=== PATIENT | male | born 1950 | race Caucasian/White ===

== ENCOUNTER 2020-05-31 12:30 | Outpatient (RCR) | payer MEDICARE, MEDICAID, SELFPAY ==
--- NOTE | 2020-03-15 13:53 | PTOPEVAL ---
PHYSICAL THERAPY EVALUATION AND PLAN OF TREATMENT 03-15-2020 The PT evaluation was completed and the plan of care is scheduled for 3x/week for 5 weeks. Thank you for referring Moreno Khan to [facility].? Please review, sign, date and return this plan of care RADHA. I agree with and certify that the following plan of care is medically necessary. Referring Physician Date Attending Provider: Bolivar Donald MD. *PT Outpatient Evaluation Start: 03/15/20 12:37 Document 03/15/20 12:30 CAROLYN (Rec: 03/15/20 13:52 CAROLYN [id number]) Therapy Assessment Status Assessment Status Assessment Status Evaluation Outpatient Past Medical History Past Medical History Source of Past Medical History Patient Neurological History Hx Other Neurological Disorders Yes: neuropathy in both legs Cardiovascular History Hx Atrial Fibrillation Yes: 3 cardiac ablations Hx Hypercholesterolemia Yes: take meds Hx Hypertension Yes: take meds Respiratory History Hx Sleep Apnea Yes: CPAP Gastrointestinal History Hx Other Gastrointestinal Disorders Yes: trying to get gastric bypass surgery-due COVID delayed Genitourinary History Hx Nephrectomy Yes: R kidney partial remove due cancer Hx Other Genitourinary Disorders Yes: stone bile duct-surgical stent R groin area Musculoskeletal History Hx Arthritis Yes: B hip OA Hematological History Hx Hematological Disorders No Significant History Endocrine History Hx Diabetes Yes: meds HEENT History Hx HEENT Disorders No Significant History Integumentary History Hx Cellulitis Yes Pain History Has Past Pain Affected Your Daily Life Yes History of Long-Term Prescription Pain Yes: oxycodone Medication Use (Opiates) Effective Methods of Pain Control Hip OA, R>L Other History Hx Cancer Yes: kidney cancer-R partial removal; no chemo,no radiation Hx Other Surgeries Yes: gall bladder removed; vascular surgery B LE's Evaluation Information Problem Diagnosis B LE lymphedema Onset February 25, 2020 Prior Level of Function Activity Level (Last 3 Months) Occupation not working, medically disabled Activity of Daily Living Ability Independent Indoor/Home Mobility Independent Community Mobility Independent Stairs Ability Independent Functional Cognition (Planning, Shopping Independent , Taking Medications) Cooking Yes Cleaning Yes Laundry No Shopping
--- NOTE | 2020-04-17 09:31 | PCPTNOTE ---
Pt called and stated he has multiple blisters on his ankle and needs to get into the wound care center.
--- NOTE | 2020-05-03 09:01 | PCPTNOTE ---
pt called and left message, is continuing to have wound care services for LE; he will call when d/c from wound care.
--- NOTE | 2020-05-31 15:42 | PTOPEVAL ---
PHYSICAL THERAPY RE-EVALUATION AND HOLD 05-31-2020 Moreno has received 10 PT sessions, for the diagnosis of B LE lymphedema. Treatment was completed for his L LE in March, then he had open wounds on R LE, so treatment for his R LE was not started and he attended wound care. The R LE wounds are healed and he returned today for assessment of his R LE. Refer to the clinical summary below. He is doing well with managing the lymphedema of his R LE, with the compression garments. Will plan to HOLD PT at this time, and his chart will be kept open for 2 weeks. He is to continue managing his lymphedema with assist of his son and caregiver, and to call if he has any additional needs or questions. Thank you for referring Moreno Khan to [facility].? Please review, sign, date and return this updated plan of care [facility]. I agree with and certify that the following plan of care is medically necessary. Referring Physician Date Attending Provider: Boliavr Donald M.D. Document 05/31/20 12:35 CAROLYN (Rec: 05/31/20 13:53 CAROLYN [id number]) Assessment Status Re-evaluation Subjective Information Moreno reports: going to get Query Text:As Reported By Patient/ scheduled for bariatric Family surgery in 4-6 weeks;and wants to have B hips replaced; then wants to go back to work; all wounds healed on R leg-- had blisters all over ankle; currently not taking any antibiotics; has helper once/ week to aid with removing leg garments and cleanse legs; helper was not available, so R leg garments have been on for 1 & 1/2 weeks; is going to have his son start helping him with legs--he just moved to the area; is going to order new [place] wraps and toe caps soon; L leg is doing well, staying small and no problems with it; Pain Assessment Timing of Pain Assessment Timing of Pain Assessment Assessment Pain Scale Pain Scale Used Numeric (1 - 10) Self Report Pain Assessment Bilateral Hip(s) Reported Pain Level 4 Pain Frequency Chronic Other Pain Description R leg- hip, knee and ankle/ foot Pain Score Pain Score 4: Self Report Interventions Used Interventions Used By Clinicians Education Lymphedema Evaluation Skin Inspection Location Right Lower Extremity Skin Observations Absence of Leg Hair,Lipedema Tissue Texture Firm Lymphedema Stage II Skin Inspection Comment -ridg
--- NOTE | 2020-06-21 11:50 | PCPTNOTE ---
PHYSICAL THERAPY DISCHARGE 06-21-20 Attending Provider: Bolivar Donald M.D. Patient:Moreno Khan Date of :1950 Mr. Khan has not returned for any further treatments since the reevaluation on 05/31/2020. He was doing well at the reevaluation and was to call if there were any other needs. No further contact from pt was received, therefore he will be discharged at this time. Thank you for referring Moreno to [facility]. Please review, sign, date and return this discharge summary RADHA. I have been updated about the patient's current status and I agree with discharge from the above service at this time. Referring Physician Date
== END 2020-06-13 23:59 | disposition home or self-care (01) ==
LOC: ANHPT 12:30
PROVIDERS: PCP Internal Medicine Infectious Disease; Visit Provider Internal Medicine Infectious Disease
DX: I89.0 Lymphedema, not elsewhere classified (principal)
CPT/HCPCS: 29581; 97140; 97161

== ENCOUNTER 2024-07-14 10:58 | Outpatient (CLI) | payer MEDICARE, SELFPAY ==
--- NOTE | ~2024-07-14 | XR_ITS ---
[id number] Ordering provider: Andrew Song, DPM History: . deformities of toes . Comparison: None. FINDINGS: BONES: No acute fracture or dislocation. Osteopenia of the bones. Hammertoes of the first toe is not excluded. JOINT SPACES: Narrowing of the proximal and distal interphalangeal joints. Narrowing of the first met atarsophalangeal joint. Narrowing of the tarsometatarsal joints. No tarsal coalition. SOFT TISSUES: Normal. Calcaneal spur and ossification of the insertion of the tendo Achilles. IMPRESSION: No acute osseous abnormality left foot. Osteopenia of the bones. Polyarticular osteoarthritic changes. Reviewed, dictated and finalized at location A.
--- OUTSIDE RECORDS SUMMARY | 2024-07-14 12:40 | XMS_ITS | Referral Summary ---
Author Organization [facility] Address [address] [place] [address] Care Team Providers Care Manager Global Communications Name Role Phone Bolivar Donald MD Primary Care Provider Radha Carvajal OT Unavailable Unavailable Bambi Gould OT Unavailable Unavailable Josefa Gracia OT Unavailable UnavailBelkis Hsu OT Unavailable UnavailBhumika Law OT Unavailable UnavailMayito Travis SENIOR PAINTER Unavailable Encounters Date Type Department Care Team Description 05/24/2024 7:17 AM SHANK SANDER - 05/24/2024 11:59 PM SHANK SANDER Hospital Encounter [facility] [address] [place] [address] Mayito Abdul NP termite inspector prescription opiate use (Primary Dx); Spinal stenosis of lumbar region with neurogenic claudication; Spondylosis of lumbar region without myelopathy or radiculopathy; Chronic bilateral low back pain, unspecified whether sciatica present; Primary osteoarthritis involving multiple joints; Diabetic polyneuropathy associated with type 2 diabetes mellitus (HCC); Myalgia; Bilateral hip pain; Chronic pain of both ankles Discharge Disposition: Discharge to home or self care from Last 3 Months Allergies Active Allergy Reactions Criticality Noted Date Comments Sulfa (Sulfonamide Antibiotics) Hives,Itching High Reaction: Hives, Itching, Tramadol Itching Low Medications PROAIR HFA 90 mcg/actuation inhaler PRN 8 Active fluticasone (FLONASE) 50 mcg/actuation nasal spray PRN 8 Active rosuvastatin (CRESTOR) 10 mg tablet daily 8 Active tamsulosin (FLOMAX) 0.4 mg extended release capsule 8 Active vitamin D3-vitamin K2 1000-90 unit-mcg tablet,disinteg rating Take 1,500 Int'l Units by mouth Active Eliquis 5 mg tablet 2 (two) times a day 1 Active metoprolol tartrate (LOPRESSOR) 50 mg immediate release tablet metoprolol tartrate 50 mg tablet Active omeprazole (PriLOSEC) 20 mg capsule Take by mouth daily 1 Active lisinopriL (PRINIVIL,ZESTR IL) 5 mg tablet Take 1 tablet (5 mg total) by mouth daily 1 Active lisinopriL (PRINIVIL,ZESTR IL) 10 mg tablet Take 1 tablet (10 mg total) by mouth daily 1 Active naloxone (NARCAN) 4 mg/actuation spray,non-aeros ol Call 911. Administer a single spray in one nostril. Repeat every 3 minutes as needed if no or minimal response. 1 each 1 3 Active calcium carbonate (OS-MARICRUZ) 1,500 mg (600 mg elemental) tablet Take by mouth 0 Active multivitamin capsule Take by mouth 7 Active cyanocobalamin, vitamin B-12, 5,000 mcg/mL drops Place 1 tablet under the tongue daily Active FeroSuL 325 mg (65 mg iron) tablet Take 1 tablet (325 mg total) by mouth 2 (two) times a day Active zolpidem (AMBIEN) 10 mg tablet Take 1 tablet (10 mg total) by mouth nightly Active melatonin tablet Take 1 tablet (3 mg total) by mouth nightly as needed Active doxycycline 100 mg tablet Take 1 tablet/capsule (100 mg total) by mouth 2 (two) times a day 4 Active oxyCODONE-aceta minophen (PERCOCET) 10-325 mg per tabletIndicatio ns:Pain Take 1 tablet by mouth every 8 (eight) hours as needed for pain 90 tablet 5 Active oxyCODONE-aceta minophen (PERCOCET) 10-325 mg per tabletIndicatio ns:Pain Take 1 tablet by mouth every 8 (eight) hours as needed for pain 90 tablet 5 07/26/19 Active Active Problems Problem Noted Date Diagnosed Date Chronic pain of both ankles 07/30/2022 Spondylosis of lumbar region without myelopathy or radiculopathy 04/09/2022 Lymphedema 04/09/2022 Morbid (severe) obesity due to excess calories 0 10/09/2021 Body mass index 40.0-44.9, adult ([facility]) 10/09 Bilateral hip pain 05/15/2021 Spinal stenosis of lumbar re gion with neurogenic claudication 06/22/2019 Radiculopathy, lumbosacral region 06/22/2019 jail prescription opiate use 09/18/2017 Other obesity due to excess calories 06/24/2017 Chronic bilateral low back pain 06/24/2017 Lower extremity edema 06/24/2017 Diabetic polyneuropathy asso ciated with type 2 diabetes mellitus 06/24/2017 Pain in joint involving multiple sites 8 Myalgia 06/24/2017 Primary osteoarthritis involving multiple joints 06/24/2017 History of partial nephrectomy 11/14/2016 Carcinoma of kidney 08/22/2015 Multiple pulmonary nodules 08/16/2015 Surgical follow-up care 12/16/2014 Lumbago 12/14/2014 Keratosis, senilis 11/09/2014 Skin tag 10/26/2014 Disorder of vein 10/26/2014 Venous stasis dermatitis 10/26/2014 Sebaceous cyst 10/26/2014 Microscopic hematuria 08/11/2014 Urolithiasis 08/11/2014 Resolved Problems Problem Noted Date Diagnosed Date Resolved Date Primary osteoarthritis of right hip 07/24/2017 07/30/2022 Immunizations Immunization Administration Dates Next Due Influenza, Quadrivalent, Spl it, Intramuscular 01/12/2019,02/06/2017,01/03/2016,01/31 Influenza, Quadrivalent, Spl it, Preservative Free, Intramuscular 04/28/2018 Pneumococcal Conjugate PCV 13 06/17/2017 Pneumococcal Polysaccharide PPV23 03/04/2014 Tdap 12/20/2010 Social History Tobacco Use Types Packs/Day Years Used Date Smoking Tobacco: Former Cigarettes Q uit: 1994 Smokeless Tobacco: Never Tobacco Cessation:Counseling Given: Not Answered Alcohol Use Standard Drinks/Week Comments Yes 1 (1 standard drink = 0.6 oz pur e alcohol) occassionally Sex and Gender Information Value Date Recorded Sex Assigned at Not on file Legal Sex Male 10:20 AM SHANK SANDER Gender Identity Male 03/20/2021 12:08 PM SHANK SANDER Sexual Orientation Straight 03/20/2021 12 :08 PM SHANK SANDER Last Filed Vital Signs Vital Sign Reading Time Taken Comments Blood Pressure 143/86 05/24/2024 7:48 AM SHANK SANDER Pulse 80 05/24/2024 7:48 AM SHANK SANDER Temperature 36.7 C (98.1 F) 12/20/2022 9:17 AM CDT Respiratory Rate 17 05/24/2024 7:48 AM SHANK SANDER Oxygen Saturation 99% 05/24/2024 7:48 AM SHANK SANDER Inhaled Oxygen Concentration - - Weight 123.2 kg (271 lb 11.2 oz) 2023 11:49 AM SHANK SANDER Height 182.9 cm (6' 0.01 ) 07/15/2023 1:21 PM CD T Body Mass Index 36.84 07/15/2023 1:21 PM CDT Plan of Treatment Not on file Goals Goal Patient Goal Type Associated Problems Recent Progress Patient-Stated? Author Increase physical activity Exercise Kyleigh Hinds, RN Note: He walks with a walker about 30 minutes per day. Procedures Procedure Name Priority Date/Time Associated Diagnosis Comments CT ABDOMEN PELVIS WO CONTRAST Schedule Routine, Read Routine (OP Routine) 12/20/2022 9:08 AM CDT Non-recurrent unilateral inguinal hernia without obstruction or gangrene PSA SCREEN Routine 12/28/2021 9:31 AM CDT Prostate cancer screening EGFR STAT 05/16/2017 3:20 PM SHANK SANDER HEMOGLOBIN A1C STAT 01/16/2017 11:30 AM CDT from Last 3 Months or Most Recently Relevant to Health Maintenance Results * CT Abdomen Pelvis WO Contrast (12/20/2022 9:08 AM CDT) Anatomical Region Laterality Modality Body N/A Computed Tomogra phy 12/20/2022 10:0 3 AM CDT Impressions 12/20/2022 10:03 AM CDT 1. Stable left greater than right fat-containing bilateral inguinal hernias. In addition and tiny fat-containing umbilical hernia as well as noted. Electronically signed by: Devora Crow M.D. Narrative 12/20/2022 10:03 AM CDT EXAMINATION: Computed tomography of the abdomen and pelvis without intravenous contrast HISTORY: Inguinal hernia TECHNIQUE: Transaxial computed tomographic images of the abdomen and pelvis were obtained without intravenous contrast according to the standard protocol. COMPARISON: 02/13/2019 CT FINDINGS: Stable visualized heart size. Mild atherosclerotic obscuration of the visualized thoracic aorta and coronary arteries. No pericardial effusion. Calcified left lower lobe granulomata. Unchanged 2 mm left lower lobe nodule (image 14), likely chronic inflammatory. Unremarkable unenhanced appearance of the liver, without biliary ductal dilatation. Postsurgical changes of prior cholecystectomy. Unremarkable spleen with adjacent splenules. Mild fatty replacement of the pancreas. Adrenal glands unremarkable. Postsurgical changes of previous partial right nephrectomy. No hydronephrosis or nephrocalcinosis. Ureters and urinary bladder unremarkable. Moderate streak artifact from bilateral total hip replacements partly limits evaluation of the pelvis. Moderate atherosclerotic obscuration than the nonaneurysmal abdominal aorta and branch vessels. There is an unchanged right common iliac venous stent. Post surgical changes of interval gastric bypass. Small to moderate residual hiatal hernia. Small bowel is otherwise unremarkable. Scattered uncomplicated colonic diverticulosis. No evidence of bowel obstruction or abnormal bowel wall thickening. No suspicious omental masses. No intra-abdominal free fluid or air. Small fat-containing umbilical hernia. Redemonstration of small fat-containing left greater than right inguinal hernias, not significantly changed from prior. Bilateral total hip replacements. Scattered degenerative changes in the visualized spine. No aggressive osseous lesion. Chronic healed right-sided rib fractures. Procedure Note Devora Crow MD - 12/20/2022 EXAMINATION: Computed tomography of the abdomen and pelvis without intravenous contrast HISTORY: Inguinal hernia TECHNIQUE: Transaxial computed tomographic images of the abdomen and pelvis were obtained without intravenous contrast according to the standard protocol. COMPARISON: 02/13/2019 CT FINDINGS: Stable visualized heart size. Mild atherosclerotic obscuration of the visualized thoracic aorta and coronary arteries. No pericardial effusion. Calcified left lower lobe granulomata. Unchanged 2 mm left lower lobe nodule (image 14), likely chronic inflammatory. Unremarkable unenhanced appearance of the liver, without biliary ductal dilatation. Postsurgical changes of prior cholecystectomy. Unremarkable spleen with adjacent splenules. Mild fatty replacement of the pancreas. Adrenal glands unremarkable. Postsurgical changes of previous partial right nephrectomy. No hydronephrosis or nephrocalcinosis. Ureters and urinary bladder unremarkable. Moderate streak artifact from bilateral total hip replacements partly limits evaluation of the pelvis. Moderate atherosclerotic obscuration than the nonaneurysmal abdominal aorta and branch vessels. There is an unchanged right common iliac venous stent. Post surgical changes of interval gastric bypass. Small to moderate residual hiatal hernia. Small bowel is otherwise unremarkable. Scattered uncomplicated colonic diverticulosis. No evidence of bowel obstruction or abnormal bowel wall thickening. No suspicious omental masses. No intra-abdominal free fluid or air. Small fat-containing umbilical hernia. Redemonstration of small fat-containing left greater than right inguinal hernias, not significantly changed from prior. Bilateral total hip replacements. Scattered degenerative changes in the visualized spine. No aggressive osseous lesion. Chronic healed right-sided rib fractures. IMPRESSION: 1. Stable left greater than right fat-containing bilateral inguinal hernias. In addition and tiny fat-containing umbilical hernia as well as noted. Electronically signed by: Devora Crow M.D. Easton Velarde MD IM CT PROCEDURES Final Result * PSA screen (12/28/2021 9:31 AM CDT) PSA-Total 2.28 <=5.40 ng/mL [facility] Comment: Interpretive Data AGE SEX REFERENCE INTERVAL 0 minutes-150 years Female None 0 minutes-49 years Male None 50-59 years Male 0-3.90 60-69 years Male 0-5.40 70-79 years Male 0-6.20 80-150 years Male 0-6.20 The Dionna PSA Total assay procedure was used. Results from different manufacturers or methods may not be comparable. Serial testing should be performed using the same method. Current interpretive data last revised 21. Blood 12/28/2021 9:31 AM CDT 12/28/2021 9:45 AM CDT us Shanice Farias SENIOR PAINTER LAB BLOOD ORDERABLES Fi nal Result Performing Organization Address [facility] Co de Phone Number [facility] Department [place] [address] * eGFR (05/16/2017 3:20 PM SHANK SANDER) eGFR 75 mL/min/1.7 3 m2 [facility] Comment: Interpretive Data Reference Interval Normal >/= 90 mL/min/1.73m2 Mildly decreased* 60 - 89 mL/min/1.73m2 Mildly to moderately decreased 45 - 59 mL/min/1.73m2 Moderately to severely decreased 30 - 44 mL/min/1.73m2 Severely decreased 15 - 29 mL/min/1.73m2 Kidney Failure < 15 mL/min/1.73m2 *Relative to young adult level If -Moroc[place] multiply value by 1.16. Estimated glomerular filtration rate is determined by the CKD-EPI equation recommended by the National Kidney Foundation (KDIGO 2012 Clinical Practice Guideline for the Evaluation and Management of Chronic Kidney Disease. Kidney Intnl Suppl Apr 2012;3:1). The CKD-EPI equation should not be used for patients with unstable renal function and has not been validated in children and those over 70. Current interpretive data was last reviewed 2016. Blood specimen (specimen) 05/16/2017 3:20 PM SHANK SANDER 05/16/2017 3:20 PM SHANK SANDER Narrative [facility] - 05/16/2017 3:46 PM SHANK SANDER us Rodrick Hilliard DO LAB BLOOD ORDERABLES Final Res ult Performing Organization Address City/[facility]/ZIP Co de Phone Number [facility] [address] Department [place] [address] * Hemoglobin A1c (01/16/2017 11:30 AM CDT) Hgb A1C 5.8 4.0 - 6.0 % [facility] Blood specimen (specimen) 01/16/2017 11:30 AM CDT 01/16/2017 11:50 AM CDT Sushant Miles MD LAB BLOOD ORDERABLES Final Result [facility] [address] Department [place] [address] from Last 3 Months or Most Recently Relevant to Health Maintenance Insurance UHC MEDICARE ADVANTAGE IDPA [facility] MEDICARE ADVANTAGE IDPA [facility] MEDICARE ADVANTAGE IDPA Care Teams Manager Global Communications Relationship Specialty [place] [address] [place] [id number] PCP - General 08/23/16 Radha Carvajal, OT Occupational Therapist Occupational Therapy 05/28/17 Bambi Gould, OT Occupational Therapist Occupational Therapy 06/02/17 Josefa Gracia, OT Occupational Therapist Occupational Therapy 06/16/17 Belkis Alexandra, OT Occupational Therapist Occupational Therapy 06/20/17 Bhumika Rodriguez, OT Occupational Therapist Occupational Therapy 06/30/17 [place] [id number] [place] [address] Nurse Practitioner Pain Management 12/25/23
--- OUTSIDE RECORDS SUMMARY | 2024-07-14 12:40 | XMS_ITS ---
Author Organization [facility] Address [address] [place] [address] Care Team Providers Care Maintenance Dispatcher Name Role Phone Bolivar Donald MD Primary Care Provider Radha Carvajal OT Unavailable Unavailable Bambi Gould OT Unavailable Unavailable Josefa Gracia OT Unavailable UnavailBelkis Hsu OT Unavailable UnavailBhumika Law OT Unavailable UnavailMayito Travis PROFESSOR OF MUSIC Unavailable [phone] Active Problems Problem Noted Date Diagnosed Date Chronic pain of both ankles 07/30/2022 Spondylosis of lumbar region without myelopathy or radiculopathy 04/09/2022 Lymphedema 04/09/2022 Morbid (severe) obesity due to excess calories 0 10/09/2021 Body mass index 40.0-44.9, adult ([facility]) 10/09 Bilateral hip pain 05/15/2021 Spinal stenosis of lumbar re gion with neurogenic claudication 06/22/2019 Radiculopathy, lumbosacral region 06/22/2019 intermediate designer prescription opiate use 09/18/2017 Other obesity due [...] cyst 10/26/2014 Microscopic hematuria 08/11/2014 Urolithiasis 08/11/2014 Current Treatment and Therapy Plans No current plan information found. Past Treatment and Therapy Plans No past plan information found. Lifetime Dose Tracking * Chemical Lifetime Dose Automatic Entry Manual Entr y Fluoro Time 4.22 minutes 4.22 minutes 0 minutes Air kerma at the reference point (Ka,r) 235.26 mGy 2 35.26 mGy 0 mGy DLP 4,118 mGycm 4,118 mGycm 0 mGycm Resolved Problems Problem Noted Date Diagnosed Date Resolved Date Primary osteoarthritis of right hip 07/24/2017 07/30/2022
--- OUTSIDE RECORDS SUMMARY | 2024-07-14 12:40 | XMS_ITS | CONTINUITY OF CARE DOCUMENT ---
Author Name bharathdomenico, bharathjosyaida Address Unknown Organization [facility] [address] Address [address] [address] [facility] [address] [place] [address] Phone [phone] Care Team Providers Care Logging Engineer Name Role Phone Wood Peacock MD Unavailable BERNADETTE AGUIRRE MD Unavailable [phone] BERNADETTE AGUIRRE MD Unavailable PROBLEMS Condition Status Date Provider Notes PVD active Venita Hart RN Shortness of breath active Morro Buck HTN ESSENTIAL-06/30 NUC NEG active ? Madhu bravo RN ATRIAL FIB-08/29 ECHO MOD LAE RVSP 34 EF 50 active ? Madhu Elkins RN EDEMA active Wood Peacock MD OBESITY active Wood Peacock MD SLEEP APNEA active Wood Peacock MD Tobacco use, quit active Maria Teresa Machado MD Long-term use of high risk med active Carmen Machado MD Amiodarone Venous hypertension - BLE wi th ulcer active Shaun Isabel MD Lymphedema - secondary active Oksana Gaspar son RN Leg pain active Paul De Souza Diabetes, Type 2 active Shaun Isabel MD Dizziness active Dai Abraham NP ENCOUNTERS Date Type Provider Location Encounter Diag nosis - In-person encounter Office Visit Wood Peacock MD [facility] Dizziness - In-person encounter Office Visit Wood Peacock MD [facility] - In-person encounter Office Visit Wood Peacock MD [facility] - In-person encounter Office Visit Wood Peacock MD [facility] - In-person encounter Office Visit Wood Peacock MD [facility] - In-person encounter Office Visit Wood Peacock MD [facility] - In-person encounter Office Visit Wood Peacock MD [facility] - In-person encounter Office Visit Wood Peacock MD [facility] - In-person encounter Office Visit Wood Peacock MD [facility] - In-person encounter Office Visit Wood Peacock MD [facility] - In-person encounter Office Visit Wood Peacock MD [facility] - In-person encounter Office Visit Wood Peacock MD [facility] - In-person encounter Office Visit Wood Peacock MD [facility] - In-person encounter Office Visit Wood Peacock MD [facility] - In-person encounter Office Visit Wood Peacock MD [facility] - In-person encounter Office Visit Wood Peacock MD [facility] - In-person encounter Office Visit Sha[facility] Diabetes, Type 2 - In-person encounter Office Visit Maria Teresa Machado MD [facility] Leg pain - In-person encounter Office Visit Shaun Isabel MD [facility] Lymphedema - secondary - In-person encounter Office Visit Wood Peacock MD [facility] - In-person encounter Office Visit Maria Teresa Machado MD [facility] Office - In-person encounter Office Visit Maria Teresa Machado MD [facility] - In-person encounter Office Visit Maria Teresa Machado MD [facility] - In-person encounter Office Visit Shaun Isabel MD [facility] Office - In-person encounter Office Visit Shaun Isabel MD [facility] Office - In-person encounter Office Visit Maria Teresa Machado MD [facility] - In-person encounter Office Visit Shaun Isabel MD [facility] Venous hypertension - BLE with ulcer - In-person encounter Office Visit Maria Teresa Machado MD [facility] - In-person encounter Office Visit Wood Peacock MD [facility] - In-person encounter Office Visit Maria Teresa Machado MD [facility] Long-term use of high risk med - In-person encounter Office Visit Maria Teresa Machado MD [facility] Tobacco use, quit - In-person encounter Office Visit Wood Peacock MD [facility] - In-person encounter Office Visit Wood Peacock MD [facility] - In-person encounter Office Visit Wood Peacock MD [facility] - In-person encounter Office Visit Wood Peacock MD [facility] - In-person encounter Office Visit Wood Peacock MD [facility] OBESITYSLEEP APNEA - In-person encounter Office Visit Wood Peacock MD [facility] HTN ESSENTIAL-06/30 NUC NEGATRIAL FIB-08/29 ECHO MOD LAE RVSP 34 EF 50EDEMA VITAL SIGNS Date Observation Value Provider Body Mass Index (Ratio) 38.11 kg/m2 Luis Miguel Peacock MD blood pressure, diastolic 101 mm[Hg] Aurora persaud [facility] blood pressure, systolic 158 mm[Hg] Rosario [facility]st [facility] oxygen saturation, oximetry 98 % Isamar [facility] pulse rate 93 /min Isamar [facility] blood pressure, cuff size regular Aurora persaud [facility] weight E&M 281 [lb_av] Isamar [facility] height E&M 72 [in_i] [facility] Body Mass Index (Ratio) 39.19 kg/m2 Luis Miguel Peacock MD blood pressure, diastolic 83 mm[Hg] Lior maxwell Samson blood pressure, systolic 123 mm[Hg] Parisa baeza [place] oxygen saturation, oximetry 98 % Sallie [place] pulse rate 93 /min [facility] E&M 14 /min [facility] weight E&M 289 [lb_av] [facility] height E&M 72 [in_i] [facility] blood pressure, cuff size regular An alissa Samson Body Mass Index (Ratio) 23.19 kg/m2 Sly da Ventimiglia ANALYTICAL SCIENTIST blood pressure, diastolic 95 mm[Hg] Li nkLogic blood pressure, systolic 156 mm[Hg] Dori kLogic blood pressure, cuff size regular Co ri Elijah blood pressure, diastolic 95 mm[Hg] Co ri Elijah blood pressure, systolic 156 mm[Hg] Cor i Elijah oxygen saturation, oximetry 98 % Heather Elijah pulse rate 90 /min Heather Elijah weight E&M 171 [lb_av] Heather Elijah respiratory rate E&M 20 /min Heather Lewis height E&M 72 [in_i] Heather Elijah Body Mass Index (Ratio) 40.68 kg/m2 Luis Miguel Peacock MD blood pressure, cuff size regular Mariza [facility] blood pressure, diastolic 86 mm[Hg] [facility] blood pressure, systolic 130 mm[Hg] Andrea [facility] pulse rate 98 /min [facility] oxygen saturation, oximetry 97 % [facility] respiratory rate E&M 16 /min Mckenna Torres susan weight E&M 300 [lb_av] [facility] height E&M 72 [in_i] [facility] Body Mass Index (Ratio) 39.73 kg/m2 Luis Miguel Peacock MD blood pressure, diastolic 89 mm[Hg] Ania pizarroeryn [place] blood pressure, systolic 144 mm[Hg] Antonio basileryn [place] oxygen saturation, oximetry 98 % Frieda [facility] [place] pulse rate 62 /min Frieda estrada respiratory rate E&M 16 /min Apple [place] blood pressure, cuff size large Ania pizarroeryn [place] weight E&M 293 [lb_av] Frieda estrada height E&M 72 [in_i] Frieda estrada Body Mass Index (Ratio) 38.78 kg/m2 Luis Miguel Peacock MD blood pressure, diastolic -1 mm[Hg] Ada nkLoglouise blood pressure, systolic 135 mm[Hg] Dori kLoglouise blood pressure, diastolic 73 mm[Hg] St harsh Velasquez blood pressure, systolic 135 mm[Hg] Cristino Velasquez oxygen saturation, oximetry 98 % Annie Velasquez pulse rate 98 /min Annie Torres n respiratory rate E&M 16 /min Yassine Velasquez weight E&M 286 [lb_av] Wood Estrada height E&M 72 [in_i] Annie Torres n blood pressure, cuff size large St harsh Harrisman Body Mass Index (Ratio) 40.82 kg/m2 Luis Miguel Peacock MD blood pressure, cuff size large Ania jarrett [place] blood pressure, diastolic 100 mm[Hg] Ania jarrett Rj blood pressure, systolic 150 mm[Hg] Antonio rowdy Rj oxygen saturation, oximetry 99 % Frieda [facility] [place] respiratory rate E&M 16 /min Apple [place] pulse rate 88 /min Frieda estrada weight E&M 301 [lb_av] Frieda estrada height E&M 72 [in_i] Frieda estrdaa Body Mass Index (Ratio) 41.74 kg/m2 Luis Miguel Peacock MD blood pressure, diastolic 80 mm[Hg] Li nkLoglouise blood pressure, systolic 134 mm[Hg] Dori kLogic blood pressure, diastolic 80 mm[Hg] Christine Feldman blood pressure, systolic 134 mm[Hg] Gifty Feldman oxygen saturation, oximetry 96 % Steven Feldman respiratory rate E&M 16 /min Farideh Feldman pulse rate 85 /min Steven [place] weight E&M 307.8 [lb_av] Steven smith height E&M 72 [in_i] Steven [place] Body Mass Index (Ratio) 50.85 kg/m2 Luis Miguel Peacock MD blood pressure, diastolic 60 mm[Hg] Cy ntgeovanna Lott blood pressure, systolic 135 mm[Hg] Michelle deisya Lott blood pressure, cuff size regular Cy ntgeovanna Lott pulse rate 76 /min Farzana Campbel l oxygen saturation, oximetry 92 % Farzana Lott respiratory rate E&M 18 /min Farzana Lott weight E&M 375 [lb_av] Farzana Campbel l height E&M 72 [in_i] Farzana Campbel l Body Mass Index (Ratio) 50.18 kg/m2 Luis Miguel Peacock MD blood pressure, cuff size regular Cy ntgeovanna Lott blood pressure, diastolic 92 mm[Hg] Cy nthia Lott blood pressure, systolic 152 mm[Hg] Michelle deisya Lott pulse rate 68 /min Farzana Campbel l respiratory rate E&M 16 /min Farzana Oltt oxygen saturation, oximetry 94 % Farzana Lott weight E&M 370 [lb_av] Farzana Campbel l height E&M 72 [in_i] Farzana Campbel l Body Mass Index (Ratio) 49.23 kg/m2 Luis Miguel Peacock MD blood pressure, cuff size regular Cy ntgeovanna Lott blood pressure, diastolic 78 mm[Hg] Cy nthia Lott blood pressure, systolic 144 mm[Hg] Michelle deisya Lott respiratory rate E&M 20 /min Farzana Lott oxygen saturation, oximetry 97 % Farzanavalerie Lott pulse rate 117 /min Farzana Campbel l weight E&M 363 [lb_av] Farzana Campbel l height E&M 72 [in_i] Farzana Fowler l Body Mass Index (Ratio) 47.46 kg/m2 Luis Miguel Peacock MD blood pressure, diastolic 71 mm[Hg] Christine Woodwardenson blood pressure, systolic 141 mm[Hg] Gifty Feldman oxygen saturation, oximetry 97 % Steven Feldman respiratory rate E&M 20 /min Farideh Feldman pulse rate 60 /min Steven [place] weight E&M 350 [lb_av] Steven [place] height E&M 72 [in_i] Steven [place] blood pressure, cuff size regular Ke rrbecky Alfaro blood pressure, diastolic 75 mm[Hg] Ke rrbecky Alfaro blood pressure, systolic 169 mm[Hg] Annmarie Alfaro oxygen saturation, oximetry 95 % Briseida Alfaro respiratory rate E&M 18 /min Briseida brito pulse rate 56 /min Briseida Pineda lder height E&M 72 [in_i] Briseida Pineda lder Body Mass Index (Ratio) 52.35 kg/m2 Luis Miguel Peacock MD weight E&M 386 [lb_av] Ludy Samson pulse rate 63 /min Ludy Samson respiratory rate E&M 17 /min Ludy mcguire oxygen saturation, oximetry 97 % Ludy Samson blood pressure, diastolic 80 mm[Hg] Krunal Samson blood pressure, systolic 135 mm[Hg] Ludy Samson blood pressure, resting Yes Ludy Samson height E&M 72 [in_i] Ludy Samson Body Mass Index (Ratio) 53.35 kg/m2 Luis Miguel Peacock MD blood pressure, diastolic 54 mm[Hg] Christine Feldman blood pressure, systolic 125 mm[Hg] Gifty Feldman oxygen saturation, oximetry 96 % Steven Feldman respiratory rate E&M 20 /min Farideh Feldman pulse rate 66 /min Steven [place] weight E&M 393.4 [lb_av] Steven smith height E&M 72 [in_i] Steven [place] blood pressure, diastolic 70 mm[Hg] Christine rhettAliciavikash Gaston blood pressure, systolic 126 mm[Hg] Gifty Feldman pulse rate 64 /min Steven [place] oxygen saturation, oximetry 98 % Steven Feldman respiratory rate E&M 20 /min Farideh Feldman Body Mass Index (Ratio) 52.26 kg/m2 Shayla Feldman weight E&M 385.4 [lb_av] Steven smith blood pressure, diastolic, left arm 70 mm [Hg] Nikki Jun blood pressure, systolic, left arm 132 mm [Hg] [facility], diastolic, right arm 66 m m[Hg] Nikki Jun blood pressure, systolic, right arm 128 m m[Hg] Nikki Jun blood pressure, diastolic 66 mm[Hg] Luis rodriguez Jun blood pressure, systolic 128 mm[Hg] Jon heck Jun pulse rate 55 /min Nikki Jun oxygen saturation, oximetry 96 % Nikki Jun respiratory rate E&M 18 /min Nikki Jun Body Mass Index (Ratio) 52.05 kg/m2 Miguel A Barahona weight E&M 383.8 [lb_av] Nikki lux blood pressure, diastolic 56 mm[Hg] Christine Feldman blood pressure, systolic 120 mm[Hg] Gifty Feldman pulse rate 56 /min Steven montana oxygen saturation, oximetry 98 % Steven Feldman respiratory rate E&M 18 /min Farideh Feldman Body Mass Index (Ratio) 51.14 kg/m2 Shayla Feldman weight E&M 377.1 [lb_av] Steven smith blood pressure, diastolic 74 mm[Hg] Oneil wade [place] blood pressure, systolic 124 mm[Hg] Quinn molina [place] pulse rate 71 /min Barbara Whitehead oxygen saturation, oximetry 97 % Barbara Whitehead respiratory rate E&M 18 /min Barbara Whitehead Body Mass Index (Ratio) 50.45 kg/m2 Zeynep davy [place] weight E&M 372 [lb_av] Barbara Ventura blood pressure, diastolic 62 mm[Hg] Michael Alfaro blood pressure, systolic 174 mm[Hg] Annmarie Alfaro pulse rate 69 /min Briseida toledo oxygen saturation, oximetry 96 % Briseida Alfaro respiratory rate E&M 16 /min Briseida brito Body Mass Index (Ratio) 51.94 kg/m2 Aracelis Alfaro weight E&M 383 [lb_av] Briseida Pineda lder blood pressure, diastolic 70 mm[Hg] Da rory Hurd blood pressure, systolic 150 mm[Hg] Fidencio Hurd pulse rate 58 /min Venita Hurd oxygen saturation, oximetry 97 % Venita Hurd respiratory rate E&M 20 /min Yayo Hurd Body Mass Index (Ratio) 52.21 kg/m2 Tyron Hurd weight E&M 385 [lb_av] Venita Hurd blood pressure, diastolic 75 mm[Hg] Christine Feldman blood pressure, systolic 138 mm[Hg] Gifty Feldman pulse rate 62 /min Steven montana oxygen saturation, oximetry 96 % Steven Feldman respiratory rate E&M 18 /min Farideh Feldman Body Mass Index (Ratio) 51.53 kg/m2 Shayla Feldamn weight E&M 380 [lb_av] Steven montana blood pressure, diastolic 82 mm[Hg] Christine Feldman blood pressure, systolic 132 mm[Hg] Gifty Feldman pulse rate 74 /min Steven montana oxygen saturation, oximetry 96 % Steven Feldman respiratory rate E&M 18 /min Farideh Feldman Body Mass Index (Ratio) 51.56 kg/m2 Shayla Feldman weight E&M 380.2 [lb_av] Steven smith blood pressure, diastolic, left arm 70 mm [Hg] Radha O'Felipe blood pressure, systolic, left arm 110 mm [Hg] Radha O'Felipe blood pressure, diastolic, right arm 72 m m[Hg] Radha O'Felipe blood pressure, systolic, right arm 112 m m[Hg] Radha O'Felipe blood pressure, diastolic 70 mm[Hg] Christine peralta O'Felipe blood pressure, systolic 110 mm[Hg] Mar gianluca O'Felipe pulse rate 70 /min Radha O'Felipe oxygen saturation, oximetry 98 % Radha O'Felipe respiratory rate E&M 18 /min Radha O'Felipe Body Mass Index (Ratio) 51.53 kg/m2 Hansel harris O'Felipe weight E&M 380 [lb_av] Radha O'Felipe respiratory rate E&M 18 /min Gauri Mortensen blood pressure, diastolic 68 mm[Hg] Wi stuart Mortensen blood pressure, systolic 112 mm[Hg] Bere valiente Festus pulse rate 72 /min Gauri Festus oxygen saturation, oximetry 98 % Gauri Festus Body Mass Index (Ratio) 50.31 kg/m2 Rossana Mortensen weight E&M 371 [lb_av] Gauri Festus blood pressure, diastolic 88 mm[Hg] Christine Feldman blood pressure, systolic 157 mm[Hg] Gifty Feldman pulse rate 85 /min Steven montana oxygen saturation, oximetry 95 % Steven Feldman respiratory rate E&M 20 /min Farideh Feldman Body Mass Index (Ratio) 51.18 kg/m2 Shayla Feldman weight E&M 377.4 [lb_av] Steven smith blood pressure, diastolic 60 mm[Hg] Christine peralta O'Felipe blood pressure, systolic 118 mm[Hg] Gifty hough O'Felipe pulse rate 83 /min Radha O'Felipe oxygen saturation, oximetry 97 % Radha O'Felipe respiratory rate E&M 16 /min Radha O'Felipe Body Mass Index (Ratio) 48.14 kg/m2 Hansel harris O'Felipe weight E&M 355 [lb_av] Radha O'Felipe blood pressure, diastolic 73 mm[Hg] Christine Feldman blood pressure, systolic 131 mm[Hg] Gifty Feldman pulse rate 62 /min Steven montana oxygen saturation, oximetry 97 % Steven Feldman respiratory rate E&M 18 /min Farideh Feldman Body Mass Index (Ratio) 48.98 kg/m2 Shayla Feldman weight E&M 361.2 [lb_av] Steven smith blood pressure, diastolic 68 mm[Hg] Christine Feldman blood pressure, systolic 128 mm[Hg] Gifty Feldman pulse rate 58 /min Steven montana oxygen saturation, oximetry 98 % Steven Feldman respiratory rate E&M 18 /min Farideh Feldman Body Mass Index (Ratio) 49.06 kg/m2 Shayla Feldman weight E&M 361.8 [lb_av] Steven smith blood pressure, diastolic 60 mm[Hg] Wi stuart blood pressure, systolic 132 mm[Hg] Bere steffanie pulse rate 64 /min Gauri oxygen saturation, oximetry 97 % Gauri Georges respiratory rate E&M 16 /min Gauri Georges Body Mass Index (Ratio) 49.50 kg/m2 Rossana ssa Georges weight E&M 365 [lb_av] Gauri Georges blood pressure, diastolic 58 mm[Hg] Wi stuart blood pressure, systolic 139 mm[Hg] Bere steffanie Georges pulse rate 90 /min Gauri Georges oxygen saturation, oximetry 97 % Gauri Georges respiratory rate E&M 15 /min Gauri Georges Body Mass Index (Ratio) 49.09 kg/m2 Rossana ssa Georges weight E&M 362 [lb_av] Gauri Georges blood pressure, diastolic 74 mm[Hg] Christine Feldman blood pressure, systolic 123 mm[Hg] Gifty Feldman pulse rate 84 /min Steven montana oxygen saturation, oximetry 98 % Steven Feldman respiratory rate E&M 18 /min Farideh Feldman Body Mass Index (Ratio) 49.09 kg/m2 Shayla Feldman weight E&M 362 [lb_av] Steven montana blood pressure, diastolic 77 mm[Hg] Christine Feldman blood pressure, systolic 128 mm[Hg] Gifty Feldman Body Mass Index (Ratio) 48.06 kg/m2 Shayla Feldman pulse rate 102 /min Steven montana oxygen saturation, oximetry 95 % Steven Feldman respiratory rate E&M 20 /min Farideh Feldman weight E&M 354.4 [lb_av] Steven roberton blood pressure, diastolic 83 mm[Hg] Srini Elkins RN blood pressure, systolic 117 mm[Hg] Madhu Elkins RN pulse rate 84 /min Madhu Elkins RN oxygen saturation, oximetry 98 % Madhu Elkins RN respiratory rate E&M 18 /min Madhu nur RN Body Mass Index (Ratio) 46.82 kg/m2 Madhu Elkins RN weight E&M 344 [lb_av] Madhu Elkins RN pulse rate 120 /min Madhu Elkins RN oxygen saturation, oximetry 98 % Madhu Elkins RN respiratory rate E&M 16 /min Madhu nur RN Body Mass Index (Ratio) 29.84 kg/m2 Madhu Elkins RN weight E&M 319.2 [lb_av] Wood Peacock MD height E&M 72 [in_i] Madhu Elkins RN blood pressure, diastolic 80 mm[Hg] We moy Cesar blood pressure, systolic 134 mm[Hg] Constanza Guerrero pulse rate 96 /min Jazzy Cesar oxygen saturation, oximetry 97 % Jazzy Cesar respiratory rate E&M 16 /min Jazzy bergman weight E&M 346 [lb_av] Jazzy Cesar blood pressure, diastolic 81 mm[Hg] Servinkory Mariana blood pressure, systolic 132 mm[Hg] [place] pulse rate 87 /min Hebert Peña oxygen saturation, oximetry 98 % Villalouloulior Mariana respiratory rate E&M 18 /min Villalouloulior Mariana weight E&M 347 [lb_av] Villalouloulior Mariana ALLERGIES Allergy Name Onset Date Reaction Criticality Status TRAMADOL High Criticality active SULFA Low Criticality active RESULTS Date Observation Value Provider Reference Range Interpretation Location very low density lipoproteins 17.4 mg/dL Link[facility] 5.0 - 40.0 LDL/HDL (low-density lipoprotein/high-de nsity lipoprotein) ratio 1.7 RATIO [facility] - lipoprotein, beta, serum, point, quantitative, calculated 88.6 (?) [facility] 0.0 - 100.0 HDL cholesterol, serum 52.0 mg/dL [facility] 35.0 - 55.0 cholesterol, serum 158.0 mg/dL [facility] 0.0 - 200.0 triglyceride, serum, fasting 87.0 mg/dL [facility] 0.0 - 150.0 urea nitrogen/creatinine ratio, serum 16.7 [facility] - Estimated Glomerular Filtration Rate (calc) 65.0 (?) [facility] 59.0 - chloride, serum 101.0 mmol/L [facility] 98.0 - 107.0 potassium, serum 3.9 mmol/L [facility] 3.5 - 5.1 sodium, serum 142.0 [facility]/L [facility] 136[facility] - 145.0 creatinine, serum 1.2 mg/dL LinkLog 0.7 - 1.2 carbon dioxide, venous blood 25.0 mmol/L [facility] 23.0 - 31.0 calcium, serum 9.5 mg/dL LinkLog 8.6 - 10.2 urea nitrogen, blood 20.0 mg/dL [facility] 8.0 - 23.0 blood glucose, random 144.0 mg/dL [facility] 74.0 - 99.0 High red blood cell distribution width, size density 50.9 fL [facility] - immature granulocytes, percentage of total cells, blood 0.5 % [facility] - nucleated red blood cells as percent of blood leukocytes 0.0 % [facility] - red blood cell (erythrocyte) count, per high power field 0.0 10*3/UL [facility] - eosinophils as percent of blood leukocytes 1.9 % [facility] - neutrophils as percent of blood leukocytes 77.2 % [facility] - Absolute Neutrophils 6.5 CELLS/UL [facility] 1.5 - 7.8 basophils as percent of blood leukocytes 0.6 % [facility] - Absolute Basophils 0.1 CELLS/UL [facility] 0.0 - 0.2 monocytes as percent of blood leukocytes 5.6 % [facility] - Absolute Monocytes 0.5 CELLS/UL [facility] 0.2 - 1.0 lymphocytes as percent of blood leukocytes 14.2 % [facility] - Absolute Lymphocytes 1.2 CELLS/UL [facility] 0.9 - 3.9 mean platelet volume 11.0 (?) [facility] - platelet count 168.0 THOUSAND/ UL [facility] 100.0 - 400.0 mean corpuscular hemoglobin concentration, RBC 32.2 G/DL [facility] 31.0 - 38.0 mean corpuscular hemoglobin, RBC 29.7 pg [facility] 25.0 - 35.0 mean corpuscular volume, RBC 92.3 fL [facility] 75.0 - 100.0 hematocrit, blood 44.1 % [facility] 35.0 - 55.0 hemoglobin, blood 14.2 g/dL [facility] 11.5 - 16.5 erythrocyte count, whole blood 4.8 MILLION/U L [facility] 3.5 - 5.5 prothrombin time (patient) 11.4 s [facility] 9.0 - 11.5 international normalized ratio (INR) 1.0 [facility] 0.9 - 1.1 pro brain natriuretic peptide 164.5 pg/mL [facility] 0.0 - 125.0 High anion gap, serum 12.6 [facility] - albumin/globulin ratio, serum 2.2 g/dL [facility] 1.1 - 2.5 globulin, serum 3.2 [facility] 2.3 - 3.8 urea nitrogen/creatinine ratio, serum 12.9 [facility] - Estimated Glomerular Filtration Rate (calc) 54.4 (?) [facility] 59.0 - Low chloride, serum 99.4 mmol/L [facility] 98.0 - 107.0 potassium, serum 4.1 mmol/L [facility] 3.5 - 5.1 sodium, serum 139.0 mmol/L [facility] 136.0 - 145.0 creatinine, serum 1.4 mg/dL [facility] 0.7 - 1.2 High carbon dioxide, venous blood 27.0 mmol/L [facility] 23.0 - 31.0 albumin, serum 4.0 g/dL [facility] 3.5 - 5.2 calcium, serum 9.1 mg/dL [facility] 8.6 - 10.2 aspartate aminotransferase (SGOT), serum 15.0 1/L [facility] 0.0 - 40.0 alkaline phosphatase, serum 84.0 1/L [facility] 40.0 - 130.0 alanine aminotransferase (SGPT), serum 31.0 1/L [facility] 0.0 - 41.0 protein, total, serum 7.2 g/dL [facility] 6.6 - 8.7 bilirubin, serum, total 0.4 mg/dL LinkLog 0.0 - 1.2 urea nitrogen, blood 18.0 mg/dL [facility] 8.0 - 23.0 blood glucose, random 146.0 mg/dL [facility] 74.0 - 99.0 High red blood cell distribution width, size density 51.1 fL [facility] - immature granulocytes, percentage of total cells, blood 0.7 % [facility] - nucleated red blood cells as percent of blood leukocytes 0.3 % [facility] - red blood cell (erythrocyte) count, per high power field 0.0 10*3/UL [facility] - eosinophils as percent of blood leukocytes 1.7 % [facility] - neutrophils as percent of blood leukocytes 75.5 % [facility] - Absolute Neutrophils 7.2 CELLS/UL [facility] 1.5 - 7.8 basophils as percent of blood leukocytes 0.6 % [facility] - Absolute Basophils 0.1 CELLS/UL [facility] 0.0 - 0.2 monocytes as percent of blood leukocytes 7.1 % [facility] - Absolute Monocytes 0.7 CELLS/UL [facility] 0.2 - 1.0 lymphocytes as percent of blood leukocytes 14.4 % [facility] - Absolute Lymphocytes 1.4 CELLS/UL [facility] 0.9 - 3.9 mean platelet volume 9.7 (?) [facility] - platelet count 246.0 THOUSAND/ UL [facility] 100.0 - 400.0 mean corpuscular hemoglobin concentration, RBC 31.8 G/DL [facility] 31.0 - 38.0 mean corpuscular hemoglobin, RBC 29.5 pg [facility] 25.0 - 35.0 mean corpuscular volume, RBC 92.7 fL [facility] 75.0 - 100.0 hematocrit, blood 40.9 % [facility] 35.0 - 55.0 hemoglobin, blood 13.0 g/dL [facility] 11.5 - 16.5 erythrocyte count, whole blood 4.4 MILLION/U L [facility] 3.5 - 5.5 red blood cell distribution width, size density 50.3 fL [facility] - immature granulocytes, percentage of total cells, blood 0.3 % [facility] - nucleated red blood cells as percent of blood leukocytes 0.0 % [facility] [facility] - red blood cell (erythrocyte) count, per high power field 0.0 10*3/UL [facility] percent of blood leukocytes 1.9 % [facility] percent of blood leukocytes 71.6 % [facility] - Absolute Neutrophils 6.2 CELLS/UL [facility] 1.5 - 7.8 basophils as percent of blood leukocytes 0.7 % [facility] Basophils 0.1 CELLS/UL [facility] 0.0 - 0.2 monocytes as percent of blood leukocytes 5.2 % [facility] - Absolute Monocytes 0.5 CELLS/UL [facility] 0.2 - 1.0 lymphocytes as percent of blood leukocytes 20.3 % [facility] - Absolute Lymphocytes 1.7 CELLS/UL [facility] 0.9 - 3.9 mean platelet volume 10.8 (?) [facility] - platelet count 210.0 THOUSAND/ UL [facility] 100.0 - 400.0 mean corpuscular hemoglobin concentration, RBC 32.1 G/DL [facility] 31.0 - 38.0 mean corpuscular hemoglobin, RBC 29.4 pg [facility] 25.0 - 35.0 mean corpuscular volume, RBC 91.7 fL [facility] 75.0 - 100.0 hematocrit, blood 43.0 % [facility] 35.0 - 55.0 hemoglobin, blood 13.8 g/dL [facility] 11.5 - 16.5 erythrocyte count, whole blood 4.7 MILLION/U L [facility] 3.5 - 5.5 international normalized ratio (INR) 1.3 Madhu Elkins RN Normal prothrombin time (patient) 15.8 s Madhu Elkins RN international normalized ratio (INR) 2.3 Gauri Georges Normal prothrombin time (patient) 27.4 s Gauri Mcdonoughann coagulation managed by Madhu Elkins RN international normalized ratio (INR) 2.2 Briseida Grueneashleyer Normal prothrombin time (patient) 27.0 s Briseida Gralfonsoneashleyer coagulation managed by Madhu Elkins RN international normalized ratio (INR) 3.4 Briseida Gruenenfmagdier Normal prothrombin time (patient) 40.6 s Briseida Gruenenfmagdier coagulation managed by Madhu Elkins RN international normalized ratio (INR) 2.1 Briseida Gruenenfelder Normal prothrombin time (patient) 25.0 s Briseida Gruenenfelder international normalized ratio (INR) 1.1 StevenJaclyn Feldman Normal prothrombin time (patient) 13.8 s Steven Feldman coagulation managed by Madhu Elkins RN international normalized ratio (INR) 3.0 Gauri Festus Normal prothrombin time (patient) 36.4 s Gauri Festus red blood cell distribution width, size density 46.6 fL [facility] - immature granulocytes, percentage of total cells, blood 0.4 % [facility] - nucleated red blood cells as percent of blood leukocytes 0.0 % [facility] - red blood cell (erythrocyte) count, per high power field 0.0 10*3/UL [facility] eosinophils as percent of blood leukocytes 1.3 % [facility] - neutrophils as percent of blood leukocytes 74.7 % [facility] - Absolute Neutrophils 6.1 CELLS/UL [facility] 1.5 - 7.8 basophils as percent of blood leukocytes 0.4 % [facility] - Absolute Basophils 0.0 CELLS/UL [facility] 0.0 - 0.2 monocytes as percent of blood leukocytes 5.6 % [facility] - Absolute Monocytes 0.5 CELLS/UL [facility] 0.2 - 1.0 lymphocytes as percent of blood leukocytes 17.6 % [facility] Absolute Lymphocytes 1.4 CELLS/UL [facility] 0.9 - 3.9 mean platelet volume 10.3 (?) [facility] 222.0 THOUSAND/ UL [facility] 100.0 - 400.0 mean corpuscular hemoglobin concentration, RBC 32.5 G/DL [facility] 31.0 - 38.0 mean corpuscular hemoglobin, RBC 29.3 pg [facility]Log 25.0 - 35.0 mean corpuscular volume, RBC 90.2 fL [facility] 75.0 - 100.0 hematocrit, blood 44.3 % [facility] 35.0 - 55.0 hemoglobin, blood 14.4 g/dL [facility] 11.5 - 16.5 erythrocyte count, whole blood 4.9 MILLION/U L [facility] 3.5 - 5.5 very low density lipoproteins 21.2 mg/dL [facility] 5.0 - 40.0 LDL/HDL (low-density lipoprotein/high-de nsity lipoprotein) ratio 2.3 RATIO [facility] - lipoprotein, beta, serum, point, quantitative, calculated 94.8 (?) [facility] - HDL cholesterol, serum 41.0 mg/dL [facility] 35.0 - 55.0 cholesterol, serum 157.0 mg/dL [facility] 0.0 - 200.0 triglyceride, serum, fasting 106.0 mg/dL [facility] 0.0 - 150.0 anion gap, serum 18.3 [facility] - albumin/globulin ratio, serum 2.7 g/dL [facility] 1.1 - 2.5 High globulin, serum 2.9 [facility] 2.3 - 3.8 urea nitrogen/creatinine ratio, serum 12.7 [facility] - Estimated Glomerular Filtration Rate (calc) 71.9 (?) [facility] 59.0 - chloride, serum 100.7 mmol/L [facility] 98.0 - 107.0 potassium, serum 4.1 mmol/L [facility] 3.5 - 5.1 sodium, serum 141.0 mmol/L [facility] 136.0 - 145.0 creatinine, serum 1.1 mg/dL [facility] 0.7 - 1.2 carbon dioxide, venous blood 22.0 mmol/L [facility] 23.0 - 31.0 Low albumin, serum 4.5 g/dL [facility] 3.5 - 5.2 calcium, serum 9.2 mg/dL [facility] 8.6 - 10.2 aspartate aminotransferase (SGOT), serum 16.0 1/L [facility] 0.0 - 40.0 alkaline phosphatase, serum 74.0 1/L [facility] 40.0 - 130.0 alanine aminotransferase (SGPT), serum 17.0 1/L [facility] 0.0 - 41.0 protein, total, serum 7.4 g/dL [facility] 6.6 - 8.7 bilirubin, serum, total 0.5 mg/dL [facility] 0.0 - 1.2 urea nitrogen, blood 14.0 mg/dL [facility] 8.0 - 23.0 blood glucose, random 148.0 mg/dL [facility] 74.0 - 99.0 High activated partial thromboplastin time 35.4 SECONDS [facility] 23.0 - 33.0 High prothrombin time (patient) 19.1 s [facility] 9.0 - 11.5 High international normalized ratio (INR) 1.8 [facility] 0.9 - 1.1 High international normalized ratio (INR) 3.1 Steven Woodwardenson Normal prothrombin time (patient) 37.0 s Steven Woodwardenson coagulation managed by Madhu Elkins RN international normalized ratio (INR) 3.1 Gauri Georges Normal prothrombin time (patient) 37.3 s Gauri Georges coagulation managed by Madhu Elkins RN international normalized ratio (INR) 3.1 Briseida Gruenenfelder Normal prothrombin time (patient) 37.5 s Briseida Gruenenfelder international normalized ratio (INR) 2.2 Steven Woodwardenson Normal prothrombin time (patient) 25.9 s Steven Feldman coagulation managed by Madhu Elkins RN international normalized ratio (INR) 1.6 Briseida Gruenenfelder Normal prothrombin time (patient) 19.2 s Briseida Gruenenfelder coagulation managed by Madhu Elkins RN international normalized ratio (INR) 1.5 Briseida Gruenenfelder Normal prothrombin time (patient) 18.5 s Briseida Gruenenfelder pro brain natriuretic peptide 522.6 pg/mL [facility] 0.0 - 125.0 High prothrombin time (patient) 16.7 s [facility] 9.0 - 11.5 High international normalized ratio (INR) 1.6 [facility] 0.9 - 1.1 High hemoglobin A1C, blood, as % of total hemoglobin 6.7 % [facility] 4.0 - 6.0 High very low density lipoproteins 33.4 mg/dL [facility] 5.0 - 40.0 LDL/HDL (low-density lipoprotein/high-de nsity lipoprotein) ratio 2.0 RATIO [facility] - HDL cholesterol, serum 38.0 mg/dL [facility] 35.0 - 55.0 sum total cholesterol 148.0 mg/dL [facility] 0.0 - 200.0 Triglycerides-direc t 167.0 mg/dL [facility] 0.0 - 150.0 High anion gap, serum 14.1 [facility] - albumin/globulin ratio, serum 2.2 g/dL [facility] 1.1 - 2.5 globulin, serum 3.4 [facility] 2.3 - 3.8 urea nitrogen/creatinine ratio, serum 17.8 [facility] - Estimated Glomerular Filtration Rate (calc) 90.9 (?) [facility] 59.0 - chloride, serum 101.9 mmol/L [facility] 98.0 - 107.0 potassium, serum 4.1 mmol/L [facility] 3.5 - 5.1 sodium, serum 142.0 mmol/L [facility] 136.0 - 145.0 creatine, serum 0.9 mg/dL [facility] 0.7 - 1.2 carbon dioxide, venous blood 26.0 mmol/L [facility] 23.0 - 31.0 albumin, serum 4.0 g/dL [facility] 3.5 - 5.2 calcium, serum 9.0 mg/dL [facility] 8.6 - 10.2 aspartate aminotransferase (SGOT), serum 17.0 1/L [facility] 0.0 - 40.0 alkaline phosphatase, serum 71.0 1/L [facility] 40.0 - 130.0 alanine aminotransferase (SGPT), serum 24.0 1/L [facility] 0.0 - 41.0 protein, total, serum 7.4 g/dL [facility] 6.6 - 8.7 urea nitrogen, blood 16.0 mg/dL [facility] 8.0 - 23.0 Glucose Urine 164.0 mg/dL [facility] 74.0 - 99.0 High bilirubin, serum, total 0.4 mg/dL [facility] 0.0 - 1.2 thyroid stimulating hormone, serum 3.890 ?IU/ML [facility] 0.270 - 4.200 coagulation managed by Madhu Elkins RN international normalized ratio (INR) 2.1 Briseida Dominic Normal prothrombin time (patient) 25.1 s Briseida Dominic coagulation managed by Madhu Elkins RN international normalized ratio (INR) 3.2 Steven Feldman Normal prothrombin time (patient) 38.5 s Steven Feldman coagulation managed by Madhu Elkins RN international normalized ratio (INR) 3.1 Madhu Elkins RN Normal prothrombin time (patient) 37.7 s Madhu Elkins RN platelet count 216 10*3/mm3 Susu Marcos hematocrit, blood 42.4 % Susu Marcos creatinine, serum 0.83 mg/dL Susu Marcos potassium, serum 4.7 mmol/L Susu Marcos sodium, serum 139 mmol/L Susu Marcos HISTORY OF MEDICATION USE Medication Status Instructions Dates Provider Indications Com ments Ozempic 1 mg/dose (4 mg/3 mL) pen injector active Inject 1 mg subcutaneously once a week Wood Peacock MD metoprolol succinate 50 mg tablet extended release 24 hr active Take 1 tablet by mouth twice a day Briseida Alfaro Ozempic 1 mg/dose (4 mg/3 mL) pen injector completed INJECT 1 MG UNDER THE SKIN ONCE WEEKLY - Bess Altman tadalafil 10 mg tablet active TAKE 1 TABLET BY MOUTH ONCE DAILY NEEDED Daron Stanleysriramkendall Ozempic 1 mg/dose (4 mg/3 mL) pen injector completed 1 mg subcutaneously once a week - Vandana Sridhar Ozempic 0.25 mg or 0.5 mg (2 mg/3 mL) pen injector completed Inject 1/4 mg subcutaneously once a week for 4 weeks, if tolerated increase to 0.5mg on week 5 - Wood Peacock MD zolpidem 10 mg tablet active TAKE 1 TABLET BY MOUTH EVERY DAY AT BEDTIME NEEDED Wood Peacock MD Cialis 10 mg tablet completed Take 1 tablet by mouth once a day as needed for erectile dysfunction - Daron Gomez zolpidem 10 mg tablet completed 1 tablet at bedtime as needed TAKE ONE TABLET BY MOUTH AT BEDTIME NEEDED - Wood Peacock MD lisinopril 10 mg tablet active TAKE 1 TABLET BY MOUTH EVERY DAY Steven Feldman lisinopril 5 mg tablet completed TAKE 1 TABLET BY MOUTH EVERY DAY - Josefa SHOEMAKER Eliquis 5 mg tablet active TAKE 1 TABLET BY MOUTH TWICE DAILY Nivia Flannery PA Specialist oxycodone-aceta minophen 10-325 mg tablet active TAKE 1 TABLET BY MOUTH EVERY 6 HOURS NEEDED FOR PAIN Steven Feldman metoprolol succinate 50 mg tablet extended release 24 hr completed TAKE 1 TABLET BY MOUTH TWICE DAILY - Briseida Alfaro omeprazole 20 mg capsule,delayed release(DR/EC) completed TAKE 1 CAPSULE BY MOUTH EVERY DAY - Steven Feldman Calcium 600 600 mg calcium (1,500 mg) tablet active Take 1 tablet by mouth once a day Steven Feldman vitamin Q98-uonls acid 500-400 mcg tablet active Take 1 tablet by mouth once a day Steven Feldman FE C 100-250 mg tablet active Take 1 tablet by mouth once a day Steven Feldman melatonin 3 mg capsule active Take 1 capsule by mouth once a day Steven Feldman ondansetron HCl 4 mg tablet active Take 1 tablet by mouth four times a day as needed Steven Feldman zolpidem 10 mg tablet completed TAKE ONE TABLET BY MOUTH AT BEDTIME NEEDED - Wood Peacock MD zolpidem 10 mg tablet completed Take 1 tablet by mouth at bedtime as needed - Wood Peacock MD metolazone 5 mg tablet completed Take 1 tablet every morning - Cesar Montano RN Xarelto 10 mg tablet completed Take 1 tablet once a day - Farzana Lott zolpidem 10 mg tablet completed Take 1 tablet by mouth every night as needed - Wood Peacock MD LYRICA CAPSULE completed as directed - Farzana Lott ACIDOPHILUS PROBIOTIC TABLET completed once a day - Josefa SHOEMAKER VITAMIN D TABLET active once a day Briseida Alfaro MULTIVITAMINS CAPS active 1 tablet once a day Briseida Alfaro DILTIAZEM CD 120 MG ORAL CAPSULE EXTENDED RELEASE 24 HOUR completed Take once a day - Briseida Alfaro Drug changed by Josefa Luke NP metformin 500 mg tablet completed twice a day - Wood Peacock MD KEFLEX 500 MG ORAL CAPSULE completed 1 capsule by mouth three times daily x 7 days - Barbara Whitehead METOLAZONE 5 MG ORAL TABLET completed 1 pill AM daily for 7 days. - Barbara Whitehead amiodarone 200 mg tablet completed Take 1 tablet by mouth once a day - Madhu Elkins RN PRADAXA 150 MG ORAL CAPSULE completed One capsule twice a day. TAKE WITH LARGE GLASS OF WATER! - Farzana Lott FUROSEMIDE 20 MG ORAL TABLET completed one tablet at bedtime - Radha Brar METOPROLOL TARTRATE 50 MG ORAL TABLET completed one tab. twice daily - Steven Feldman albuterol sulfate 2.5 mg/3 mL (0.083 %) solution for nebulization completed as directed - Wood Peacock MD Flonase Allergy Relief 50 mcg/actuation spray,suspensio n active as directed Wood Peacock MD ProAir HFA 90 mcg/actuation HFA aerosol inhaler active 2 puff every four to six hours Wood Peacock MD DILTIAZEM CD 180 MG ORAL CAPSULE EXTENDED RELEASE 24 HOUR completed one tab, twice daily - Shayla Pressley RN COUMADIN 5 MG ORAL TABLET completed one tab daily EXCEPT on Wed and Fri take 1/2 tab - Radha Brar AMIODARONE HCL 200 MG ORAL TABLET completed 1 Tablet; Take Twice a Day. - Maria Teresa Machado MD magnesium oxide 400 mg (241.3 mg magnesium) tablet completed 1 tablet twice a day - Steven Feldman tamsulosin 0.4 mg capsule completed once a day - Josefa SHOEMAKER TYLENOL WITH CODEINE #3 TABLET completed as needed - Ludy Samson Crestor 10 mg tablet active 1 tablet once a day Wood Peacock MD furosemide 80 mg tablet completed 40 mg every morning - Wood Peacock MD Klor-Con M20 20 mEq tablet,ER particles/cryst als completed Take 1 twice a day - Briseida Alfaro COUMADIN 1 MG ORAL TABLET completed 1/2 tab daily w/your 5mg tab-managed by Dr. Penaloza - Radha Brar JANTOVEN 5 MG ORAL TABLET completed 1 tab daioy - Madhu Elkins RN METOPROLOL TARTRATE 50 MG ORAL TABLET completed 1 tab twice daily - Maria Teresa Machado MD JANTOVEN 5 MG ORAL TABLET completed 1 tab daily - Jazzy Guerrero LANOXIN 125 MCG ORAL TABLET completed 1 tab daily - Maria Teresa Machado MD ULTRAM 50 MG ORAL TABLET completed 1 to 2 tab every 8 hours - Jazzy Guerrero ASPIRIN 81 MG ORAL TABLET completed 1 tab daily - Jazzy Guerrero SOCIAL HISTORY Date Observation Value Provider personal history of marijuana use no Dai Abraham NP drug use no Dai Abraham [employer]END[employer] alcohol use, average drinks per day social Dai Leigh NAIK alcohol use yes Dai Whittingtonll COUNTER ATTENDANT passive cigarette sm ramya exposure no Dai Whittingtonll COUNTER ATTENDANT smoking, year quit 1995 Dai leigh COUNTER ATTENDANT number of years as a smoker less than 10 years Dai [place] COUNTER ATTENDANT smoking history, tot al pack/year 20 Dai Hawkinsdall COUNTER ATTENDANT cigarette use yes Dai Hawkinsdall COUNTER ATTENDANT smoking status Former smoker Dai Whittington ken NAIK personal history of marijuana use no Wood Peacock MD drug use no Wood Estrada alcohol use, average drinks per day social Wood Peacock MD alcohol use yes Wood Estrada passive cigarette sm ramya exposure no Wood Peacock MD smoking, year quit 1995 Wood gonzalez MD number of years as a smoker less than 10 years Wood Peacock MD smoking history, tot al pack/year 20 Wood Peacock MD cigarette use yes Wood Peacock MD smoking status Former smoker Wood suh MD personal history of marijuana use no Josefa Ventimiglia [facility] drug use no Josefa Ventimig josse [facility] alcohol use, average drinks per day social Josefa Ventimiglia [facility] alcohol use yes Josefa Ventimig josse [facility] passive cigarette sm ramya exposure no Josefa Ventimiglia [facility] smoking, year quit 1995 Josefa Ve ntimiglia [facility] number of years as a smoker less than 10 years Josefa Ventimiglia [facility] smoking history, tot al pack/year 20 Josefa Ventimiglia [facility] cigarette use yes Josefa Ventimi glia [facility] smoking status Former smoker Josefa Venti miglia [facility] drug use no [facility] alcohol use, average drinks per day social [facility] alcohol use yes [facility] passive cigarette sm ramya exposure no [facility] smoking/tobacco cessation, patient education and counseling contraindicated [facility] smoking, year quit 1995 [facility] number of years as a smoker less than 10 years [facility] smoking history, tot al pack/year 20 [facility] cigarette use yes [facility] smoking status Former smoker [facility] drug use no Josefa Ventimig josse [facility] alcohol use, average drinks per day social Josefa Ventimiglia [facility] alcohol use yes Josefa Ventimig josse [facility] seatbelt usage 100 % Frieda Callahan physical exercise, frequency, days per week yes Frieda De La Rosa caffeine use, averag e drinks per day yes Fireda De La Rosa passive cigarette sm ramya exposure no Frieda De La Rosa smoking, year quit 1995 Frieda De La Rosa number of years as a smoker less than 10 years Frieda De La Rosa smoking history, tot al pack/year 20 Frieda De La Rosa cigarette use yes Frieda Godinez nd smoking status Former smoker Frieda briscoe social history E&M Marital Statu s: Single L randall alone J ob Status: Unemployed Smoking History: P atient is a former smoker. Wood Peacock MD social history revie wed E&M reviewed - no changes required Wood Peacock MD seatbelt usage 100 % Annie luque physical exercise, frequency, days per week yes Annie Velasquez caffeine use, averag e drinks per day yes Annie Velasquez passive cigarette sm ramya exposure no Annie Velasquez smoking, year quit 1995 Annie Velasquez number of years as a smoker less than 10 years Annie Velasquez smoking history, tot al pack/year 20 Annie Velasquez cigarette use yes Annie Rich an smoking status Former smoker Annie carballo social history E&M Marital Statu s: Single L randall alone J ob Status: Unemployed Smoking History: P atient is a former smoker. Wood Peacock MD social history revie wed E&M reviewed - no changes required Wood Peacock MD seatbelt usage 100 % Frieda Callahan physical exercise, frequency, days per week yes Frieda De La Rosa caffeine use, averag e drinks per day yes Frieda De La Rosa passive cigarette sm ramya exposure no Frieda De La Rosa smoking, year quit 1995 Frieda De La Rosa number of years as a smoker less than 10 years Frieda De La Rosa smoking history, tot al pack/year 20 Frieda De La Rosa cigarette use yes Frieda Godinez nd smoking status Former smoker Frieda briscoe social history E&M Marital Statu s: Single L randall alone J ob Status: Unemployed Smoking History: P atfrandy is a former smoker. Wood Peacock MD social history revie wed E&M reviewed - no changes required Wood Peacock MD seatbelt usage 100 % Steven Acosta physical exercise, frequency, days per week yes Steven Feldman caffeine use, averag e drinks per day yes Steven Feldman passive cigarette sm ramya exposure no Steven Feldman smoking, year quit 1995 Steven Feldman number of years as a smoker less than 10 years Steven Feldman smoking history, tot al pack/year 20 Steven Feldman cigarette use yes Steven smith smoking status Former smoker Steven Brenner social history E&M Marital Statu s: Single L randall alone J ob Status: Unemployed Smoking History: P khai is a former smoker. Wood Peacock MD social history revie wed E&M reviewed - no changes required Wood Peacock MD seatbelt usage 100 % Farzana delgado physical exercise, frequency, days per week yes Farzana Lott caffeine use, averag e drinks per day yes Farzana Lott passive cigarette sm ramya exposure no Farzana Lott smoking, year quit 1995 Farzana tamayo number of years as a smoker less than 10 years Farzana Lott smoking history, tot al pack/year 20 Farzana Lott cigarette use yes Farzana rogers smoking status Former smoker Farzana shi social history revie wed E&M reviewed - no changes required Wood Peacock MD seatbelt usage 100 % Farzana delgado physical exercise, frequency, days per week yes Farzana Lott caffeine use, averag e drinks per day yes Farzana Lott passive cigarette sm ramya exposure no Farzana Oren smoking, year quit 1995 Farzana Jl tamayo number of years as a smoker less than 10 years Farzana Lott smoking history, tot al pack/year 20 Farzana Oren cigarette use yes Farzana Jonah rogers smoking status Former smoker Farzana Wilmar shi social history E&M Marital Statu s: Single L randall alone J ob Status: Unemployed Smoking History: P atient is a former smoker. Wood Peacock MD social history revie wed E&M reviewed - no changes required Wood Peacock MD seatbelt usage 100 % Farzana delgado physical exercise, frequency, days per week yes Farzana Lott caffeine use, averag e drinks per day yes Farzana Lott passive cigarette sm ramya exposure no Farzana Lott smoking, year quit 1995 Farzana Jl tamayo number of years as a smoker less than 10 years Farzana Oren smoking history, tot al pack/year 20 Farzana Oren cigarette use yes Farzana Jonah rogers smoking status Former smoker Farzana Urban yuridia social history E&M Marital Statu s: Single L randall alone J ob Status: Unemployed Smoking History: P atient is a former smoker. Wood Peacock MD social history revie wed E&M reviewed - no changes required Wood Peacock MD seatbelt usage 100 % Steven Acosta physical exercise, frequency, days per week yes Steven Feldman alcohol use, average drinks per day none Steven Feldman alcohol use no Steven vegaon caffeine use, averag e drinks per day yes Steven Feldman drug use none Steven vegaon passive cigarette sm ramya exposure no Steven Feldman smoking, year quit 1995 Steven Feldman number of years as a smoker less than 10 years Steven Feldman smoking history, tot al pack/year 20 Steven Feldman cigarette use yes Steven smith smoking status Former smoker Steven Brenner social history E&M Marital Statu s: Single L randall alone J ob Status: Unemployed Smoking History: P atfrandy is a former smoker. Wood Peacock MD social history revie wed E&M reviewed - no changes required Wood Peacock MD seatbelt usage 100 % Briseida melara physical exercise, frequency, days per week yes Briseida Alfaro alcohol use, average drinks per day none Briseida Alfaro alcohol use no Briseida toledo caffeine use, averag e drinks per day yes Briseida Alfaro drug use none Briseida toledo passive cigarette sm ramya exposure no Briseida Alfaro smoking, year quit 1995 Briseida lux number of years as a smoker less than 10 years Briseida Alfaro smoking history, tot al pack/year 20 Briseida Alfaro cigarette use yes Briseida marshall smoking status Former smoker Briseida rocha social history E&M Marital Statu s: Single L randall alone J ob Status: Unemployed Smoking History: P atfrandy is a former smoker. Wood Peacock MD social history revie wed E&M reviewed - no changes required Wood Peacock MD smoking status Former smoker Ludy Samson social history revie wed E&M reviewed - no changes required Wood Peacock MD seatbelt usage 100 % Steven Acosta physical exercise, frequency, days per week yes Steven Feldman alcohol use, average drinks per day none Steven Feldman alcohol use no Steven Silva garyon caffeine use, averag e drinks per day yes Steven Feldman drug use none Steven Silva garyon passive cigarette sm ramya exposure no Steven Feldman smoking, year quit 1995 Steven Feldman number of years as a smoker less than 10 years Steven Feldman smoking history, tot al pack/year 20 Steven Feldman cigarette use yes Steven Trace sarah smoking status Former smoker Steven Websterson social history revie wed E&M reviewed - no changes required Wood Peacock MD seatbelt usage 100 % Steven Acosta physical exercise, frequency, days per week yes Steven Feldman alcohol use, average drinks per day none Steven Feldman alcohol use no Steven Silva garyon caffeine use, averag e drinks per day yes Steven Feldman drug use none Steven Silva garyon passive cigarette sm ramya exposure no Steven Feldman smoking, year quit 1995 Steven Feldman number of years as a smoker less than 10 years Steven Feldman smoking history, tot al pack/year 20 Steven Feldman cigarette use yes Steven Woodward on smoking status Former smoker Steven Brenner number of grandchildren Shaun Isabel MD Te michael Jun social history revie addy E&M reviewed - no changes required Paul Nolvia social history E&M Marital Statu s: Single Noah pereira alone J ob Status: Unemployed Smoking History: Jose ridley is a former smoker. Paul De Souza number of grandchildren Maria Teresa De Souza seatbelt usage 100 % Steven Acosta physical exercise, frequency, days per week yes Steven Feldman alcohol use, average drinks per day none Steven Feldman alcohol use no Steven Silva garyjordan caffeine use, averag e drinks per day yes Steven Feldman drug use none Steven Silva garyjordan passive cigarette sm ramya exposure no Steven Feldman smoking, year quit 1995 Steven Feldman number of years as a smoker less than 10 years Steven Feldman smoking history, tot al pack/year 20 Steven Feldman cigarette use yes Steven smith smoking status Former smoker Steven Brenner seatbelt usage 100 % Oksana emery RN physical exercise, frequency, days per week yes Oksana Milton RN alcohol use, average drinks per day none Oksana Milton RN alcohol use no Oksana suh RN caffeine use, averag e drinks per day yes Oksana Milton RN drug use none Oksana suh RN passive cigarette sm ramya exposure no Oksana Milton RN smoking, year quit 1995 Oksana Joe RN number of years as a smoker less than 10 years Oksana Milton RN smoking history, tot al pack/year 20 Oksana Milton RN cigarette use yes Oksana ortega RN smoking status Former smoker Oksanamelanie chung RN social history [facility] E&M reviewed - no changes required Oksana Milton RN social history [facility] E&M reviewed - no changes required Wood Peacock MD social history [facility] E&M reviewed - no changes required Maria Teresa Machado MD [facility] E&M reviewed - no changes required Maria Teresa Machado MD seatbelt usage 100 % Steven Acosta physical exercise, frequency, days per week yes Stevenvikash Feldman alcohol use, average drinks per day none Steven Feldman alcohol use no Steven Silva rubén caffeine use, averag e drinks per day yes Steven Feldman drug use none Steven Silva rubén passive cigarette sm ramya exposure no Steven Feldman smoking, year quit 1995 StevenJaclyn Feldman number of years as a smoker less than 10 years Steven Feldman smoking history, tot al pack/year 20 Steven Feldman cigarette use yes Stevne robertjordan smoking status Former smoker Steven Brenner [facility] E&M reviewed - no changes required Maria Teresa Machado MD seatbelt usage 100 % Steven Acosta physical exercise, frequency, days per week yes Steven Feldman alcohol use, average drinks per day none Steven Feldman alcohol use no Steven Silva rubén caffeine use, averag e drinks per day yes Steven Feldman drug use none Steven Silva garyon passive cigarette sm ramya exposure no Steven Feldman smoking, year quit 1995 StevenJaclyn Feldman number of years as a smoker less than 10 years Steven Feldman smoking history, tot al pack/year 20 Steven Feldman cigarette use yes Steven smith smoking status Former smoker Steven Brenner seatbelt usage 100 % Shaun Das Melissa Estrada physical exercise, frequency, days per week yes Shaun Chalo CARMICHAEL alcohol use, average drinks per day none Shaun Chalo CARMICHAEL alcohol use no Chalo CARMICHAEL caffeine use, averag e drinks per day yes Shaun Chalo CARMICHAEL drug use none Chalo CARMICHAEL passive cigarette sm ramya exposure no Chalo CARMICHAEL smoking, year quit 1995 jennifer CARMICHAEL number of years as a smoker less than 10 years Shaun Chalo CARMICHAEL smoking history, tot al pack/year 20 Chalo CARMICHAEL cigarette use yes Shaun Chalo CARMICHAEL smoking status Former smoker Shaun Chalo CAMRICHAEL social history [facility] E&M reviewed - no changes required Shaun Chalo CARMICHAEL social history [facility] E&M reviewed - no changes required Shaun Chalo CARMICHAEL seatbelt usage 100 % Gauri Mortensen physical exercise, frequency, days per week yes Gauri Mortensen alcohol use, average drinks per day none Gauri Mortensen alcohol use no Gauri Mortensen caffeine use, averag e drinks per day yes Gauri Mortensen drug use none Gauri Mortensen passive cigarette sm ramya exposure no Gauri Mortensen smoking, year quit 1995 Gauri castro number of years as a smoker less than 10 years Gauri Mortensen smoking history, tot al pack/year 20 Gauri Mortensen cigarette use yes Gauri Mortensen smoking status Former smoker Gauri Mortensen social history [facility] E&M reviewed - no changes required Maria Teresa Machado MD seatbelt usage 100 % Steven Acosta physical exercise, frequency, days per week yes Steven Feldman alcohol use, average drinks per day none Steven Feldman alcohol use no Steven montana caffeine use, averag e drinks per day yes Steven Feldman drug use none Steven montana passive cigarette sm ramya exposure no Steven Feldman smoking, year quit 1995 Steven Feldman number of years as a smoker less than 10 years Steven Feldman smoking history, tot al pack/year Steven Feldman cigarette use yes Steven smith smoking status Former smoker Steven Brenner social history [facility] E&M reviewed - no changes required Shaun Isabel MD smoking status Former smoker Radha Kasia irwin social history [facility] E&M reviewed - no changes required Maria Teresa Machado MD seatbelt usage 100 % Steven Acosta physical exercise, frequency, days per week yes Steven Feldman alcohol use, average drinks per day none Steven Feldman alcohol use no Steven montana caffeine use, averag e drinks per day yes Steven Feldman drug use none Steven montana passive cigarette sm ramya exposure no Steven Feldman smoking, year quit 1995 Steven Feldman number of years as a smoker less than 10 years Steven Feldman smoking history, tot al pack/year 20 Steven Feldman cigarette use yes Steven smith smoking status Former smoker Steven Brenner social history [facility] E&M reviewed - no changes required Wood Peacock MD seatbelt usage 100 % Steven Cristino venson physical exercise, frequency, days per week yes Steven Feldman alcohol use, average drinks per day none Steven Feldman alcohol use no Steven montana caffeine use, averag e drinks per day yes Steven Feldman drug use none Steven vegaon passive cigarette sm ramya exposure no Steven Feldman smoking, year quit 1995 Steven Feldman number of years as a smoker less than 10 years Steven Feldman smoking history, tot al pack/year 20 Steven Feldman cigarette use yes Steven smith smoking status Former smoker Steven Brenner seatbelt usage 100 % Gauri Tristen suh physical exercise, frequency, days per week yes Gauri Georges alcohol use, average drinks per day none Gauri Georges alcohol use no Gauri Georges caffeine use, averag e drinks per day yes Gauri Georges drug use none Gauri Mcdonoughann passive cigarette sm ramya exposure no Gauri Georges smoking, year quit 1995 Gauri Torres Rekha number of years as a smoker less than 10 years Gauri Mcdonoughann smoking history, tot al pack/year 20 Gauri Georges cigarette use yes Gauri Georges smoking status Former smoker Gauri Bonilla lars social history E&M Marital Statu s: Single L randall alone J ob Status: Unemployed Smoking History: Jose ridley is a former smoker. Maria Teresa Machado MD social history [facility] E&M reviewed - no changes required Maria Teresa Machado MD seatbelt usage 100 % Gauri suh physical exercise, frequency, days per week yes Gauri Georges alcohol use, average drinks per day none Gauri Georges alcohol use no Gauri Georges caffeine use, averag e drinks per day yes Gauri Georges drug use none Gauri Georges passive cigarette sm ramya exposure no Gauri Georges smoking, year quit 1996 Gauri Da Silva number of years as a smoker less than 10 years Gauri Georges smoking history, tot al pack/year 20 Gauri Georges cigarette use yes Gauri Georges smoking status Former smoker Gauri sousa social history [facility] E&M reviewed - no changes required Wood Peacock MD seatbelt usage 100 % Steven Acosta physical exercise, frequency, days per week yes Steven Feldman alcohol use, average drinks per day none Steven Feldman alcohol use no Steven montana caffeine use, averag e drinks per day yes Steven Feldman drug use none StevenJaclyn vegaon passive cigarette sm ramya exposure no Steven Feldman smoking, year quit 1995 Steven Feldman number of years as a smoker less than 10 years Steven Feldman smoking history, tot al pack/year 20 Steven Feldman cigarette use yes Steven smith smoking status Former smoker Steven [facility] smoking/tobacco cessation, patient education and counseling No Wood Peacock MD social history [facility] E&M reviewed - no changes required Wood Peacock MD smoking, year quit 1995 Steven Feldman cigarette use yes Steven smith seatbelt usage 100 % Steven Acosta physical exercise, frequency, days per week yes Steven Feldman alcohol use, average drinks per day none Steven Feldman caffeine use, averag e drinks per day yes Steven Feldman drug use none Steven montana passive cigarette sm ramya exposure no Steven Feldman smoking status Former smoker Steven Brenner drug use none Wood Estrada social history [facility] E&M reviewed Madhu Elkins RN seatbelt usage 100 % Wood Peacock MD social history E&M Marital Statu s: Single L randall alone J ob Status: Unemployed Wood Peacock MD drug use no Wood Estrada passive cigarette sm ramya exposure no Madhu Elkins RN smoking history, tot al pack/year 20 Madhu Elkins RN smoking, year quit 2001 Madhu bravo RN social history [facility] E&M reviewed Madhu Elkins RN smoking status former smoker Madhu Suh social history E&M Marital Statu s: Single L randall alone J ob Status: Employed full-time Wood Peacock MD social history [facility] E&M reviewed Madhu Elkins RN drug use none Wood Estrada social history [facility] E&M reviewed Wood Peacock MD physical exercise, frequency, days per week yes LinkLog caffeine use, averag e drinks per day yes LinkLog alcohol use, average drinks per day none LinkLog number of years as a smoker less than 10 years LinkLog smoking status Quit [facility] MENTAL STATUS Date Observation Value Provider assessment of judgme nt and insight E&M Alert and oriented to time, place and person. Mood and affect are normal. Madhu Elkins RN assessment of judgme nt and insight E&M Alert and oriented to time, place and person. Mood and affect are normal. Madhu Elkins RN assessment of judgme nt and insight E&M Alert and oriented to time, place and person. Mood and affect are normal. Madhu Elkins RN assessment of judgme nt and insight E&M Alert and oriented to time, place and person. Mood and affect are normal. Wood ePacock MD FAMILY HISTORY Family Member Condition Mother Negative FH of A S C V D INSURANCE PROVIDERS Payer name Policy type / Coverage type Bernadette red libertarian ID [employer] MEDICARE ADVANTAGE ST 0 003 (HMO POS) Medicare [id number] ADVANCE DIRECTIVES Name Date DISCUSSED - NO DECISION MADE TREATMENT PLAN Date Name Performer [id number],C,continued robbie ght loss encouraged Josefa Ventimiglia [facility] [id number],S, Wood Ramchaka suh MD [id number],S, Wood suh MD [id number],S, Wood suh MD [id number],S, Wood suh MD [id number],S, Wood suh MD [id number],S, Wood suh MD [id number],B, Wood suh MD [id number],S, Wood Ramada n [id number],S, Wood suh MD [id number],S, Wood suh MD [id number],S, Wood Ramada n [id number],C,T he patient is using CPAP on a regular basis. The patient has been benefiting from therapy and should continue use. Wood Peacock MD [id number],S, Wood suh MD [id number],B, Wood suh MD [id number],C,T he patient is using CPAP on a regular basis. The patient has been benefiting from therapy and should continue use. Wood Peacock MD [id number],B,S/P bariatric surgery Wood Peacock MD [id number],S, Wood suh MD [id number],S, Wood suh MD [id number],S, Wood suh MD Cardiology:Will lianne tor at home and bring readings on next visitl H is updated medication list for this problem includes: Metoprolol Succinate 50 Mg Tablet Extended Release 24 Hr (Metoprolol succinate) ..... Take 1 tablet by mouth twice a day Lisinopril 10 Mg Tablet (Lisinopril) ..... Take 1 tablet by mouth every day Dai Abraham NP Cardiology Dai Garcia Cardiology:Ccontinue BB and elilorena. H is updated medication list for this problem includes: Metoprolol Succinate 50 Mg Tablet Extended Release 24 Hr (Metoprolol succinate) ..... Take 1 tablet by mouth twice a day Dai Abraham NP Cardiology:Check carotid doppler s Dai Abraham NP Cardiology: T he patient is using CPAP on a regular basis. The patient has been benefiting from therapy and should continue use. Wood Peacock MD Cardiology: l ast hemoglobin A1C 6% T he following medications were removed from the medication list: Lisinopril 5 Mg Tablet (Lisinopril) ..... Take 1 tablet by mouth every day His updated medication list for this problem includes: Ozempic 1 Mg/dose (4 Mg/3 Ml) Pen Injector (Semaglutide) ..... 1 mg subcutaneously once a week Lisinopril 10 Mg Tablet (Lisinopril) ..... Take 1 tablet by mouth every day Wood Peacock MD Cardiology: c hronic w ears lymphedema wraps Wood Peacock MD Cardiology: c hronic and rate controlled E liquis for AC H is updated medication list for this problem includes: Metoprolol Succinate 50 Mg Tablet Extended Release 24 Hr (Metoprolol succinate) ..... Take 1 tablet by mouth twice daily Wood Peacock MD Cardiology:[facility]:last hemo globin A1C 6% T he following medications were removed from the medication list: Lisinopril 5 Mg Tablet (Lisinopril) ..... Take 1 tablet by mouth every day His updated medication list for this problem includes: Ozempic 1 Mg/dose (4 Mg/3 Ml) Pen Injector (Semaglutide) ..... 1 mg subcutaneously once a week Lisinopril 10 Mg Tablet (Lisinopril) ..... Take 1 tablet by mouth every day [facility] Cardiology:The patie nt is using CPAP on a regular basis. The patient has been benefiting from therapy and should continue use. [facility] Cardiology:chronic w ears lymphedema wraps [facility] Cardiology:BP 156/95 above goal R eports better controlled at home W ill have him monitor at home for goal BP <130/80 W ill have him return sooner if remains above goal T he following medications were removed from the medication list: Lisinopril 5 Mg Tablet (Lisinopril) ..... Take 1 tablet by mouth every day His updated medication list for this problem includes: Lisinopril 10 Mg Tablet (Lisinopril) ..... Take 1 tablet by mouth every day Metoprolol Succinate 50 Mg Tablet Extended Release 24 Hr (Metoprolol succinate) ..... Take 1 tablet by mouth twice daily [facility] Joseph[facility] Cardiology:chronic a nd rate controlled E liquis for AC H is updated medication list for this problem includes: Metoprolol Succinate 50 Mg Tablet Extended Release 24 Hr (Metoprolol succinate) ..... Take 1 tablet by mouth twice daily Josefajorge Wang [facility] Cardiology Wood Peacock MD Cardiology:The patie nt is using CPAP on a regular basis. The patient has been benefiting from therapy and should continue use. Wood Peacock MD Cardiology Wood Peacock MD Cardiology Wood Peacock MD Cardiology Wood Peacock MD Cardiology:continued weight loss encouraged Josefa Ventimiglia [employer] Cardiology Wood Peacock MD Cardiology Wood Peacock MD Cardiology Wood Peacock MD Cardiology Wood Peacock MD Cardiology Wood Peacock MD Cardiology Wood Peacock MD Cardiology Wood Peacock MD Cardiology Wood Peacock MD Cardiology Wood Peacock MD Cardiology Wood Peacock MD Cardiology Wood Peacock MD Cardiology:The patie nt is using CPAP on a regular basis. The patient has been benefiting from therapy and should continue use. Wood Peacock MD Cardiology Wood Peacock MD Cardiology Wood Peacock MD Cardiology:The patie nt is using CPAP on a regular basis. The patient has been benefiting from therapy and should continue use. Wood Peacock MD Cardiology:S/P bariatric surgery Wood Peacock MD Cardiology Wood Peacock MD Cardiology Wood Peacock MD Cardiology Wood Peacock MD Cardiology follow up Wood tinajero MD Cardiology follow up Wood tinajero MD Cardiology follow up :The patient is using CPAP on a regular basis. The patient has been benefiting from therapy and should continue use. Wood Peacock MD Cardiology follow up Wood tinajero MD Cardiology follow up Wood tinajero MD Cardiology follow up Wood tinajero MD Cardiology follow up :Planning on bariatric surgery this fall Wood Peacock MD Cardiology follow up Wood tinajero MD Cardiology follow up Wood tinajero MD Cardiology follow up Wood tinajero MD Cardiology follow up :The patient is using CPAP on a regular basis. The patient has been benefiting from therapy and should continue use. Wood Peacock MD Cardiology follow up :Will check ECG today Wood Peacock MD Cardiology follow up Wood tinajero MD Cardiology follow up :The patient is using CPAP on a regular basis. The patient has been benefiting from therapy and should continue use. Wood Peacock MD Cardiology follow up Wood tinajero MD Cardiology follow up Wood tinajero MD Cardiology follow up Wood tinajero MD Cardiology follow up :Clear for bariatric surgery. Wood Peacock MD Cardiology Wood Peacock MD Cardiology oWod Peacock MD Cardiology Wood Peacock MD Cardiology Wood Peacock MD Cardiology Wood Peacock MD Cardiology Wood Peacock MD Cardiology Wood Peacock MD Cardiology Follow up Wood tinajero MD Cardiology Follow up Wood tinajero MD Cardiology Follow up Wood tinajero MD Cardiology Follow up Wodo tinajero MD Cardiology Follow up Wood tinajero MD Cardiology Follow up Wood tinajero MD Cardiology Follow up Wood tinajero MD Cardiology Wood Peacock MD Cardiology Wood Peacock MD Cardiology Wood Peacock MD Cardiology Wood Peacock MD Cardiology Wood Peacock MD Cardiology Wood Peacock MD Cardiology Wood Peacock MD Cardiology Wood Peacock MD Cardiology Wood Peacock MD Cardiology Wood Peacock MD Cardiology Wood Peacock MD Cardiology Wood Peacock MD Cardiology Wood Peacock MD Cardiology Wood Peacock MD Cardiology Wood Peacock MD Cardiology Wood Peacock MD Cardiology Wood Peacock MD Cardiology:S/P EVLT. Needs R Iliac vein u/s to eval for . Wood Peacock MD Cardiology Shaun Isabel MD Cardiology:fell and hit right knee on floor h as right upper ha pain. Shauntere Isabel MD Cardiology: He does not have any open ulcers at this time, but he did have 2 different hospitalizations for stasis dermatitis/cellulitis. Kurt ritchie has compression wraps in place. He also uses compression pumps 3x/week. He isn't able to use compression pumps more often as he has trouble getting in and out of it, but he has a healthcare worker who helps him use it 3x/week. 11/13/2015 venous u/s showed distal Rt GSV reflux and rt mid calf critical care technician reflux. right thigh 1 inch larger r ight calf and ankle 2 inches larger will recommend eval for central venous compression before further venous ablations Shaun Isabel MD Cardiology: He does not have any open ulcers at this time, but he did have 2 different hospitalizations for stasis dermatitis/cellulitis. Kurt ritchie has compression wraps in place. He also uses compression pumps 3x/week. He isn't able to use compression pumps more often as he has trouble getting in and out of it, but he has a healthcare worker who helps him use it 3x/week. Shaun Isabel MD Cardiology:BP today: 128/66 P rior BP: 120/56 (11/10/2015) Shaun Isabel MD EP faxed 11/16/15:BP today: 120/56 P rior BP: 124/74 (11/01/2015) His updated medication list for this problem includes: Diltiazem Cd 180 Mg Oral [id number] (Diltiazem hcl coated beads) ..... One tab, twice daily Furosemide 80 Mg Tabs (Furosemide) ..... 40mg in the am 40mg in the pm Paul De Souza EP faxed 11/16/15 Paul stanley EP faxed 11/16/15:His updated medication list for this problem includes: Amiodarone Hcl 200 Mg Tabs (Amiodarone hcl) ..... Two tab twice daily Paul De Souza EP faxed 11/16/15 Paul Cannon [facility] EP faxed 11/16/15:Pt is wearing Jolanta boot. He still has swelling of the right leg. He fell on Friday and injured his leg. He complains of pain and reduced range of motion since then. Paul De Souza Cardiology - ltr fxd :All of his ulcers have healed except for small ulcer in right mid lower lateral leg. His swelling and discoloration has improved significantly. He has marked hyperkeratosis due to secondary lymphedema. will check venous doppler to see if there is venous insufficiency feeding into the ulcer. Oksana Milton RN Cardiology - ltr fxd :All of his ulcers have healed except for small ulcer in right mid lower lateral leg. His swelling and discoloration has improved significantly. He has marked hyperkeratosis due to secondary lymphedema. will check venous doppler to see if there is venous insufficiency feeding into the ulcer w ould benefit from flexitouch lymphedema pump ---will contact [facility] Oksana Milton RN Cardiology - ltr fxd :BP today: 124/74 P rior BP: 174/62 (09/05/2015) Oksana Milton RN Cardiology Follow up Wood tinajero MD Cardiology Follow up :Clear for gastric bypass. Wood Peacock MD Cardiology Follow up Wood tinajero MD Cardiology Follow up :EVLT with Dr Chalo Peacock MD Cardiology Follow up :Now has ly mphedema as well. Wood Peacock MD Cardiology Follow up :S/P ablati on 08/04 Wood Peacock MD EP faxed 09/01/15:Ord ers: P FT's His updated medication list for this problem includes: Diltiazem Cd 180 Mg Oral [id number] (Diltiazem hcl coated beads) ..... One tab, twice daily Furosemide 80 Mg Tabs (Furosemide) ..... One tablet in the morning Maria Teresa Machado MD EP faxed 09/01/15:Com pliant with treatment. Maria Teresa Machado MD EP faxed 09/01/15: O rders: 9 9212 Minor ([id number]) His updated medication list for this problem includes: Diltiazem Cd 180 Mg Oral [id number] (Diltiazem hcl coated beads) ..... One tab, twice daily Furosemide 80 Mg Tabs (Furosemide) ..... One tablet in the morning Maria Teresa Machado MD EP faxed 09/01/15:Anastasia b - s/p A.fib ablation 08/01/2015 continue current dose of amiodarone for next 2 months. P FTs in [address] fu [address] machado H is updated medication list for this problem includes: Amiodarone Hcl 200 Mg Tabs (Amiodarone hcl) ..... One tab twice daily Maria Teresa Machado MD EP faxed 09/01/15: O rders: 9 9212 Minor ([id number]) Maria Teresa Machado MD EP faxed 08/21/15 0829 :EVLT scheduled. Maria Teresa Machado MD EP faxed 08/21/15 0829:Dose of Ami odarone reduced. Maria Teresa Machado MD EP faxed 08/21/15 0829:S/P ablatio n. Maria Teresa Machado MD EP faxed 08/21/15 0829:EVLT schedu led. Maria Teresa Machado MD EP: O rders: 9 9214 MOD Complex ([id number]) Maria Teresa Machado MD Cardiology - needs cvs Shaun D as Cardiology - needs c vs:BP today: 110/70 P rior BP: 112/68 (06/14/2015) Shaun Isabel MD Cardiology - needs c vs:venous insufficiency, BLE edema, ulcers. Pt states over the past 1 week he has had increased BLE edema, RLE>LLE. Blister type ulcers have opened to right lateral posterior calf and to left lateral posterior calf. Pt reports redenned discoloration to bilateral lower extremities. Redennede discoloration has improved since being on ATBS. Rt GSV -mid and proximal is occluded, but distal Rt GSV is patent with reflux R t mid calf critical care technician L t GSV occluded v enous u/s today showed b/l lsv insufficiency which coorelated withthe drainage area of the ulcers w ill hold of gsv and do lsv occlusions Shauntere Isabel MD Cardiology:he had b/ l evlt r le distal gsv still patent and has severe reflux and also has incompetent critical care technician mid calf l le - entirely occluded gsv will plan rle distal gsv evlt/sts Shaun Isabel MD Cardiology:Arleneetvikash rogers in for evaluation of venous insufficiency. Patient c/o leg ulcer, discoloration, and edema. He was going to wound care center in [place]. He has sores now on the left lateral leg. Edema located in lower leg, worse as the day goes by. Denies any improvement with leg elevation and has not been able to wear elastic stockings. This is life style limiting as unable to do adl's. Has no visible varicosities. No hx of dvt. Now due to edema cant flex his knee and has trouble waking also. Shaun Isabel MD Cardiology:due to cvi Shauntere Lyle MD EP Faxed 03/24/15 082 4s: O rders: 9 9214 MOD Complex ([id number]) Maria Teresa Machado MD EP Wood Peacock MD EP Wood Peacock MD EP Wood Peacock MD EP:Remains NSR on amiodarone aft er CV. Wood Peacock MD EP Faxed 02/21/15 111 1:S/P synchronized cardioversion Maria Teresa Machado MD EP Faxed 02/21/15 111 1:BP today: 132/60 P rior BP: 139/58 (02/10/2015) Maria Teresa Machado MD EP Faxed 02/21/15 111 1:PFT Results: P ulmonary Function Diagnosis: M ild airway obstruction. Following administration of bronchodilators, there is a slight response. N o significant restriction D iffusion lung capacity is normal. Maria Teresa Machado MD EP faxed 02/13/15 14 16:EP study with afib ablation with CT, carto and anesthesia is recommended. Afib uncontrolled on Amiodarone. H is updated medication list for this problem includes: Coumadin 5 Mg Tabs (Warfarin sodium) ..... One tab mon through fri with 1/2 tab on sat and sun Amiodarone Hcl 200 Mg Tabs (Amiodarone hcl) ..... One tab. daily Coumadin 1 Mg Tabs (Warfarin sodium) ..... 1/2 tab daily w/your 5mg tab-managed by dr. penaloza Orders: S NOMED-CT: [id number] Current Medications Documented (SCT-[id number]) E KG (CPT-72698) S NOMED-CT: 404061937 Smoking Cessation Counseling (SCT-[id number]) S NOMED-CT: 04430880 Physical Exam, Performed: Pulse Exam of Foot (SCT-[id number]) 9 9215 HIGH Complex (CPT-95920) T EE - GC (*) C ardioversion - GC (CPT-15815) Maria Teresa Machado MD EP faxed 02/13/15 14 16:BP today: 139/58 P rior BP: 123/74 (01/17/2015) Maria Teresa Machado MD EP faxed 10/26/15 14 16:EP study with afib ablation with CT, carto and anesthesia is recommended. H is updated medication list for this problem includes: Coumadin 5 Mg Tabs (Warfarin sodium) ..... One tab mon through fri with 1/2 tab on sat and sun Amiodarone Hcl 200 Mg Tabs (Amiodarone hcl) ..... One tab. daily Coumadin 1 Mg Tabs (Warfarin sodium) ..... 1/2 tab daily w/your 5mg tab-managed by dr. penaloza Orders: S NOMED-CT: [id number] Current Medications Documented ([facility]-[id number]) E KG (CPT-86924) S NOMED-CT: 885325061 Smoking Cessation Counseling ([facility]-[id number]) S NOMED-CT: 91290378 Physical Exam, Performed: Pulse Exam of Foot ([facility]-[id number]) 9 9215 HIGH Complex (CPT-36189) T EE - GC (*) C ardioversion - GC (CPT-93493) Maria Teresa Machado MD Cardiology:Will send for EVLT Ra wilda Peacock MD Cardiology Wood Peacock MD Cardiology Wood Peacock MD Cardiology:Will try CV again on amiodarone. Wood Peacock MD fu: O rders: V enous Doppler Bilateral LE (73113) V enous Doppler Bilateral LE - Standing (CPT-74848) C omplete Echo (CPT-53241) B TYPE NATRIURETIC PEPTIDE (BNP) (07692) Wood Peacock MD fu Wood Peacock MD fu Wood Peacock MD fu Wood Peacock MD routine : H is updated medication list for this problem includes: Metoprolol Tartrate 50 Mg Tabs (Metoprolol tartrate) ..... 1 tab twice daily Furosemide 40 Mg Tabs (Furosemide) ..... 1 1/2 tab once a day Prior BP: 134/80 (08/13/2011) Wood Peacock MD routine : H is updated medication list for this problem includes: Lanoxin 0.125 Mg Tabs (Digoxin) ..... 1 tab daily Metoprolol Tartrate 50 Mg Tabs (Metoprolol tartrate) ..... 1 tab twice daily Coumadin 1 Mg Tabs (Warfarin sodium) ..... 1 tab daily-managed by dr. penaloza Furosemide 40 Mg Tabs (Furosemide) ..... 1 1/2 tab once a day BP today: / Prior BP: 134/80 (08/13/2011) N uclear Stress Findings: No scintigraphic evidence of resting or Lexiscan induced perfusion abnormality. Normal left ventricle ejection fraction measuring 65%. [facility] (07/02/2011) Orders: Earnest PA (CPT-00445) Wood Peacock MD routine : H is updated medication list for this problem includes: Metoprolol Tartrate 50 Mg Tabs (Metoprolol tartrate) ..... 1 tab twice daily Furosemide 40 Mg Tabs (Furosemide) ..... Once a day Prior BP: 134/80 (08/13/2011) Wood Peacock MD routine : T he following medications were removed from the medication list: Jantoven 5 Mg Tabs (Warfarin sodium) ..... 1 tab daioy His updated medication list for this problem includes: Lanoxin 0.125 Mg Tabs (Digoxin) ..... 1 tab daily Metoprolol Tartrate 50 Mg Tabs (Metoprolol tartrate) ..... 1 tab twice daily Coumadin 1 Mg Tabs (Warfarin sodium) ..... 1 tab daily-managed by dr. penaloza Furosemide 40 Mg Tabs (Furosemide) ..... Once a day BP today: / Prior BP: 134/80 (08/13/2011) N uclear Stress Findings: No scintigraphic evidence of resting or Lexiscan induced perfusion abnormality. Normal left ventricle ejection fraction measuring 65%. [facility] (07/02/2011) Orders: Earnest PA (CPT-57545) Wood Peacock MD follow up: O rders: S leep Study (*) Wood Peacock MD follow up: T he following medications were removed from the medication list: Aspirin 81 Mg Tabs (Aspirin) ..... 1 tab daily His updated medication list for this problem includes: Metoprolol Tartrate 50 Mg Tabs (Metoprolol tartrate) ..... 1 tab twice daily Furosemide 40 Mg Tabs (Furosemide) ..... Once a day BP today: 134/80 P rior BP: 132/81 (10/23/2010) Wood Peacock MD follow up: T he following medications were removed from the medication list: Aspirin 81 Mg Tabs (Aspirin) ..... 1 tab daily Jantoven 5 Mg Tabs (Warfarin sodium) ..... 1 tab daily & #13;His updated medication list for this problem includes: Lanoxin 0.125 Mg Tabs (Digoxin) ..... 1 tab daily Metoprolol Tartrate 50 Mg Tabs (Metoprolol tartrate) ..... 1 tab twice daily Jantoven 5 Mg Tabs (Warfarin sodium) ..... 1 tab daioy Coumadin 1 Mg Tabs (Warfarin sodium) ..... 1 tab daily Furosemide 40 Mg Tabs (Furosemide) ..... Once a day Orders: E KG (CPT-56296) BP today: 134/80 Prior BP: 132/81 (10/23/2010) N uclear Stress Findings: Clinically and electrocardiographically unremarkable Lexiscan stress test. Decreased left ventricle ejection fraction measuring 52%. [facility] (09/04/2010) E chocardiogram: TDS. Mild LV dilatation with near normal systolic contractility with estimated EF of 50%. Normal RV size and systolic contracility. Mild to moderate LAE. Aortic root diameter is at upper limit of normal. Trivial MR. Trivial TR with RVSP 34mmHg. Mild PI. No significant pericardial effusion. [facility] (09/10/2010) Wood Peacock MD follow up: H is updated medication list for this problem includes: Aspirin 81 Mg Tabs (Aspirin) ..... 1 tab daily Metoprolol Tartrate 50 Mg Tabs (Metoprolol tartrate) ..... 1 tab twice daily Orders: E KG (CPT-42801) BP today: 132/81 Wood Peacock MD follow up: H is updated medication list for this problem includes: Aspirin 81 Mg Tabs (Aspirin) ..... 1 tab daily Lanoxin 0.125 Mg Tabs (Digoxin) ..... 1 tab daily Jantoven 5 Mg Tabs (Warfarin sodium) ..... 1 tab daily Metoprolol Tartrate 50 Mg Tabs (Metoprolol tartrate) ..... 1 tab twice daily Jantoven 5 Mg Tabs (Warfarin sodium) ..... 1 tab daioy Coumadin 1 Mg Tabs (Warfarin sodium) ..... 1 tab daily BP today: 132/81 Prior BP: / () N uclear Stress Findings: Clinically and electrocardiographically unremarkable Lexiscan stress test. Decreased left ventricle ejection fraction measuring 52%. [facility] (09/04/2010) E chocardiogram: TDS. Mild LV dilatation with near normal systolic contractility with estimated EF of 50%. Normal RV size and systolic contracility. Mild to moderate LAE. Aortic root diameter is at upper limit of normal. Trivial MR. Trivial TR with RVSP 34mmHg. Mild PI. No significant pericardial effusion. [facility] (09/10/2010) Wood Peacock MD Date Name Carotid Duplex Bilat eral Complete Echo Complete Echo BASIC METABOLIC PANE L W/EGFR HEMOGLOBIN A1c LIPID PANEL PROBNP, N TERMINAL Complete Echo LIPID PANEL BASIC METABOLIC PANE L W/EGFR CBC (INCLUDES DIFF/P LT) PROTHROMBIN TIME WIT H INR DLCO - 42881 FRC - 96248 FVC - 37898 X-Ray, Other Complete Echo DLCO - 86260 FRC - 06667 FVC - 18174 PROBNP, N TERMINAL CBC (INCLUDES DIFF/P LT) COMPREHENSIVE METABO LIC PANEL W/EGFR PROTHROMBIN TIME WIT H INR CBC (H/H, RBC, INDIC ES, WBC, PLT) COMPREHENSIVE METABO LIC PANEL W/EGFR CBC (INCLUDES DIFF/P LT) Cardioversion - GC Holter Monitor 24 Hr LIPID PANEL COMPREHENSIVE METABO LIC PANEL W/EGFR CBC (INCLUDES DIFF/P LT) PARTIAL THROMBOPLAST IN TIME, ACTIVATED PROTHROMBIN TIME WIT H INR INR Strip ABLATION w/ Anesthes ia EP Study CT, Other: Holter Monitor 24 Hr Cardioversion - CNE RACHEL - CNE Cardioversion - GC RACHEL - GC PROTHROMBIN TIME WIT H INR HEMOGLOBIN A1c LIPID PANEL COMPREHENSIVE METABO LIC PANEL W/EGFR B TYPE NATRIURETIC P EPTIDE (BNP) Cardioversion - GC TSH, 3RD GENERATION B TYPE NATRIURETIC P EPTIDE (BNP) Complete Echo Venous Doppler Bilat eral LE - Standing Venous Doppler Bilat eral LE STR - Adenosine Complete Echo Complete Echo Sleep Study HISTORY OF PROCEDURES Procedure Date Procedure Name Provider Procedure Notes S tatus Complex e/m visit add on Wood Peacock MD completed EKG Wood Peacock MD complete d EKG Wood Peacock MD complete d EKG Wood Peacock MD complete d EKG Wood Peacock MD complete d SNOMED-CT: 145049880922973 Current Medications Documented Wood Peacock MD completed SNOMED-CT: 254924741347058 Current Medications Documented Wood Peacock MD completed SNOMED-CT: 086891195310886 Current Medications Documented Wood Peacock MD completed SNOMED-CT: 041335439357092 Current Medications Documented Wood Peacock MD completed SNOMED-CT: 43888956 Physical Exam, Performed: Pulse Exam of Foot Shaun Isabel MD completed EKG Shaun Isabel MD completed SNOMED-CT: 438174192905362 Current Medications Documented Shaun Isabel MD completed FVC - 13526 Maria Teresa bravo MD completed FRC - 01158 Maria Teresa bravo MD completed DLCO - 17963 Maria Teresa bravo MD completed EKG Maria Teresa bravo MD completed SNOMED-CT: 266201707905516 Current Medications Documented Maria Teresa Machado MD completed SNOMED-CT: 152065273713717 Current Medications Documented Barbara Whitehead completed SNOMED-CT: 658679289544404 Current Medications Documented Wood Peacock MD completed Schedule Followup Maria Teresa hemphill MD continue current dose of amiodarone for next 2 months. P FTs in 2 [address] fu [address] machado completed EKG Maria Teresa bravo MD completed SNOMED-CT: 661156118247881 Current Medications Documented Maria Teresa Machado MD completed SNOMED-CT: 421957958 Smoking Cessation Counseling Maria Teresa Machado MD completed Schedule Followup Maria Teresa hemphill MD August 28, same day as Onesimo completed EKG Maria Teresa bravo MD completed SNOMED-CT: 978379137426850 Current Medications Documented Maria Teresa Machado MD completed SNOMED-CT: 004935510 Smoking Cessation Counseling Maria Teresa Machado MD completed SNOMED-CT: 138726863012228 Current Medications Documented Maria Teresa Machado MD completed FVC - 82088 Maria Teresa bravo MD completed FRC - 07692 Maria Teresa bravo MD completed DLCO - 33488 Maria Teresa bravo MD completed SNOMED-CT: 181414395 Smoking Cessation Counseling Shaun Isabel MD completed SNOMED-CT: 519144734452909 Current Medications Documented Shaun Isabel MD completed Bear Peacock MD complete d Holter, 24 or 48 Wood Peacock MD co mpleted SNOMED-CT: 424568376293542 Current Medications Documented Shaun Isabel MD completed Bear Peacock MD complete d SNOMED-CT: 240566109 Smoking Cessation Counseling Maria Teresa Machado MD completed EKG Maria Teresa bravo MD completed SNOMED-CT: 288587627993777 Current Medications Documented Maria Teresa Machado MD completed Bear Peacock MD complete d Bear Elkins RN completed SNOMED-CT: 753252760506317 Current Medications Documented Shaun Isabel MD completed Protime Nurse .Triage completed SNOMED-CT: 933342405 Smoking Cessation Counseling Maria Teresa Machado MD completed EKG Maria Teresa bravo MD completed SNOMED-CT: 004567141848941 Current Medications Documented Maria Teresa Machado MD completed Bear Peacock MD complete d Bear Peacock MD complete d Schedule Followup Wood Peacock MD fu in 6 chris hs completed Holter, 24 or 48 Maria Teresa snow MD completed SNOMED-CT: 283306440047290 Current Medications Documented Wood Peacock MD completed Bear bravo MD completed Schedule Followup Maria Teresa hemphill MD in 2 weeks completed SNOMED-CT: 70837672 Physical Exam, Performed: Pulse Exam of Foot Maria Teresa Machado MD completed SNOMED-CT: 647111400 Smoking Cessation Counseling Maria Teresa Machado MD completed EKG Maria Teresa bravo MD completed SNOMED-CT: 716825527581491 Current Medications Documented Maria Teresa Machado MD completed SNOMED-CT: 06630925 Physical Exam, Performed: Pulse Exam of Foot Maria Teresa Machado MD completed SNOMED-CT: 283463086 Smoking Cessation Counseling Maria Teresa Machado MD completed EKG Maria Teresa bravo MD completed SNOMED-CT: 746786353256400 Current Medications Documented Maria Teresa Machado MD completed Bear Peacock MD complete d Bear Pecaock MD complete d Bear Peacock MD complete d BLOOD COUNT HEMOGLOBIN Wood Peacock MD completed FVC - 92558 Wood Peacock MD complet ed FRC - 58547 Wood Peacock MD complet ed DLCO - 01923 Wood Peacock MD comple mingo Bear Peacock MD complete d Bear Peacock MD complete d EKG Wood Peacock MD complete d EKG Wood Peacock MD complete d EKG Wood Peacock MD complete d EKG Wood Peacock MD complete d EKG Wood Peacock MD complete d
--- OUTSIDE RECORDS SUMMARY | 2024-07-14 12:41 | XMS_ITS | Clinical Summary ---
Author Organization [facility] Address [address] [place] [address] Care Team Providers Care Director Sanitation Bureau Name Role Phone Paco Sharma MD Unavailable [phone] Bolivar Donald MD Primary Care Provider Source Comments [facility],non-owned Affiliates and Associated Physician Practices is amultiple site organization consisting of ambulatory clinics and hospital sitesin [place], [place], [place]. This disclosure is being madepursuant to the Care Everywhere program and may not contain all information available regarding this patient. Last updated 18.[facility] Allergies Active Allergy Reactions Criticality Noted Date Comments Adhesive Sensitivity Skin Reactions 01/26/2019 Paper tape Sulfa Drugs Other 01/26/2019 Patient states he breaks out in white spots all over his body Tramadol Itching 01/26/2019 Medications * Be aware that medications may not be up to date on this document. Alwaysverify current medications with the patient. Medication Sig Dispensed Refills Start Date End Date Status zolpidem (AMBIEN) 10 MG tablet Take 1 (one) tablet by mouth nightly as needed for Insomnia Active tamsulosin (FLOMAX) 0.4 MG capsule Take 1 (one) capsule by mouth at bedtime At the same time every day after a meal. Active Alcohol Swabs (PHARMACIST CHOICE ALCOHOL) USE TO TEST BLOOD SUGAR ONCE DAILY 3 05/23/2018 Active fluticasone propionate (FLONASE) 50 MCG/ACT nasal spray [place] 2 (two) sprays into each nostril once daily as needed (nasal congestion) 12/28/2018 Active ACCU-CHEK WILLIAM PLUS test strip USE TO TEST BLOOD SUGAR ONCE DAILY 3 05/23/2018 Active Lancet Devices (SIMPLE DIAGNOSTICS LANCING DEV) MISC USE TO TEST BLOOD SUGAR ONCE DAILY 3 03/16/2018 Active PHARMACIST CHOICE LANCETS MISC USE TO TEST BLOOD SUGAR ONCE DAILY 3 05/23/2018 Active rosuvastatin (CRESTOR) 10 MG tablet Take 1 (one) tablet by mouth once daily 12/09/2019 Active albuterol HFA (PROVENTIL;VENTOL IN;PROAIR) 108 (90 Base) MCG/ACT inhaler Inhale 2 (two) puffs by mouth every 6 hours as needed for Shortness of Breath or Wheezing Active melatonin 3 MG tablet Take 1 (one) tablet by mouth nightly as needed for Insomnia Active Multiple Vitamins-Minerals (OPURITY BYPASS OPTIMIZED) CHEW Take 1 tablet by mouth once daily Active calcium citrate (OPURITY) LOZG chew tablet Take 2 (two) tablets by mouth 2 times daily Active Other Premier Protein shakes-2 per day Active Cyanocobalamin (B-12 SUPER STRENGTH) 5000 MCG/ML Dissolve 1 tablet under the tongue once daily 5 ml daily in AM -Liquid Active acetaminophen (TYLENOL) 325 MG tablet Take 2 (two) tablets by mouth every 6 hours as needed for Fever or Pain Maximum allowable Acetaminophen amount = 4 Grams (4000 mg) / 24 hours. Take every 6 hours for the first 10 days when home. After 10 days, take as needed. 0 12/22/2020 Active Cholecalciferol (OPURITY VITAMIN D) 125 MCG (5000 UT) Take 1 (one) tablet by mouth once daily Active Vitamin D-Vitamin K (VITAMIN K2-VITAMIN D3 PO) Take 1,000 Int'l Units by mouth 03/20/2021 Active glucosamine 500 MG capsule Take 500 (five hundred) mg by mouth once daily Active apixaban (ELIQUIS) 5 MG tablet Take 1 (one) tablet by mouth 2 times daily 180 tablet 1 11/05/2021 Active ferrous sulfate 325 (65 FE) MG tablet Take 1 (one) tablet by mouth once daily Active metoprolol succinate XL 24hr (Toprol XL) 50 MG tablet Take 1 (one) tablet by mouth once daily Active semaglutide 1 MG/ML vial Inject subcutaneously every 7 days Active oxyCODONE, immediate release, (Roxicodone) 5 MG tabletIndications :Acute Pain Take 1 (one) tablet by mouth every 6 hours as needed for Pain Reasons: Acute Pain 12 tablet 04/22/2024 Active oxyCODONE-acetami nophen (Percocet) 10-325 MG tabletIndications :Traumatic hematoma of right knee, initial encounter Take 1 (one) tablet by mouth every 6 hours as needed for Pain 12 tablet 04/22/2024 Active Active Problems Problem Noted Date Diagnosed Date Knee hemarthrosis, right 04/21/2024 Acute pain of right knee 04/21/2024 Traumatic hematoma of right knee, initial encoun ter 04/07/2024 Acute pain 04/07/2024 Acute blood loss anemia 04/07/2024 Traumatic hematoma of left knee 09/20/2021 Acute pain of left knee 09/11/2021 S/P total left hip arthroplasty on 03/12/2021 Primary osteoarthritis of left hip 03/12/2021 Status post right hip replacement on 12/20/2020 Bilateral primary osteoarthritis of hip 11/01/19 Morbid obesity with body mass index of 40.0-49.9 10/31/2020 Hypoalbuminemia 10/31/2020 Essential hypertension 10/23/2020 Persistent atrial fibrillation 10/23/2020 Abdominal pain, generalized 09/14/2020 SBO (small bowel obstruction) 09/14/2020 S/P gastric bypass 09/05/2020 S/P laparoscopic sleeve gastrectomy 08/16/2020 Choledocholithiasis 01/28/2019 Acute pancreatitis 01/18/2019 Encounters Date Type Department Care Team Description 05/13/2024 12:00 PM CUSTOMER ORDERS CLERK Office Visit [facility] - General Surgery [address] [place] [phone] Status post right hip replacement on 12/20/2020 (Primary Dx) 05/13/2024 Travel 04/29/2024 11:45 AM CUSTOMER ORDERS CLERK Office Visit [facility] - General Surgery [address] [place] [phone] Knee hemarthrosis, right (Primary Dx) 04/29/2024 Travel 04/23/2024 Transitional Care [facility] [address] [place] [address] Joleen Hugo, TIMOTHY Transitions Of Care 04/23/2024 Travel 04/21/2024 Travel 04/20/2024 10:23 PM CUSTOMER ORDERS CLERK - 04/22/2024 7:24 PM CUSTOMER ORDERS CLERK Hospital Encounter [facility] Early [facility]mission [facility] [address] [place] [address] Vinny Mays MD Tenquist, Jane E, MD Surgery General Discharge Disposition: Home or Self Care from Last 3 Months Social History Tobacco Use Types Packs/Day Years Used Date Smoking Tobacco: Former Cigarettes Q uit: 04/21/1995 Cigars Smokeless Tobacco: Never Tobacco Cessation:Counseling Given: No Alcohol Use Standard Drinks/Week Comments Not Currently 1 (1 standard drink = 0.6 oz pur e alcohol) quit in 1994 AUDIT-C Answer Date Recorded Q1: How often do you have a drink containing alcohol? Never 04/21/2024 Q2: How many drinks containi ng alcohol do you have on a typical day when you are drinking? Patient does not drink Q3: How often do you have si x or more drinks on one occasion? Never 04/21/2024 Overall Financial Resource Strain (CARDIA) Answe r Date Recorded How hard is it for you to pa y for the very basics like food, housing, medical care, and heating? Not very hard 04/21/2024 [facility] [place] Occupat ional Health - Occupational Stress Questionnaire Answer Date Recorded Do you feel stress - tense, restless, nervous, or anxious, or unable to sleep at night because your mind is troubled all the time - these days? Only a little 04/21/2024 Hunger Vital Sign Answer Date Recorded Within the past 12 months, y ou worried that your food would run out before you got the money to buy more. Never true 04/21/19 25 Within the past 12 months, t he food you bought just didn't last and you didn't have money to get more. Never true 04/21/2024 PRAPARE - Transportation Answer Date Re corded In the past 12 months, has l ack of transportation kept you from medical appointments or from getting medications? No 04/2024 In the past 12 months, has l ack of transportation kept you from meetings, work, or from getting things needed for daily living? No 04/21/2024 Housing Stability Vital Sign Answer Tien e Recorded In the last 12 months, was t here a time when you were not able to pay the mortgage or rent on time? No 04/21/2024 In the past 12 months, how m any times have you moved where you were living? 0 04/21/2024 At any time in the past 12 m [facility], were you homeless or living in a halfway (including now)? No 04/21/2024 Sex and Gender Information Value Date Recorded Sex Assigned at Male 08/21/2020 10:13 AM CDT Gender Identity Male 08/21/2020 10:13 AM CDT Sexual Orientation Straight 08/21/2020 10 :13 AM CDT Last Filed Vital Signs Vital Sign Reading Time Taken Comments Blood Pressure 136/86 05/13/2024 12:20 PM CUSTOMER ORDERS CLERK Pulse 74 05/13/2024 12:20 PM CUSTOMER ORDERS CLERK Temperature 36.8 C (98.2 F) 05/13/2024 12:20 PM CUSTOMER ORDERS CLERK Respiratory Rate 18 05/13/2024 12:2 0 PM CUSTOMER ORDERS CLERK Oxygen Saturation 99% 05/13/2024 12: 20 PM CUSTOMER ORDERS CLERK Inhaled Oxygen Concentration 21% 04/09/2024 9 :23 PM CUSTOMER ORDERS CLERK Weight 126.1 kg (277 lb 14.4 oz) 2024 12:20 PM CUSTOMER ORDERS CLERK Height 182.9 cm (6') 05/13/2024 12:20 PM CUSTOMER ORDERS CLERK Body Mass Index 37.69 05/13/2024 12:20 PM CUSTOMER ORDERS CLERK Plan of Treatment Health Maintenance Due Date Last Done Comments COLOGUARD (AGES 45-75) - COLON CA SCREENING 1952 COLON MONITORING 1952 COLONOSCOPY - COLON CA SCREENING 1952 CT COLONOGRAPHY - COLON CA SCREENING 1950 Colorectal Cancer Screening 1952 FIT - COLON CA SCREENING 1952 FLEX SIG - COLON CA SCREENING 1950 HEPATITIS C SCREENING 02/18/1970 DTAP/TDAP/TD VACCINES (1 - Tdap) 02/22/1971 PNEUMOCOCCAL VACCINE 50+ (1 of 2 - PCV) 02/22/1971 ZOSTER VACCINE (1 of 2) 02/22/2002 Respiratory Syncytial Virus (RSV) Vaccine Pt: or over 60 yrs (1 - Risk 60-74 years 1-dose series) 2012 AAA SCREENING 02/22/2017 COVID-19 VACCINE (2023- season) 2023 12/02/2020, 11/11/2020 INFLUENZA VACCINE (#1) 2023 9, 04/28/2018, 02/06/2017, Additional history exists DEPRESSION SCREENING 04/21/2024 MEDICARE AWV CALENDAR YEAR 2024 HEPATITIS B VACCINE Aged Out No longe r eligible based on patient's age to complete this topic HIB VACCINE Aged Out No longer eligi ble based on patient's age to complete this topic HPV VACCINE Aged Out No longer eligi ble based on patient's age to complete this topic MENINGOCOCCAL (Group B) VACCINE SHARED DECISION-MAKING Aged Out No longer eligible based on patient's age to complete this topic MENINGOCOCCAL GROUPS A/C/Y/W VACCINE Aged Out No longer eligible based on patient's age to complete this topic Medical Devices Implanted Type Area Pot Maker Device Identifier Shelf Expiration Date Model / Serial / Lot Shell Acetab Limited Hole G7 Sz H 62mm Implanted:Qty: 1 on 12/20/2020 by Arron Daley MD at [facility] Right: Hip [employer] 08/01/2030 [id number] / / [id number] Bone Screw Implanted:Qty: 1 on 12/20/2020 by Arron Daley MD at [facility] Right: Hip 12/09/2029 / / [id number] Bone Screw Implanted:Qty: 1 on 12/20/2020 by Arron Daley MD at [facility] Right: Hip 07/14/2030 / / [id number] Acetabular Liner Implanted:Qty: 1 on 12/20/2020 by Arron Daley MD at [facility] Right: Hip 08/24/2025 [id number] / / [id number] Femoral Stem Implanted:Qty: 1 on 12/20/2020 by Arron Daley MD at [facility] Right: Hip 05/21/2025 [id number] / / [id number] Femoral Head Implanted:Qty: 1 on 12/20/2020 by Arron Daley MD at [facility] Right: Hip 12/19/2028 [id number] / / [id number] Acetabular Shell Implanted:Qty: 1 on 03/12/2021 by Arron Daley MD at [facility] Left: Hip 10/26/2030 [id number] / / [id number] Linr Actb G7 H 40mm Vivacit-E Hip Lum Implanted:Qty: 1 on 03/12/2021 by Arron Daley MD at [facility] Left: Hip [employer] 08/24/2025 [id number] / / [id number] Stm Fem Hip 7.5 Hi Ofst Avenir Cmplt Implanted:Qty: 1 on 03/12/2021 by Arron Daley MD at [facility] Left: Hip [employer] 03/20/2025 [id number] / / [id number] Femoral Head Implanted:Qty: 1 on 03/12/2021 by Arron Daley MD at [facility] Left: Hip 07/19/2030 [id number] / / [id number] Explanted Type Area Pot Maker Device Identifier Shelf Expiration Date Model / Serial / Lot Stent Biliary 10mm 8.5fr 60mm 194cm .035 Implanted:Qty: 1 on 01/27/2019 by Alberto Arauz MD at [facility] Explanted:Qty: 1 on 03/15/2019 by Alberto Arauz MD at [facility] N/A: Bile Duct [employer] 08/25/2020 [id number] / / [id number] Pin Fx 22.9cm 4mm Stnm Thrd Ss 1 End Explanted:Qty: 1 on 12/20/2020 by Arron Daley MD at [facility] Right: Hip [employer] [id number] / / Pin Fx 22.9cm 4mm Stnm Thrd Ss 1 End Explanted:Qty: 1 on 03/12/2021 at [facility] Left: Hip [employer] [id number] / / Procedures Procedure Name Priority Date/Time Associated Diagnosis Comments GLUCOSE - POINT OF CARE Routine 04/22/2024 5:00 PM CUSTOMER ORDERS CLERK GLUCOSE - POINT OF CARE Routine 04/22/2024 11:29 AM CUSTOMER ORDERS CLERK GLUCOSE - POINT OF CARE Routine 04/22/2024 9:02 AM CUSTOMER ORDERS CLERK CBC W/O DIFFERENTIAL Routine 04/22/2024 12:37 AM CUSTOMER ORDERS CLERK Acute pain of right knee PHOSPHORUS BLOOD Routine 04/22/2024 12:3 6 AM CUSTOMER ORDERS CLERK Acute pain of right knee MAGNESIUM BLOOD Routine 04/22/2024 12:36 AM CUSTOMER ORDERS CLERK Acute pain of right knee BASIC METABOLIC PANEL (CALCIUM TOTAL) Routine 04/22/2024 12:36 AM CUSTOMER ORDERS CLERK Acute pain of right knee GLUCOSE - POINT OF CARE Routine 04/21/2024 9:00 PM CUSTOMER ORDERS CLERK GLUCOSE - POINT OF CARE Routine 04/21/2024 6:04 PM CUSTOMER ORDERS CLERK GLUCOSE - POINT OF CARE Routine 04/21/2024 1:34 PM CUSTOMER ORDERS CLERK GLUCOSE - POINT OF CARE Routine 04/21/2024 9:21 AM CUSTOMER ORDERS CLERK GLUCOSE - POINT OF CARE Routine 04/21/2024 5:27 AM CUSTOMER ORDERS CLERK PHOSPHORUS BLOOD STAT 04/21/2024 2:54 AM CUSTOMER ORDERS CLERK Acute pain of right knee MAGNESIUM BLOOD STAT 04/21/2024 2:54 AM CUSTOMER ORDERS CLERK Acute pain of right knee BASIC METABOLIC PANEL (CALCIUM TOTAL) STAT 04/21/2024 2:54 AM CUSTOMER ORDERS CLERK Acute pain of right knee CBC W/O DIFFERENTIAL STAT 04/21/2024 2:54 AM CUSTOMER ORDERS CLERK Acute pain of right knee OT EVAL AND TREAT Routine 04/21/2024 1:4 9 AM CUSTOMER ORDERS CLERK C-REACTIVE PROTEIN RADHA 04/20/2024 4: 21 PM CUSTOMER ORDERS CLERK ERYTHROCYTE SEDIMENTATION RATE STAT 04/20/2024 4:21 PM CUSTOMER ORDERS CLERK COMPREHENSIVE METABOLIC PANEL STAT 04/20/2024 4:21 PM CUSTOMER ORDERS CLERK CBC W AUTO DIFFERENTIAL STAT 04/20/2024 4:21 PM CUSTOMER ORDERS CLERK PT-INR [facility] STAT 04/20/2024 4:21 [address]ER ORDERS CLERK [address] KNEE RIGHT WO CONTRAST STAT 04/20/2024 4:01 PM CUSTOMER ORDERS CLERK Acute pain of right knee from Last 3 Months Results * GLUCOSE - POINT OF CARE (04/22/2024 5:00 PM CUSTOMER ORDERS CLERK) Only the most recent of8 resultswithin the time period is included. Glucose WB/POC 91 70 - 99 mg/dL 04/22/2024 5:01 PM CUSTOMER ORDERS CLERK [facility] Specimen Type Cap Fingerstick 2024 5:01 PM CUSTOMER ORDERS CLERK [facility] Blood BLOOD SPECIMEN / Unknown 04/22/2024 5:00 PM CUSTOMER ORDERS CLERK 04/22/2024 5:01 PM CUSTOMER ORDERS CLERK Julianna Torres MD LAB - POINT OF CARE ORDERABLES [facility] [address] [place] [address], [facility] [phone] * (ABNORMAL) CBC W/O DIFFERENTIAL (04/22/2024 12:37 AM CUSTOMER ORDERS CLERK) Only the most recent of2 resultswithin the time period is included. WBC 5.3 4.0 - 10.7 x10E9/L 04/22/2024 1:49 AM [facility] RBC Count 2.75(L) 4.30 - 5.80 x10E12/L 04/22/2024 1:49 AM [facility] Hemoglobin 8.8(L) 13.3 - 17.5 g/dL 04/22/2024 1:49 AM [facility] Hematocrit 26.2(L) 38.7 - 51.1 % 04/22/2024 1:49 AM [facility] MCV 95.3 80.0 - 98.0 fL 04/22/2024 1:49 AM [facility] MCH 32.0 26.7 - 33.6 pg 04/22/2024 1:49 AM [facility] MCHC 33.6 31.7 - 36.3 g/dL 04/22/2024 1:49 AM [facility] RDW-CV 15.3(H) 11.3 - 14.8 % 04/22/2024 1:49 AM [facility] Platelet Count 185 150 - 420 x10E9/L 04/22/2024 1:49 AM [facility] MPV 9.7 7.8 - 11.4 fL 04/22/2024 1:49 AM [facility] Blood BLOOD SPECIMEN / Unknown Lab Venipuncture / Unknown 04/22/2024 12:37 AM CUSTOMER ORDERS CLERK 04/22/2024 1:31 AM [facility] Vinny Mays MD LAB - HEMATOLOGY ORD ERABLES [facility] [address] [place] [address], [facility] [phone] * (ABNORMAL) BASIC METABOLIC PANEL (CALCIUM TOTAL) (04/22/2024 12:36 AM CUSTOMER ORDERS CLERK) Only the most recent of2 resultswithin the time period is included. BUN 15 7 - 26 mg/dL 04/22/2024 2:11 AM [facility] Creatinine 0.65(L) 0.71 - 1.16 mg/dL 04/22/2024 2:11 AM [facility] Sodium 139 136 - 145 mmol/L 04/22/2024 2:11 AM [facility] Potassium 3.8 3.5 - 4.5 mmol/L 04/22/2024 2:11 AM [facility] Chloride 110(H) 98 - 107 mmol/L 04/22/2024 2:11 AM [facility] CO2 23 22 - 29 mmol/L 04/22/2024 2:11 AM [facility] Glucose 102(H) 70 - 99 mg/dL 04/22/2024 2:11 AM [facility] Calcium 8.4 8.4 - 10.2 mg/dL 04/22/2024 2:11 AM [facility] Anion Gap 6 6 - 16 04/22/2024 2:11 AM [facility] BUN/Creatinine Ratio 23 7 - 23 04/22/2024 2:11 AM [facility] Osmolality Calculated 289 275 - 295 mOsm/kg 04/22/2024 2:11 AM [facility] eGFR by CKD-EPI >90 >=90 mL/min/1.7 3 m2 04/22/2024 2:11 AM [facility] Blood BLOOD SPECIMEN / Unknown Lab Venipuncture / Unknown 04/22/2024 12:36 AM CUSTOMER ORDERS CLERK 04/22/2024 1:45 AM [facility] Vinny Mays MD LAB - CHEMISTRY ORDE [facility] Organization Address City/State/[facility] Co de Phone Number [facility] [address] [place] [address], [facility] [phone] * PHOSPHORUS BLOOD (04/22/2024 12:36 AM [facility]) Only the most recent of2 resultswithin the time period is included. Phosphorus 3.4 2.8 - 5.1 mg/dL 04/22/2024 2:11 AM [facility] Blood BLOOD SPECIMEN / Unknown Lab Venipuncture / Unknown 04/22/2024 12:36 AM CUSTOMER ORDERS CLERK 04/22/2024 1:45 AM CUSTOMER ORDERS CLERK Vinny Mays MD LAB - CHEMISTRY JULIO C JC Performing Organization Address [facility]/ZIP Co de Phone Number [address] [address], [facility] [phone] * MAGNESIUM BLOOD (04/22/2024 12:36 AM CUSTOMER ORDERS CLERK) Only the most recent of2 resultswithin the time period is included. Magnesium 1.9 1.6 - 2.6 mg/dL 04/22/2024 2:11 AM CUSTOMER ORDERS CLERK [facility] Blood BLOOD SPECIMEN / Unknown Lab Venipuncture / Unknown 04/22/2024 12:36 AM CUSTOMER ORDERS CLERK 04/22/2024 1:45 AM CUSTOMER ORDERS CLERK Vinny Mays MD LAB - CHEMISTRY JULIO C JC Performing Organization Address [facility] Co de Phone Number [address] [address], [facility] [phone] * PT-INR [facility] (04/20/2024 4:21 PM CUSTOMER ORDERS CLERK) PT 14.3 12.1 - 14.8 Seconds 04/20/2024 4:55 PM CUSTOMER ORDERS CLERK [facility] INR 1.1 See Comment 04/20/2024 4:55 PM CUSTOMER ORDERS CLERK [facility] Comment:The suggested therap eutic range for standard coumadin (warfarin) therapy is an INR of 2.0-3.0. For high-risk patients (Mechanical Mitral Valve Prosthesis, etc.), the suggested prophylactic therapeutic range is an INR of 2.5-3.5. Blood BLOOD SPECIMEN / Unknown Venipuncture / Unknown 04/20/2024 4:21 PM CUSTOMER ORDERS CLERK 04/20/2024 4:33 PM CUSTOMER ORDERS CLERK Kyleigh Briceño IN [employer]ORE MARKETING REPRESENTATIVE-P[employer] LAB - COAGUL ATION ORDERABLES Performing Organization Address [facility] Co de Phone Number [address] [address], [facility] [phone] * (ABNORMAL) C-REACTIVE PROTEIN (04/20/2024 4:21 PM CUSTOMER ORDERS CLERK) [facility] C-Reactive Protein 0.8(H) <=0.5 mg/dL 04/20/2024 5:00 PM [facility] Blood BLOOD SPECIMEN / Unknown Venipuncture / Unknown 04/20/2024 4:21 PM CUSTOMER ORDERS CLERK 04/20/2024 4:33 PM CUSTOMER ORDERS CLERK Kyleigh Briceño [facility] - CHEMIS TRY ORDERABLES Performing Organization Address City/[facility]/ZIP Co de Phone Number [address] [address], [facility] [phone] * (ABNORMAL) ERYTHROCYTE SEDIMENTATION RATE (04/20/2024 4:21 PM CUSTOMER ORDERS CLERK) [facility] Erythrocyte Sedimentation Rate Westergren 42(H) 0 - 20 MM/HR 04/20/2024 4:49 PM [facility] Blood BLOOD SPECIMEN / Unknown Venipuncture / Unknown 04/20/2024 4:21 PM CUSTOMER ORDERS CLERK 04/20/2024 4:33 PM CUSTOMER ORDERS CLERK Kyleigh Briceño [facility] - HEMATO LOGY ORDERABLES Performing Organization Address City/[facility]/ZIP Co de Phone Number [address] [address], [facility] [phone] * (ABNORMAL) CBC W AUTO DIFFERENTIAL (04/20/2024 4:21 PM CUSTOMER ORDERS CLERK) [facility] WBC 6.0 4.0 - 10.7 x10E9/L 04/20/2024 4:39 PM [facility] RBC Count 2.80(L) 4.30 - 5.80 x10E12/L 04/20/2024 4:39 PM [facility] Hemoglobin 9.1(L) 13.3 - 17.5 g/dL 04/20/2024 4:39 PM [facility] Hematocrit 26.8(L) 38.7 - 51.1 % 04/20/2024 4:39 PM [facility] MCV 95.7 80.0 - 98.0 fL 04/20/2024 4:39 PM [facility] MCH 32.5 26.7 - 33.6 pg 04/20/2024 4:39 PM [facility] MCHC 34.0 31.7 - 36.3 g/dL 04/20/2024 4:39 PM [facility] RDW-CV 15.0(H) 11.3 - 14.8 % 04/20/2024 4:39 PM [facility] Platelet Count 209 150 - 420 x10E9/L 04/20/2024 4:39 PM [facility] MPV 9.7 7.8 - 11.4 fL 04/20/2024 4:39 PM [facility] Neutrophil % 71.3 41.0 - 74.0 % 04/20/2024 4:39 PM [facility] Lymphocyte % 19.9 17.0 - 47.0 % 04/20/2024 4:39 PM [facility] Monocyte % 5.8 3.0 - 11.0 % 04/20/2024 4:39 PM [facility] Eosinophil % 2.2 0.0 - 7.0 % 04/20/2024 4:39 PM [facility] Basophil % 0.5 0.0 - 1.6 % 04/20/2024 4:39 PM [facility] Immature Granulocytes % 0.3 0.0 - 1.0 % 04/20/2024 4:39 PM [facility] Neutrophil Absolute 4.31 1.60 - 7.50 x10E9/L 04/20/2024 4:39 PM [facility] Lymphocyte Absolute 1.20 1.00 - 4.40 x10E9/L 04/20/2024 4:39 PM [facility] Monocyte Absolute 0.35 0.15 - 1.00 x10E9/L 04/20/2024 4:39 PM [facility] Eosinophil Absolute 0.13 0.00 - 0.60 x10E9/L 04/20/2024 4:39 PM [facility] Basophil Absolute 0.03 0.00 - 0.13 x10E9/L 04/20/2024 4:39 PM [facility] Blood BLOOD SPECIMEN / Unknown Venipuncture / Unknown 04/20/2024 4:21 PM CUSTOMER ORDERS CLERK 04/20/2024 4:33 PM CUSTOMER ORDERS CLERK Kyleigh Briceño IN STORE MARKETING REPRESENTATIVE-P[employer] LAB - HEMATO LOGY ORDERABLES Performing Organization Address [facility] Co de Phone Number [facility] [address] [place] [phone], [facility] [phone] * (ABNORMAL) COMPREHENSIVE METABOLIC PANEL (04/20/2024 4:21 PM CUSTOMER ORDERS CLERK) BUN 15 7 - 26 mg/dL 04/20/2024 5:00 PM [facility] Creatinine 0.64(L) 0.71 - 1.16 mg/dL 04/20/2024 5:00 PM [facility] Sodium 139 136 - 145 mmol/L 04/20/2024 5:00 PM [facility] Potassium 3.3(L) 3.5 - 4.5 mmol/L 04/20/2024 5:00 PM [facility] Chloride 110(H) 98 - 107 mmol/L 04/20/2024 5:00 PM [facility] CO2 25 22 - 29 mmol/L 04/20/2024 5:00 PM [facility] Glucose 89 70 - 99 mg/dL 04/20/2024 5:00 PM [facility] Calcium 8.4 8.4 - 10.2 mg/dL 04/20/2024 5:00 PM [facility] Protein Total 6.2 6.0 - 8.3 g/dL 04/20/2024 5:00 PM [facility] Albumin 3.1(L) 3.4 - 5.0 g/dL 04/20/2024 5:00 PM [facility] Bilirubin Total 1.1 0.2 - 1.2 mg/dL 04/20/2024 5:00 PM [facility] Alkaline Phosphatase 88 40 - 150 U/L 04/20/2024 5:00 PM [facility] ALT 7 5 - 55 U/L 04/20/2024 5:00 PM [facility] AST 15 5 - 34 U/L 04/20/2024 5:00 PM [facility] Anion Gap 4(L) 6 - 16 04/20/2024 5:00 PM [facility] BUN/Creatinine Ratio 23 7 - 23 04/20/2024 5:00 PM [facility] Osmolality Calculated 288 275 - 295 mOsm/kg 04/20/2024 5:00 PM [facility] Albumin/Globulin Ratio 1.0(L) 1.1 - 2.3 04/20/2024 5:00 PM [facility] eGFR by CKD-EPI >90 >=90 mL/min/1.7 3 m2 04/20/2024 5:00 PM [facility] Blood BLOOD SPECIMEN / Unknown Venipuncture / Unknown 04/20/2024 4:21 PM CUSTOMER ORDERS CLERK 04/20/2024 4:33 PM CUSTOMER ORDERS CLERK Kyleigh Briceño IN STORE MARKETING REPRESENTATIVE-PAPER SORTER AND COUNTER LAB - CHEMIS TRY ORDERABLES Performing Organization Address City/State/[facility] Co de Phone Number [facility] [address] [place] [id number], [facility] [phone] * CT Knee Right Wo Contrast (04/20/2024 4:01 PM CUSTOMER ORDERS CLERK) Anatomical Region Laterality Modality Lower Extremity Computed Tomogra phy 04/20/2024 4:21 PM CUSTOMER ORDERS CLERK Impressions 04/20/2024 11:40 PM CUSTOMER ORDERS CLERK IMPRESSION: No acute fracture is identified. Large hematoma in the medial side of the distal thigh. Diffuse soft tissue edema in the subcutaneous tissue of the extremity. This study was dictated by vice president Bentley Cerda MD and reviewed and edited by the attending. I, Demetra Real MD have personally reviewed and interpreted this examination/study. 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 TECHNIQUE: Axial CT images of the right knee. Coronal and sagittal reformatted images were submitted. FINDINGS: Redemonstrated chronic avulsion fracture osseous fragments within posterior aspect of intercondylar eminence. 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 No acute fractures are identified. Small suprapatellar joint effusion is present. Diffuse soft tissue edema and swelling is present throughout the knee and the imaged lower extremity. Vascular atherosclerosis is noted. There is an approximately 6 x 15 x 15 cm hyperdense fluid collection suggesting a hematoma is noted in the subcutaneous tissue of the medial side of the distal thigh. Procedure Note Demetra Real MD - 04/20/2024 PROCEDURE: CT KNEE RIGHT WO CONTRAST DATE/TIME OF EXAM: 04/20/2024 4:02 PM INDICATION: M25.561: Acute pain of right knee COMPARISON: CTA of right lower extremity on 04/07/2024 and 04/08/2024nd x-ray of right knee 04/07/2024. TECHNIQUE: Axial CT images of the right knee. Coronal and sagittal reformatted images were submitted. FINDINGS: Redemonstrated chronic avulsion fracture osseous fragments withinposterior aspect of intercondylar eminence. 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 No acute fractures are identified. Small suprapatellar joint effusion is present. Diffuse soft tissue edema and swelling is present throughout the knee and the imaged lower extremity. Vascular atherosclerosis is noted. There is an approximately 6 x 15 x 15 cm hyperdense fluid collection suggesting a hematoma is noted in the subcutaneous tissue of the medial side of the distal thigh. IMPRESSION: No acute fracture is identified. Large hematoma in the medial side of the distal thigh. Diffuse softtissue edema in the subcutaneous tissue of the extremity. This study was dictated by vice president Bentley Cerda MD and reviewed and edited by the attending. IDemetra MD have personally reviewed and interpreted this examination/study. > Interpreting Provider: Demetra Real MD on 1:40 PM Kyleigh Briceño IN STORE MARKETING REPRESENTATIVE-PAPER SORTER AND COUNTER CT ORDERABLE S from Last 3 Months Advance Directives * Full Code (Latest Code Status on File) Date Activated Date Inactivated Comments 04/21/2024 1:49 AM 04/22/2024 8:40 PM * Full Code Date Activated Date Inactivated Comments 04/07/2024 12:04 PM 04/12/2024 11:37 AM * Full Code Date Activated Date Inactivated Comments 03/12/2021 1:39 PM 03/14/2021 1:55 PM * Full Code Date Activated Date Inactivated Comments 12/20/2020 3:10 PM 12/22/2020 3:14 PM * Full Code Date Activated Date Inactivated Comments 09/14/2020 9:11 AM 09/22/2020 2:22 PM Care Teams Director Sanitation Bureau Relationship Specialty Start Date End Date Bolivar Donald MD [address] [place], [place] [id number] PCP - General Internal Medicine 04/07/24 [place] [id number] [address] Consulting Physician Cardiac Electrophysiology 01/05/21
--- OUTSIDE RECORDS SUMMARY | 2024-07-14 12:41 | XMS_ITS | Continuity of Care Document ---
Author Organization [facility] Main Address [address] [place] [address] Insurance Providers Payer Plan Claims Address Claims Phone Policy Number Group Number Relation Employer Guarantor Name Guarantor Guarantor Address Guarantor Phone Organ izati on/IC -1906 [address] [address], [place] [address] [id number] Self Moreno Khan [address], [place] [address] Organ izati on/IC -411 [address] [address], [place] [address] [id number] Self Moreno Khan [address], [address] Sean [facility] [address] [address], [place] [address] tel:[phone] Self Moreno Khan [address], [place] [address] Problems Unknown Problems Results No Results Allergies, adverse reactions, alerts No known allergies and adverse reactions Medications No administered medications reported Vital Signs Date Vital Result Comment 06/14/2024 Body Height 72 [in_i] N Body Weight 259 [lb_av] N Body Mass Index 35.1 kg/m2 N Social History No smoking Hx information available
--- OUTSIDE RECORDS SUMMARY | 2024-07-14 12:41 | XMS_ITS | Clinical Summary ---
Author Organization [facility] Address [address] [place] [address] Care Team Providers Care Spool Hauler Name Role Phone Bolivar Donald MD Primary Care Provider Radha Carvajal OT Unavailable Unavailable Bambi Gould OT Unavailable Unavailable Josefa Gracia OT Unavailable UnavailBelkis Hsu OT Unavailable UnavailBhumika Law OT Unavailable UnavailMayito Travis PPA TEACHER Unavailable [phone] Allergies Active Allergy Reactions Criticality Noted Date [...] needed for pain 90 tablet 5 07/26/19 25 Active Active Problems Problem Noted Date Diagnosed Date Chronic pain of both ankles 07/30/2022 Spondylosis of lumbar region without myelopathy or radiculopathy 04/09/2022 Lymphedema 04/09/2022 Morbid (severe) obesity due to excess calories 0 10/09/2021 Body mass index 40.0-44.9, adult (CMS/[facility]) 10/09 Bilateral hip pain 05/15/2021 Spinal stenosis of lumbar re gion with neurogenic claudication 06/22/2019 Radiculopathy, lumbosacral region 06/22/2019 manager long term care prescription opiate use 09/18/2017 Other obesity due [...] Primary osteoarthritis of right hip 07/24/2017 07/30/2022 Encounters Date Type Department Care Team Description 05/24/2024 7:17 AM TYPO MACHINE OPERATOR - 05/24/2024 11:59 PM TYPO MACHINE OPERATOR Hospital Encounter [facility] [address] [place] [address] Mayito Abdul NP manager long term care prescription opiate use (Primary Dx); Spinal stenosis [...] or self care from Last 3 Months Immunizations Immunization Administration Dates Next Due Influenza, Quadrivalent, Spl it, Intramuscular 01/12/2019,02/06/2017,01/03/2016,01/31 Influenza, Quadrivalent, Spl it, Preservative Free, Intramuscular 04/28/2018 Pneumococcal Conjugate PCV 13 06/17/2017 Pneumococcal Polysaccharide PPV23 03/04/2014 Tdap 12/20/2010 Surgical History Surgery Date Site/Laterality Comments SHOULDER SURGERY CHOLECYSTECTOMY Medical History Medical History Date Comments Lymphedema Diabetes mellitus (HCC) Heart disease Atrial fibrillation (HCC) Cellulitis Asthma Cancer (HCC) Chronic pain disorder Hypertension Arthritis Kidney stones Social History Tobacco Use Types Packs/Day Years Used Date Smoking Tobacco: Former Cigarettes Q uit: 1994 Smokeless Tobacco: Never Tobacco Cessation:Counseling Given: Not Answered Alcohol Use Standard Drinks/Week Comments Yes 1 (1 standard drink = 0.6 oz pur e alcohol) occassionally Sex and Gender Information Value Date Recorded Sex Assigned at Not on file Legal Sex Male 10:20 AM TYPO MACHINE OPERATOR Gender Identity Male 03/20/2021 12:08 PM TYPO MACHINE OPERATOR Sexual Orientation Straight 03/20/2021 12 :08 PM TYPO MACHINE OPERATOR Obstetrics History Last Filed Vital Signs Vital Sign Reading Time Taken Comments Blood Pressure 143/86 05/24/2024 7:48 AM TYPO MACHINE OPERATOR Pulse 80 05/24/2024 7:48 AM TYPO MACHINE OPERATOR Temperature 36.7 C (98.1 F) 12/20/2022 9:17 AM CDT Respiratory Rate 17 05/24/2024 7:48 AM TYPO MACHINE OPERATOR Oxygen Saturation 99% 05/24/2024 7:48 AM TYPO MACHINE OPERATOR Inhaled Oxygen Concentration - - Weight 123.2 kg (271 lb 11.2 oz) 2023 11:49 AM TYPO MACHINE OPERATOR Height 182.9 cm (6' 0.01 ) 07/15/2023 1:21 PM CD T Body Mass Index 36.84 07/15/2023 1:21 PM CDT Plan of Treatment Health Maintenance Due Date Last Done Comments Albumin Creatinine Ratio, Urine 1950 Colon Cancer Screening-Colonoscopy 1950 Depression Screening 1950 Hepatitis C Screening 1950 Dilated Eye Exam 1950 Foot Exam 1950 Lipid Panel 1950 Hepatitis B Screening 02/22/1970 Well Visit 65+ 02/22/2017 eGFR 05/16/2018 05/16/2017, 10/0 12/2016, 01/24/2017, Additional history exists Covid-19 Vaccine (2023-2 5 season) 2023 06/19/2021, 12/02/2020, 11/11/2020 Influenza Vaccine (#1) 2023 , 03/09/2020, 01/12/2019, Additional history exists Hemoglobin A1C 10/07/2024 04/08/2024, 11/19, 08/16/2020, Additional history exists Fall Risk Assessment 05/24/2025 05/24/2024 DTaP/Tdap/Td Vaccine (3 - Td or Tdap) 02/26/2031 02/26/2021, 12/20/2010 Pneumococcal vaccine 65+ Completed 020, 06/17/2017, 03/04/2014 Prostate Cancer Screening-PSA Discontinued 12/28/2021, 11/13/2018 Zoster Vaccine Completed 01/14/2023, 08/24/2022 Abdominal Aortic Aneurysm (A AA) Screen Completed 04/07/2024, 12/20/2022, 09/16/2020, Additional history exists Goals Goal Patient Goal Type Associated Problems [...] cancer screening EGFR STAT 05/16/2017 3:20 PM TYPO MACHINE OPERATOR HEMOGLOBIN A1C STAT 01/16/2017 11:30 AM CDT [...] by: Devora Crow M.D. Easton Velarde MD IMG CT PROCEDURES Final Result * PSA screen (12/28/2021 9:31 AM CDT) PSA-Total 2.28 <=5.40 ng/mL [facility] Comment: Interpretive Data AGE SEX REFERENCE INTERVAL [...] 9:31 AM CDT 12/28/2021 9:45 AM CDT Shanice Farias NP LAB BLOOD ORDERABLES Fi nal Result [facility] Department [place] [address] * eGFR (05/16/2017 3:20 PM TYPO MACHINE OPERATOR) eGFR 75 mL/min/1.7 3 m2 [facility] Comment: Interpretive Data Reference Interval Normal >/= 90 mL/min/1.73m2 Mildly decreased* 60 - 89 mL/min/1.73m2 Mildly to moderately decreased 45 - 59 mL/min/1.73m2 Moderately to severely decreased 30 - 44 mL/min/1.73m2 Severely decreased 15 - 29 mL/min/1.73m2 Kidney Failure < 15 mL/min/1.73m2 *Relative to young adult level If -Kittitian multiply value by 1.16. Estimated glomerular filtration [...] 2016. Blood specimen (specimen) 05/16/2017 3:20 PM TYPO MACHINE OPERATOR 05/16/2017 3:20 PM TYPO MACHINE OPERATOR Narrative [facility] - 05/16/2017 3:46 PM TYPO MACHINE OPERATOR Rodrick Hilliard DO LAB BLOOD ORDERABLES Final Res ult [facility] [address] Department of [employer] [place] [address] * Hemoglobin A1c (01/16/2017 11:30 AM CDT) Hgb A1C 5.8 4.0 - 6.0 % [facility] Blood specimen (specimen) 01/16/2017 11:30 AM CDT 01/16/2017 11:50 AM CDT Sushant Miles MD LAB BLOOD ORDERABLES Final Result [facility] [address] [place] [address] from Last 3 Months or Most Recently Relevant to Health Maintenance Insurance [facility] MEDICARE [facility]ANTAGE [facility] MEDICARE Address: [address] [address] [place] [address] [employer] [id number] [place] [address] MEDICARE ADVANTAGE [facility] MEDICARE Address: [address] [address] [place] [address] IDPA [facility] MEDICARE ADVANTAGE [facility] MEDICARE Address: [address] [address] [place] [address] IDPA Care Teams Spool Hauler Relationship Specialty Start Date End Date Bolivar Donald MD [address] [place] [id number] PCP - General 08/23/16 Radha Carvajal, OT Occupational Therapist Occupational Therapy 05/28/17 Bambi Gould, OT Occupational Therapist Occupational Therapy 06/02/17 Josefa Gracia, OT Occupational Therapist Occupational Therapy 06/16/17 Belkis Alexandra, OT Occupational Therapist Occupational Therapy 06/20/17 Bhumika Rodriguez, OT Occupational Therapist Occupational Therapy 06/30/17 [place] [id number] [facility] [address] [place] [address] Nurse Practitioner Pain Management 12/25/23
== END 2024-07-14 10:59 | disposition home or self-care (01) ==
PROVIDERS: PCP Internal Medicine Infectious Disease; Visit Provider Podiatrist Foot & Ankle Surgery
DX: M20.5X2 Other deformities of toe(s) (acquired), left foot (principal); M19.072 Primary osteoarthritis, left ankle and foot
CPT/HCPCS: 73630

== ENCOUNTER 2024-07-29 11:35 | Outpatient (CLI) | payer MEDICARE, SELFPAY ==
--- NOTE | ~2024-07-29 | XR_ITS ---
XR toe 1st LT min 2V Ordering provider: Andrew Song, DPM History: . LEFT MALLET TOE, OTHER DEFORMATIES OF TOES . Comparison: None. FINDINGS: BONES: Post operative changes for arthrodesis of the interphalangeal joint of the left big toe. Fract ure of the distal phalanx is also seen. JOINT SPACES: Osteoarthritic changes of the interphalangeal joint with prominent osteophytes. Mild os teoarthritic changes of the first metatarsophalangeal joint. SOFT TISSUES: Normal. IMPRESSION: Fracture of the distal phalanx of the left big toe with postoperative changes in the area of the inte rphalangeal joint. Reviewed, dictated and finalized at location A. IMPRESSION: Fracture of the distal phalanx of the left big toe with postoperative changes i n the area of the interphalangeal joint.
--- OUTSIDE RECORDS SUMMARY | 2024-07-29 12:25 | XMS_ITS ---
Author Organization [facility] Address [address] [place] [address] Care Team Providers Care Editor In Chief Name Role Phone Bolivar Donald MD Primary Care Provider Radha Carvajal OT Unavailable Unavailable Bambi Gould OT Unavailable Unavailable Josefa Gracia OT Unavailable UnavailBelkis Hsu OT Unavailable UnavailBhumika Law OT Unavailable UnavailMayito Travis BOILERMAKER MECHANIC Unavailable [phone] Active Problems Problem Noted Date Diagnosed Date Chronic pain of both ankles 07/30/2022 Spondylosis of lumbar region without myelopathy or radiculopathy 04/09/2022 Lymphedema 04/09/2022 Morbid (severe) obesity due to excess calories 0 10/09/2021 Body mass index 40.0-44.9, adult (CMS/[facility]) 10/09 Bilateral hip pain 05/15/2021 Spinal stenosis of lumbar re gion with neurogenic claudication 06/22/2019 Radiculopathy, lumbosacral region 06/22/2019 superintendent terminal prescription opiate use 09/18/2017 Other obesity due [...]
--- OUTSIDE RECORDS SUMMARY | 2024-07-29 12:25 | XMS_ITS | Referral Summary ---
Author Organization [facility] Address [address] [place] [address] Care Team Providers Care Maintenance Technician 3Rd Shift Name Role Phone Bolivar Donald MD Primary Care Provider Radha Carvajal OT Unavailable Unavailable Bambi Gould OT Unavailable Unavailable Josefa Gracia OT Unavailable UnavailBelkis Hsu OT Unavailable UnavailBhumika Law OT Unavailable UnavailMayito Travis PEST CONTROL SERVICE TECHNICIAN Unavailable Encounters Date Type Department Care Team Description 07/22/2024 7:36 AM CDT - 07/22/2024 11:59 PM CDT Hospital Encounter [facility] [address] [place] [id number] Mayito Abdul NP Radiculopathy, lumbosacral region (Primary Dx); Chronic bilateral low back pain, unspecified whether sciatica present; Spinal stenosis of lumbar region with neurogenic claudication; Spondylosis of lumbar region without myelopathy or radiculopathy Discharge Disposition: Discharge to home or self care 07/19/2024 Telephone [facility] [address] [place] [address] Chelita Chavez 05/24/2024 7:17 AM TRANSCRIPT EVALUATOR - 05/24/2024 11:59 PM TRANSCRIPT EVALUATOR Hospital Encounter [facility] [address] [place] [address] Mayito Abdul NP assisted prescription opiate use (Primary Dx); Spinal stenosis [...] 8 Active vitamin D3-vitamin K2 1000-90 unit-mcg tablet,disinte grating Take 1,500 Int'l Units by mouth Active Eliquis 5 mg tablet 2 (two) times a day 1 Active metoprolol tartrate (LOPRESSOR) 50 mg immediate release tablet metoprolol tartrate 50 mg tablet Active omeprazole (PriLOSEC) 20 mg capsule Take by mouth daily 1 Active lisinopriL (PRINIVIL,ZEST RIL) 5 mg tablet Take 1 tablet (5 mg total) by mouth daily 1 Active lisinopriL (PRINIVIL,ZEST RIL) 10 mg tablet Take 1 tablet (10 mg total) by mouth daily 1 Active naloxone (NARCAN) 4 mg/actuation spray,non-aero rolan Call 911. Administer a single spray in one nostril. Repeat every 3 minutes as needed if no or minimal response. 1 each 1 3 Active calcium carbonate (OS-MARICRUZ) 1,500 mg (600 mg elemental) tablet Take by mouth 0 Active multivitamin capsule Take by mouth 7 Active cyanocobalamin , vitamin B-12, 5,000 mcg/mL drops Place 1 [...] 2 (two) times a day 4 Active oxyCODONE-acet aminophen (PERCOCET) 10-325 mg per tabletIndicati ons:Pain Take 1 tablet by mouth every 8 (eight) hours as needed for pain 90 tablet 5 08/24/19 25 Active oxyCODONE-acet aminophen (PERCOCET) 10-325 mg per tabletIndicati ons:Pain Take 1 tablet by mouth every 8 (eight) hours as needed for pain 90 tablet 5 09/23/19 25 Active oxyCODONE-acet aminophen (PERCOCET) 10-325 mg per tabletIndicati ons:Pain Take 1 tablet by mouth every 8 (eight) hours as needed for pain 90 tablet 5 07/23/19 25 Discontinu ed(Therapy completed) oxyCODONE-acet aminophen (PERCOCET) 10-325 mg per tabletIndicati ons:Pain Take 1 tablet by mouth every 8 (eight) hours as needed for pain 90 tablet 5 07/23/19 25 Discontinu ed(Therapy completed) Active Problems Problem Noted Date Diagnosed Date Chronic pain of both ankles 07/30/2022 Spondylosis of lumbar region without myelopathy or radiculopathy 04/09/2022 Lymphedema 04/09/2022 Morbid (severe) obesity due to excess calories 0 10/09/2021 Body mass index 40.0-44.9, adult (CMS/HCC) 10/09 Bilateral hip pain 05/15/2021 Spinal stenosis of lumbar re gion with neurogenic claudication 06/22/2019 Radiculopathy, lumbosacral region 06/22/2019 assisted prescription opiate use 09/18/2017 Other obesity due [...] on file Legal Sex Male 10:20 AM TRANSCRIPT EVALUATOR Gender Identity Male 03/20/2021 12:08 PM TRANSCRIPT EVALUATOR Sexual Orientation Straight 03/20/2021 12 :08 PM TRANSCRIPT EVALUATOR Last Filed Vital Signs Vital Sign Reading Time Taken Comments Blood Pressure 127/80 07/22/2024 7:49 AM CDT Pulse 80 07/22/2024 7:49 AM CDT Temperature 36.7 C (98.1 F) 12/20/2022 9:17 AM CDT Respiratory Rate 17 07/22/2024 7:49 AM CDT Oxygen Saturation 99% 07/22/2024 7:49 AM CDT Inhaled Oxygen Concentration - - Weight 123.2 kg (271 lb 11.2 oz) 2023 11:49 AM TRANSCRIPT EVALUATOR Height 182.9 cm (6' 0.01 ) 07/15/2023 [...] cancer screening EGFR STAT 05/16/2017 3:20 PM TRANSCRIPT EVALUATOR HEMOGLOBIN A1C STAT 01/16/2017 11:30 AM CDT [...] 9:31 AM CDT) PSA-Total 2.28 <=5.40 ng/mL [facility] Comment: Interpretive Data AGE SEX REFERENCE INTERVAL [...] NP LAB BLOOD ORDERABLES Fi nal Result [facility] Department [place] [address] * eGFR (05/16/2017 3:20 PM TRANSCRIPT EVALUATOR) eGFR 75 mL/min/1.7 3 m2 [facility] Comment: Interpretive Data Reference Interval Normal >/= 90 mL/min/1.73m2 Mildly decreased* 60 - 89 mL/min/1.73m2 Mildly to moderately decreased 45 - 59 mL/min/1.73m2 Moderately to severely decreased 30 - 44 mL/min/1.73m2 Severely decreased 15 - 29 mL/min/1.73m2 Kidney Failure < 15 mL/min/1.73m2 *Relative to young adult level If -Syrian multiply value by 1.16. Estimated glomerular filtration [...] 2016. Blood specimen (specimen) 05/16/2017 3:20 PM TRANSCRIPT EVALUATOR 05/16/2017 3:20 PM TRANSCRIPT EVALUATOR Narrative [facility] - 05/16/2017 3:46 PM TRANSCRIPT EVALUATOR Rodrick Hilliard DO LAB BLOOD ORDERABLES Final Res ult [facility] [address] [place] [address] * Hemoglobin A1c (01/16/2017 11:30 AM CDT) Hgb A1C 5.8 4.0 - 6.0 % [facility] Blood specimen (specimen) 01/16/2017 11:30 AM CDT 01/16/2017 11:50 AM CDT Sushant Miles MD LAB BLOOD ORDERABLES Final Result [facility] [address] [place] [place] [address] from Last 3 Months or Most Recently Relevant to Health Maintenance Insurance [facility] MEDICARE ADVANTAGE IDPA [facility] MEDICARE ADVANTAGE IDPA [facility] MEDICARE ADVANTAGE IDPA Care Teams Maintenance Technician 3Rd Shift Relationship Specialty Start Date End Date Bolivar Donald MD [facility] [address] PCP - General 08/23/16 Radha Carvajal, OT Occupational Therapist Occupational Therapy 05/28/17 Bambi Gould, OT Occupational Therapist Occupational Therapy 06/02/17 Josefa Gracia, OT Occupational Therapist Occupational Therapy 06/16/17 Belkis Alexandra, OT Occupational Therapist Occupational Therapy 06/20/17 Bhumika Rodriguez, OT Occupational Therapist Occupational Therapy 06/30/17 [place] [id number] [facility] [address] [place] [address] Nurse Practitioner Pain Management 12/25/23
--- OUTSIDE RECORDS SUMMARY | 2024-07-29 12:25 | XMS_ITS | CONTINUITY OF CARE DOCUMENT ---
Author Name bharathdomenico, bharathdomenico Address Unknown Organization [facility] [address] Address [address] [address] [address] [place] [address] Phone [phone] Care Team Providers Care Mill Turner Name Role Phone Wood Peacock MD Unavailable [phone] BERNADETTE AGUIRRE MD Unavailable BERNADETTE AGUIRRE MD Unavailable PROBLEMS Condition Status Date Provider Notes PVD active Venita Hart RN Shortness of breath active Morro Buck Dizziness active Dai Abraham NP Diabetes, Type 2 active Shaun Isabel MD Leg pain active Paul De Souza Lymphedema - secondary active Oksana Hubert son RN Venous hypertension - BLE wi th ulcer active Shaun Isabel MD Long-term use of high risk med active Carmen Machado MD Amiodarone Tobacco use, quit active Maria Teresa Machado MD SLEEP APNEA active Wood Peacock MD OBESITY active Wood Peacock MD EDEMA active Wood Peacock MD ATRIAL FIB-08/29 ECHO MOD LAE RVSP 34 EF 50 active ? Madhu Elkins RN HTN ESSENTIAL-06/30 NUC NEG active ? Madhu bravo RN ENCOUNTERS Date Type Provider Location Encounter Diag nosis - In-person encounter Office Visit Wood Peacock MD [facility] - In-person encounter Office Visit Wood Peacock MD [facility] Dizziness - In-person encounter Office Visit Wood Peacock MD [facility] - In-person encounter Office Visit Wood Peacock MD [facility] - In-person encounter Office Visit Wood Peacock MD [facility] - In-person encounter Office Visit Wood Peacock MD [facility] - In-person encounter Office Visit Wood Peacock MD [facility] - In-person encounter Office Visit Wood Peacock MD [facility] - In-person encounter Office Visit Wood Peacock MD [facility] - In-person encounter Office Visit Wood Peacock MD [facility] - In-person encounter Office Visit Wood Peacock MD [facility] - In-person encounter Office Visit Wood Peacock MD [facility] - In-person encounter Office Visit Wood Peacock MD [facility] - In-person encounter Office Visit Wood Peacock MD [facility] - In-person encounter Office Visit Wood Peacock MD [facility] - In-person encounter Office Visit Wood Peacock MD [facility] - In-person encounter Office Visit Wood Peacock MD [facility] - In-person encounter Office Visit Shaun Isabel MD [facility] Diabetes, Type 2 - In-person encounter Office Visit Maria Teresa Machado MD [facility] Leg pain - In-person encounter Office Visit Shaun Isabel MD, [facility] Lymphedema - secondary - In-person encounter Office Visit Wood Peacock MD [facility] - In-person encounter Office Visit Maria Teresa Machado MD [facility] - In-person encounter Office Visit Maria Teresa Machado MD [facility] - In-person encounter Office Visit Maria Teresa Machado MD [facility] - In-person encounter Office Visit Shaun Isabel MD, [facility] - In-person encounter Office Visit Shaun Isabel MD [facility] - In-person encounter Office Visit Maria Teresa Machado MD [facility] - In-person encounter Office Visit Shaun Isabel MD [facility] Venous hypertension - BLE with ulcer - In-person encounter Office Visit Maria Teresa Machado MD [facility] - In-person encounter Office Visit Wood Peacock MD [facility] - In-person encounter Office Visit Maria Teresa Machado MD [facility] Long-term use of high risk med - In-person encounter Office Visit Maria Teresa Machado MD [facility] Tobacco use, quit - In-person encounter Office Visit Wood Peacock MD [facility] - In-person encounter Office Visit Wood Peacock MD [facility] - In-person encounter Office Visit Wood Peacock MD [facility] - In-person encounter Office Visit Wood Peacock MD [facility] - In-person encounter Office Visit Wood Peacock MD [facility] OBESITYSLEEP APNEA - In-person encounter Office Visit Wood Peacock MD [facility] HTN ESSENTIAL-06/30 NUC NEGATRIAL FIB-08/29 ECHO MOD LAE RVSP 34 EF 50EDEMA VITAL SIGNS Date Observation Value Provider Body Mass Index (Ratio) 36.21 kg/m2 Luis Miguel Peacock MD blood pressure, diastolic 92 mm[Hg] Lior alissa Samson blood pressure, systolic 149 mm[Hg] Parisa baeza Samson oxygen saturation, oximetry 98 % Salliekurt Samson pulse rate 76 /min Salliekurt Samson respiratory rate E&M 12 /min Sallie Samson weight E&M 267 [lb_av] Salliekurt Samson height E&M 72 [in_i] Sallie Samson blood pressure, cuff size regular An alissa Samson Body Mass Index (Ratio) 38.11 kg/m2 Luis Miguel Peacock MD blood pressure, diastolic 101 mm[Hg] Aurora persaud [facility] blood pressure, systolic 158 mm[Hg] Rosario choi [facility] oxygen saturation, oximetry 98 % Isamar [facility] pulse rate 93 /min Isamar [facility] blood pressure, cuff size regular Aurora persaud [facility] weight E&M 281 [lb_av] Isamar [facility] height E&M 72 [in_i] Isamar [facility] Body Mass Index (Ratio) 39.19 kg/m2 Luis Miguel Peacock MD blood pressure, diastolic 83 mm[Hg] Lior beckymelissakurt Samson blood pressure, systolic 123 mm[Hg] Parisa baeza [place] oxygen saturation, oximetry 98 % Sallie Samson pulse rate 93 /min Sallie Samson respiratory rate E&M 14 /min Sallie Samson weight E&M 289 [lb_av] Sallie Samson height E&M 72 [in_i] Sallie Samson blood pressure, cuff size regular Lior Samson Body Mass Index (Ratio) 23.19 kg/m2 Sly da Ventimiglia [employer] THER[employer]IST blood pressure, diastolic 95 mm[Hg] Li nkLogic blood pressure, systolic 156 mm[Hg] Dori kLogic blood pressure, cuff size regular Co ri Elijah blood pressure, diastolic 95 mm[Hg] Co ri Elijah blood pressure, systolic 156 mm[Hg] Cor i Elijah oxygen saturation, oximetry 98 % Heather Nava pulse rate 90 /min Corbecky Nava weight E&M 171 [lb_av] Hansbecky Nava respiratory rate E&M 20 /min Corbecky France [facility] height E&M 72 [in_i] Heather Nava Body Mass Index (Ratio) 40.68 kg/m2 Luis Miguel Peacock MD blood pressure, cuff size regular [facility] blood pressure, diastolic 86 mm[Hg] [facility] blood pressure, systolic 130 mm[Hg] Andrea Robley [facility] pulse rate 98 /min Mckenna Christina oxygen saturation, oximetry 97 % Mckenna [place] respiratory rate E&M 16 /min Mckenna davis weight E&M 300 [lb_av] Mckenna Christina height E&M 72 [in_i] Mckenna Christina Body Mass Index (Ratio) 39.73 kg/m2 Luis Miguel Peacock MD blood pressure, diastolic 89 mm[Hg] Ania De La Rosa blood pressure, systolic 144 mm[Hg] Antonio helle Derry oxygen saturation, oximetry 98 % Frieda De La Rosa pulse rate 62 /min Frieda estrada respiratory rate E&M 16 /min Apple De La Rosa blood pressure, cuff size large Ania jarrett [place] weight E&M 293 [lb_av] Frieda estrada height E&M 72 [in_i] Frieda estrada Body Mass Index (Ratio) 38.78 kg/m2 Luis Miguel Peacock MD blood pressure, diastolic -1 mm[Hg] Ada nkLogic blood pressure, systolic 135 mm[Hg] Dori kLog blood pressure, diastolic 73 mm[Hg] St ephanie Eva blood pressure, systolic 135 mm[Hg] Cristino phanie Prosperity oxygen saturation, oximetry 98 % Annie Prosperity pulse rate 98 /min [facility] E&[facility] 16 /min Yassine ie Prosperity weight E&M 286 [lb_av] Wood Estrada height E&M 72 [in_i] [facility], cuff size large St house Eva Body Mass Index (Ratio) 40.82 kg/m2 Luis Miguel Peacock MD blood pressure, cuff size large Ania jarrett D[place] blood pressure, diastolic 100 mm[Hg] Mi luiza Derry blood pressure, systolic 150 mm[Hg] Antonio helle [place] oxygen saturation, oximetry 99 % Frieda De La Rosa respiratory rate E&M 16 /min Apple De La Rosa pulse rate 88 /min Frieda estrada weight E&M 301 [lb_av] Frieda estrada height E&M 72 [in_i] Frieda estrada Body Mass Index (Ratio) 41.74 kg/m2 Luis Miguel Peacock MD blood pressure, diastolic 80 mm[Hg] Ada nkLogic blood pressure, systolic 134 mm[Hg] Dori kLogic blood pressure, diastolic 80 mm[Hg] Christine Espino Gaston blood pressure, systolic 134 mm[Hg] Gifty Gaitan Feldman oxygen saturation, oximetry 96 % Steven Feldman respiratory rate E&M 16 /min Farideh Feldman pulse rate 85 /min Steven Silva garyjordan weight E&M 307.8 [lb_av] Steven roberton height E&M 72 [in_i] Steven Silva rubén Body Mass Index (Ratio) 50.85 kg/m2 Luis Miguel Peacock MD blood pressure, diastolic 60 mm[Hg] Cy abraham Lott blood pressure, systolic 135 mm[Hg] Michelle valerie Lott blood pressure, cuff size regular Cy nttheresea Lott pulse rate 76 /min Farzana Campbel l oxygen saturation, oximetry 92 % Farzana Lott respiratory rate E&M 18 /min Farzana Lott weight E&M 375 [lb_av] Farzana Campbel l height E&M 72 [in_i] Farzana Campbel l Body Mass Index (Ratio) 50.18 kg/m2 Luis Miguel Peacock MD blood pressure, cuff size regular Cy nthia Lott blood pressure, diastolic 92 mm[Hg] Cy nthia Lott blood pressure, systolic 152 mm[Hg] Michelle valerie Lott pulse rate 68 /min Farzana Campbel l respiratory rate E&M 16 /min Farzana Lott oxygen saturation, oximetry 94 % Farzana Lott weight E&M 370 [lb_av] Farzana irwin height E&M 72 [in_i] Farzana irwin Body Mass Index (Ratio) 49.23 kg/m2 Luis Miguel Peacock MD blood pressure, cuff size regular Cy abraham oLtt blood pressure, diastolic 78 mm[Hg] Cy abraham Lott blood pressure, systolic 144 mm[Hg] Michelle Lott respiratory rate E&M 20 /min Farzana Lott oxygen saturation, oximetry 97 % Farzana Lott pulse rate 117 /min Farzana irwin weight E&M 363 [lb_av] Farzana irwin height E&M 72 [in_i] Farzana irwin Body Mass Index (Ratio) 47.46 kg/m2 Luis Miguel Peacock MD blood pressure, diastolic 71 mm[Hg] Christine Feldman blood pressure, systolic 141 mm[Hg] Gifty Feldman oxygen saturation, oximetry 97 % Steven Feldman respiratory rate E&M 20 /min Farideh Feldman pulse rate 60 /min Steven mont[place] weight E&M 350 [lb_av] Steven Sivla garyon height E&M 72 [in_i] Steven Silva rubén blood pressure, cuff size regular Ke rri Dominic blood pressure, diastolic 75 mm[Hg] Ke rri Dominic blood pressure, systolic 169 mm[Hg] Annmarie Alfaro oxygen saturation, oximetry 95 % Briseida Alfaro respiratory rate E&M 18 /min Briseida brito pulse rate 56 /min Briseidasimran carrizaleser height E&M 72 [in_i] Briseida toledo Body Mass Index (Ratio) 52.35 kg/m2 Luis Miguel Peacock MD weight E&M 386 [lb_av] Ludy Samson pulse rate 63 /min Ludy Samson respiratory rate E&M 17 /min Ludy mcguire oxygen saturation, oximetry 97 % Ludy Samson blood pressure, diastolic 80 mm[Hg] Krunal vasyl Samson blood pressure, systolic 135 mm[Hg] Ludy [...] [place] blood pressure, diastolic 70 mm[Hg] Christine Feldman blood pressure, systolic 126 mm[Hg] Gifty Feldman pulse rate 64 /min Steven [place] oxygen saturation, oximetry 98 % Steven Feldman respiratory rate E&M 20 /min Farideh Feldman Body Mass Index (Ratio) 52.26 kg/m2 Shayla Feldman weight E&M 385.4 [lb_av] Steven smith blood pressure, diastolic, left arm 70 mm [Hg] Nikki Jun blood pressure, systolic, left arm 132 mm [Hg] [facility] blood pressure, diastolic, right arm 66 m m[Hg] [facility] blood pressure, systolic, right arm 128 m m[Hg] [facility] blood pressure, diastolic 66 mm[Hg] Luis rodriguez [facility] blood pressure, systolic 128 mm[Hg] Jon [facility] pulse rate 55 /min [facility] oxygen saturation, oximetry 96 % [facility] respiratory rate E&M 18 /min [facility] Body Mass Index (Ratio) 52.05 kg/m2 Miguel A gianluca Jun weight E&M 383.8 [lb_av] Nikki Jesikachau maci blood pressure, diastolic 56 mm[Hg] Christine Mendezvikash Feldman blood pressure, systolic 120 mm[Hg] Gifty Gaitan Gaston pulse rate 56 /min Steven montana oxygen saturation, oximetry 98 % Steven Feldman respiratory rate E&M 18 /min Farideh Feldman Body Mass Index (Ratio) 51.14 kg/m2 KendraJaclyn Feldman weight E&M 377.1 [lb_av] Steven smith blood pressure, diastolic 74 mm[Hg] Oneil Whitehead blood pressure, systolic 124 mm[Hg] Quinn Whitehead pulse rate 71 /min Barbara Whitehead oxygen saturation, oximetry 97 % Barbara Whitehead respiratory rate E&M 18 /min Barbara Whitehead Body Mass Index (Ratio) 50.45 kg/m2 Zeynep davy Whitehead weight E&M 372 [lb_av] Barbara Whitehead blood pressure, diastolic 62 mm[Hg] Michael Alfaro blood pressure, systolic 174 mm[Hg] Annmarie Alfaro pulse rate 69 /min Briseida Pineda lder oxygen saturation, oximetry 96 % Briseida Alfaro respiratory rate E&M 16 /min Briseida brunermagdisriram Body Mass Index (Ratio) 51.94 kg/m2 Aracelis Cmjoanna weight E&M 383 [lb_av] Briseida Cme lder blood pressure, diastolic 70 mm[Hg] Da edinsonalicia Vannessa blood pressure, systolic 150 mm[Hg] Fidencio Hurd [...] Body Mass Index (Ratio) 51.53 kg/m2 Shayla Feldman weight E&M 380 [lb_av] Steven montana blood pressure, diastolic 82 mm[Hg] Christine Feldman blood pressure, systolic 132 mm[Hg] Gifty Feldman pulse rate 74 /min Steven montana oxygen saturation, oximetry 96 % Steven Feldman respiratory rate E&M 18 /min Farideh Feldman Body Mass Index (Ratio) 51.56 kg/m2 KendraJaclyn Feldman weight E&M 380.2 [lb_av] StevenJaclyn smith blood pressure, diastolic, left arm 70 mm [Hg] Radha O'Felipe blood pressure, systolic, left arm 110 mm [Hg] Radha O'Felipe blood pressure, diastolic, right arm 72 m m[Hg] Radha O'Felipe blood pressure, systolic, right arm 112 m m[Hg] Radha O'Felipe blood pressure, diastolic 70 mm[Hg] Christine peralta O'Felipe blood pressure, systolic 110 mm[Hg] Gifty hough O'Felipe pulse rate 70 /min [facility] O'Felipe oxygen saturation, oximetry 98 % [facility] O'Felipe respiratory rate E&M 18 /min [facility] O'Felipe Body Mass Index (Ratio) 51.53 kg/m2 Hansel harris O'Felipe weight E&M 380 [lb_av] Radha O'Felipe respiratory rate E&M 18 /min Gauri Festus blood pressure, diastolic 68 mm[Hg] stuart Festus blood pressure, systolic 112 mm[Hg] Bere steffanie Festus pulse rate 72 /min Gauri Festus oxygen saturation, oximetry 98 % Gauri Festus Body Mass Index (Ratio) 50.31 kg/m2 Rossana mcnally Festus weight E&M 371 [lb_av] Gauri Festus blood pressure, diastolic 88 mm[Hg] Christine Feldman blood pressure, systolic 157 mm[Hg] Gifty Feldman pulse rate 85 /min Steven montana oxygen saturation, oximetry 95 % Steven Feldman respiratory rate E&M 20 /min Farideh Feldman Body Mass Index (Ratio) 51.18 kg/m2 Kendragary Feldman weight E&M 377.4 [lb_av] Steven roberton blood pressure, diastolic 60 mm[Hg] Christine peralta O'Felipe blood pressure, systolic 118 mm[Hg] Gifty hough O'Felipe pulse rate 83 /min Radha O'Felipe oxygen saturation, oximetry 97 % Radha O'Felipe respiratory rate E&M 16 /min Radha O'Felipe Body Mass Index (Ratio) 48.14 kg/m2 Hansel harris O'Felipe weight E&M 355 [lb_av] Radha O'Felipe blood pressure, diastolic 73 mm[Hg] Christine delaneyJaclyn Woodwardenson blood pressure, systolic 131 mm[Hg] Gifty Bryantkengary Feldman pulse rate 62 /min StevenJaclyn Woodwarde rubén oxygen saturation, oximetry 97 % Steven Woodwardenson respiratory rate E&M 18 /min Farideh vega Feldman Body Mass Index (Ratio) 48.98 kg/m2 Shayla Anaya Feldman weight E&M 361.2 [lb_av] Steven Trace sarah blood pressure, diastolic 68 mm[Hg] Christine delaneyAliciavikash Feldman blood pressure, systolic 128 mm[Hg] Gifty Bryantkengary Feldman pulse rate 58 /min Steven Ricardo rubén oxygen saturation, oximetry 98 % Steven Woodwardenson respiratory rate E&M 18 /min Farideh vega Feldman Body Mass Index (Ratio) 49.06 kg/m2 Shayla Anaya Feldman weight E&M 361.8 [lb_av] Steven Trace sarah blood pressure, diastolic 60 mm[Hg] Me stuart José Manuel blood pressure, systolic 132 mm[Hg] Bere yorka Georges pulse rate 64 /min Gauri Georges oxygen saturation, oximetry 97 % Gauri Georges respiratory rate E&M 16 /min Gauri Body Mass Index (Ratio) 49.50 kg/m2 Rossana ssa weight E&M 365 [lb_av] Gauri blood pressure, diastolic 58 mm[Hg] Me delunasa blood pressure, systolic 139 mm[Hg] Bere valiente pulse rate 90 /min Gauri oxygen saturation, oximetry 97 % Gauri respiratory rate E&M 15 /min Gauri Body Mass Index (Ratio) 49.09 kg/m2 Rossana ssa weight E&M 362 [lb_av] Gauri Georges blood pressure, diastolic 74 mm[Hg] Christine Mendezvikash Gaston blood pressure, systolic 123 mm[Hg] Gifty Bryantchristoph Gaston pulse rate 84 /min Steven Silva on oxygen saturation, oximetry 98 % Steven Feldman respiratory rate E&M 18 /min Farideh Feldman Body Mass Index (Ratio) 49.09 kg/m2 Shayla Feldman weight E&M 362 [lb_av] Steven Silva nson blood pressure, diastolic 77 mm[Hg] Christine Mendezvikash Feldman blood pressure, systolic 128 mm[Hg] Gifty Feldman Body Mass Index (Ratio) 48.06 kg/m2 Shayla Feldman pulse rate 102 /min Steven Silva nson oxygen saturation, oximetry 95 % Steven Gaston respiratory rate E&M 20 /min ShaylaNorma gary Feldman weight E&M 354.4 [lb_av] Steven Trace enson blood pressure, diastolic 83 mm[Hg] Srini Elkins [...] MD height E&M 72 [in_i] Madhu Elkins TIMOTHY blood pressure, diastolic 80 mm[Hg] Titi Guerrero blood pressure, systolic 134 mm[Hg] Constanza Guerrero pulse rate 96 /min Jazzy Guerrero oxygen saturation, oximetry 97 % Jazzy Guerrero respiratory rate E&M 16 /min Jazzy bergman weight E&M 346 [lb_av] Jazzy Guerrero blood pressure, diastolic 81 mm[Hg] Berry blood pressure, systolic 132 mm[Hg] Villa Peña pulse rate 87 /min Hebert Peña oxygen saturation, oximetry 98 % Hebert Peña respiratory rate E&M 18 /min Hebert Peña weight E&M 347 [lb_av] Hebert Peña ALLERGIES Allergy Name Onset Date Reaction Criticality Status TRAMADOL High Criticality active SULFA Low Criticality active RESULTS Date Observation Value Provider Reference Range Interpretation Location very low density lipoproteins 17.4 mg/dL [facility] 5.0 - 40.0 LDL/HDL (low-density lipoprotein/high-de nsity lipoprotein) ratio 1.7 RATIO [facility] - lipoprotein, beta, serum, point, quantitative, calculated 88.6 (?) [facility] 0.0 - 100.0 HDL cholesterol, serum 52.0 mg/dL [facility] 35.0 - 55.0 cholesterol, serum 158.0 mg/dL [facility] 0.0 - 200.0 triglyceride, serum, fasting 87.0 mg/dL [facility] 0.0 - 150.0 urea nitrogen/creatinine ratio, serum 16.7 [facility] - Estimated Glomerular Filtration Rate (calc) 65.0 (?) [facility] 59.0 - chloride, serum 101.0 mmol/L [facility] 98.0 - 107.0 potassium, serum 3.9 mmol/L [facility] 3.5 - 5.1 sodium, serum 142.0 mmol/L [facility] 136.0 - 145.0 creatinine, serum 1.2 mg/dL [facility] 0.7 - 1.2 carbon dioxide, venous blood 25.0 mmol/L [facility] 23.0 - 31.0 calcium, serum 9.5 mg/dL [facility] 8.6 - 10.2 urea nitrogen, blood 20.0 mg/dL [facility] 8.0 - 23.0 blood glucose, random 144.0 mg/dL [facility] 74.0 - 99.0 High red blood cell distribution width, size density 50.9 fL [facility] - immature granulocytes, percentage of total cells, blood 0.5 % [facility] - nucleated red blood cells as percent of blood leukocytes 0.0 % [facility] - red blood cell (erythrocyte) count, per high power field 0.0 10*3/UL [facility] - eosinophils as percent of blood leukocytes 1.9 % [facility] - neutrophils as percent of blood leukocytes 77.2 % [facility] - Absolute Neutrophils 6.5 CELLS/UL Link[facility] 1.5 - 7.8 basophils as percent of blood leukocytes 0.6 % [facility] - Absolute Basophils 0.1 CELLS/UL [facility] 0.0 - 0.2 monocytes as percent of blood leukocytes 5.6 % [facility] - Absolute Monocytes 0.5 CELLS/UL [facility] 0.2 - 1.0 lymphocytes as percent of blood leukocytes 14.2 % [facility] - Absolute Lymphocytes 1.2 CELLS/UL [facility] 0.9 - 3.9 mean platelet volume 11.0 (?) [facility] - platelet count 168.0 THOUSAND/ UL [facility] 100.0 - 400.0 mean corpuscular hemoglobin concentration, RBC 32.2 G/DL [facility] 31.0 - 38.0 mean corpuscular [...] 3.5 - 5.2 calcium, serum 9.1 [facility] - 10.2 aspartate aminotransferase (SGOT), serum 15.0 1/L [facility] 0.0 - 40.0 alkaline phosphatase, serum 84.0 1/L [facility] 40.0 - 130.0 alanine aminotransferase (SGPT), serum 31.0 1/L [facility] 0.0 - 41.0 protein, total, serum 7.2 g/dL [facility] 6.6 - 8.7 bilirubin, serum, total 0.4 mg/dL [facility] 0.0 - 1.2 urea nitrogen, blood 18.0 mg/dL [facility] 8.0 - 23.0 blood glucose, random 146.0 mg/dL [facility] 74.0 - 99.0 High red blood cell distribution width, size density 51.1 fL [facility] - immature granulocytes, percentage of total cells, blood 0.7 % [facility] - nucleated red blood cells as percent of blood leukocytes 0.3 % [facility] - red blood cell (erythrocyte) count, per high power field 0.0 10*3/UL [facility] - eosinophils as percent of blood leukocytes 1.7 % [facility] neutrophils as percent of blood leukocytes 75.5 % [facility] - Absolute Neutrophils 7.2 CELLS/UL [facility] 1.5 - 7.8 basophils as percent of blood leukocytes 0.6 % [facility] - Absolute Basophils 0.1 CELLS/UL [facility] 0.0 - 0.2 monocytes as percent of blood leukocytes 7.1 % [facility] - Absolute Monocytes 0.7 CELLS/UL [facility] 0.2 - 1.0 lymphocytes as percent of blood leukocytes 14.4 % [facility] - Absolute Lymphocytes 1.4 CELLS/UL [facility] 0.9 - 3.9 mean platelet volume 9.7 (?) [facility] - platelet count 246.0 THOUSAND/ UL [facility] [...] erythrocyte count, whole blood 4.4 MILLION/U L [facility] 3.5 - 5.5 red blood cell distribution width, size density 50.3 fL [facility] - immature granulocytes, percentage of total cells, blood 0.3 % [facility] - nucleated red blood cells as percent of blood leukocytes 0.0 % [facility] - red blood cell (erythrocyte) count, per high power field 0.0 10*3/UL [facility] - eosinophils as percent of blood leukocytes 1.9 % [facility] - neutrophils as percent of blood leukocytes 71.6 % [facility] - Absolute Neutrophils 6.2 CELLS/UL [facility] 1.5 - 7.8 basophils as percent of blood leukocytes 0.7 % [facility] - Absolute Basophils 0.1 CELLS/UL [facility] 0.0 - 0.2 monocytes as percent of blood leukocytes 5.2 % [facility] - Absolute Monocytes 0.5 CELLS/UL [facility] 0.2 - 1.0 lymphocytes as percent of blood leukocytes 20.3 % [facility] - Absolute Lymphocytes 1.7 CELLS/UL [facility] 0.9 - 3.9 mean platelet volume 10.8 (?) [facility] - platelet count 210.0 THOUSAND/ UL [facility] 100.0 - 400.0 mean corpuscular hemoglobin concentration, RBC 32.1 G/DL [facility] 31.0 - 38.0 mean corpuscular [...] RN international normalized ratio (INR) 2.3 Gauri Mcdonoughann Normal prothrombin time (patient) 27.4 s Gauri Georges coagulation managed by Madhu Elkins RN international normalized ratio (INR) 2.2 Briseida Alfaro Normal prothrombin time (patient) 27.0 s Briseida Alfaro coagulation managed by Madhu Elkins RN international normalized ratio (INR) 3.4 Briseida Alfaro Normal prothrombin time (patient) 40.6 s Briseida Hernandezueneashleyer coagulation managed by Madhu Elkins RN international normalized ratio (INR) 2.1 Briseida Grueneashleyer Normal prothrombin time (patient) 25.0 s Briseida De Leónneashleyer international normalized ratio (INR) 1.1 Steven Feldman Normal prothrombin time (patient) 13.8 s Steven Woodwardenson coagulation managed by Madhu Elkins RN international normalized ratio (INR) 3.0 Gauri Festus Normal prothrombin time (patient) 36.4 s Gauri Festus red blood cell distribution width, size density 46.6 fL [facility] - immature granulocytes, percentage of total cells, blood 0.4 % [facility] - nucleated red blood cells as percent of blood leukocytes 0.0 % [facility] - red blood cell (erythrocyte) count, per high power field 0.0 10*3/UL [facility] - eosinophils as percent of blood leukocytes [...] as percent of blood leukocytes 17.6 % [facility] - Absolute Lymphocytes 1.4 CELLS/UL [facility] 0.9 - 3.9 mean platelet volume 10.3 (?) [facility]Logic - platelet count 222.0 THOUSAND/ UL [facility] 100.0 - 400.0 mean corpuscular hemoglobin concentration, RBC 32.5 G/DL [facility] 31.0 - 38.0 mean corpuscular hemoglobin, RBC 29.3 pg [facility]ic 25.0 - 35.0 mean corpuscular volume, RBC 90.2 fL [facility] 75.0 - 100.0 hematocrit, blood 44.3 % [facility] 35.0 - 55.0 hemoglobin, blood 14.4 g/dL [facility] 11.5 - 16.5 erythrocyte count, whole blood 4.9 MILLION/U L [facility] 3.5 - 5.5 very low density lipoproteins 21.2 mg/dL [facility] 5.0 - 40.0 LDL/HDL (low-density lipoprotein/high-de nsity lipoprotein) ratio 2.3 [facility], beta, serum, point, quantitative, calculated [...] High international normalized ratio (INR) 3.1 Steven Feldman Normal prothrombin time (patient) 37.0 s Steven Feldman coagulation managed by Madhu Elkins RN international normalized ratio (INR) 3.1 Gauri Mcdonoughann Normal prothrombin time (patient) 37.3 s Gauri Mcdonoughann coagulation managed by Madhu Elkins RN international normalized ratio (INR) 3.1 Briseida Alfaro Normal prothrombin time (patient) 37.5 s Briseida Alfaro international normalized ratio (INR) 2.2 Steven Feldman Normal prothrombin time (patient) 25.9 s Steven Feldman coagulation managed by Madhu Elkins RN international normalized ratio (INR) 1.6 Briseida Alfaro Normal prothrombin time (patient) 19.2 s Briseida Strouder coagulation managed by Madhu Elkins RN international normalized ratio (INR) 1.5 Briseida Alfaro Normal prothrombin time (patient) 18.5 s Briseida Cmelder pro brain natriuretic peptide 522.6 pg/mL LinkLogic [...] RN international normalized ratio (INR) 2.1 Briseida Alfaro Normal prothrombin time (patient) 25.1 s Briseida Alfaro coagulation managed by Madhu Elkins RN international [...] Medication Status Instructions Dates Provider Indications Com garcia Ozempic 1 mg/dose (4 mg/3 mL) pen [...] TABLET BY MOUTH ONCE DAILY NEEDED Daron Gomez Ozempic 1 mg/dose (4 mg/3 mL) pen injector completed 1 mg subcutaneously once a week - Vandana Waller Ozempic 0.25 mg or 0.5 mg (2 [...] TABLET BY MOUTH EVERY DAY - Josefa Wang BOARD CERTIFIED ARTS THERAPIST Eliquis 5 mg tablet active TAKE 1 TABLET BY MOUTH TWICE DAILY Nivia WHEELER Specialist oxycodone-aceta minophen 10-325 mg tablet active TAKE 1 TABLET BY MOUTH EVERY 6 HOURS NEEDED FOR PAIN Steven Feldman metoprolol succinate 50 mg tablet extended release 24 hr completed TAKE 1 TABLET BY MOUTH TWICE DAILY - Briseida Alfaro omeprazole 20 mg capsule,delayed release(/EC) completed TAKE 1 CAPSULE BY MOUTH EVERY DAY - Steven Feldman Calcium 600 600 mg calcium (1,500 mg) tablet active Take 1 tablet by mouth once a day Steven Feldman vitamin J90-ezkwn acid 500-400 mcg tablet active Take 1 [...] completed 1 tablet twice a day - Stevenvikash Feldman tamsulosin 0.4 mg capsule completed once a day - Josefa YOP TYLENOL WITH CODEINE #3 TABLET completed as [...] Provider personal history of marijuana use no Wood [...] MD personal history of marijuana use no Dai Leigh [employer] drug use no Dai Intercourse [employer] alcohol use, average drinks per day social Dai Leigh [employer] alcohol use yes Dai Hawkinsdall [employer] passive cigarette sm ramya exposure no Dai Leigh [employer] smoking, year quit 1995 Dai Cadena chuyall [employer] number of years as a smoker less than 10 years Dai Hawkinsdall [employer] smoking history, tot al pack/year 20 Dai Intercourse [employer] cigarette use yes Dai Hawkinsdall [employer] smoking status Former smoker Dai Whittington ll [employer] personal history of marijuana use no Wood [...] history of marijuana use no Josefa Ventimiglia BOARD CERTIFIED ARTS THERAPIST drug use no Josefa Ventimig josse BOARD CERTIFIED ARTS THERAPIST alcohol use, average drinks per day social Josefa Ventimiglia BOARD CERTIFIED ARTS THERAPIST alcohol use yes Josefa Ventimig josse BOARD CERTIFIED ARTS THERAPIST passive cigarette sm ramya exposure no Josefa Ventimiglia [facility] smoking, year quit 1995 Josefa Bey ntimigltamanna [facility] number of years as a smoker less than 10 years Josefa Ventimiglia [facility] smoking history, tot al pack/year 20 Josefa Ventimiglia [facility] cigarette use yes Josefajorge Givensmi glia [facility] smoking status Former smoker Josefa beltrelia [facility] drug use no [facility] alcohol use, average drinks per day social [facility] alcohol use yes [facility] passive cigarette sm ramya exposure no [facility] smoking/tobacco cessation, patient education and counseling contraindicated [facility] smoking, year quit 1995 [facility] number of years as a smoker less than 10 years [facility] smoking history, tot al pack/year 20 [facility] cigarette use yes [facility] smoking status Former smoker [facility] drug use no Josefa Terryg josse [facility] alcohol use, average drinks per day social Josefa Wang [facility] alcohol use yes Josefa Terryg josse [facility] seatbelt usage 100 % Frieda Callahan physical [...] History: Jose ridley is a former smoker. Wood Peacock MD [...] 20 Annie Velasquez cigarette use yes Annie tinajero smoking status Former smoker Annie carballo social history E&M Marital Statu s: Single L randall alone J ob Status: Unemployed Smoking History: Jose ridley is a former smoker. Wood Peacock MD [...] Godinez nd smoking status Former smoker Frieda Yo briscoe social history E&M Marital Statu s: Single L randall alone J ob Status: Unemployed Smoking History: Jose ridley is a former smoker. Wood Peacock MD [...] a smoker less than 10 years Steven Felmdan smoking history, tot al pack/year 20 Steven Feldman cigarette use yes Steven smith smoking status Former smoker Steven Brenner social history E&M Marital Statu s: Single L randall alone J ob Status: Unemployed Smoking History: Jose ridley is a former smoker. Wood Peacock MD [...] 20 Farzana Oren cigarette use yes Farzana Urbanchavez rogers smoking status Former smoker Farzana shi social history E&M Marital Statu s: Single L randall alone J ob Status: Unemployed Smoking History: P khai is a former smoker. Wood Peacock MD social history revie wed E&M reviewed - no changes required Wood Peacock MD seatbelt usage 100 % Farzana Rachel delgado physical exercise, frequency, days per week yes Farzana Lott caffeine use, averag e drinks per day yes Farzana Oren passive cigarette sm ramya exposure no Farzana Oren smoking, year quit 1995 Farzana tamayo number of years as a smoker less than 10 years Farzana Lott smoking history, tot al pack/year 20 Farzana Oren cigarette use yes Farzana Jonah rogers smoking status Former smoker Farzana Urban yuridia social history E&M Marital Statu s: Single L randall alone J ob Status: Unemployed Smoking History: Jose ridley is a former smoker. Wood Peacock MD [...] Steven smith smoking status Former smoker Steven Chambers kong social history E&M Marital Statu s: Single L randall alone J ob Status: Unemployed Smoking History: P atfrandy is a former smoker. Wood Peacock MD social history revie wed E&M reviewed - no changes required Wood Peacock MD seatbelt usage 100 % Briseida melara physical exercise, frequency, days per week yes Briseidasimran Alfaro alcohol use, average drinks per day none Briseidasimran Alfaro alcohol use no Briseidasimran toledo caffeine use, averag e drinks per day yes Briseida Alfaro drug use none Briseida Edwin toledo passive cigarette sm ramya exposure no Briseida Dominic smoking, year quit 1995 Brsieida Sonia lux number of years as a smoker less than 10 years Briseida Dominic smoking history, tot al pack/year 20 Briseida Dominic cigarette use yes Briseida Hernandezwoody marshall smoking status Former smoker Briseida Aurelia rocha social history E&M Marital Statu s: [...] smith smoking status Former smoker Steven Brenner number of grandchildren Shaun Alcantar social history revie wed E&M reviewed - no changes required Paul De Souza social history E&M Marital Statu s: Single [...] Oksana ortega RN smoking status Former smoker Oksana chung RN social history revie wed E&M reviewed - no changes required Oksana Milton RN social history revie wed E&M reviewed - no changes required Wood Peacock MD social history revie wed E&M reviewed - no changes required Maria Teresa Machado MD social history revie [...] Former smoker Steven Brenner social history [facility] E&M reviewed - no changes required [...] Steven Brenner seatbelt usage 100 % Shaun Estrada physical exercise, frequency, days per week yes Shauntere Isabel MD alcohol use, average drinks per day none Shauntere Isabel MD alcohol use no Shaunjose Isabel MD caffeine use, averag e drinks per day yes Shaunjose Isabel MD drug use none Shaun Chalo CARMICHAEL passive cigarette sm ramya exposure no Shaun Chalo CARMICHAEL smoking, year quit 1995eep Sean rodriguez MD number of years as a smoker less than 10 years Shaunjose Isabel MD smoking history, tot al pack/year 20 Shaun Chalo CARMICHAEL cigarette use yes Shaun Chalo CARMICHAEL smoking status Former smoker Shaun Chalo CARMICHAEL social history revie wed [...] status Former smoker Steven Brenner social history [facility] E&M reviewed - no changes required Shaun Isabel MD smoking status Former smoker Radha irwin social history [facility] E&M reviewed - no changes required Maria Teresa Machado MD seatbelt usage 100 % Steven Cristino demetrisson physical exercise, frequency, days per week yes [...] status Former smoker Steven Brenner social history [facility] E&M reviewed - no changes required Wood Peacock MD seatbelt usage 100 % Steven Gregg cathie physical exercise, frequency, days per week yes Steven Feldman alcohol use, average drinks per day none Steven Feldman alcohol use no Steven Silva nson caffeine use, averag e drinks per day yes Steven Feldman drug use none Steven Woodwarde nson passive cigarette sm ramya exposure no Steven Feldman smoking, year quit 1995 Steven Feldman number of years as a smoker less than 10 years Steven Feldman smoking history, tot al pack/year 20 Steven Feldman cigarette use yes Steven smith smoking status Former smoker Steven Brenner seatbelt usage 100 % Gauri Mcdonoughlior suh physical exercise, frequency, days per week yes Gauri Georges alcohol use, average drinks per day none Gauri Mcdonough alcohol use no Gauri caffeine use, averag e drinks per day yes Gauri drug use none Gauri Mcdonough passive cigarette sm ramya exposure no Gauri Mcdonough smoking, year quit 1995 Gauri Vasyl Da Silva number of years as a smoker less than 10 years Gauri Mcdonoughann smoking history, tot al pack/year 20 Gauri Mcdonough cigarette use yes Gauri Mcdonoughann smoking status Former smoker Gauri Chad sousa social history E&M Marital Statu s: Single L randall alone J ob Status: Unemployed Smoking History: Jose ridley is a former smoker. Maria Teresa Machado MD social history revie wed E&M reviewed - no changes required Maria Teresa Machado MD seatbelt usage 100 % Gauri Tristen suh physical exercise, frequency, days per week yes Gauri Mcdonoughann alcohol use, average drinks per day none Gauri Georges alcohol use no Gauri Georges caffeine use, averag e drinks per day yes Gauri Georges drug use none Gauri Georges passive cigarette sm ramya exposure no Gauri Mcdonough smoking, year quit 1995 Gauri Torres Rekha number of years as a smoker less than 10 years Gauri Mcdonoughann smoking history, tot al pack/year 20 Gauri Mcdonoughann cigarette use yes Gauri Mcdonoughann smoking status Former smoker Gauri Bonilla lars social history revie wed E&M reviewed - no changes required Wood Peacock MD seatbelt usage 100 % StevenJaclyn Acosta physical exercise, frequency, days per week yes StevenJaclyn Feldman alcohol use, average drinks per day none StevenJaclyn Feldman alcohol use no StevenJaclyn montana caffeine use, averag e drinks per day yes Steven Feldman drug use none Steven Silva garyon passive cigarette sm ramya exposure no StevenJaclyn Feldman smoking, year quit 1995 StevenJaclyn Feldman number of years as a smoker less than 10 years StevenJaclyn Feldman smoking history, tot al pack/year 20 StevenJaclyn Feldman cigarette use yes Steven smith smoking status Former smoker StevenJaclyn Brenner smoking/tobacco cessation, patient education and counseling No Wood Peacock MD social history revie wed E&M reviewed - no changes required Wood Peacock MD smoking, year quit 1995 StevenJaclyn Feldman cigarette use yes Steven smith seatbelt usage 100 % Steven Acosta physical exercise, frequency, days per week yes Steven Feldman alcohol use, average drinks per day none Steven Feldman caffeine use, averag e drinks per day yes Steven Feldman drug use none StevenJaclyn [place] passive cigarette sm ramya exposure no Steven Feldman smoking status Former smoker Stevenvikash Brenner drug use none Wood Estrada social [...] than 10 years LinkLog smoking status Quit [facility] MENTAL STATUS Date Observation Value Provider [...] person. Mood and affect are normal. Wood Peacock MD FAMILY HISTORY Family Member Condition Mother Negative FH of A S C V D INSURANCE PROVIDERS Payer name Policy type / Coverage type [place] red green party ID AARP MEDICARE ADVANTAGE ST 0 003 (HMO POS) Medicare [id number] ADVANCE DIRECTIVES Name Date DISCUSSED - NO DECISION MADE TREATMENT PLAN Date Name Performer [id number],C,continued robbie ght loss encouraged Josefa Ventimiglia BOARD CERTIFIED ARTS THERAPIST [id number],S, Wood Ramada n [id number],S, Owod Ramada n [place] [id number],S, Wood Ramada n [id number],S, Wood Ramada n [place] [id number],S, Wood Ramada n [place] [id number],S, Wood Ramada n [place] [id number],B, Wood Ramada n [id number],S, Wood Ramada n [id number],S, Wood Ramada n [id number],S, Wood Ramada n [place] [id number],S, Wood Ramada n [place] [id number],C,T he patient is using CPAP on a regular basis. The patient has been benefiting from therapy and should continue use. Wood Peacock MD [id number],S, Wood Ramada n [id number],B, Wood Ramada n [place] [id number],C,T he patient is using CPAP on a regular basis. The patient has been benefiting from therapy and should continue use. Wood Peacock MD [id number],B,S/P bariatric surgery Wood Peacock MD [id number],S, Wood Ramada n [id number],S, Wood Ramada n [id number],S, Wood Ramada n Cardiology Wood Ramadan MD Cardiology: l ast hemoglobin A1C 6% [...] mouth every day Wood Peacock MD Cardiology: T he patient is using CPAP on a regular basis. The patient has been benefiting from therapy and should continue use. Wood Peacock MD Cardiology: W ill monitor at home and bring readings on next visitl H is updated medication list for this problem includes: Metoprolol Succinate 50 Mg Tablet Extended Release 24 Hr (Metoprolol succinate) ..... Take 1 tablet by mouth twice a day Lisinopril 10 Mg Tablet (Lisinopril) ..... Take 1 tablet by mouth every day Wood Peacock MD Cardiology:This visi t has been a part of the consistent, comprehensive, and ongoing management of the chronic medical condition(s) listed above for the patient. Wood Peacock MD Cardiology:Will lianne tor at home and bring readings on next visitl H is updated medication list for this problem includes: Metoprolol Succinate 50 Mg Tablet Extended Release 24 Hr (Metoprolol succinate) ..... Take 1 tablet by mouth twice a day Lisinopril 10 Mg Tablet (Lisinopril) ..... Take 1 tablet by mouth every day Dai Abraham NP Cardiology Dai Suh P Cardiology:Ccontinue BB and katya. H is updated medication list for this [...] daily Wood Peacock MD Cardiology:weight loss Josefa tomlin [facility] Cardiology:last hemo globin A1C 6% T he [...] Take 1 tablet by mouth every day Josefajorge Wang [facility] Cardiology:The patie nt is using CPAP on a regular basis. The patient has been benefiting from therapy and should continue use. Josefajorge Wang [facility] Cardiology:chronic w ears lymphedema wraps Josefa Wang [facility] Cardiology:BP 156/95 above goal R eports better [...] tablet by mouth twice daily Josefajorge Wang [facility] Cardiology:chronic a nd rate controlled E liquis for AC H is updated medication list for this problem includes: Metoprolol Succinate 50 Mg Tablet Extended Release 24 Hr (Metoprolol succinate) ..... Take 1 tablet by mouth twice daily Josefajorge Wang [facility] Cardiology Wood Peacock MD Cardiology:The patie nt is using CPAP on a regular basis. The patient has been benefiting from therapy and should continue use. Wood Peacock MD Cardiology Wood Peacock MD Cardiology Wood Peacock MD Cardiology Wood Peacock MD Cardiology:continued weight loss encouraged Josefa Wang [facility] Cardiology Wood Peacock MD Cardiology Wood Peacock [...] floor h as right upper ha pain. Shaun Isabel MD Cardiology: He does not have any open ulcers at this time, but he did have 2 different hospitalizations for stasis dermatitis/cellulitis. H e has compression wraps in place. He also uses compression pumps 3x/week. He isn't able to use compression pumps more often as he has trouble getting in and out of it, but he has a healthcare worker who helps him use it 3x/week. 11/13/2015 venous u/s showed distal Rt GSV reflux and rt mid calf real estate officer reflux. right thigh 1 inch larger r [...] today: 128/66 P rior BP: 120/56 (11/10/2015) Shauntere Isabel MD EP faxed 11/16/15:BP today: 120/56 P rior BP: 124/74 (11/01/2015) His updated medication list for this problem includes: Diltiazem Cd 180 Mg Oral [id number] (Diltiazem hcl coated beads) ..... One tab, twice daily Furosemide 80 Mg Tabs (Furosemide) ..... 40mg in the am 40mg in the pm Paul De Souza EP faxed 11/16/15 Paul Davis stanley EP faxed 11/16/15:His updated medication list for this problem includes: Amiodarone Hcl 200 Mg Tabs (Amiodarone hcl) ..... Two tab twice daily Paul De Souza EP faxed 11/16/[address] [facility] EP faxed 11/16/15:Pt is wearing Jolanta [...] benefit from flexitouch lymphedema pump ---will contact [facility] medical Oksana Milton RN Cardiology - ltr [...] problem includes: Diltiazem Cd 180 Mg Oral [id number] (Diltiazem hcl coated beads) ..... One tab, twice daily Furosemide 80 Mg Tabs (Furosemide) ..... One tablet in the morning Maria Teresa Machado MD EP faxed 09/01/15:Com pliant with treatment. Maria Teresa Machado MD EP faxed 09/01/15: O rders: 9 9212 Minor (CPT-46248) His updated medication list for this problem includes: Diltiazem Cd 180 Mg Oral [id number] (Diltiazem hcl coated beads) ..... One tab, [...] faxed 09/01/15: O rders: 9 9212 Minor (CPT-86497) Carmen Florencio CARMICHAEL EP faxed 08/21/15 0829 :EVLT scheduled. Maria Teresa Machado MD EP faxed 08/21/15 0829:Dose of Ami odarone reduced. Maria Teresa Machado MD EP faxed 08/21/15 0829:S/P ablatio n. Maria Teresa Machado MD EP faxed 08/21/15 0829:EVLT schedu led. Maria Teresa Machado MD EP: O rders: 9 9214 MOD Complex (CPT-19204) Maria Teresa Machado MD Cardiology - needs cvs Shaun D as Cardiology - needs c vs:BP today: 110/70 P rior BP: 112/68 (06/14/2015) Shauntere Isabel MD Cardiology - needs c vs:venous [...] patent with reflux R t mid calf real estate officer L t GSV occluded v enous u/s today showed b/l lsv insufficiency which coorelated withthe drainage area of the ulcers w ill hold of gsv and do lsv occlusions Shauntere Isabel MD Cardiology:he had b/ l evlt r le distal gsv still patent and has severe reflux and also has incompetent real estate officer mid calf l le - entirely occluded gsv will plan rle distal gsv evlt/sts Shauntere Isabel MD Cardiology:Patietn bushra rogers in for evaluation of venous insufficiency. Patient c/o leg ulcer, discoloration, and edema. He was going to wound care center in [place]. He has sores now on the left [...] his knee and has trouble waking also. Shauntere Isabel MD Cardiology:due to cvi Shaunjose Lyle MD EP Faxed 03/24/15 082 4s: O rders: 9 9214 MOD Complex (CPT-12951) Maria Teresa Machado MD EP Wood Peacock [...] tab-managed by dr. penaloza Orders: S NOMED-CT: [id number] Current Medications Documented (SCT-[id number]) E KG (CPT-44496) S NOMED-CT: 602586167 Smoking Cessation Counseling ([facility]-[id number]) S NOMED-CT: 43437443 Physical Exam, Performed: Pulse Exam of Foot (SCT-99387985) 9 9215 HIGH Complex (CPT-06566) T EE - GC (*) C ardioversion - GC (CPT-91988) Maria Teresa Machado MD EP faxed 02/13/15 14 16:BP today: 139/58 P rior BP: 123/74 (01/17/2015) Maria Teresa Machado MD EP faxed 02/13/15 [...] tab-managed by dr. penaloza Orders: S NOMED-CT: [id number] Current Medications Documented (SCT-[id number]) E KG (CPT-62327) S NOMED-CT: 274176482 Smoking Cessation Counseling ([facility]-[id number]) S NOMED-CT: 64550091 Physical Exam, Performed: Pulse Exam of Foot (SCT-[id number]) 9 9215 HIGH Complex (CPT-53499) T EE - GC (*) C ardioversion - GC (CPT-08909) Maria Teresa Machado MD Cardiology:Will send for EVLT Ra wilda Peacock MD Cardiology Wood Peacock MD Cardiology Wood Peacock MD Cardiology:Will try CV again on amiodarone. Wood Peacock MD fu: O rders: V enous Doppler Bilateral LE (90884) V enous Doppler Bilateral LE - Standing (CPT-57315) C omplete Echo (CPT-64531) B TYPE NATRIURETIC PEPTIDE (BNP) (68952) Wood Peacock MD fu Wood Peacock MD [...] Normal left ventricle ejection fraction measuring 65%. - [facility] (07/02/2011) Orders: E KG (CPT-91158) Wood Peacock MD routine : H is [...] Normal left ventricle ejection fraction measuring 65%. - [facility] (07/02/2011) Orders: E KG (CPT-84652) Wood Peacock MD follow up: O rders: S lee Study (*) Wood Peacock MD follow up: [...] ..... Once a day Orders: E KG (CPT-04828) BP today: 134/80 Prior BP: 132/81 (10/23/2010) N uclear Stress Findings: Clinically and electrocardiographically unremarkable Lexiscan stress test. Decreased left ventricle ejection fraction measuring 52%. [facility] (09/04/2010) E chocardiogram: TDS. Mild LV dilatation with near normal systolic contractility with estimated EF of 50%. Normal RV size and systolic contracility. Mild to moderate LAE. Aortic root diameter is at upper limit of normal. Trivial MR. Trivial TR with RVSP 34mmHg. Mild PI. No significant pericardial effusion. [facility] (09/10/2010) Wood Peacock MD follow up: H is updated medication list for this problem includes: Aspirin 81 Mg Tabs (Aspirin) ..... 1 tab daily Metoprolol Tartrate 50 Mg Tabs (Metoprolol tartrate) ..... 1 tab twice daily Orders: E KG (CPT-48193) BP today: 132/81 Wood Peacock MD follow [...] Decreased left ventricle ejection fraction measuring 52%. [facility] (09/04/2010) E chocardiogram: TDS. Mild LV dilatation with near normal systolic contractility with estimated EF of 50%. Normal RV size and systolic contracility. Mild to moderate LAE. Aortic root diameter is at upper limit of normal. Trivial MR. Trivial TR with RVSP 34mmHg. Mild PI. No significant pericardial effusion. [facility] (09/10/2010) Wood Peacock MD Date Name Aorta Duplex Ultraso und Carotid Duplex Bilat eral Complete Echo Complete Echo BASIC METABOLIC PANE L W/EGFR HEMOGLOBIN A1c LIPID PANEL PROBNP, N TERMINAL Complete Echo LIPID PANEL BASIC METABOLIC PANE L W/EGFR CBC (INCLUDES DIFF/P LT) PROTHROMBIN TIME WIT H INR DLCO - 19541 FRC - 34368 FVC - 86503 X-Ray, Other Complete Echo DLCO - 60816 FRC - 39865 FVC - 24998 PROBNP, N TERMINAL CBC (INCLUDES DIFF/P LT) [...] EKG Wood Peacock MD complete d SNOMED-CT: [id number] Current Medications Documented Wood Peacock MD completed SNOMED-CT: [id number] Current Medications Documented Wood Peacock MD completed SNOMED-CT: [id number] Current Medications Documented Wood Peacock MD completed SNOMED-CT: 918239090020607 Current Medications Documented Wood Peacock MD completed SNOMED-CT: 85947591 Physical Exam, Performed: Pulse Exam of Foot Shaun Isabel MD completed EKG Shaun Isabel MD completed SNOMED-CT: 584497666720044 Current Medications Documented Shaun Isabel MD completed FVC - 77914 Maria Teresa bravo MD completed FRC - 44027 Maria Teresa bravo MD completed DLCO - 89543 Maria Teresa bravo MD completed EKG Maria Teresa bravo MD completed SNOMED-CT: 668480965068799 Current Medications Documented Maria Teresa Machado MD completed SNOMED-CT: 101092342583638 Current Medications Documented Barbara Whitehead completed SNOMED-CT: 257499221175657 Current Medications Documented Wood Peacock MD completed Schedule Followup Maria Teresa hemphill MD continue current dose of amiodarone for next 2 months. P FTs in [address] machado completed EKG Maria Teresa bravo MD completed SNOMED-CT: 770272515646563 Current Medications Documented Maria Teresa Machado MD completed SNOMED-CT: 583127800 Smoking Cessation Counseling Maria Teresa Machado MD completed Schedule Followup Maria Teresa hemphill MD August 28, same day as Onesimo completed EKG Maria Teresa bravo MD completed SNOMED-CT: 013977749034687 Current Medications Documented Maria Teresa Machado MD completed SNOMED-CT: 082309926 Smoking Cessation Counseling Maria Teresa Machado MD completed SNOMED-CT: 739974628236653 Current Medications Documented Maria Teresa Machado MD completed FVC - 87062 Maria Teresa bravo MD completed FRC - 35074 Maria Teresa bravo MD completed DLCO - 43785 Maria Teresa bravo MD completed SNOMED-CT: 467199746 Smoking Cessation Counseling Shaun Isabel MD completed SNOMED-CT: 810037335286371 Current Medications Documented Shaun Isabel MD completed Bear Peacock MD complete d Holter, 24 or 48 Wood Peacock MD co mpleted SNOMED-CT: 634376160359172 Current Medications Documented Shaun Isabel MD completed Bear Peacock MD complete d SNOMED-CT: 815363919 Smoking Cessation Counseling Maria Teresa Machado MD completed EKG Maria Teresa bravo MD completed SNOMED-CT: 363210218566154 Current Medications Documented Maria Teresa Machado MD completed Bear Peacock MD complete d Bear Elkins RN completed SNOMED-CT: 750420967419024 Current Medications Documented Shaun Isabel MD completed Protrula Nurse .Triage completed SNOMED-CT: 526505813 Smoking Cessation Counseling Maria Teresa Machado MD completed EKG Maria Teresa bravo MD completed SNOMED-CT: 731633686891280 Current Medications Documented ulius Florencio CARMICHAEL completed Bear Peacock MD complete d Bear Peacock MD complete d Schedule Followup Wood Peacock MD fu in 6 chris hs completed Holter, 24 or 48 Maria Teresa snow MD completed SNOMED-CT: 462617653220627 Current Medications Documented Wood Peacock MD completed Bear bravo MD completed Schedule Followup Maria Teresa hemphill MD in 2 weeks completed SNOMED-CT: 72297615 Physical Exam, Performed: Pulse Exam of Foot Maria Teresa Machado MD completed SNOMED-CT: 183441776 Smoking Cessation Counseling Maria Teresa Machado MD completed EKG Maria Teresa bravo MD completed SNOMED-CT: 306576259654501 Current Medications Documented ulius Florencio CARMICHAEL completed SNOMED-CT: 26182783 Physical Exam, Performed: Pulse Exam of Foot Maria Teresa Machado MD completed SNOMED-CT: 003330136 Smoking Cessation Counseling Maria Teresa Machado MD completed EKG Maria Teresa bravo MD completed SNOMED-CT: 767615710568276 Current Medications Documented Maria Teresa Machado MD completed Bear Peacock MD complete d Bear Peacock MD complete d Bear Peacock MD complete d BLOOD COUNT HEMOGLOBIN Wood Peacock MD completed FVC - 92373 Wood Peacock MD complet ed FRC - 18692 Wood Peacock MD complet ed DLCO - 53290 Wood Peacock MD comple mingo Bear Peacock MD complete d Protime Wood Peacock MD complete d EKG Wood Peacock MD complete d EKG Wood Peacock MD complete d EKG Wood Peacock MD complete d EKG Wood Peacock MD complete d EKG Wood Peacock MD complete d
--- OUTSIDE RECORDS SUMMARY | 2024-07-29 12:26 | XMS_ITS | Clinical Summary ---
Author Organization [facility] Address [address] [place] [address] Care Team Providers Care Helpdesk Specialist Name Role Phone Paco Sharma MD Unavailable [phone] Bolivar Donald MD Primary Care Provider Source Comments [facility],non-owned Affiliates and Associated Physician Practices is amultiple site organization consisting of ambulatory clinics and hospital sitesin [place], [place], [place] and [place]. This disclosure is being madepursuant to the Care Everywhere program and may not contain all information available regarding this patient. Last updated 18.[facility] Allergies Active Allergy Reactions Criticality Noted Date [...] fluticasone propionate (FLONASE) 50 MCG/ACT nasal spray [place] 2 (two) sprays into each nostril once [...] Department Care Team Description 05/13/2024 12:00 PM PSYCHOLOGY CLINICIAN Office Visit [facility] - General Surgery [address] [place] [address], [place] [id number] Status post right hip replacement on 12/20/2020 (Primary Dx) 05/13/2024 Travel from Last 3 Months Social History Tobacco [...] care, and heating? Not very hard 04/21/2024 [facility] - Occupational Stress [...] any time in the past 12 m [facility], were you homeless or living in a halfway (including now)? No 04/21/2024 Sex and Gender Information Value Date Recorded Sex Assigned at Male 08/21/2020 10:13 AM CDT Gender Identity Male 08/21/2020 10:13 AM CDT Sexual Orientation Straight 08/21/2020 10 :13 AM CDT Last Filed Vital Signs Vital Sign Reading Time Taken Comments Blood Pressure 136/86 05/13/2024 12:20 PM PSYCHOLOGY CLINICIAN Pulse 74 05/13/2024 12:20 PM PSYCHOLOGY CLINICIAN Temperature 36.8 C (98.2 F) 05/13/2024 12:20 PM PSYCHOLOGY CLINICIAN Respiratory Rate 18 05/13/2024 12:2 0 PM PSYCHOLOGY CLINICIAN Oxygen Saturation 99% 05/13/2024 12: 20 PM PSYCHOLOGY CLINICIAN Inhaled Oxygen Concentration 21% 04/09/2024 9 :23 PM PSYCHOLOGY CLINICIAN Weight 126.1 kg (277 lb 14.4 oz) 2024 12:20 PM PSYCHOLOGY CLINICIAN Height 182.9 cm (6') 05/13/2024 12:20 PM PSYCHOLOGY CLINICIAN Body Mass Index 37.69 05/13/2024 12:20 PM PSYCHOLOGY CLINICIAN Plan of Treatment Health Maintenance Due Date [...] series) 2012 AAA SCREENING 02/22/2017 COVID-19 VACCINE ( season) 2023 12/02/2020, 11/11/2020 DEPRESSION SCREENING 04/21/2024 MEDICARE AWV CALENDAR YEAR 2024 INFLUENZA VACCINE (Season Ended) 2024 01/12/2019, 04/28/2018, 02/06/2017, Additional history exists HEPATITIS B VACCINE Aged Out No longe [...] this topic Medical Devices Implanted Type Area Leasing Director Device Identifier Shelf Expiration Date Model / Serial / Lot Shell Acetab Limited Hole G7 Sz H 62mm Implanted:Qty: 1 on 12/20/2020 by Arron Daley MD at [facility] Right: Hip Red Biomet 08/01/2030 [id number] / / [id number] Bone Screw Implanted:Qty: 1 on 12/20/2020 by Arron Daley MD at [facility] Right: Hip 12/09/2029 / / [id number] Bone Screw Implanted:Qty: 1 on 12/20/2020 by Arron Daley MD at [facility] Right: Hip 07/14/2030 / / [id number] Acetabular Liner Implanted:Qty: 1 on 12/20/2020 by Arron Daley MD at [facility] Right: Hip 08/24/2025 [id number] / / [id number] Femoral Stem Implanted:Qty: 1 on 12/20/2020 by Arron Daley MD at [facility] Right: Hip 05/21/2025 [id number] / / [id number] Femoral Head Implanted:Qty: 1 on 12/20/2020 by Arron Daley MD at [facility] Right: Hip 12/19/2028 [id number] / / [id number] Acetabular Shell Implanted:Qty: 1 on 03/12/2021 by Arron Daley MD at [facility] Left: Hip 10/26/2030 [id number] / / [id number] Linr Actb G7 H 40mm Vivacit-E Hip Lum Implanted:Qty: 1 on 03/12/2021 by Arron Daley MD at [facility] Left: Hip Red [employer]omet 08/24/2025 [id number] / / [id number] Stm Fem Hip 7.5 Hi Ofst Avenir Cmplt Implanted:Qty: 1 on 03/12/2021 by Arron Daley MD at [facility] Left: Hip Red [employer]omet 03/20/2025 [id number] / / [id number] Femoral Head Implanted:Qty: 1 on 03/12/2021 by Arron Daley MD at [facility] Left: Hip 07/19/2030 [id number] Explanted Type Area Leasing Director Device Identifier Shelf Expiration Date Model / Serial / Lot Stent Biliary 10mm 8.5fr 60mm 194cm .035 Implanted:Qty: 1 on 01/27/2019 by Alberto Arauz MD at [facility] Explanted:Qty: 1 on 03/15/2019 by Alberto Arauz MD at [facility] N/A: Bile Duct [employer] Urology 08/25/2020 [id number] / / [id number] Pin Fx 22.9cm 4mm Stnm Thrd Ss 1 End Explanted:Qty: 1 on 12/20/2020 by Arron Daley MD at [facility] Right: Hip [employer]omet [id number] / / Pin Fx 22.9cm 4mm Stnm Thrd Ss 1 End Explanted:Qty: 1 on 03/12/2021 at [facility] Left: Hip [employer]omet [id number] / / Advance Directives * Full Code (Latest Code [...] 9:11 AM 09/22/2020 2:22 PM Care Teams Helpdesk Specialist Relationship Specialty Start Date End Date Bolivar Donald MD [address] [place] [address] [phone] PCP - General Internal Medicine 04/07/24 [place] [id number] [address] Consulting Physician Cardiac Electrophysiology 01/05/21
--- OUTSIDE RECORDS SUMMARY | 2024-07-29 12:26 | XMS_ITS | Continuity of Care Document ---
Author Organization [facility] Address [address] [place] [address] Insurance Providers Payer Plan Claims Address Claims Phone Policy Number Group Number Relation Employer Guarantor Name Guarantor Guarantor Address Guarantor Phone Organ izati on/IC -1906 [address] [address], [place] [address] [id number] Self Moreno Khan [address], [place] [address] Organ izati on/IC -411 [address] [address], [place] [address] [id number] Self Moreno Khan [address], [address] MEDIC ARE [address] [address], [place] [address] tel:[phone] Self Moreno Khan [address], [place] [address] Problems Unknown Problems Results No Results Allergies, adverse reactions, alerts No known allergies and adverse reactions Medications No administered medications reported Vital Signs Date Vital Result Comment 06/14/2024 Body Height 72 [in_i] N Body Weight 259 [lb_av] N Body Mass Index 35.1 kg/m2 N 07/14/2024 Inhaled Oxygen Concentration 21.0 % N Temperature 98 [degF] N Oxygen Saturation 97 % N Respiratory Rate 16 /min N Heart Rate 92 /min N Blood Pressure Systolic 127 mm[Hg] N Blood Pressure Diastolic 75 mm[Hg] N Body Height 72 [in_i] N Body Weight 264 [lb_av] N Body Mass Index 35.8 kg/m2 N Social History No smoking Hx information available
--- OUTSIDE RECORDS SUMMARY | 2024-07-29 12:26 | XMS_ITS | Clinical Summary ---
Author Organization [facility] Address [address] [place] [address] Care Team Providers Care Comsec Manager Name Role Phone Bolivar Donald MD Primary Care Provider Radha Carvajal OT Unavailable Unavailable Bambi Gould OT Unavailable Unavailable Josefa Gracia OT Unavailable UnavailBelkis Hsu OT Unavailable UnavailBhumika Law OT Unavailable UnavailMayito Travis SLUBBER RUNNER Unavailable [phone] Allergies Active Allergy Reactions Criticality Noted [...] 0 10/09/2021 Body mass index 40.0-44.9, adult ([facility]) 10/09 Bilateral hip pain 05/15/2021 Spinal stenosis of lumbar re gion with neurogenic claudication 06/22/2019 Radiculopathy, lumbosacral region 06/22/2019 intermediate manager prescription opiate use 09/18/2017 Other obesity due [...] - 07/22/2024 11:59 PM CDT Hospital Encounter [facility] [address] [place] [address] Mayito Abdul NP Radiculopathy, lumbosacral region (Primary Dx); Chronic bilateral low back pain, unspecified whether sciatica present; Spinal stenosis of lumbar region with neurogenic claudication; Spondylosis of lumbar region without myelopathy or radiculopathy Discharge Disposition: Discharge to home or self care 07/19/2024 Telephone [facility] [address] [place] [phone] Chelita Chavez 05/24/2024 7:17 AM SILVER CHASER - 05/24/2024 11:59 PM SILVER CHASER Hospital Encounter [facility] [address] [place] [phone] Mayito Abdul NP [facility] prescription opiate use (Primary Dx); Spinal stenosis [...] on file Legal Sex Male 10:20 AM SILVER CHASER Gender Identity Male 03/20/2021 12:08 PM SILVER CHASER Sexual Orientation Straight 03/20/2021 12 :08 PM SILVER CHASER Obstetrics History Last Filed Vital Signs Vital Sign Reading Time Taken Comments Blood Pressure 127/80 07/22/2024 7:49 AM CDT Pulse 80 07/22/2024 7:49 AM CDT Temperature 36.7 C (98.1 F) 12/20/2022 9:17 AM CDT Respiratory Rate 17 07/22/2024 7:49 AM CDT Oxygen Saturation 99% 07/22/2024 7:49 AM CDT Inhaled Oxygen Concentration - - Weight 123.2 kg (271 lb 11.2 oz) 2023 11:49 AM SILVER CHASER Height 182.9 cm (6' 0.01 ) 07/15/2023 [...] Well Visit 65+ 02/22/2017 eGFR 05/16/2018 05/16/2017, 1012/2016, 01/24/2017, Additional history exists Covid-19 Vaccine (2023-2 5 season) 2023 06/19/2021, 12/02/2020, 11/11/2020 Hemoglobin A1C 10/07/2024 04/08/2024, 11/19, 08/16/2020, Additional history exists Influenza Vaccine (Season Ended) 2024 02/26/2021, 03/09/2020, 01/12/2019, Additional history exists Fall Risk Assessment 07/22/2025 07/22/2024 DTaP/Tdap/Td Vaccine (3 - Td or Tdap) [...] cancer screening EGFR STAT 05/16/2017 3:20 PM SILVER CHASER HEMOGLOBIN A1C STAT 01/16/2017 11:30 AM CDT [...] 9:31 AM CDT) PSA-Total 2.28 <=5.40 ng/mL [facility] Comment: Interpretive Data AGE SEX REFERENCE [...] CDT 12/28/2021 9:45 AM CDT Shanice Farias SLUBBER RUNNER LAB BLOOD ORDERABLES Fi nal Result [facility] [place] [address] * eGFR (05/16/2017 3:20 PM SILVER CHASER) eGFR 75 mL/min/1.7 3 m2 [facility] Comment: Interpretive Data Reference Interval Normal >/= 90 mL/min/1.73m2 Mildly decreased* 60 - 89 mL/min/1.73m2 Mildly to moderately decreased 45 - 59 mL/min/1.73m2 Moderately to severely decreased 30 - 44 mL/min/1.73m2 Severely decreased 15 - 29 mL/min/1.73m2 Kidney Failure < 15 mL/min/1.73m2 *Relative to young adult level If -Armenian multiply value by 1.16. Estimated glomerular filtration [...] 2016. Blood specimen (specimen) 05/16/2017 3:20 PM SILVER CHASER 05/16/2017 3:20 PM SILVER CHASER Narrative [facility] - 05/16/2017 3:46 PM SILVER CHASER us Rodrick Hilliard DO LAB BLOOD ORDERABLES Final Res ult [facility] [address] [place] [address] * Hemoglobin A1c (01/16/2017 11:30 AM CDT) Hgb A1C 5.8 4.0 - 6.0 % [facility] Blood specimen (specimen) 01/16/2017 11:30 AM CDT 01/16/2017 11:50 AM CDT us Sushant Miles MD LAB BLOOD ORDERABLES Final Result Performing Organization Address City/[facility] Co de Phone Number [facility] [address] Department [place] [address] from Last 3 Months or Most Recently Relevant to Health Maintenance Insurance [facility] [employer] [id number] [place] [address] IDPA [facility] Address: [address] [address] [place] [address] [employer]PA [facility] [employer] [facility] Address: [address] [address] [place] [address] [employer] Care Teams Comsec Manager Relationship Specialty Start Date End Date Bolivar Donald MD [address] [address] PCP - General 08/23/16 Radha Carvajal, OT Occupational Therapist Occupational Therapy 05/28/17 Bambi Gould, OT Occupational Therapist Occupational Therapy 06/02/17 Josefa Gracia, OT Occupational Therapist Occupational Therapy 06/16/17 Belkis Alexandra, OT Occupational Therapist Occupational Therapy 06/20/17 Bhumika Rodriguez, OT Occupational Therapist Occupational Therapy 06/30/17 [place] [address] [facility] [address] [place] [address] Nurse Practitioner Pain Management 12/25/23
[2024-07-29 14:14] LABS: Hematocrit 35.3 % (42.0-52.0); Hemoglobin 11.7 g/dL (14.0-18.0); Mean Corpuscular HGB Conc 33.1 g/dl (32-36); Mean Corpuscular Hemoglobin 29.4 pg (26-34); Mean Corpuscular Volume 88.7 fl (80-100); Mean Platelet Volume 11.4 fl (7.4-10.4); Platelet Count Result 144 k/mm3 (150-375); Red Blood Count 3.98 M/mm3 (4.6-6.20); Red Cell Distribution Width 14.6 % (11.5-14.5); White Blood Count 6.6 K/mm3 (4.5-10.0)
[2024-07-29 14:38] LABS: Erythrocyte Sedimentation Rate 22 mm/hr (0-20)
[2024-07-29 15:15] LABS: Alanine Aminotransferase 15 U/L (6-50); Albumin Level 3.7 g/dL (3.5-5.1); Alkaline Phosphatase 76 U/L (38-126); Anion Gap 8 mmol/L (4-12); Aspartate Amino Transferase 18 U/L (17-59); Bilirubin,Total 0.5 mg/dL (0.2-1.3); Blood Urea Nitrogen 19 mg/dL (9-20); CRP < 0.5 mg/dL (<1.0); Calcium 8.7 mg/dL (8.4-10.2); Carbon Dioxide 23 mmol/L (22-30); Chloride 107 mmol/L (98-107); Estimated Glomerular Filt Rate > 60; Glucose 168 mg/dL (65-110); Potassium 4.1 mmol/L (3.4-5.0); Sodium 138 mmol/L (137-145)
== END 2024-07-29 11:36 | disposition home or self-care (01) ==
PROVIDERS: PCP Internal Medicine Infectious Disease; Visit Provider Podiatrist Foot & Ankle Surgery
DX: S92.422A Displaced fracture of distal phalanx of left great toe, initial encounter for closed fracture (principal); M20.5X2 Other deformities of toe(s) (acquired), left foot; L03.032 Cellulitis of left toe; R60.0 Localized edema; X58.XXXA Exposure to other specified factors, initial encounter
CPT/HCPCS: 36415; 73660; 80053; 85027; 85652; 86140

== ENCOUNTER 2024-08-31 08:51 | Outpatient (CLI) | payer MEDICARE, MEDICAID, SELFPAY ==
--- NOTE | ~2024-08-31 | XR_ITS ---
XR toe 1st LT min 2V Ordering provider: Andrew Song, DPM History: . ACQUIRED LEFT MALLET TOE, SURG 2 MONTHS AGO . Comparison: July 29, 2024 FINDINGS: BONES: No acute fracture or dislocation. Postoperative changes seen in the first interphalangeal join t area. Oblique Lucency is seen in the base of the distal phalanx unchanged. JOINT SPACES: Severe narrowing of the interphalangeal joints with osteophytes. SOFT TISSUES: Soft tissue swelling over the distal phalanx is slightly decreased. IMPRESSION: Postoperative changes in the first interphalangeal joint. No significant change from previous examina tion. Reviewed, dictated and finalized at location A. IMPRESSION: Postoperative changes in the first interphalangeal joint. No significant change from previous examination.
--- OUTSIDE RECORDS SUMMARY | 2024-08-31 08:58 | XMS_ITS ---
Author Organization [facility] Address [address] [place] [address] Care Team Providers Care Spike Machine Operator Name Role Phone Bolivar Donald MD Primary Care Provider Radha Carvajal OT Unavailable Unavailable Bambi Gould OT Unavailable Unavailable Josefa Gracia OT Unavailable UnavailBelkis Hsu OT Unavailable UnavailBhumika Law OT Unavailable UnavailMayito Travis SHEET METAL APPRENTICE Unavailable [phone] Active Problems Problem Noted Date Diagnosed Date Chronic pain of both ankles 07/30/2022 Spondylosis of lumbar region without myelopathy or radiculopathy 04/09/2022 Lymphedema 04/09/2022 Morbid (severe) obesity due to excess calories 0 10/09/2021 Body mass index 40.0-44.9, adult (CMS/FORMERLY [facility]) 10/09 Bilateral hip pain 05/15/2021 Spinal stenosis of lumbar re gion with neurogenic claudication 06/22/2019 Radiculopathy, lumbosacral region 06/22/2019 terminal makeup operator prescription opiate use 09/18/2017 Other obesity due [...]
--- OUTSIDE RECORDS SUMMARY | 2024-08-31 08:58 | XMS_ITS | CONTINUITY OF CARE DOCUMENT ---
Author Name bharathdomenico, bharathdomenico Address Unknown Organization [facility] Address [address] [place] [address] Phone [phone] Care Team Providers Care Construction Equipment Technician Name Role Phone Ayush CARMICHAEL, Wood Unavailable BERNADETTE AGUIRRE MD Unavailable BERNADETTE AGUIRRE MD Unavailable [phone] PROBLEMS Condition Status Date Provider Notes Cardiovascular screening active Wood tinajero MD PVD active Venita Hart RN Shortness of [...] Paul De Souza Diabetes, Type 2 active Shauntere Isabel MD Dizziness active Dai Abraham NP ENCOUNTERS Date Type Provider Location Encounter Diag nosis - In-person encounter Office Visit Wood Peacock MD [facility] - In-person encounter Office Visit Wood Peacock MD [facility] Dizziness - In-person encounter Office Visit Wood Peacock MD [facility] - In-person encounter Office Visit Wood Peacock MD [facility] - In-person encounter Office Visit Wood Peacock MD [facility] - In-person encounter Office Visit Wood Peacock MD [facility] - In-person encounter Office Visit Wood Peacock MD [facility] - In-person encounter Office Visit Wood Peacock MD [facility] - In-person encounter Office Visit Wood Peacock MD [facility] - In-person encounter Office Visit Wood Peacock MD [facility] - In-person encounter Office Visit Wood Peacock MD [facility] - In-person encounter Office Visit Wood Peacock MD [facility] - In-person encounter Office Visit Wood Peacock MD [facility] - In-person encounter Office Visit Wood Peacock MD [facility] - In-person encounter Office Visit Wood Peacock MD [facility] - In-person encounter Office Visit Wood Peacock MD [facility] - In-person encounter Office Visit Wood Peacock MD [facility] - In-person encounter Office Visit Shaun Isabel MD [facility] Diabetes, Type 2 - In-person encounter Office Visit Maria Teresa Machado MD [facility] Leg pain - In-person encounter Office Visit Shaun [facility] Lymphedema - secondary - In-person encounter Office Visit Wood Peacock MD [facility] - In-person encounter Office Visit Maria Teresa Machado MD [facility] Office - In-person encounter Office Visit Maria Teresa Machado MD [facility] - In-person encounter Office Visit Maria Teresa Machado MD [facility] - In-person encounter Office Visit Shaun Isabel MD, [place] - In-person encounter Office Visit Shaun Isabel MD [facility] Office - In-person encounter Office Visit Maria Teresa Machado MD [facility] - In-person encounter Office Visit Shaun Isabel MD [facility] Venous hypertension - BLE with ulcer - In-person encounter Office Visit Maria Teresa Machado MD [facility] - In-person encounter Office Visit Wood Peacock MD [facility] - In-person encounter Office Visit Maria Teresa Machado MD [facility] Long-term use of high risk med - In-person encounter Office Visit Maria Teresa Machado MD [facility] Tobacco use, quit - In-person encounter Office Visit Wood Peacock MD [facility] - In-person encounter Office Visit Wood Peacock MD [facility] - In-person encounter Office Visit Wood Peacock MD [facility] - In-person encounter Office Visit Wood Peacock MD [facility] - In-person encounter Office Visit Wood Peacock MD [facility] OBESITYSLEEP APNEA - In-person encounter Office Visit Wood Peacock MD [facility] HTN ESSENTIAL-06/30 NUC NEGATRIAL FIB-08/29 ECHO MOD LAE RVSP 34 EF 50EDEMA VITAL SIGNS Date Observation Value Provider Body Mass Index (Ratio) 36.21 kg/m2 Luis Miguel Peacock MD blood pressure, diastolic 92 mm[Hg] Lior Samson blood pressure, systolic 149 mm[Hg] Parisa baeza Samson oxygen saturation, oximetry 98 % Salliekurt Samson pulse rate 76 /min Sallie Samson respiratory rate E&M 12 /[facility] 267 [lb_av] Sallie Samson height E&M 72 [in_i] [facility] blood pressure, cuff size regular An alissa Samson Body Mass Index (Ratio) 38.11 kg/m2 Luis Miguel Peacock MD blood pressure, diastolic 101 mm[Hg] Aurora persaud [facility] blood pressure, systolic 158 mm[Hg] Rosario steph [facility] oxygen [facility], oximetry 98 % [facility] pulse [facility] 93 /min Isamar [facility] blood pressure, cuff size regular Aurora persaud [facility] weight E&M 281 [lb_av] Isamar [facility] height E&M 72 [in_i] Isamar [facility] Body Mass Index (Ratio) 39.19 kg/m2 Luis Miguel Peacock MD blood pressure, diastolic 83 mm[Hg] Lior Samson blood pressure, systolic 123 mm[Hg] Parisa baeza Samson oxygen saturation, oximetry 98 % Sallie Samson pulse rate 93 /min Sallie Samson respiratory rate E&M 14 /min Sallie Samson weight E&M 289 [lb_av] Sallie Samson height E&M 72 [in_i] Sallie Samson blood pressure, cuff size regular Lior Samson Body Mass Index (Ratio) 23.19 kg/m2 Sly da Ventimiglia COMMERCIAL ARTIST blood pressure, diastolic 95 mm[Hg] Li nkLogic blood pressure, systolic 156 mm[Hg] Dori kLog blood pressure, cuff size regular Co ri Elijah blood pressure, diastolic 95 mm[Hg] Co ri Elijah blood pressure, systolic 156 mm[Hg] Cor i Elijah oxygen saturation, oximetry 98 % Corbecky Elijah pulse rate 90 /min Cori Elijah weight E&M 171 [lb_av] Heather Elijah respiratory rate E&M 20 /min Corbecky [facility] height E&M 72 [in_i] Heather Nava Body Mass Index (Ratio) 40.68 kg/m2 Luis Miguel Peacock MD blood pressure, cuff size regular Fa [facility] blood pressure, diastolic 86 mm[Hg] Fa [facility] blood pressure, systolic 130 mm[Hg] Andrea [facility] pulse rate 98 /min Mckenna Christina oxygen saturation, oximetry 97 % Mckenna Christina respiratory rate E&M 16 /min Mckenna davis weight E&M 300 [lb_av] Mckenna Christina height E&M 72 [in_i] Mckenna Christina Body Mass Index (Ratio) 39.73 kg/m2 Luis Miguel Peacock MD blood pressure, diastolic 89 mm[Hg] Ania jarrett [place] blood pressure, systolic 144 mm[Hg] Antonio helle [place] oxygen saturation, oximetry 98 % Frieda [place] pulse rate 62 /min Frieda estrada respiratory rate E&M 16 /min Apple [place] blood pressure, cuff size large Ania jarrett [place] weight E&M 293 [lb_av] Frieda estrada height E&M 72 [in_i] Frieda estrada Body Mass Index (Ratio) 38.78 kg/m2 Luis Miguel Peacock MD blood pressure, diastolic -1 mm[Hg] Ada nkLogic blood pressure, systolic 135 mm[Hg] Dori kLogic blood pressure, diastolic 73 mm[Hg] St ephanie [place] blood pressure, systolic 135 mm[Hg] Cristino phanie [place] oxygen saturation, oximetry 98 % Annie [place] pulse rate 98 /min Annie Lohma n respiratory rate E&M 16 /min Yassine ie Eva weight E&M 286 [lb_av] Wood Estrada height E&M 72 [in_i] Annie Lohma n blood pressure, cuff size large St harsh [place] Body Mass Index (Ratio) 40.82 kg/m2 Luis Miguel Peacock MD blood pressure, cuff size large Ania jarrett [place] blood pressure, diastolic 100 mm[Hg] Ania jarrett [place] blood pressure, systolic 150 mm[Hg] Antonio helle [place] oxygen saturation, oximetry 99 % Frieda [place] respiratory rate E&M 16 /min Apple [place] pulse rate 88 /min Frieda estrada weight E&M 301 [lb_av] Frieda estrada height E&M 72 [in_i] Frieda estrada Body Mass Index (Ratio) 41.74 kg/m2 Luis Miguel Peacock MD blood pressure, diastolic 80 mm[Hg] Ada nkLogic blood pressure, systolic 134 mm[Hg] Dori kLoglouise blood pressure, diastolic 80 mm[Hg] Christine Espino [place] blood pressure, systolic 134 mm[Hg] Gifty Gaitan [place] oxygen saturation, oximetry 96 % Steven Feldman respiratory rate E&M 16 /min Farideh Feldman pulse rate 85 /min Steven Silva garyjordan weight E&M 307.8 [lb_av] Steven roberton height E&M 72 [in_i] Steven Silva garyjordan Body Mass Index (Ratio) 50.85 kg/m2 Luis Miguel Peacock MD blood pressure, diastolic 60 mm[Hg] Cy abraham Lott blood pressure, systolic 135 mm[Hg] Michelle valerie Lott blood pressure, cuff size regular Cy ntgeovanna Lott pulse rate 76 /min Farzana Wilmarbel l oxygen saturation, oximetry 92 % Farzana Lott respiratory rate E&M 18 /min Farzana Lott weight E&M 375 [lb_av] Farzana Campbel l height E&M 72 [in_i] Farzana Campbel l Body Mass Index (Ratio) 50.18 kg/m2 Luis Miguel Peacock MD blood pressure, cuff size regular Cy ntgeovanna Lott blood pressure, diastolic 92 mm[Hg] Cy nttheresea Oren blood pressure, systolic 152 mm[Hg] Michelle deisya Oren pulse rate 68 /min Farzana Campbel l respiratory rate E&M 16 /min Farzana Lott oxygen saturation, oximetry 94 % Farzana Lott weight E&M 370 [lb_av] Farzana irwin height E&M 72 [in_i] Farzana irwin Body Mass Index (Ratio) 49.23 kg/m2 Luis Miguel Peacock MD blood pressure, cuff size regular Cy abraham Lott blood pressure, diastolic 78 mm[Hg] Cy abraham Lott blood pressure, systolic 144 mm[Hg] Michelle Lott respiratory rate E&M 20 /min Farzana Lott oxygen saturation, oximetry 97 % Farzana Lott pulse rate 117 /min Farzana irwin weight E&M 363 [lb_av] Farzana irwin height E&M 72 [in_i] Farzana irwin Body Mass Index (Ratio) 47.46 kg/m2 Luis Mgiuel Peacock MD blood pressure, diastolic 71 mm[Hg] Christine Feldman blood pressure, systolic 141 mm[Hg] Gfity Feldman oxygen saturation, oximetry 97 % Steven Feldman respiratory rate E&M 20 /min Farideh Feldman pulse rate 60 /min Steven [place] weight E&M 350 [lb_av] Steven Silva nson height E&M 72 [in_i] Steven [place] blood pressure, cuff size regular Ke rri Dominic blood pressure, diastolic 75 mm[Hg] Ke rri Dominic blood pressure, systolic 169 mm[Hg] Annmarie Alfaro oxygen saturation, oximetry 95 % Briseida Dominic respiratory rate E&M 18 /min Briseida De Leon daryl pulse rate 56 /min Briseida De Leóngaldinochau aller height E&M 72 [in_i] Briseida Pineda lder Body Mass Index (Ratio) 52.35 kg/m2 Luis Miguel Peacock MD weight E&M 386 [lb_av] Ludy Samson pulse rate 63 /min Ludy Samson respiratory rate E&M 17 /min Ludy Abisaikyara mcguire oxygen saturation, oximetry 97 % Ludy Samson blood pressure, diastolic 80 mm[Hg] Krunal vasyl Samson blood pressure, systolic 135 mm[Hg] Ludy Samson blood pressure, resting Yes Ludy Samson height E&M 72 [in_i] Ludy Samson Body Mass Index (Ratio) 53.35 kg/m2 Luis Miguel Peacock MD blood pressure, diastolic 54 mm[Hg] Christine Feldman blood pressure, systolic 125 mm[Hg] Gitfy Feldman oxygen saturation, oximetry 96 % Steven [...] diastolic, left arm 70 mm [Hg] Nikki Rioshley blood pressure, systolic, left arm 132 mm [Hg] Nikki Jun blood pressure, diastolic, right arm 66 m m[Hg] Nikki Jun blood pressure, systolic, right arm 128 m m[Hg] Nikki Rioshley blood pressure, diastolic 66 mm[Hg] Luis rodriguez Jun blood pressure, systolic 128 mm[Hg] Jon [facility] pulse rate 55 /min [facility] oxygen saturation, oximetry 96 % Nikki [facility] respiratory rate E&M 18 /min [facility] Body Mass Index (Ratio) 52.05 kg/m2 Miguel A gianluca Jun weight E&M 383.8 [lb_av] Nikki lux blood pressure, diastolic 56 mm[Hg] Christine Mendezvikash Feldman blood pressure, systolic 120 mm[Hg] Gifty Juangary [place] pulse rate 56 /min Steven [place] oxygen saturation, oximetry 98 % Steven Feldman respiratory rate E&M 18 /min ShaylaNorma Feldman Body Mass Index (Ratio) 51.14 kg/m2 [...] [place] blood pressure, diastolic 62 mm[Hg] Michael pak Aureliacindijoanna blood pressure, systolic 174 mm[Hg] Annmarie khalil Aureliacindimagdisriram pulse rate 69 /min Briseida Pineda lder oxygen saturation, oximetry 96 % Briseida Hernandezalfonsocliff respiratory rate E&M 16 /min Briseida De Leon pauletteeljoanna Body Mass Index (Ratio) 51.94 kg/m2 Aracelis pena Aureliacindijoanna weight E&M 383 [lb_av] Briseida Pineda lder blood pressure, diastolic 70 mm[Hg] Heath nevessole Vannessa blood pressure, systolic 150 mm[Hg] Fidencio rizzochau Vannessa pulse rate 58 /min Venita Hurd oxygen saturation, oximetry 97 % Venita Hurd respiratory rate E&M 20 /min Yayo Hurd Body Mass Index (Ratio) 52.21 kg/m2 Tyron delgadoe Vannessa weight E&M 385 [lb_av] Venita Hurd blood [...] Shayla Feldman weight E&M 380.2 [lb_av] Steven Woodward sarah blood pressure, diastolic, left arm 70 mm [Hg] Radha O'Felipe blood pressure, systolic, left arm 110 mm [Hg] Radha O'Felipe blood pressure, diastolic, right arm 72 m m[Hg] Radha O'Felipe blood pressure, systolic, right arm 112 m m[Hg] Radha O'Felipe blood pressure, diastolic 70 mm[Hg] Christine peralta O'Felipe blood pressure, systolic 110 mm[Hg] Gifty hough O'[place] pulse rate 70 /min Radha O'Felipe oxygen saturation, oximetry 98 % Radha O'Felipe respiratory rate E&M 18 /min Radha O'Felipe Body Mass Index (Ratio) 51.53 kg/m2 Hansel harris O'Felipe weight E&M 380 [lb_av] Radha O'Felipe respiratory rate E&M 18 /min Gauri Festus blood pressure, diastolic 68 mm[Hg] Sc stuart Festus blood pressure, systolic 112 mm[Hg] Bere steffanie Festus pulse rate 72 /min Gauri Festus oxygen saturation, oximetry 98 % Gauri Festus Body Mass Index (Ratio) 50.31 kg/m2 Rossana dali Festus weight E&M 371 [lb_av] Gauri Festus blood pressure, diastolic 88 mm[Hg] Christine Feldman blood pressure, systolic 157 mm[Hg] Gifty Feldman pulse rate 85 /min Steven Steve rubén oxygen saturation, oximetry 95 % Steven Feldman respiratory rate E&M 20 /min Farideh Feldman Body Mass Index (Ratio) 51.18 kg/m2 Shayla Feldman weight E&M 377.4 [lb_av] Steven roberton [...] Feldman blood pressure, systolic 131 mm[Hg] Gifty Bryantkengary Feldman pulse rate 62 /min Steven Ricardo garyon oxygen saturation, oximetry 97 % Steven Feldman respiratory rate E&M 18 /min Farideh Feldman Body Mass Index (Ratio) 48.98 kg/m2 Shayla Feldman weight E&M 361.2 [lb_av] Steven roberton blood pressure, diastolic 68 mm[Hg] Christine Feldman blood pressure, systolic 128 mm[Hg] Gifty Bryantkengary Feldman pulse rate 58 /min Steven Silva garyon oxygen saturation, oximetry 98 % Steven [place]aston respiratory rate E&M 18 /min Farideh Feldman Body Mass Index (Ratio) 49.06 kg/m2 Shayla Feldman weight E&M 361.8 [lb_av] Steven Trace roberton blood pressure, diastolic 60 mm[Hg] Me stuart Georges blood pressure, systolic 132 mm[Hg] Bere steffanie Georges pulse rate 64 /min Gauri Georges oxygen saturation, oximetry 97 % Gauri respiratory rate E&M 16 /min Gauri Body Mass Index (Ratio) 49.50 kg/m2 Rossana ssa weight E&M 365 [lb_av] Gauri blood pressure, diastolic 58 mm[Hg] Sc stuart blood pressure, systolic 139 mm[Hg] Bere valiente pulse rate 90 /min Gauri oxygen saturation, oximetry 97 % Gauri respiratory rate E&M 15 /min Gauri Body Mass Index (Ratio) 49.09 kg/m2 Rossana mcnally weight E&M 362 [lb_av] Gauri Georges blood pressure, diastolic 74 mm[Hg] Christine Feldman blood pressure, systolic 123 mm[Hg] Gifty Gaitan Feldman pulse rate 84 /min Steven Ricardo rubén oxygen saturation, oximetry 98 % Steven Feldman respiratory rate E&M 18 /min Farideh Feldman Body Mass Index (Ratio) 49.09 kg/m2 Shayla Woodwardenson weight E&M 362 [lb_av] Steven Ricardo rubén blood pressure, diastolic 77 mm[Hg] Christine Fedlman blood pressure, systolic 128 mm[Hg] Gifty Feldman Body Mass Index (Ratio) 48.06 kg/m2 Kendragary Feldman pulse rate 102 /min Steven montana [...] RN oxygen saturation, oximetry 98 % Madhu lEkins RN respiratory rate E&M 16 /min Madhu [...] (low-density lipoprotein/high-de nsity lipoprotein) ratio 1.7 [facility], beta, serum, point, quantitative, calculated 88.6 (?) LinkLogic 0.0 - 100.0 HDL cholesterol, serum 52.0 mg/dL LinkLogic 35.0 - 55.0 cholesterol, serum 158.0 mg/dL LinkLogic 0.0 - 200.0 triglyceride, serum, fasting 87.0 mg/dL LinkLogic 0.0 - 150.0 urea nitrogen/creatinine ratio, serum 16.7 [facility] Estimated Glomerular Filtration Rate (calc) 65.0 (?) LinkLog 59.0 - chloride, serum 101.0 mmol/L LinkLogic [...] - 23.0 blood glucose, random 144.0 mg/dL [facility] 74.0 - 99.0 High red blood cell distribution width, size density 50.9 fL [facility] - immature granulocytes, percentage of total cells, blood 0.5 % [facility] - nucleated red blood cells as percent of blood leukocytes 0.0 % [facility] - red blood cell (erythrocyte) count, per high power field 0.0 10*3/UL [facility] - eosinophils as percent of blood leukocytes 1.9 % [facility] - neutrophils as percent of blood leukocytes 77.2 % [facility] - Absolute Neutrophils 6.5 CELLS/UL LinkLogic [...] Estimated Glomerular Filtration Rate (calc) 54.4 (?) LinkLog 59.0 - Low chloride, serum 99.4 mmol/L [facility] 98.0 - 107.0 potassium, serum 4.1 mmol/L [facility] 3.5 - 5.1 sodium, serum 139.0 mmol/L [facility] 136.0 - 145.0 creatinine, serum 1.4 mg/dL [facility] 0.7 - 1.2 High carbon dioxide, venous blood 27.0 mmol/L [facility] 23.0 - 31.0 albumin, serum 4.0 g/dL [facility] 3.5 - 5.2 calcium, serum 9.1 mg/dL [facility] 8.6 - 10.2 aspartate aminotransferase (SGOT), serum 15.0 1/L [facility] 0.0 - 40.0 alkaline phosphatase, serum 84.0 1/L LinkLogic 40.0 - 130.0 alanine aminotransferase (SGPT), serum 31.0 1/L LinkLogic 0.0 - 41.0 protein, total, serum 7.2 g/dL [facility] 6.6 - 8.7 bilirubin, serum, total 0.4 mg/dL [facility] 0.0 - 1.2 urea nitrogen, blood 18.0 mg/dL [facility] 8.0 - 23.0 blood glucose, random 146.0 mg/dL [facility] 74.0 - 99.0 High red blood cell distribution width, size density 51.1 fL [facility] - immature granulocytes, percentage of total cells, blood 0.7 % [facility] - nucleated red blood cells as percent of blood leukocytes 0.3 % [facility] - red blood cell (erythrocyte) count, per high power field 0.0 10*3/UL [facility] - eosinophils as percent of blood leukocytes 1.7 % [facility] - neutrophils as percent of blood leukocytes 75.5 % Link[facility] - Absolute Neutrophils 7.2 CELLS/UL LinkLogic 1.5 [...] - 3.9 mean platelet volume 9.7 (?) [facility] - platelet count 246.0 THOUSAND/ UL LinkLogic 100.0 - 400.0 mean corpuscular hemoglobin concentration, RBC 31.8 G/DL LinkLog 31.0 - 38.0 mean corpuscular hemoglobin, RBC 29.5 pg LinkLogic 25.0 - 35.0 mean corpuscular volume, RBC 92.7 fL LinkLogic 75.0 - 100.0 hematocrit, blood 40.9 % [facility] 35.0 - 55.0 hemoglobin, blood 13.0 g/dL LinkLogic 11.5 - 16.5 erythrocyte count, whole blood 4.4 MILLION/U L LinkLog 3.5 - 5.5 red blood cell distribution width, size density 50.3 fL [facility] - immature granulocytes, percentage of total cells, blood 0.3 % [facility] - nucleated red blood cells as percent of blood leukocytes 0.0 % [facility] - red blood cell (erythrocyte) count, per high power field 0.0 10*3/UL LinkLogic - eosinophils as percent of blood leukocytes 1.9 % LinkLogic - neutrophils as percent of blood leukocytes 71.6 % LinkLog - Absolute Neutrophils 6.2 CELLS/UL LinkLogic 1.5 [...] Normal prothrombin time (patient) 40.6 s Briseida Strouder coagulation managed by Madhu Elkins RN international normalized ratio (INR) 2.1 Briseida Alfaro Normal prothrombin time (patient) 25.0 s Briseida Strouder international normalized ratio (INR) 1.1 Steven Feldman Normal prothrombin time (patient) 13.8 s Steven Feldman coagulation managed by Madhu Elkins RN international normalized ratio (INR) 3.0 Gauri Mortensen Normal prothrombin time (patient) 36.4 s Gauri [...] (low-density lipoprotein/high-de nsity lipoprotein) ratio 2.3 RATIO LinkLog - lipoprotein, beta, serum, point, quantitative, calculated [...] Normal prothrombin time (patient) 37.5 s Briseida Strouder international normalized ratio (INR) 2.2 Steven Feldman Normal prothrombin time (patient) 25.9 s Steven Feldman coagulation managed by Madhu Elkins RN international normalized ratio (INR) 1.6 Briseida Maximuser Normal prothrombin time (patient) 19.2 s Briseida Maximuser coagulation managed by Madhu Elkins RN international normalized ratio (INR) 1.5 Briseida Strouder Normal prothrombin time (patient) 18.5 s Briseida Soilaelder pro brain natriuretic peptide 522.6 pg/mL LinkLogic [...] TABLET BY MOUTH EVERY DAY - Josefa Ventimiglia COMMERCIAL ARTIST Eliquis 5 mg tablet active TAKE 1 [...] mouth once a day Steven Feldman vitamin T80-cyjup acid 500-400 mcg tablet active Take 1 [...] history of marijuana use no Dai Leigh FOOD PRODUCTION SUPERVISOR drug use no Dai Leigh FOOD PRODUCTION SUPERVISOR alcohol use, average drinks per day social Dai Hawkinsdall FOOD PRODUCTION SUPERVISOR alcohol use yes Dai Humnoke FOOD PRODUCTION SUPERVISOR passive cigarette sm ramya exposure no Dai Leigh FOOD PRODUCTION SUPERVISOR smoking, year quit 1995 Dai Cadena chuyall FOOD PRODUCTION SUPERVISOR number of years as a smoker less than 10 years Dai Hawkinsdall FOOD PRODUCTION SUPERVISOR smoking history, tot al pack/year 20 Dai Leigh FOOD PRODUCTION SUPERVISOR cigarette use yes Dai Leigh FOOD PRODUCTION SUPERVISOR smoking status Former smoker Dai Whittington ll FOOD PRODUCTION SUPERVISOR personal history of marijuana use no Wood [...] history of marijuana use no Josefa Ventimiglia COMMERCIAL ARTIST drug use no Josefa Ventimig josse COMMERCIAL ARTIST alcohol use, average drinks per day social Josefa Ventimiglia COMMERCIAL ARTIST alcohol use yes Josefa Ventimig joses [facility] passive cigarette sm ramya exposure no Josefa Ventimiglia [facility] smoking, year quit [address] [facility] number of years as a smoker less than [address] [facility] smoking history, tot al pack/year [address] [facility] cigarette use yes Josefa Ventimi glia [facility] smoking status Former smoker Josefa Givens miglia [facility] drug use no [facility] alcohol use, average drinks per day social [facility] alcohol use yes [facility] passive cigarette sm ramya exposure no [facility] smoking/tobacco cessation, patient education and counseling contraindicated [facility] smoking, year quit 1995 [facility] number of years as a smoker less than [address] [facility] smoking history, tot al pack/year 20 [facility] cigarette use yes [facility] smoking status Former smoker [facility] drug use no Josefa Givensmig josse [facility] alcohol use, average drinks per day social Josefa Givensmiglia [facility] alcohol use yes Josefa Givensmig josse [facility] seatbelt usage 100 % Frieda Callahan physical [...] 20 Farzana Lott cigarette use yes Farzana Urbanchavez rogers smoking [...] exercise, frequency, days per week yes Farzana Oren caffeine use, averag e drinks per day [...] exercise, frequency, days per week yes Briseida Dominic alcohol use, average drinks per day none Briseida Dominic alcohol use no Briseida Edwin [place] caffeine use, averag e drinks per day yes Briseida Dominic drug use none Briseida Edwin er passive cigarette sm ramya exposure no Briseida Hernandezemi smoking, year quit 1995 Briseida Sonia lux number of years as a smoker less than 10 years Briseida Dominic smoking history, tot al pack/year 20 Briseida Dominic cigarette use yes Briseidasimran marshall smoking status Former smoker Briseida Hernandezaudie rocha social history E&M Marital Statu s: [...] exercise, frequency, days per week yes Steven Gaston alcohol use, average drinks per day none [...] Peacock MD seatbelt usage 100 % Steven Jamesonyuly physical exercise, frequency, days per week yes [...] required Maria Teresa Machado MD social history revnain wed E&M reviewed - no changes required Maria Teresa Machado MD seatbelt usage 100 % Steven Gregg [...] Feldman smoking history, tot al pack/year 20 Stevne Feldman cigarette use yes Steven robertjordan smoking status Former smoker Steven Brenner social history [facility]ie [facility] E&M reviewed - no changes required Maria Teresa Machado MD seatbelt usage 100 % Steven Cristino brand physical exercise, frequency, days per week yes [...] Steven Feldman cigarette use yes Steven Woodward sarah smoking status Former smoker Steven Brenner seatbelt usage 100 % Shauntere Estrada physical exercise, frequency, days per week yes Shauntere Isabel MD alcohol use, average drinks per day none Shauntere Isabel MD alcohol use no Shauntere Isabel MD caffeine use, averag e drinks per day yes Shaun Chalo CARMICHAEL drug use none Shaun Chalo CARMICHAEL passive [...] wed E&M reviewed - no changes required Shaunjose Isabel MD social history revie wed E&M reviewed [...] status Former smoker Steven Brenner social history [facility] E&M reviewed - no changes required Shaun Isabel MD smoking status Former smoker Radha Kasia irwin social history [facility] E&M reviewed - no changes required Maria Teresa Machado MD seatbelt usage 100 % Steven Acosta physical exercise, frequency, days per week yes Steven Feldman alcohol use, average drinks per day none Steven Feldman alcohol use no Steven Silva nson caffeine use, averag e drinks per day yes Steven Feldman drug use none Steven Woodwadre nson passive cigarette sm ramya exposure no Steven Feldman smoking, year quit 1995 Steven Feldman number of years as a smoker less than 10 years Steven Feldman smoking history, tot al pack/year 20 Steven Feldman cigarette use yes Steven smith smoking status Former smoker Steven Brenner social history [facility] E&M reviewed - no changes required Wood Peacock MD seatbelt usage 100 % StevenJaclyn Acosta physical exercise, frequency, days per week yes Steven Feldman alcohol use, average drinks per day none Steven Feldman alcohol use no Steven Woodwarde nson caffeine use, averag e drinks per [...] use, average drinks per day none Gauri alcohol use no Gauri caffeine use, averag e drinks per day yes Gauri drug use none Gauri passive cigarette sm ramya exposure no Gauri Mcdonough smoking, year quit 1995 Gauri Torres Rekha number of years as a smoker less than 10 years Gauri Georges smoking history, tot al pack/year 20 Gauri Mcdonough cigarette use yes Gauri Georges smoking status [...] exercise, frequency, days per week yes Gauri Mcdonough alcohol use, average drinks per day none [...] Georges smoking status Former smoker Gauri Bonilla nn social history revie wed E&M reviewed - [...] pack/year 20 Steven Feldman cigarette use yes StevenJaclyn smith smoking status Former smoker Steven Chambers kong smoking/tobacco cessation, patient education and counseling No Wood Peacock MD social history revie wed E&M reviewed - no changes required Wood Peacock MD smoking, year quit 1995 Stevenvikash Feldman cigarette use yes Steven smith seatbelt usage 100 % Steven Acosta physical exercise, frequency, days per week yes Steven Feldman alcohol use, average drinks per day none Steven Feldman caffeine use, averag e drinks per day yes StevenJaclyn Feldman drug use none StevenJaclyn [place] passive cigarette sm ramya exposure no Steven Feldman smoking status Former smoker Steven Websterson drug use none Wood Estrada social history [...] physical exercise, frequency, days per week yes [employer] caffeine use, averag e drinks per day yes [employer] alcohol use, average drinks per day none [employer] number of years as a smoker less than 10 years [employer] smoking status Quit [facility] MENTAL STATUS Date Observation Value Provider [...] Payer name Policy type / Coverage type [place] [employer] party ID AARP MEDICARE ADVANTAGE ST 0 003 (HMO POS) Medicare [id number] [facility] Medicaid 2 [id number] ADVANCE DIRECTIVES Name Date DISCUSSED - NO DECISION MADE TREATMENT PLAN Date Name Performer [id number],C,continued robbie ght loss encouraged Josefa Ventimiglia COMMERCIAL ARTIST [id number],S, Woodjadyn Coleman n [id number],S, Wood Ramada n [id number],S, Wood Ramada n [id number],S, Wood Ramada n [id number],S, Wood Ramada n [id number],S, Wood Ramada n [id number],B, Wood Thoada vikash CARMICHAEL [id number],S, Wood Virginia suh MD [id number],S, Wood Ramada n [id number],S, Wood Ramada n [id number],S, Wood Ramada n [id number],C,T he patient is using CPAP on a regular basis. The patient has been benefiting from therapy and should continue use. Wood Peacock MD [id number],S, Wood suh MD [id number],B, Wood Ramada n [id number],C,T he patient is using CPAP on a regular basis. The patient has been benefiting from therapy and should continue use. Wood Peacock MD [id number],B,S/P bariatric surgery Wood Peacock MD [id number],S, Wood suh MD [id number],S, Wood Ramada n [id number],S, Wood suh MD Cardiology Wood Peacock MD Cardiology: l ast hemoglobin [...] NP Cardiology Dai Garcia Cardiology:Ccontinue BB and katya. H is updated medication list for this problem includes: Metoprolol Succinate 50 Mg Tablet Extended Release 24 Hr (Metoprolol succinate) ..... Take 1 tablet by mouth twice a day Dai Abraham NP Cardiology:Check carotid doppler s Dai Abraham HEENA Cardiology: T he patient is using CPAP [...] Wood Peacock MD Cardiology:weight loss Josefa tomlin [facility] Cardiology:last hemo globin A1C 6% T he [...] tablet by mouth every day Josefajorge Wang [facility] Cardiology:The patie nt is using CPAP on a regular basis. The patient has been benefiting from therapy and should continue use. Josefa Wang [facility] Cardiology:chronic w ears lymphedema wraps Josefajorge Wang [facility] Cardiology:BP 156/95 above goal R eports better [...] Take 1 tablet by mouth twice daily [place] Kathleen [facility] Cardiology:chronic a nd rate controlled E liquis for AC H is updated medication list for this problem includes: Metoprolol Succinate 50 Mg Tablet Extended Release 24 Hr (Metoprolol succinate) ..... Take 1 tablet by mouth twice daily [place] [facility] Cardiology Wood Peacock MD Cardiology:The patie nt is using CPAP on a regular basis. The patient has been benefiting from therapy and should continue use. Wood Peacock MD Cardiology Wood Peacock MD Cardiology Wood Peacock MD Cardiology Wood Peacock MD Cardiology:continued weight loss encouraged Josefajorge Wang [facility] Cardiology Wood Peacock MD Cardiology Wood Peacock [...] Rt GSV reflux and rt mid calf flower planter reflux. right thigh 1 inch larger r [...] problem includes: Diltiazem Cd 180 Mg Oral [id number] (Diltiazem hcl coated beads) ..... One tab, twice daily Furosemide 80 Mg Tabs (Furosemide) ..... 40mg in the am 40mg in the pm Paul De Souza EP faxed 11/16/15 Paul Davis stanley EP faxed 11/16/15:His updated medication list for this problem includes: Amiodarone Hcl 200 Mg Tabs (Amiodarone hcl) ..... Two tab twice daily Paul De Souza EP faxed 11/16/15 Categorical EP faxed 11/16/15:Pt is wearing Jolanta boot. [...] benefit from flexitouch lymphedema pump ---will contact [facility] Oksana Milton RN Cardiology - ltr [...] problem includes: Diltiazem Cd 180 Mg Oral [id number] (Diltiazem hcl coated beads) ..... One tab, twice daily Furosemide 80 Mg Tabs (Furosemide) ..... One tablet in the morning Maria Teresa Machado MD EP faxed 09/01/15:Com pliant with treatment. Maria Teresa Machado MD EP faxed 09/01/15: O rders: 9 9212 Minor (CPT-06393) His updated medication list for this problem includes: Diltiazem Cd 180 Mg Oral [id number] (Diltiazem hcl coated beads) ..... One tab, [...] faxed 09/01/15: O rders: 9 9212 Minor (CPT-43156) Maria Teresa Machado MD EP faxed 08/21/15 0829 :EVLT scheduled. Maria Teresa Machado MD EP faxed 08/21/15 0829:Dose of Ami odarone reduced. Maria Teresa Machado MD EP faxed 08/21/15 0829:S/P ablatio n. Maria Teresa Machado MD EP faxed 08/21/15 0829:EVLT schedu led. Maria Teresa Machado MD EP: O rders: 9 9214 MOD Complex (CPT-41822) Maria Teresa Machado MD Cardiology - needs cvs Shaunjose rodriguez MD Cardiology - needs c vs:BP today: 110/70 P rior BP: 112/68 (06/14/2015) Shauntere sIabel MD Cardiology - needs c vs:venous insufficiency, [...] patent with reflux R t mid calf flower planter L t GSV occluded v enous u/s today showed b/l lsv insufficiency which coorelated withthe drainage area of the ulcers w ill hold of gsv and do lsv occlusions Shaunjose Isabel MD Cardiology:he had b/ l evlt r le distal gsv still patent and has severe reflux and also has incompetent flower planter mid calf l le - entirely occluded gsv will plan rle distal gsv evlt/sts Shaun Isabel MD Cardiology:Arleneetvikash rogers in for evaluation of venous insufficiency. Patient c/o leg ulcer, discoloration, and edema. He was going to wound care center in [place]. He has sores now on the left [...] also. Shauntere Isabel MD Cardiology:due to cvi Shauntere Lyle MD EP Faxed 03/24/15 082 4s: O rders: 9 9214 MOD Complex (CPT-18223) Maria Teresa Machado MD EP Wood Peacock [...] tab-managed by dr. penaloza Orders: S NOMED-CT: [id number] Current Medications Documented (SCT-[id number]) E KG (CPT-80703) S NOMED-CT: 795372665 Smoking Cessation Counseling (SCT-509606383) S NOMED-CT: 67728805 Physical Exam, Performed: Pulse Exam of Foot (SCT-04648166) 9 9215 HIGH Complex (CPT-93145) T EE - GC (*) C ardioversion - GC (CPT-13198) Maria Teresa Machado MD EP faxed 02/13/15 [...] tab-managed by dr. penaloza Orders: S NOMED-CT: [id number] Current Medications Documented (SCT-[id number]) E KG (CPT-22117) S NOMED-CT: 923776990 Smoking Cessation Counseling ([facility]-[id number]) S NOMED-CT: 46750242 Physical Exam, Performed: Pulse Exam of Foot (SCT-50959529) 9 9215 HIGH Complex (CPT-40549) T EE - GC (*) C ardioversion - GC (CPT-16155) Maria Teresa Machado MD Cardiology:Will send for EVLT Ra wilda Peacock MD Cardiology Wood Peacock MD Cardiology Wood Peacock MD Cardiology:Will try CV again on amiodarone. Wood Peacock MD fu: O rders: V enous Doppler Bilateral LE (17462) V enous Doppler Bilateral LE - Standing (CPT-19955) C omplete Echo (CPT-66351) B TYPE NATRIURETIC PEPTIDE (BNP) (08824) Wood Peacock MD fu Wood Peacock MD [...] left ventricle ejection fraction measuring 65%. - [facility] (07/02/2011) Orders: E KG (CPT-71550) Wood Peacock MD routine : H is [...] left ventricle ejection fraction measuring 65%. - [facility] (07/02/2011) Orders: E KG (CPT-69232) Wood Peacock MD follow up: O rders: S terrance Study (*) Wood Peacock MD follow up: [...] ..... Once a day Orders: E KG (CPT-66937) BP today: 134/80 Prior BP: 132/81 (10/23/2010) N uclear Stress Findings: Clinically and electrocardiographically unremarkable Lexiscan stress test. Decreased left ventricle ejection fraction measuring 52%. [facility] (09/04/2010) E chocardiogram: TDS. Mild LV dilatation with near normal systolic contractility with estimated EF of 50%. Normal RV size and systolic contracility. Mild to moderate LAE. Aortic root diameter is at upper limit of normal. Trivial MR. Trivial TR with RVSP 34mmHg. Mild PI. No significant pericardial effusion. [facility] (09/10/2010) Wood Peacock MD follow up: H is updated medication list for this problem includes: Aspirin 81 Mg Tabs (Aspirin) ..... 1 tab daily Metoprolol Tartrate 50 Mg Tabs (Metoprolol tartrate) ..... 1 tab twice daily Orders: E KG (CPT-42823) BP today: 132/81 Wood Peacock MD follow [...] Decreased left ventricle ejection fraction measuring 52%. [facility] (09/04/2010) E chocardiogram: TDS. Mild LV dilatation with near normal systolic contractility with estimated EF of 50%. Normal RV size and systolic contracility. Mild to moderate LAE. Aortic root diameter is at upper limit of normal. Trivial MR. Trivial TR with RVSP 34mmHg. Mild PI. No significant pericardial effusion. [facility] (09/10/2010) Wood Peacock MD Date Name CT, Coronary Calcium Score Aorta Duplex Ultraso und Carotid Duplex Bilat eral Complete Echo Complete Echo BASIC METABOLIC PANE L W/EGFR HEMOGLOBIN A1c LIPID PANEL PROBNP, N TERMINAL Complete Echo LIPID PANEL BASIC METABOLIC PANE L W/EGFR CBC (INCLUDES DIFF/P LT) PROTHROMBIN TIME WIT H INR DLCO - 52079 FRC - 79068 FVC - 26421 X-Ray, Other Complete Echo DLCO - 30023 FRC - 17700 FVC - 65818 PROBNP, N TERMINAL CBC (INCLUDES DIFF/P LT) [...] EKG Wood Peacock MD complete d SNOMED-CT: 697533504276529 Current Medications Documented Wood Peacock MD completed SNOMED-CT: 750063883603242 Current Medications Documented Wood Peacock MD completed SNOMED-CT: 053619281810661 Current Medications Documented Wood Peacock MD completed SNOMED-CT: 911277306022775 Current Medications Documented Wood Peacock MD completed SNOMED-CT: 06924768 Physical Exam, Performed: Pulse Exam of Foot Shaun Isabel MD completed EKG Shaun Isabel MD completed SNOMED-CT: 022057246453910 Current Medications Documented Shaun Isabel MD completed FVC - 24012 Maria Teresa bravo MD completed FRC - 21706 Maria Teresa bravo MD completed DLCO - 73711 Maria Teresa bravo MD completed EKG Maria Teresa bravo MD completed SNOMED-CT: 932744532438217 Current Medications Documented Maria Teresa Machado MD completed SNOMED-CT: 749581068449759 Current Medications Documented Barbara Whitehead completed SNOMED-CT: 295910599782086 Current Medications Documented Wood Peacock MD completed Schedule Followup Maria Teresa hemphill MD continue current dose of amiodarone for next 2 months. P FTs in [address] fu [address] machado completed EKG Maria Teresa bravo MD completed SNOMED-CT: 506886177808129 Current Medications Documented Maria Teresa Machado MD completed SNOMED-CT: 307390848 Smoking Cessation Counseling Maria Teresa Machado MD completed Schedule Followup Maria Teresa hemphill MD August 28, same day as Onesimo completed EKG Maria Teresa bravo MD completed SNOMED-CT: 816313626607408 Current Medications Documented Maria Teresa Machado MD completed SNOMED-CT: 540239434 Smoking Cessation Counseling Maria Teresa Machado MD completed SNOMED-CT: 124211465414889 Current Medications Documented Maria Teresa Machado MD completed FVC - 87749 Maria Teresa bravo MD completed FRC - 93692 Maria Teresa bravo MD completed DLCO - 37644 Maria Teresa bravo MD completed SNOMED-CT: 355121250 Smoking Cessation Counseling Shaun Isabel MD completed SNOMED-CT: 911501386859719 Current Medications Documented Shaun Isabel MD completed Bear Peacock MD complete d Holter, 24 or 48 Wood Peacock MD co mpleted SNOMED-CT: 113104628415598 Current Medications Documented Shaun Isabel MD completed Bear Peacock MD complete d SNOMED-CT: 911928177 Smoking Cessation Counseling Maria Teresa Machado MD completed EKG Maria Teresa bravo MD completed SNOMED-CT: 006060851129201 Current Medications Documented Maria Teresa Machado MD completed Bear Peacock MD complete d Bear Elkins RN completed SNOMED-CT: 986817542907694 Current Medications Documented Shaun Isabel MD completed Protime Nurse .Triage completed SNOMED-CT: 240414664 Smoking Cessation Counseling Maria Teresa Machado MD completed EKG Maria Teresa bravo MD completed SNOMED-CT: 017748137795020 Current Medications Documented Maria Teresa Machado MD completed Bear Peacock MD complete d Bear Peacock MD complete d Schedule Followup Wood Peacock MD fu in 6 chris hs completed Holter, 24 or 48 Maria Teresa snow MD completed SNOMED-CT: 502105062823424 Current Medications Documented Wood Peacock MD completed Bear bravo MD completed Schedule Followup Maria Teresa hemphill MD in 2 weeks completed SNOMED-CT: 39104427 Physical Exam, Performed: Pulse Exam of Foot Maria Teresa Machado MD completed SNOMED-CT: 273199920 Smoking Cessation Counseling Maria Teresa Machado MD completed EKG Maria Teresa bravo MD completed SNOMED-CT: 024728594804205 Current Medications Documented Maria Teresa Machado MD completed SNOMED-CT: 30257001 Physical Exam, Performed: Pulse Exam of Foot Maria Teresa Machado MD completed SNOMED-CT: 184031623 Smoking Cessation Counseling Maria Teresa Machado MD completed EKG Maria Teresa braov MD completed SNOMED-CT: 591330033439407 Current Medications Documented Maria Teresa Machado MD completed Bear Peacock MD complete d Bear Peacock MD complete d Bear Peacock MD complete d BLOOD COUNT HEMOGLOBIN Wood Peacock MD completed FVC - 63713 Wood Peacock MD complet ed FRC - 21761 Wood Peacock MD complet ed DLCO - 91782 Wood Peacock MD comple mingo Bear Peacock MD complete d Bear Peacock MD complete d EKG Wood Peacock MD complete d EKG Wood Peacock MD complete d EKG Wood Peacock MD complete d EKG Wood Peacock MD complete d EKG Wood Peacock MD complete d
--- OUTSIDE RECORDS SUMMARY | 2024-08-31 08:58 | XMS_ITS | Data Portability ---
Author Organization [facility] [employer] [facility], Main Office Address [address] [place] [address] Care Team Providers Care Forest Logistics Manager Name Role Phone BERNADETTE AGUIRRE Primary Care Provider BERNADETTE AGUIRRE Referring Provider [phone] Assessment Encounter Date Assessment Date Assessment LastModified by Organization Details LastModified Time 07/07/2024 07/07/2024 This note is dictated and transcribed by [employer]. Labor/Excavator variances may occur. Despite proofreading, typographical errors may occur. Occasional wrong-word or 'vtevv-l-wnrw' substitutions may have occurred due to the inherent limitations of voice recording. Read the chart carefully and recognize, using context, where substitutions have occurred. Not available 07/07/2024 15:07:17 07/21/2024 07/21/2024 This note is dictated and transcribed by [employer]. Labor/Excavator variances may occur. Despite proofreading, typographical errors may occur. Occasional wrong-word or 'qwjzw-d-lhdr' substitutions may have occurred due to the inherent limitations of voice recording. Read the chart carefully and recognize, using context, where substitutions have occurred. Not available 07/21/2024 10:10:07 07/28/2024 07/28/2024 This note is dictated and transcribed by [employer]. Labor/Excavator variances may occur. Despite proofreading, typographical errors may occur. Occasional wrong-word or 'uqrbq-a-ffmi' substitutions may have occurred due to the inherent limitations of voice recording. Read the chart carefully and recognize, using context, where substitutions have occurred. Not available 07/28/2024 10:47:11 08/04/2024 08/04/2024 This note is dictated and transcribed by [employer]. Labor/Excavator variances may occur. Despite proofreading, typographical errors may occur. Occasional wrong-word or 'iemdu-x-brhn' substitutions may have occurred due to the inherent limitations of voice recording. Read the chart carefully and recognize, using context, where substitutions have occurred. Not available 08/05/2024 09:14:37 08/18/2024 08/18/2024 This note is dictated and transcribed by [employer]. Labor/Excavator variances may occur. Despite proofreading, typographical errors may occur. Occasional wrong-word or 'xlplb-y-ogkz' substitutions may have occurred due to the inherent limitations of voice recording. Read the chart carefully and recognize, using context, where substitutions have occurred. [email or web address] Not available 08/18/2024 14:41:29 Plan of Treatment Reminders Order Date Submit Date Provider Last Modified By Organization Details Last Modified Time Details Appointments Any 15 2024 01:15P Melissa Song DPM Not available Not available Not available Establish ed Patient 15 2024 01:45P Melissa Song DPM Not available Not available Not available Any 30 2024 01:30P Melissa Bauer MD Not available Not available Not available Lab CBC 2024 025 [facility] Outpatient Registration Lab/Ekg, [facility], [place], [address], 08/02/2024 16:45:00 C-reactiv e protein, quantitat neto, serum or plasma 2024 025 [facility] Outpatient Registration Lab/Ekg, [facility], [place], [address], 08/02/2024 16:45:00 CBC [address] Outpatient Registration Lab/Ekg, [facility], [place], [address], 08/09/2024 14:54:38 CMP, serum or plasma 2024 025 [facility] Outpatient Registration Lab/Ekg, [address], [place], [address], 08/02/2024 16:45:00 ESR (erythroc yte sedimenta tion rate), blood 2024 025 [facility] Outpatient Registration Lab/Ekg, [address] [place] [address] [address], [place], [address], 08/02/2024 16:45:00 Referral None recorded. Procedures None recorded. Surgeries None recorded. Imaging XR, toe(s), 2 or more view - s/p fusion of IPJ- erosion/m al position of joint? left great toe [address], [address] [place] [address] [place] [address], [address], 08/26/2024 15:39:42 XR, toe(s), 2 or more view 2024 025 [facility], [address] [place] [address], [address], 08/02/2024 16:58:40 Medication Orders doxycycli ne monohydra te 100 mg capsule 2024 025 [id number], [address] [place] [address], [id number], 07/21/2024 10:12:20 Patient TargetsNo targets recorded. Patient InstructionsNo instructions recorded. Reason for Referral None Reported. Results Created Date Observation Date Name Description Value Unit Range Abnormal Flag Note LastModifiedBy Organization Detail LastModifiedTime 06/18/1906/23/2024 HEMOG LOBIN + HEMAT OCRIT hemoglobin 12.1 g/dL 13.2-1 7.1 low Not Available [facility] [address] [place], [address], 06/23/2024 09:41:59 06/18/19 25 06/23/2024 HEMOG LOBIN + HEMAT OCRIT hematocrit 37.0 % 38.5-5 0.0 low Not Available [facility] - [address] [address] [place], [address], 06/23/2024 09:41:59 06/18/19 25 06/23/2024 VITAM IN B12 vitamin B12 511 pg/mL 200-11 00 normal Not Available [facility] [address] [address] [place], [address], 06/23/2024 09:42:00 06/18/19 25 06/23/2024 VITAM IN E (TOCO PHERO L) vitamin E, alpha tocopherol 7.5 mg/L 5.7-19 .9 Level s of alpha -toco phero l <5 mg/L are consi stent with Vitam in E defic iency in adult s. Not Available [facility] [address] [address] [place], [address], 06/23/2024 09:42:01 06/18/19 25 06/23/2024 VITAM IN E (TOCO PHERO L) vitamin E, beta gamma tocopherol <1.0 mg/L <4.4 (Note ) Vitam in suppl ement ation withi n 24 hours prior to blood draw may affec t the accur acy of resul ts. This test was devshannon diaz and its judith tical perfo rmanc e stan cteri stics have been deter mined by [facility]. It has not been clear ed or appro reji by the FDA. This assay has been valid ated pursu ant to the CLIA regul ation s and is used for clini precious purpo ses. MDF med fusio n [address] [facility] [address] [place] [address] [phone] Jose Elkins MD, PhD Not Available [facility] [address] [address] [place], [address], 06/23/2024 09:42:01 07/01/19 25 XR, foot, 2 view No observ ation record ed. [email or web address] [facility] [address] [place], [address], 06/30/2024 14:12:45 08/03/19 25 07/29/2024 XR, toe(s ), 2 or more view No observ ation record ed. [email or web address] [facility] [address], [place], [address], 08/04/2024 11:15:15 Result Notes None recorded. Problems Name Problem SNOMED Code Status Onset Date Resolution Date Notes Provider Name and Address Organization Details Recorded Time Venous ulcer of lower extremity due to chronic peripheral venous hypertensi on 5392497551044 00 Active 2019 Not Available [facility] 3 01:08:29 Hypertensi ve disorder 34650035 Active Not Available [facility] 3 01:08:29 Body mass index 40+ - severely obese 313444325 Active 2019 Not Available [facility] 3 01:08:29 Obesity 603454469 Active Not Available [facility] 3 01:08:29 Congestive heart failure 67572678 Active Not Available [facility] 3 01:08:29 Tinea pedis 6113559 Active Not Available [facility] 3 01:08:30 Obstructiv e sleep apnea syndrome 78026105 Active Not Available [facility] 3 01:08:30 Onychomyco sis of toenails 211908990 Active 2022 Andrew Song DPM [address], [address], [place], [address] , [email or web address] 3 14:20:13 Localized, 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 063455020 Active 2022 Andrew Song DPM [address], [address], [place], [address] , [email or web address] 3 14:46:02 Periodic limb movement disorder 794797704 Active 2023 Edi Bauer MD [address], [address], [place], [address] , [email or web address] 4 09:43:42 Diabetic peripheral neuropathy 462646735 Active 2023 Andrew Song DPM [address], [address], [place], [address] , [employer] [facility] [employer] [facility] 4 14:57:28 Callosity on toe 342379268 Active 2023 Andrew Song DPM [address], [address], [place], [address] , [employer] [facility] [employer] 4 14:57:40 Acquired left mallet toe 9188946353360 9104 Active 2023 Andrew Song DPM [address], [address], [place], [address] , [employer] [facility] [employer] 4 14:57:45 Vitamin B12 deficiency (non anemic) 80520430 Active 2023 Edi Bauer MD [address], [address], [place], [address] , [employer] [facility] [employer] 4 14:19:22 Cobalamin deficiency 587985803 Active 2023 Edi Bauer MD [address], [address], [place], [address] , [employer] [facility] [employer] 4 14:19:35 Vitamin E deficiency 89045215 Active 2023 Edi Bauer MD [address], [address], [place], [address] , [employer] [facility] [employer] [facility] 4 14:20:00 Subungual hematoma 623495922 Active 2023 Andrew Song DPM [address], [address], [place], [address] , [employer] [facility] [employer] 4 09:53:32 Skin ulcer of toe due to diabetes mellitus type 2 0367425523670 9102 Active 2023 Andrew Song DPM [address], [address], [place], [address] , [employer] [facility] [employer] 4 15:49:56 Postoperat neto visit 500725936 Active 2024 Andrew Song DPM [address] [employer], [address] [address], [place], [address] , [employer] 5 10:11:15 Swelling of toe of left foot 3717334779969 9103 Active 2024 Andrwe Song DPM [address] [employer], [address] [address], [place], [address] , [employer] 5 10:48:03 Cellulitis of toe 51625813 Active 2024 Andrew Song DPM [address] [employer], [address] [address], [place], [address] , [email or web address] 5 14:15:12 Closed fracture proximal phalanx, toe 066660543 Active 2024 Andrew Song DPM [address] [employer], [address] [address], [place], [address] , [email or web address] 5 09:17:12 Notes:Medical History: Depre ssion Migraine headaches MRSA carrier Bilateral high frequency hearing loss Bilateral tinnitus Rhinitis Persistent early REM onset Obesity with mod OSHS, HI = 16, 07/21/23, on Respironics autoCPAP c/o IVRC CHF Atrial fibrillation on Eliquis Hypertension Hyperlipidemia T2DM ANA Hepatic steatosis CBD calculus with pancreatitis 2018 SBO 2020 BPH ED Vit B12 deficiency Vit E deficiency Anemia PLMD Osteopenia Right 5th metacarpal fracture Tinea pedis Onychomycosis Procedure History: Cholecystectomy 2009 Right partial nephrectomy 2014 Right shoulder lipoma excision 2015 Atrial fibrillation ablation 2017 ERCP with optical endomicroscopy 2019 Colonoscopy with polypectomy 2019 Bilateral hip arthroplasty 2020 Sleeve gastrectomy 09/05/2020 Leti-en-y gastrojejunostomy 09/05/2020 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 Procedures Surgical History Date Name Laterality Status Provider Name and Address Organization Details Recorded Time 08/19/19 25 Wound Care-Podiatry completed Andrew Song DPM [address], [address], [place], [address], [facility] [employer] [facility] [employer] [facility] 08/25/2024 12:03:46 08/05/19 25 Wound Care-Podiatry completed Thu Husain RN [facility] [employer] [facility] 08/04/2024 14:29:23 07/29/19 25 Wound Care-Podiatry completed Andrew Song DPM [address], [address], [place], [address], [facility] [employer] [facility] [employer] 07/28/2024 11:51:00 07/22/19 25 Wound Care-Podiatry completed Andrew Song DPM [address], [address], [place], [address], [facility] [employer] [facility] [employer] 07/21/2024 10:22:54 07/08/19 25 Wound Care-Podiatry completed Andrew Song DPM [address], [address], [place], [address], [facility] [employer] [facility] [employer] 07/07/2024 15:08:12 07/01/19 25 Wound Care-Podiatry completed Andrew Song DPM [address], [address], [place], [address], [facility] [employer] [facility] [employer] 06/30/2024 14:07:29 05/20/19 25 Wound Care-Podiatry completed Andrew Song DPM [address], [address], [place], [address], [facility] [employer] [facility] 05/20/2024 16:08:30 05/04/19 25 Nail Debridement completed Andrew Song DPM [address], [address], [place], [address], [facility] [employer] 05/05/2024 11:19:24 04/06/20 24 Wound Care-Podiatry completed Andrew Song DPM [address], [address], [place], [address], [facility] [employer] 04/06/2024 15:49:36 02/03/20 24 Callus Debridement, One completed Andrew Song DPM [address], [address], [place], [address], [facility] [employer] [facility] 02/03/2024 15:33:15 11/17/19 24 Nail Debridement completed Andrew Song DPM [address], [address], [place], [address], [facility] [employer] [facility] 11/18/2023 20:47:39 08/28/19 24 Nail Debridement completed Andrew Song DPM [address], [address], [place], [address], [facility] [employer] [facility] 08/28/2023 14:57:01 08/28/19 24 Callus Debridement, One completed Andrew Song DPM [address], [address], [place], [address], [facility] [employer] [facility] 08/28/2023 14:56:48 06/11/19 24 Wound Care-Podiatry completed Navi Mancia RN [facility] [employer] [facility] 06/11/2023 14:26:18 06/04/19 24 Wound Care-Podiatry completed Andrew Song DPM [address], [address], [place], [address], [facility] [employer] [facility] 06/04/2023 14:36:28 06/04/19 24 Flexor Tenotomy completed Andrew Song DPM [address], [address], [place], [address], [facility] 06/04/2023 14:33:04 05/28/19 24 Wound Care-Podiatry completed Andrew Song DPM [address], [address], [place], [address], [facility] [employer] [facility] 05/28/2023 14:47:34 05/21/19 24 Wound Care-Podiatry completed Danielle Connelly RN [facility] [employer] [facility] 05/21/2023 14:08:20 05/14/19 24 Nail Debridement completed DAWN [address], [address], [place], [address], [facility] [employer] [facility] 05/14/2023 12:16:08 05/14/19 24 Wound Care-Podiatry completed Andrew Song DPM [address], [place], [address], [facility] [employer] [facility] 05/14/2023 12:17:11 05/14/19 24 Callus Debridement, One completed Andrew Song DPM [address], [place], [address], [facility] [employer] [facility] 05/14/2023 12:16:16 02/20/20 23 Wound Care-Podiatry completed Andrew Song DPM [address], [address], [place], [address], [facility] [employer] [facility] [employer] 02/26/2023 12:10:26 02/13/20 23 Wound Care-Podiatry completed Andrew Song DPM [address], [address], [place], [address], [facility] [employer] [facility] [employer] 02/12/2023 14:37:55 02/06/20 23 Wound Care-Podiatry completed Thu Husain RN [facility] [employer] [facility] 02/05/2023 14:14:06 01/30/20 23 Wound Care-Podiatry completed Danielle Connelly RN [facility] [employer] 01/29/2023 14:17:08 01/23/20 23 Wound Care-Podiatry completed Andrew Song DPM [address], [address], [place], [address], [facility] [employer] [facility] [employer] 01/22/2023 14:50:22 11/07/19 23 Wound Care-Podiatry completed Andrew Song DPM [address], [address], [place], [address], [facility] [employer] [facility] [employer] 11/06/2022 14:49:38 10/31/19 23 Wound Care-Podiatry completed Navi Mancia RN [facility] [employer] 10/30/2022 12:56:24 10/25/19 23 Nail Debridement completed Andrew Song DPM [address], [address], [place], [address], [facility] [employer] [facility] [employer] [facility] 10/24/2022 14:18:56 10/25/19 23 Wound Care-Podiatry completed Andrew Song DPM [address], [address], [place], [address], [facility] [employer] [facility] [employer] [facility] 10/24/2022 14:19:47 10/25/19 23 Callus Debridement, One completed Andrew Song DPM [address], [address], [place], [address], [facility] [employer] [facility] [employer] [facility] 10/24/2022 14:18:52 09/26/19 23 Wound Care-Podiatry completed Danielle Connelly RN [facility] [employer] [facility] 09/25/2022 14:06:14 09/12/19 23 Wound Care-Podiatry completed Thu Husain RN [facility] [employer] [facility] 09/11/2022 14:08:06 09/05/19 23 Wound Care-Podiatry completed Andrew Song DPM [address], [place], [address], [facility] [employer] [facility] [employer] [facility] 09/11/2022 14:01:45 08/29/19 23 Wound Care-Podiatry completed Navi Mancia RN [facility] [employer] [facility] 08/28/2022 12:21:55 08/22/19 23 Wound Care-Podiatry completed Andrew Song DPM [address], [place], [address], [facility] [employer] [facility] [employer] [facility] 08/26/2022 08:34:15 08/15/19 23 Wound Care-Podiatry completed Andrew Song DPM [address], [place], [address], [facility] [employer] [facility] [employer] [facility] 08/14/2022 13:42:54 08/07/19 23 Nail Debridement completed Andrew Song DPM [address], [place], [address], [facility] [employer] [facility] 08/08/2022 09:43:28 08/07/19 Wound Care-Podiatry completed Andrew Song DPM [address], [facility] [address], [place], [address], [facility] [employer] [facility] 08/06/2022 17:00:44 Gastric Bypass completed Not Available [facility] 06/19/2022 00:54:26 excision of right kidney completed Not Available [facility] 06/19/2022 00:54:26 bile duct operation completed Not Available [facility] 06/19/2022 00:54:26 Imaging Results Imaging Date Name Status LastModified by Organiz ation Details LastModified Time 06/30/2024 XR, foot, 2 view completed [email or web address] [facility] [address], [place], [address], 06/30/2024 14:12:45 07/29/2024 XR, toe(s), 2 or more view completed [email or web address] [facility] [address], [place], [address], 08/04/2024 11:15:15 Procedure Notes None recorded. Medical Equipment None Reported. Allergies Allergen ID Allergen Name Allergen Category Reaction Reaction Severity Criticality Documentation Date Start Date Code Code System Note Provider Name and Address Organization Details Recorded Time 2415 tramadol medicatio n itching Not available Not available 06/19/2022 51464 RxNorm Edi Bauer MD [address], [facility] [address], [place], [address], [facility] [employer] [facility] 4 11:19:43 2416 Substance with sulfonami de structure and antibacte rial mechanism of action (substanc e) medicatio n rash Not available Not available 06/19/2022 75114 8003 SNOMED Not Available [facility] 3 01:27:08 2417 adhesive tape environme nt,medica tion rash Not available Not available 06/19/2022 44250 UNK Not Available [facility] 3 01:27:08 Medications Name Sig Start Date Stop Date Status Note LastModified by Organization Details LastModified Time alcohol pads 70 % pads 04/06 completed Not Available Not Available Not Available accu-chek guide test strips strp 03/07 completed Not Available Not Available Not Available safety lancets 28g misc 04/06 completed Not Available Not Available Not Available furosemide 40 mg tablet TAKE 1 TABLET BY MOUTH TWICE DAILY 04/18 completed Not Available Not Available Not Available dicloxacill in 500 mg capsule 03/09 completed Not Available Not Available Not Available metformin 500 mg tablet TAKE 1 TABLET BY MOUTH TWICE DAILY 10/27 completed Not Available Not Available Not Available atorvastati n 20 mg tablet 04/18 completed Not Available Not Available Not Available clindamycin HCl 300 mg capsule TAKE 1 CAPSULE BY MOUTH EVERY 6 HOURS 06/08 completed Not Available Not Available Not Available albuterol sulfate 2.5 mg/3 mL (0.083 %) solution for nebulizatio n INHALE 1 VIAL VIA NEBULIZER TID PRN 08/16 completed Not Available Not Available Not Available levorphanol tartrate 2 mg tablet TK 1 T PO Q 6 H PRN P 10/27 completed Not Available Not Available Not Available amoxicillin 125 mg chewable tablet 08/01 completed Not Available Not Available Not Available diltiazem CD 180 mg capsule,ext ended release 24 hr TK ONE C PO BID 08/19 completed Not Available Not Available Not Available amiodarone 200 mg tablet TAKE 1 TABLET BY MOUTH EVERY DAY 04/18 completed Not Available Not Available Not Available metoprolol succinate ER 50 mg tablet,exte nded release 24 hr TAKE 1 TABLET BY MOUTH TWICE A DAY active Not Available Not Available No t Available doxepin 25 mg capsule 10/27 completed Not Available Not Available Not Available hydrocodone 5 mg-acetamin ophen 325 mg tablet TAKE 1 TABLET BY MOUTH EVERY 6 HOURS NEEDED FOR PAIN active Not Available Not Available No t Available Alcohol Pads TEST ONCE DAILY active Not Available Not Available No t Available metolazone 5 mg tablet active Not Available Not Available Not Available clobetasol 0.05 % topical cream RAZ AA BID PRF ITCHING 08/16 completed Not Available Not Available Not Available clindamycin HCl 150 mg capsule 08/19 completed Not Available Not Available Not Available cyanocobala min (vit B-12) 1,000 mcg tablet Take 1 tablet twice a week by oral route. 2024 active Not Available Not Available Not Avai lable oxycodone 5 mg/5 mL oral solution 10/27 completed Not Available Not Available Not Available acetaminoph en 300 mg-codeine 30 mg tablet TK 1 T PO D PRN P 03/09 completed Not Available Not Available Not Available ciprofloxac in 500 mg tablet TAKE 1 TABLET BY MOUTH TWICE DAILY FOR 7 DAYS DIRECTED active Not Available Not Available No t Available sulfamethox azole 800 mg-trimetho prim 160 mg tablet 10/27 completed Not Available Not Available Not Available hydrocodone 10 mg-acetamin ophen 325 mg tablet 04/18 completed Not Available Not Available Not Available peg-electro lyte solution 420 gram oral solution MIX AND DRINK 1/2 AT 5PM ON 11/26 AND DRINK THE OTHER HALF AT 5AM ON 11/27 completed Not Available Not Available Not Available oxycodone 15 mg tablet TAKE 1 TABLET EVERY SIX HOURS NEEDED FOR PAIN active Not Available Not Available No t Available potassium chloride ER 20 mEq tablet,exte nded release(par t/cryst) 04/18 completed Not Available Not Available Not Available magnesium oxide 400 mg (241.3 mg magnesium) tablet TAKE 1 TABLET BY MOUTH TWICE DAILY 10/27 completed Not Available Not Available Not Available oxycodone-a cetaminophe n 10 mg-325 mg tablet TAKE 1 TABLET BY MOUTH EVERY 8 HOURS NEEDED FOR PAIN active Not Available Not Available No t Available tamsulosin 0.4 mg capsule TAKE 1 CAPSULE BY MOUTH EVERY NIGHT AT BEDTIME 06/16 completed Not Available Not Available Not Available furosemide 80 mg tablet 08/16 completed Not Available Not Available Not Available diazepam 2 mg tablet 08/16 completed Not Available Not Available Not Available doxycycline monohydrate 100 mg capsule TAKE 1 CAPSULE BY MOUTH TWICE DAILY FOR 10 DAYS active Not Available Not Available No t Available Cartia XT 120 mg capsule,ext ended release TAKE 1 CAPSULE BY MOUTH DAILY 04/18 completed Not Available Not Available Not Available cephalexin 500 mg capsule TAKE 1 CAPSULE BY MOUTH TWICE A DAY FOR 10 DAYS 03/07 completed Not Available Not Available Not Available oseltamivir 75 mg capsule 10/27 completed Not Available Not Available Not Available clotrimazol e-betametha sone 1 %-0.05 % topical cream 08/16 completed Not Available Not Available Not Available lisinopril 10 mg tablet TAKE 1 TABLET BY MOUTH EVERY DAY active Not Available Not Available No t Available warfarin 5 mg tablet TK 1 T PO QD 08/16 completed Not Available Not Available Not Available metoprolol tartrate 50 mg tablet TK 1 T PO BID 08/16 completed Not Available Not Available Not Available fluoxetine 10 mg capsule 10/27 completed Not Available Not Available Not Available mupirocin calcium 2 % topical cream 10/27 completed Not Available Not Available Not Available omeprazole 20 mg capsule,del ayed release TAKE 1 CAPSULE BY MOUTH EVERY DAY 06/16 completed Not Available Not Available Not Available enoxaparin 150 mg/mL subcutaneou s syringe 10/27 completed Not Available Not Available Not Available bisacodyl 5 mg tablet,matilda yed release TAKE 6 TABLETS BY MOUTH AT 8 AM ON 11/26 completed Not Available Not Available Not Available lisinopril 5 mg tablet TAKE 1 TABLET BY MOUTH EVERY DAY 06/08 completed Not Available Not Available Not Available mupirocin 2 % topical ointment APPLY TO AFFECTED AREA 3 TIMES A DAY FOR 7 DAYS 03/07 completed Not Available Not Available Not Available digoxin 125 mcg (0.125 mg) tablet TK 1 T PO ONCE D 10/27 completed Not Available Not Available Not Available warfarin 1 mg tablet TK 1 T PO ONCE D 10/27 completed Not Available Not Available Not Available ibuprofen 600 mg tablet TK 1 T PO Q 8 H WITH FOOD PRN P 10/27 completed Not Available Not Available Not Available levofloxaci n 500 mg tablet 08/19 completed Not Available Not Available Not Available levofloxaci n 750 mg tablet active Not Available Not Available Not Available zolpidem 10 mg tablet TAKE 1 TABLET BY MOUTH EVERY DAY AT BEDTIME NEEDED active Not Available Not Available No t Available albuterol sulfate HFA 90 mcg/actuati on aerosol inhaler INHALE 2 PUFFS BY MOUTH FOUR TIMES DAILY NEEDED active Not Available Not Available No t Available ketoconazol e 2 % topical cream Apply in between toes twice daily as needed active Not Available Not Available No t Available ondansetron 4 mg disintegrat ing tablet DISSOLVE 1 TABLET ON THE TONGUE EVERY 6 HOURS NEEDED 07/23 completed Not Available Not Available Not Available cefdinir 300 mg capsule active Not Available Not Available Not Available diltiazem 60 mg tablet 10/27 completed Not Available Not Available Not Available fluticasone propionate 50 mcg/actuati on nasal spray,suspe nsion SHAKE LIQUID AND USE 2 SPRAYS IN EACH NOSTRIL DAILY active Not Available Not Available No t Available doxycycline hyclate 100 mg tablet TAKE 1 TABLET BY MOUTH TWICE DAILY 06/08 completed Not Available Not Available Not Available amoxicillin 875 mg-potassiu m clavulanate 125 mg tablet TK 1 T PO Q 12 H 08/19 completed Not Available Not Available Not Available oxycodone 5 mg tablet TAKE 1 TO 2 TABLETS BY MOUTH EVERY 6 HOURS NEEDED FOR PAIN 04/18 completed Not Available Not Available Not Available rosuvastati n 10 mg tablet TAKE 1 TABLET BY MOUTH EVERY DAY active Not Available Not Available No t Available lancing device TEST ONCE DAILY active Not Available Not Available No t Available tadalafil 10 mg tablet TAKE 1 TABLET BY MOUTH ONCE DAILY NEEDED active Not Available Not Available No t Available metoprolol tartrate 25 mg tablet 06/23 completed Not Available Not Available Not Available nitrofurant oin monohydrate /macrocryst als 100 mg capsule 03/09 completed Not Available Not Available Not Available DILT-XR 180 mg capsule, extended release TK 2 CS PO QD 08/16 completed Not Available Not Available Not Available Lyrica 75 mg capsule TK ONE C PO TID 10/27 completed Not Available Not Available Not Available digoxin 2013 active Not Available Not Available Not Avai lable Klor-Con 2013 active Not Available Not Available Not Avai lable Crestor 2013 active Not Available Not Available Not Avai lable FeroSul 325 mg (65 mg iron) tablet TAKE 1 TABLET BY MOUTH TWICE DAILY active Not Available Not Available No t Available oxycodone 10 mg tablet active Not Available Not Available Not Available Pradaxa 150 mg capsule 10/27 completed Not Available Not Available Not Available Xarelto 20 mg tablet TAKE 1 TABLET BY MOUTH EVERY DAY DIRECTED 10/27 completed Not Available Not Available Not Available OneTouch Verio Mid Control solution 10/27 completed Not Available Not Available Not Available metoprolol succ 50 mg-hydrochl orothiazide 12.5 mg tablet,ext. rel 24 hr Take 1 tablet every day by oral route. 2013 active Not Available Not Available Not Avai lable vitamin E (dl, acetate) 90 mg (200 unit) capsule Take 1 capsule every day by oral route. 2024 active Not Available Not Available Not Avai lable Ultra Thin Lancets 31 gauge TEST ONCE DAILY 04/18 completed Not Available Not Available Not Available Eliquis 5 mg tablet TAKE 1 TABLET BY MOUTH TWICE DAILY active Not Available Not Available No t Available Safety Lancets 28 gauge TEST ONCE DAILY active Not Available Not Available No t Available potassium chloride ER 20 mEq tablet,exte nded release TAKE 1 TABLET BY MOUTH EVERY DAY 04/18 completed Not Available Not Available Not Available naloxone 4 mg/actuatio n nasal spray 08/27 completed Not Available Not Available Not Available Accu-Chek Guide test strips TEST ONCE DAILY 06/23 completed Not Available Not Available Not Available Accu-Chek Guide Me Glucose Meter USE DIRECTED 06/08 completed Not Available Not Available Not Available Pure Comfort Safety Lancets 30 gauge TEST ONCE DAILY 06/08 completed Not Available Not Available Not Available Ozempic 1 mg/dose (4 mg/3 mL) subcutaneou s pen injector INJECT 1 MG SUBCUTANE OUSLY ONE TIME PER WEEK active Not Available Not Available No t Available Ozempic 0.25 mg or 0.5 mg (2 mg/3 mL) subcutaneou s pen injector INJECT 0.25 MG SUBCUTANE OUSLY ONCE A WEEK FOR 4 WEEKS, IF TOLERATED INCREASE TO 0.5MG ON WEEK 5 11/16 completed Not Available Not Available Not Available Vitals Date Recorded Body height Heart rate Respiratory rate Body temperature Oxygen saturation Oxygen saturation in Arterial blood by Pulse oximetry Systolic blood pressure Diastolic blood pressure Provider Name and Address Organization Details Last Updated DateTime 180.34 cm 76 /min 17 /min 97.7 [degF] 97 % 97 % 132 mm[Hg] 90 mm[Hg] Joleen Denton [facility] 5 12:38:57 Date Recorded Body height Body mass index (BMI) Body weight Heart rate Respiratory rate Body temperature Oxygen saturation Oxygen saturation in Arterial blood by Pulse oximetry Systolic blood pressure Diastolic blood pressure Provider Name and Address Organization Details Last Updated DateTime 5 180.34 cm 35.6 kg/m2 739245. 05 g 66 /min 16 /min 97.6 [degF] 95 % 95 % 151 mm[Hg] 93 mm[Hg] Joleen Denton [facility] 5 09:56:03 Date Recorded Body height Body mass index (BMI) Body weight Heart rate Respiratory rate Body temperature Oxygen saturation Oxygen saturation in Arterial blood by Pulse oximetry Systolic blood pressure Diastolic blood pressure Provider Name and Address Organization Details Last Updated DateTime 5 180.34 cm 35.6 kg/m2 479605. 05 g 88 /min 16 /min 98.4 [degF] 98 % 98 % 146 mm[Hg] 86 mm[Hg] Joleen Denton [facility] 5 10:36:16 Date Recorded Body height Heart rate Respiratory rate Body temperature Oxygen saturation Oxygen saturation in Arterial blood by Pulse oximetry Systolic blood pressure Diastolic blood pressure Provider Name and Address Organization Details Last Updated DateTime 5 180.34 cm 69 /min 16 /min 97.7 [degF] 99 % 99 % 135 mm[Hg] 84 mm[Hg] Joleen [facility] 5 14:15:36 Date Recorded Body height Oxygen saturation Oxygen saturation in Arterial blood by Pulse oximetry Body temperature Heart rate Systolic blood pressure Diastolic blood pressure Provider Name and Address Organization Details Last Updated DateTime 5 180.34 cm 96 % 96 % 97.6 [degF] 73 /min 117 mm[Hg] 68 mm[Hg] Navi Mancia RN [facility] [employer] [facility] 5 14:18:49 Social History Question Answer Notes LastModified by Organizat ion Details LastModified Time Tobacco Smoking Status Former Smoker Not Available [facility] 06/19/2022 00:51:28 What Is Your Level Of Caffeine Consumption? Occasional Information not available 06/16/2023 In The 14 Days Before Symptom Onset, Have You Had Close Contact With A Laboratory-confi rmed COVID-19 While That Case Was Ill? No Information not available 06/16/2023 In The 14 Days Before Symptom Onset, Have You Had Close Contact With A Person Who Is Under Investigation For COVID-19 While That Person Was Ill? No Information not available 06/16/2023 What Type Of Diet Are You Following? REGULAR Trying To Eat Less, Bariatric Surgery In 2021 Information not available 06/16/2023 Do You Have An Electrostatic Air Filter? Yes Information not available 06/16/2023 When Did You Quit Smoking? 16+yearssince lastcigarette Information not available 07/24/2023 Do You Have A Humidifier? Yes Information not available 06/16/2023 Where Do You Live? Apartment Information not available 06/16/2023 Do You Have Moisture Problems In Your Home? No Information not available 06/16/2023 What Was The Date Of Your Most Recent Tobacco Screening? 06/23/2024 Information not available 06/23/2024 Do You Have Any Pets? No Information not available 06/16/2023 What Is Your Relationship Status? Single Information not available 03/24/2024 Do You Use Your Seat Belt Or Car Seat Routinely? Yes Information not available 06/16/2023 Do You Have Smoke And Carbon Monoxide Detectors In Your Home? Yes Information not available 06/16/2023 Are You Passively Exposed To Smoke? No Information not available 06/16/2023 Do You Use Sunscreen Routinely? No Not Usually Outside Information not available 06/16/2023 How Many Years Have You Smoked Tobacco? 20 [id number] Information not available 06/19/2022 Have You Recently Traveled Abroad? No Information not available 06/16/2023 Do You Have Any Dietary Restrictions? No Information not available 06/16/2023 Sex: Unknown Functional Status Question Answer Note LastModified by Organizat ion Details LastModified Time Do you use any illicit or recreational drugs? No Information not available 06/16/2023 What is your level of alcohol consumption? Moderate [id number] Information not available 06/19/2022 Are you currently employed? No Information not available 06/16/2023 Have you been exposed to chemicals or toxins? not that aware of Information not available 06/16/2023 What is your exercise level? Occasional Information not available 06/16/2023 Mental Status Question Answer Note LastModified by Organization D etails LastModified Time Do you feel stressed (tense, restless, nervous, or anxious, or unable to sleep at night)? [id number] Information not available 07/24/2023 Family History Relationship Description Onset Age of this Age Resolved Age Notes LastModified by Organization Details LastModified Time Son Peripheral arterial disease [email or web address] Not available 2023 14:41:57 Medical History Condition Response CANCER: SPECIFY Y ARTHRITIS Y USE OF BLOOD THINNERS Y DIZZINESS Y DIABETES, TYPE Y HEART DISEASE/HEART PROBLEMS Y BACK / NECK PROBLEMS Y HIGH CHOLESTEROL / HYPERLIPIDEMIA Y Past Encounters Encounter ID Performer Location Encounter Start Date Encounter Closed Date Diagnosis/Indication Diagnosis SNOMED-CT Code Diagnosis ICD10 Code Diagnosis Note [id number] [facility] [place] [address] [place] [address] 07/17/2020 00:00:00 07/18/2020 10:54:00 [id number] [facility] [place] [address] [place] [id number] 10/16/2020 00:00:00 10/17/2020 10:13:52 [id number] Paco Varner MD [facility] [place] [address] [place] [address] 10/27/2020 00:00:00 10/27/2020 11:26:02 [id number] [facility] [place] [address] [place] [address] 02/01/2021 00:00:00 02/05/2021 09:53:44 [id number] [facility] [place] [address] [place] [address] 04/02/2021 00:00:00 04/08/2021 20:06:53 [id number] [facility] [place] [address] [place] [address] 05/07/2021 00:00:00 05/08/2021 10:45:35 [id number] [facility] [place] [address] [place] [address] 08/23/2021 00:00:00 08/23/2021 21:03:29 [id number] [facility] [place] [address] [place] [address] 11/26/2021 00:00:00 11/27/2021 10:52:39 [id number] [facility] [place] [address] [place] [address] 02/25/2022 00:00:00 02/26/2022 10:49:56 [id number] Sigifredo Escoto MD [facility] [place] [address] [place] [address] 06/21/2022 08:36:19 06/21/2022 09:59:14 Pain in right hand 5194127841 98641 M79.641 [id number] Sigifredo Escoto MD [facility] [place] [address] [place] [address] 08/01/2022 09:13:00 08/01/2022 10:04:30 Pain in right hand 4870225019 03107 M79.641 [id number] Andrew Song DPM [facility] [place] [address] [facility] [address] [place] [address] 08/06/2022 16:29:13 08/08/2022 11:19:14 Ulcer of big toe 218830768 L97.509 left great toe - distal aspectwoun d culture todayWound debrided without incidentRx mupirocinw ound care options reviewed with the patientfol low-up in wound care in 1 week Blister of toe with infection 72327530 L08.9 left great toe- lateral aspectwoun d cultureswo und debridemen t without incidentof floadingdr essings reviewed with the patient Lymphedema 864784782 I89 .0 Continue chronic compressio nContinue follow-up with lymphedema Clinic Onychomycosis 823726323 B35.1 Patient was educated on treatment options of onychomyco sis. Patient's nails 1 through 10 were debrided without incident. Patient defers pharmacolo gical management due to possible side effects and will continue with conservati ve options. Return to clinic as needed every 3 months for this problem Cellulitis of toe of left foot 2480043548 5776109 L03.032 left great toe [id number] Andrew Song DPM [facility] [address] [place] [address] 08/14/2022 11:08:22 08/14/2022 12:05:15 Ulcer of big toe 911143551 L97.509 left great toe - distal aspectrevi ewedpatien t educated on offloading Rx mupirocin, continuewo und care options reviewed with the patientfol low-up in wound care in 1 week Blister of toe with infection 17912112 L08.9 left great toe- lateral aspect-- resolvedwo und culturesno anaerobesw ound culture- Staph Cellulitis of toe of left foot 8906450735 2726381 L03.032 left great toe- resolved Lymphedema 579089159 I89 .0 Continue chronic compressio nContinue follow-up with lymphedema Clinic [id number] Andrew Song DPM [facility] [address] [place] [address] 08/21/2022 14:12:03 08/21/2022 15:40:52 Ulcer of big toe 479997368 L97.509 left great toe - distal aspectpati ent educated on offloading Rx mupirocin, continuewo und care options reviewed with the patientfol low-up in wound care in 1 week Blister of toe with infection 90948241 L08.9 left great toe- lateral aspect-- resolvedwo und culturesno anaerobesw ound culture- Staph Cellulitis of toe of left foot 2398039775 9108467 L03.032 left great toe- resolved Lymphedema 358274353 I89 .0 Continue chronic compressio nContinue follow-up with lymphedema Clinic [id number] Andrew [facility] [address] [place] [address] 08/28/2022 11:53:47 08/28/2022 12:29:45 Ulcer of big toe 163487450 L97.509 left great toe - distal aspectpati ent educated on offloading Rx mupirocin, continuewo und care options reviewed with the patientfol low-up in wound care in 1 week [id number] Andrew Song DPM [facility] [address] [place] [address] 09/04/2022 12:08:30 09/09/2022 12:04:37 Ulcer of big toe 921293482 L97.509 left great toe - distal aspectwoun d debridedpa tient educated on offloading Rx mupirocin, continuewo und care options reviewed with the patientfol low-up in wound care in 1 week [id number] Andrew Song DPM [facility] [address] [place] [address] 09/11/2022 14:02:07 09/11/2022 14:24:44 Ulcer of big toe 446646166 L97.509 left great toe - distal aspectpati ent educated on offloading Rx mupirocin, continuewo und care options reviewed with the patientfol low-up in wound care in 1 week [id number] Andrew [facility] [address] [place] [address] 09/25/2022 13:58:31 09/25/2022 14:58:11 Ulcer of big toe 664826268 L97.509 left great toe - distal aspect Healedpati ent educated on offloading discontinu e mupirocinf ollow-up as needed [id number] Andrew Song DPM [facility] [place] [address] [facility] [address] [place] [address] 10/24/2022 13:52:10 10/24/2022 14:49:01 Foot ulcer due to type 2 diabetes mellitus 6733827926 100 E11.621 plantar great toeContinu e mupirocin dressings dailyPatie nt denies needing refillOffl oading of toe with diabetic shoes and insertsFol low-up in Wound Care next week Callosity on toe 20090729 L84 left 3rd toedebride d without incidentCo ntinue diabetic shoe gearFollow -up as needed Onychomyco sis of toenails 466023497 B35.1 Patient was educated on treatment options of onychomyco sis. Patient's nails 1 through 10 were debrided without incident. Patient defers pharmacolo gical management due to possible side effects and will continue with conservati ve options. Return to clinic as needed every 3 months for this problem [id number] DAWN [facility] [address] [place] [address] 10/30/2022 12:41:50 10/30/2022 14:48:56 Foot ulcer due to type 2 diabetes mellitus 5324093661 100 E11.621 plantar great toeContinu e mupirocin dressings dailyPatie nt denies needing refillOffl oading of toe with diabetic shoes and insertsFol low-up in1 week [id number] Andrew Song DPM [facility] [address] [place] [address] 11/06/2022 14:06:41 11/06/2022 14:59:07 Foot ulcer due to type 2 diabetes mellitus 0997356934 100 E11.621 plantar great toe, leftContin ue mupirocin dressings dailyPatie nt denies needing refillOffl oading of toe with diabetic shoes and insertsFol low-up in 1 week Callosity on toe 20090729 L84 left 3rd toedebride d without incidentCo ntinue diabetic shoe gearFollow -up as needed [id number] Andrew Song DPM [facility] [address] [place] [address] 01/22/2023 14:03:40 01/22/2023 14:46:34 Ulcer of big toe 174423020 L97.509 left great toe - distal aspectoffl oading dailyMupir ocin twice daily due dressings to wound left great toepatient educated on offloading discontinu e mupirocino rdered x-raysfoll ow-up 1 week [id number] DAWN [facility] [address] [place] [address] 1 01/29/2023 14:03:06 01/29/2023 14:28:34 Ulcer of big toe 487382806 L97.509 left great toe - distal aspectoffl oading dailyMupir ocin twice daily due dressings to wound left great toepatient educated on offloading discontinu e mupirocino rdered x-raysfoll ow-up 1 week [id number] DAWN [facility] [address] [place] [address] 1 02/05/2023 14:03:25 02/05/2023 14:22:02 Ulcer of big toe 961338953 L97.509 left great toe - distal aspectoffl oading dailyMupir ocin twice daily due dressings to wound left great toepatient educated on offloading ordered x-raysfoll ow-up 1 week [id number] DAWN [facility] [address] [place] [address] 1 02/12/2023 14:03:35 02/12/2023 14:40:54 Ulcer of big toe 993779285 L97.509 left great toe - distal aspectwoun d debrided todayofflo ading dailyMupir ocin twice daily due dressings to wound left great toepatient educated on offloading ordered x-raysfoll ow-up 1 week [id number] Andrew Song DPM [facility] [address] [place] [address] 1 02/19/2023 14:12:26 02/20/2023 14:32:49 Ulcer of big toe 042995748 L97.509 left great toe - distal aspectCont inue offloading Continue multi density insertsCon tinue diabetic shoesFollo w-up in 3 weeks in podiatry office Localized, secondary osteoarthritis of the ankle and/or foot 229672209 M19.279 interphala ngeal joint left great toe [id number] Andrew Song DPM [facility] [address] [place] [address] 05/14/2023 10:44:30 05/14/2023 12:33:04 Localized, secondary osteoarthritis of the ankle and/or foot 690575800 M19.279 interphala ngeal joint left great toe-arthri tic changes with mallet toe Dystrophia unguium 53769 009 L60.3 Nails debrided without incident per patient request due to length and thickening Ulcer of toe 258710054 L 97.521 Left 3rd toeDebride d without incidentPe rform daily wound careReview ed dressing instructio ns Follow-up 1 week, offloading of the toe at all times to allow healing Callosity on toe 4828509 01 L84 Left great toe Debrided without incident Offloading secondary to arthritis may require joint fusionReco mmend offloading with multi density inserts and supportive shoe gear. [id number] DAWN [facility] [address] [place] [address] 05/21/2023 13:57:02 05/21/2023 14:26:58 Ulcer of toe 222799332 L97.521 Left 3rd toe90% healed, cont current treatmentP erform daily wound careReview ed dressing instructio nsFollow-u p 1 week, offloading of the toe at all times to allow healing [id number] Andrew Song DPM [facility] [address] [place] [address] 05/28/2023 14:11:16 05/28/2023 16:23:22 Ulcer of toe 673315601 L97.521 Left 3rd toePerform daily wound careReview ed dressing instructio nsFollow-u p 1 week, offloading of the toe at all times to allow healing Acquired l eft mallet toe 9754094614 5554520 M20.5X2 perform flexor tenotomy once wound healedleft third toe [id number] Andrew Song DPM [facility] [address] [place] [address] 06/04/2023 13:58:03 06/04/2023 15:02:18 Acquired left mallet toe 0784566402 1132800 M20.5X2 perform flexor tenotomy todayleft third toedressin gs appliedfol low up in one week Callosity on toe 0385740 01 L84 Left third toe- wound healedDebr ided without incidentOf floading secondary to arthritis may require joint fusionReco mmend offloading with multi density inserts and supportive shoe gear. Cellulitis of toe of left foot 1559081610 9095974 L03.032 left great toe- resolved Ulcer of toe 450732273 L 97.521 Left 3rd toehealed [id number] Andrew Song DPM [facility] [address] [place] [address] 06/11/2023 14:11:36 06/11/2023 14:48:15 Acquired left mallet toe 2820909821 5980648 M20.5X2 perform flexor tenotomy todayleft third toe-resolv eddressing s appliedfol low up prn Callosity on toe 2441642 01 L84 Left third toe- wound healedDebr ided without incidentOf floading secondary to arthritis may require joint fusionReco mmend offloading with multi density inserts and supportive shoe gear. [id number] MD ZHANNA [facility] [address] [address] 06/16/2023 13:48:40 06/19/2023 10:37:51 Obstructive sleep apnea syndrome 38786163 G47.33 G47.61 R06.4 G47.31 [id number] MD ZHANNA [facility] [address] [address] 07/24/2023 08:53:37 07/25/2023 08:57:46 Obstructive sleep apnea syndrome 80387203 G47.33 Periodic l imb movement disorder 006043605 G47.61 D50.8 E83.42 [id number] Andrew Song DPM [facility] [facility] [place] [address] [place] [address] 08/28/2023 14:31:32 08/28/2023 15:14:28 Dystrophia unguium [id number] L60.3 Nails debrided without incident per patient request due to length and thickening Diabetic p eripheral neuropathy [id number] E11.40 Patient educated on neuropathy , diabetes, diabetic diet, and daily foot exams. Patient is to check feet daily for new wounds, blisters, redness to prevent infection and ulceration s to the feet. Patient will return to clinic in 3 months for diabetic foot workup. Diabetes mellitus 507290 09 E11.9 continue diabetic meds per PCP Callosity on toe 20090729 L84 Left great toe- continue offloadDeb rided without incidentOf floading secondary to arthritis may require joint fusionReco mmend offloading with multi density inserts and supportive shoe gear. Acquired l eft mallet toe [id number] 5785040 M20.5X2 great toeRx diabetic shoes and insoles [id number] Andrew Song DPM [facility] [place] [address] [place] [address] 11/17/2023 15:36:45 11/19/2023 11:37:33 Diabetic peripheral neuropathy 244140119 E11.40 Patient educated on neuropathy , diabetes, diabetic diet, and daily foot exams. Patient is to check feet daily for new wounds, blisters, redness to prevent infection and ulceration s to the feet. Patient will return to clinic in 3 months for diabetic foot workup.Has new diabetic shoes and insoles Dystrophia unguium 18807 009 L60.3 Nails debrided without incident per patient request due to length and thickening Callosity on toe 20090729 L84 Debrided without incidentOf floading secondary to arthritis may require joint fusionReco mmend offloading with multi density inserts and supportive shoe gear. [id number] Edi Bauer MD [facility] [address] [place] [address] 12/16/2023 13:52:27 12/16/2023 16:10:00 Obstructive sleep apnea syndrome [id number] G47.33 Cobalamin deficiency 190 925243 E53.8 Vitamin E deficiency 541 12197 E56.0 [id number] Andrew Song DPM [facility] [place] [address] [place] [address] 02/03/2024 14:08:15 04/16/2024 09:31:55 Dystrophia unguium 18674944 L60.3 left 2nd toedebride d without incident Subungual hematoma 67866 9004 L60.8 offloading monitor for woundsallo w to resolvefol low-up as needed [id number] Andrew Song DPM [facility] [address] [address] 03/15/2024 16:19:23 04/16/2024 13:19:32 Pain of toe of left foot [id number] 83048 M79.675 left great toedecreas ed walkingcon tinue supportive shoe gearrecomm end stationary by- recumbent stylefollo w-up 3 weeks Callosity on toe 8562517 01 L84 Debrided without incidentOf floading secondary to arthritis may require joint fusionReco mmend offloading with multi density inserts and supportive shoe gear. [id number] Edi Bauer MD [facility] [address] [place] [address] 03/24/2024 13:59:10 03/25/2024 16:36:31 Obstructive sleep apnea syndrome 08997591 G47.33 Cobalamin deficiency 190 271032 E53.8 Vitamin E deficiency 541 07763 E56.0 [id number] Andrew Sogn DPM [facility] [place] [address] [place] [address] 04/06/2024 14:58:16 04/16/2024 15:23:00 Callosity on toe 866572951 L84 resolved with offloading Continue supportive shoe gear and diabetic insoles Skin ulcer of toe due to diabetes mellitus type 2 6071119652 2287673 L97.502 left great toedebride d without incidentBe tadine wet-to-dry dressings dailyfollo w-up in 3- 4 weeks [id number] Andrew Song DPM [facility] [place] [address] [address] 05/04/2024 14:58:59 05/17/2024 10:15:13 Skin ulcer of toe due to diabetes mellitus type 2 1800819580 7982616 L97.502 left great toeWound care dailybacit racin applied with dressing today- continue daily thinkfollo w-up in 1 wk Dystrophia unguium 03029 009 L60.3 left 2nd toedebride d without incident Diabetic p eripheral neuropathy 180229260 E11.40 Patient educated on neuropathy , diabetes, diabetic diet, and daily foot exams. Patient is to check feet daily for new wounds, blisters, redness to prevent infection and ulceration s to the feet. Patient will return to clinic in 3 months for diabetic foot workup.Has new diabetic shoes and insoles [id number] Andrew Song DPM [facility] [place] [address] [address] 05/11/2024 15:50:01 06/03/2024 16:08:40 Skin ulcer of toe due to diabetes mellitus type 2 5426897858 9182667 L97.502 left great toeOffload ing to allow healingWou nd care dailybacit racin applied with dressing today- continue daily thinkfollo w-up in 1 wk [id number] Andrew Song DPM [facility] [place] [address] [address] 05/20/2024 15:10:28 05/21/2024 07:56:56 Skin ulcer of toe due to diabetes mellitus type 2 2991751180 7887327 L97.502 left great toeWound debrided todayWound care dailydisco ntinue daily walking to prevent worsening of wound- only to and from bathroomfo [facility] wk [id number] Andrew Song DPM [facility] [address] [place] [address] 06/02/2024 15:01:28 06/03/2024 10:01:00 Skin ulcer of toe due to diabetes mellitus type 2 9169302623 6759905 L97.502 left great toesilver nitrate applied to the wound bed today with dry dressingWo und care dailydisco ntinue daily walking to prevent worsening of wound- only to and from bathroomfo llow-up in 1 wk [id number] Andrew Song DPM [facility] [address] [place] [address] 06/10/2024 14:00:07 06/10/2024 15:10:23 Skin ulcer of toe due to diabetes mellitus type 2 3842410799 3180193 L97.502 left great toesilver nitrate applied to the wound bed today with dry dressingWo und care dailydisco ntinue daily walking to prevent worsening of wound- only to and from bathroomfo llow-up in 1 wk Acquired l eft mallet toe 1354301274 9578421 M20.5X2 great toediscuss ed optionsobt ain surgical clearancep ossible jeancarlos phalangect stephen of the left proximal phalanx versus fusion [id number] Edi Bauer MD [facility] [place] [address] [address] 06/23/2024 13:54:52 06/23/2024 16:58:29 Obstructive sleep apnea syndrome 60314101 G47.33 Cobalamin deficiency 190 435504 E53.8 Vitamin E deficiency 541 42530 E56.0 [id number] Andrew Song DPM [facility] [address] [place] [address] 06/30/2024 11:50:20 06/30/2024 15:49:59 Skin ulcer of toe due to diabetes mellitus type 2 5419593690 8330337 L97.502 left great toesilver nitrate applied to the wound bed today with dry dressingWo und care dailydisco ntinue daily walking to prevent worsening of wound- only to and from bathroomfo llow-up in 1 wk Acquired l eft mallet toe 2388237054 1245163 M20.5X2 great toediscuss ed optionsobt ain surgical clearancep ossible jeancarlos phalangect stephen of the left proximal phalanx versus fusion [id number] Andrew Song DPM [facility] [address] [place] [address] 07/07/2024 12:36:12 07/07/2024 15:29:22 Skin ulcer of toe due to diabetes mellitus type 2 6561347924 5405418 L97.502 left great toedressin gs applied continue dailyconti nue pressure offloading dailydisco ntinue daily walking to prevent worsening of wound- only to and from bathroomfo llow-up in 1 wk Acquired l eft mallet toe 6006708654 0127282 M20.5X2 great toediscuss ed optionsobt ain surgical clearancep ossible jeancarlos phalangect stephen of the left proximal phalanx versus fusionsurg alok planned at the [facility] on 07/16/2024 [id number] [facility] [address] [place] [address] 07/21/2024 09:44:39 07/21/2024 11:28:09 Postoperative visit 121856900 Z48.89 postop- 5 days, left foot fusion of great toe, IPJfusion phalangeal joint left great toeBetadin e wet-to-dry dressings dailymonit or for infectionp rophylacti c-- doxycyclin nora exercising , keep dressings clean dry and intactCont inue postop shoefollow -up 1 week [id number] Andrew Song DPM [facility] [address] [place] [address] 07/28/2024 10:28:16 07/28/2024 13:51:31 Acquired left mallet toe 0242669476 6350192 M20.5X2 great toediscuss ed optionsobt ain surgical clearancep ossible jeancarlos phalangect stephen of the left proximal phalanx versus fusionsurg alok planned at the [facility] on 07/16/2024 Swelling o f toe of left foot 8858621939 0395103 R60.0 Venous ulc er of lower extremity due to chronic peripheral venous hypertension 4408852542 59819 I87.319 continued chronic compressio n therapy Cellulitis of toe 383146 04 L03.032 rule out with lab work [id number] Andrew Song DPM [facility] [address] [place] [address] 08/04/2024 14:10:10 08/05/2024 09:54:41 Acquired left mallet toe 4238612154 4320844 M20.5X2 left great toe- status post fusiondisc ussed optionsx-r ay report- reviewed phalanx fracturepa tient was told I need to see the x-rays for possible need of repair due to fracturemi nimal weight-lizbet ring Swelling o f toe of left foot 1981572531 5645759 R60.0 labs reviewed Venous ulc er of lower extremity due to chronic peripheral venous hypertension 5525509958 89167 I87.319 continued chronic compressio n therapydis pensed postop shoe secondary to venous swelling right leg and foot were accommodat ion of dressings Closed fra cture proximal phalanx, toe 624609979 S92.425A x-ray report distal phalanx fracture with fusion of the interphala ngeal joint left great toepatient will need to obtain the x-rays as soon as possible for my reviewmay require additional surgery due to fracturemi nimal weight-lizbet ringcontin ue postop shoe when weight-lizbet ring to and from the bathroom onlyfollow -up next week [id number] Andrew Song DPM [facility] [address] [place] [address] 08/18/2024 14:08:45 08/25/2024 12:20:52 Acquired left mallet toe 3347337326 9228319 M20.5X2 left great toe- status post fusiondisc ussed options- Hardware appears to have possibly migratedx- ray report- reviewed phalanx fracturepa tient was told I need to see the x-rays for possible need of repair due to fracturemi nimal weight-lizbet ringrepeat x-raysfoll ow-up 2 weeks Swelling o f toe of left foot 9259578617 4830388 R60.0 labs reviewed- neg of acute infection of bone Venous ulc er of lower extremity due to chronic peripheral venous hypertension 4351577946 05633 I87.319 continued chronic compressio n therapydis pensed postop shoe secondary to venous swelling right leg and foot were accommodat ion of dressings Health Concerns Section Related Observation LastModified by Organization Detai ls LastModified Time None Recorded Concern Status LastModified by Organization Details LastModified Time None Recorded Advance Directives Directive None Recorded Payers Encounter Date Sequence Insurance Name Policy Number Policy Lopez Covered Member ID Lopez Member ID Guarantor Name 07/07/2024 1 [facility] (MEDICARE REPLACEMENT/A DVANTAGE - HMO) [id number] Moreno Khan [id number] Moreno Khan 07/21/2024 1 [facility] (MEDICARE REPLACEMENT/A DVANTAGE - HMO) [id number] Moreno Khan [id number] Moreno Khan 07/28/2024 1 [facility] (MEDICARE REPLACEMENT/A DVANTAGE - HMO) [id number] Moreno Khan [id number] Moreno Khan 08/04/2024 1 [facility] (MEDICARE REPLACEMENT/A DVANTAGE - HMO) [id number] Moreno Khan [id number] Moreno Khan 08/18/2024 1 [facility] (MEDICARE REPLACEMENT/A DVANTAGE - HMO) [id number] Moreno Khan [id number] Moreno Khan Notes Date Note Type Note Provider Name and Address Organization Details Recorded Time 07/07/2024 text/html . Patient is a 74-year-old male diabetic who returns the office for a wound to the distal aspect of the left great toe secondary to acquired mallet toe deformity and pressure. Patient overall has a stable wound without infection he is scheduled for surgery on 07/16/2024. Patient denies any other complaints. Andrew Song DPM [address] [place] [address], [place], [address], [facility] 07/07/2024 15:10:06 07/21/2024 text/html . Patient is a 74-year-old male diabetic who returns for follow-up on fusion of the interphalangeal joint of the left great toe. Patient overall states he is doing well he denies any pain to the toe. Patient does have some swelling his caregiver re-dressed the toe and put on very tight dressings which he has bruising of the toe as well as possible early necrosis to the dorsal skin flap possibly secondary to small-vessel disease or tight dressings. I did inform the patient on this. I recommended that the patient not have his toe dressed but to have his whole foot dressed to prevent any tight dressings to the toe. Patient denies any fever, chills, nausea or vomiting. I am going to prophylactically start him on antibiotics secondary to the hardware in case the skin does break down To prevent any deep infection. Did recommend to the patient he continue Betadine wet-to-dry dressings daily. Patient is keep the dressings clean dry and intact he is not to do any exercises. Andrew Song DPM [address], [facility] [address], [place], [address], [facility] 07/21/2024 10:23:34 07/28/2024 text/html . Patient is a 74-year-old male who returns the office after mallet toe fusion. Patient states that he is keeping his leg in dependency which he states he is developed swelling of the great toe. Patient denies any redness or increased heat. Patient denies any drainage or any fever, chills, nausea or vomiting. Patient continues leg wraps for his venous insufficiency. Patient does not have any open wounds. Andrew Song DPM [address], [facility] [address], [place], [address], [facility] 07/29/2024 14:15:28 08/04/2024 text/html . Patient is a 74-year-old male who returns the office status post section of the great toe. Patient has less swelling today he has no open wounds. Patient did obtain x-rays at another facility which he was found to have a phalanx fracture. Patient did not bring the x-rays for my review. Patient denies any open wounds, fever, chills, nausea or vomiting. Patient denies any significant pain.patient states that his venous insufficiency has flared up he is going back to therapy and obtaining wraps he states that he can not get his shoes on due to the swelling of his foot and leg of the right lower extremity he denies any calf pain. Patient states he needs a postop shoe to weight bear and accommodate his dressings. Andrew Song DPM [address], [facility] [address], [place], [address], [employer] 08/05/2024 09:19:03 08/18/2024 text/html . Patient is a 74-year-old male who returns the office for follow-up on left mallet toe fusion of the interphalangeal joint. Patient has a rectus toe with moderate swelling about the toe. Patient has no further signs of wound dehiscence which is completely healed he had sutures removed. Patient denies any pain to the toe. Patient denies any signs of infection. Andrew Song DPM [address], [facility] [address], [place], [address], [employer] 08/25/2024 12:05:23
--- OUTSIDE RECORDS SUMMARY | 2024-08-31 08:59 | XMS_ITS | Clinical Summary ---
Author Organization [facility] Address [address] [place] [address] Care Team Providers Care Staff Educator Name Role Phone Paco Sharma MD Unavailable [phone] Bolivar Donald MD Primary Care Provider Source Comments [facility],non-owned Affiliates and Associated Physician Practices is amultiple site organization consisting of ambulatory clinics and hospital sitesin [place], [place], [place] and [place]. This disclosure is being madepursuant to the Care Everywhere program and may not contain all information available regarding this patient. Last updated 18.[facility] Allergies Active Allergy Reactions Criticality Noted Date Comments Adhesive Sensitivity Skin Reactions 01/26/2019 Paper tape Sulfa Drugs Other 01/26/2019 Patient states he breaks out in white spots all over his body Tramadol Itching 01/26/2019 Medications * Be aware that medications may not be up to date on this document. Alwaysverify current medications with the patient. zolpidem (AMBIEN) 10 MG tablet Take 1 (one) tablet by mouth nightly as needed for Insomnia Active tamsulosin (FLOMAX) 0.4 MG capsule Take 1 (one) capsule by mouth at bedtime At the same time every day after a meal. Active Alcohol Swabs (PHARMACIST CHOICE ALCOHOL) USE TO TEST BLOOD SUGAR ONCE DAILY 3 05/23/19 19 Active fluticasone propionate (FLONASE) 50 MCG/ACT nasal spray [place] 2 (two) sprays into each nostril once daily as needed (nasal congestion) 12/29/19 19 Active ACCU-CHEK WILLIAM PLUS test strip USE TO TEST BLOOD SUGAR ONCE DAILY 3 05/23/19 19 Active Lancet Devices (SIMPLE DIAGNOSTICS LANCING DEV) MISC USE TO TEST BLOOD SUGAR ONCE DAILY 3 03/16/20 18 Active PHARMACIST CHOICE LANCETS MISC USE TO TEST BLOOD SUGAR ONCE DAILY 3 05/23/19 19 Active rosuvastatin (CRESTOR) 10 MG tablet Take 1 (one) tablet by mouth once daily 12/09/19 20 Active albuterol HFA (PROVENTIL;VENT MYRON;PROAIR) 108 (90 Base) MCG/ACT inhaler Inhale 2 (two) puffs by mouth every 6 hours as needed for Shortness of Breath or Wheezing Active melatonin 3 MG tablet Take 1 (one) tablet by mouth nightly as needed for Insomnia Active Multiple Vitamins-Minera ls (OPURITY BYPASS OPTIMIZED) CHEW Take 1 tablet [...] After 10 days, take as needed. 0 12/23/19 21 Active Cholecalciferol (OPURITY VITAMIN D) 125 MCG (5000 UT) Take 1 (one) tablet by mouth once daily Active Vitamin D-Vitamin K (VITAMIN K2-VITAMIN D3 PO) Take 1,000 Int'l Units by mouth 03/20/20 21 Active glucosamine 500 MG capsule Take 500 (five hundred) mg by mouth once daily Active apixaban (ELIQUIS) 5 MG tablet Take 1 (one) tablet by mouth 2 times daily 180 tablet 1 11/06/19 22 Active ferrous sulfate 325 (65 FE) MG tablet Take 1 (one) tablet by mouth once daily Active metoprolol succinate XL 24hr (Toprol XL) 50 MG tablet Take 1 (one) tablet by mouth once daily Active semaglutide 1 MG/ML vial Inject subcutaneously every 7 days Active oxyCODONE, immediate release, (Roxicodone) 5 MG tabletIndicatio ns:Acute Pain Take 1 (one) tablet by mouth every 6 hours as needed for Pain Reasons: Acute Pain 12 tablet 04/22/2024 5:20 PM ROTARY ADJUSTER 04/22/19 Active oxyCODONE-aceta minophen (Percocet) 10-325 MG tabletIndicatio ns:Traumatic hematoma of right knee, initial encounter Take 1 (one) tablet by mouth every 6 hours as needed for Pain 12 tablet 04/22/2024 5:20 PM ROTARY ADJUSTER 04/22/19 Active Active Problems Problem Noted Date Diagnosed [...] gastrectomy 08/16/2020 Choledocholithiasis 01/28/2019 Acute pancreatitis 01/18/2019 Social History Tobacco Use Types Packs/Day Years [...] care, and heating? Not very hard 04/21/2024 [facility] - Occupational Stress Questionnaire Answer Date Recorded [...] any time in the past [address] [facility], were you homeless or living in a correction (including now)? No 04/21/2024 Sex and Gender Information Value Date Recorded Sex Assigned at Male 08/21/2020 10:13 AM CDT Legal Sex Male 9:38 AM CDT Gender Identity Male 08/21/2020 10:13 AM CDT Sexual Orientation Straight 08/21/2020 10 :13 AM CDT Last Filed Vital Signs Vital Sign Reading Time Taken Comments Blood Pressure 136/86 05/13/2024 12:20 PM ROTARY ADJUSTER Pulse 74 05/13/2024 12:20 PM ROTARY ADJUSTER Temperature 36.8 C (98.2 F) 05/13/2024 12:20 PM ROTARY ADJUSTER Respiratory Rate 18 05/13/2024 12:2 0 PM ROTARY ADJUSTER Oxygen Saturation 99% 05/13/2024 12: 20 PM ROTARY ADJUSTER Inhaled Oxygen Concentration 21% 04/09/2024 9 :23 PM ROTARY ADJUSTER Weight 126.1 kg (277 lb 14.4 oz) 2024 12:20 PM ROTARY ADJUSTER Height 182.9 cm (6') 05/13/2024 12:20 PM ROTARY ADJUSTER Body Mass Index 37.69 05/13/2024 12:20 PM ROTARY ADJUSTER Plan of Treatment Health Maintenance Due Date [...] 2012 AAA SCREENING 02/22/2017 COVID-19 VACCINE ( - season) 2023 12/02/2020, 11/11/2020 DEPRESSION SCREENING 04/21/2024 [...] this topic Medical Devices Implanted Type Area It Portfolio Manager Device Identifier Shelf Expiration Date Model / Serial / Lot Shell Acetab Limited Hole G7 [id number] H 62mm Implanted:Qty: 1 on 12/20/2020 by Arron Daley MD at [facility] Right: Hip [employer] 08/01/2030 [id number] / / [id number] Bone Screw Implanted:Qty: 1 on 12/20/2020 by Arron Daley MD at [facility] Right: Hip 12/09/2029 / / [id number] Bone Screw Implanted:Qty: 1 on 12/20/2020 by Arron Daley MD at [facility] Right: Hip 07/14/2030 / / [id number] Acetabular Liner Implanted:Qty: 1 on 12/20/2020 by Arron Daley MD at [facility] Right: Hip 08/24/2025 [id number] / / [id number] Femoral Stem Implanted:Qty: 1 on 12/20/2020 by Arron Daley MD at [facility] Right: Hip 05/21/2025 [id number] / / [id number] Femoral Head Implanted:Qty: 1 on 12/20/2020 by Arron Daley MD at [facility] Right: Hip 12/19/2028 [id number] / / [id number] Acetabular Shell Implanted:Qty: 1 on 03/12/2021 by Arron Daley MD at [facility] Left: Hip 10/26/2030 [id number] / / [id number] Linr Actb G7 H 40mm Vivacit-E Hip Lum Implanted:Qty: 1 on 03/12/2021 by Arron Daley MD at [facility] Left: Hip [employer] 08/24/2025 [id number] / / [id number] Stm Fem Hip 7.5 Hi Ofst Avenir Cmplt Implanted:Qty: 1 on 03/12/2021 by Arron Daley MD at [facility] Left: Hip [employer] 03/20/2025 [id number] / / [id number] Femoral Head Implanted:Qty: 1 on 03/12/2021 by Arron Daley MD at [facility] Left: Hip 07/19/2030 [id number] / / [id number] Explanted Type Area It Portfolio Manager Device Identifier Shelf Expiration Date Model / Serial / Lot Stent Biliary 10mm 8.5fr 60mm 194cm .035 Implanted:Qty: 1 on 01/27/2019 by Alberto Arauz MD at [facility] Explanted:Qty: 1 on 03/15/2019 by Alberto Arauz MD at [facility] N/A: Bile Duct [employer] 08/25/2020 [id number] / / [id number] Pin Fx 22.9cm 4mm Stnm Thrd Ss 1 End Explanted:Qty: 1 on 12/20/2020 by Arron Daley MD at [facility] Right: Hip [employer] [id number] / / Pin Fx 22.9cm 4mm Stnm Thrd Ss 1 End Explanted:Qty: 1 on 03/12/2021 at [facility] Left: Hip [employer] [id number] / / Insurance MEDICAID - OUT OF STATE UHC MANAGED MEDICARE ADV MANAGED MEDICARE ADV Advance Directives * Full Code (Latest Code [...] 9:11 AM 09/22/2020 2:22 PM Care Teams Staff Educator Relationship Specialty Start Date End Date Bolivar Donald MD [address] [place], [place] [phone] PCP - General Internal Medicine 04/07/24 [place] [address] [address] Consulting Physician Cardiac Electrophysiology 01/05/21
--- OUTSIDE RECORDS SUMMARY | 2024-08-31 08:59 | XMS_ITS | Clinical Summary ---
Author Organization [facility] Address [address] [place] [address] Care Team Providers Care Dock Operations Supervisor Name Role Phone Bolivar Donald MD Primary Care Provider Radha Carvajal OT Unavailable Unavailable Bambi Gould OT Unavailable Unavailable Josefa Gracia OT Unavailable UnavailBelkis Hsu OT Unavailable UnavailBhumika Law OT Unavailable UnavailMayito Travis CUSTOMER SERVICE TELLER Unavailable [phone] Allergies Active Allergy Reactions Criticality Noted [...] pain 90 tablet 5 09/23/19 25 Active Active Problems Problem Noted Date Diagnosed Date Chronic pain of both ankles 07/30/2022 Spondylosis of lumbar region without myelopathy or radiculopathy 04/09/2022 Lymphedema 04/09/2022 Morbid (severe) obesity due to excess calories 0 10/09/2021 Body mass index 40.0-44.9, adult (CMS/[facility]) 10/09 Bilateral hip pain 05/15/2021 Spinal stenosis of lumbar re gion with neurogenic claudication 06/22/2019 Radiculopathy, lumbosacral region 06/22/2019 supervisor intermediates prescription opiate use 09/18/2017 Other obesity due [...] - 07/22/2024 11:59 PM CDT Hospital Encounter [facility] [address] [place] [phone] Mayito Abdul NP Radiculopathy, lumbosacral region (Primary Dx); Chronic bilateral low back pain, unspecified whether sciatica present; Spinal stenosis of lumbar region with neurogenic claudication; Spondylosis of lumbar region without myelopathy or radiculopathy Discharge Disposition: Discharge to home or self care 07/19/2024 Telephone [facility] [address] [place] [phone] Chelita Chavez from Last 3 Months Immunizations Immunization Administration [...] on file Legal Sex Male 10:20 AM EXIT BOOTH AGENT Gender Identity Male 03/20/2021 12:08 PM EXIT BOOTH AGENT Sexual Orientation Straight 03/20/2021 12 :08 PM EXIT BOOTH AGENT Obstetrics History Last Filed Vital Signs Vital Sign Reading Time Taken Comments Blood Pressure 127/80 07/22/2024 7:49 AM CDT Pulse 80 07/22/2024 7:49 AM CDT Temperature 36.7 C (98.1 F) 12/20/2022 9:17 AM CDT Respiratory Rate 17 07/22/2024 7:49 AM CDT Oxygen Saturation 99% 07/22/2024 7:49 AM CDT Inhaled Oxygen Concentration - - Weight 123.2 kg (271 lb 11.2 oz) 2023 11:49 AM EXIT BOOTH AGENT Height 182.9 cm (6' 0.01 ) 07/15/2023 [...] Well Visit 65+ 02/22/2017 eGFR 05/16/2018 05/16/2017, 100 12/2016, 01/24/2017, Additional history exists Covid-19 Vaccine (2023- 5 season) 2023 06/19/2021, 12/02/2020, 11/11/2020 Hemoglobin [...] Author Increase physical activity Exercise Kyleigh Hinds, TIMOTHY Note: He walks with a walker about 30 minutes per day. Procedures Procedure Name Priority Date/Time Associated Diagnosis Comments CT ABDOMEN PELVIS WO CONTRAST Schedule Routine, Read Routine (OP Routine) 12/20/2022 9:08 AM CDT Non-recurrent unilateral inguinal hernia without obstruction or gangrene PSA SCREEN Routine 12/28/2021 9:31 AM CDT Prostate cancer screening EGFR STAT 05/16/2017 3:20 PM EXIT BOOTH AGENT HEMOGLOBIN A1C STAT 01/16/2017 11:30 AM CDT [...] LAB BLOOD ORDERABLES Fi nal Result [facility] FLORES [facility] Department [place] [address] * eGFR (05/16/2017 3:20 PM EXIT BOOTH AGENT) eGFR 75 mL/min/1.7 3 m2 [facility] Comment: Interpretive Data Reference Interval Normal >/= 90 mL/min/1.73m2 Mildly decreased* 60 - 89 mL/min/1.73m2 Mildly to moderately decreased 45 - 59 mL/min/1.73m2 Moderately to severely decreased 30 - 44 mL/min/1.73m2 Severely decreased 15 - 29 mL/min/1.73m2 Kidney Failure < 15 mL/min/1.73m2 *Relative to young adult level If -Citizen Of [place] multiply value by 1.16. Estimated glomerular filtration [...] 2016. Blood specimen (specimen) 05/16/2017 3:20 PM EXIT BOOTH AGENT 05/16/2017 3:20 PM EXIT BOOTH AGENT Narrative [facility] - 05/16/2017 3:46 PM EXIT BOOTH AGENT us Rodrick Hilliard DO LAB BLOOD ORDERABLES Final Res ult [facility] [address] Department [place] [address] * Hemoglobin A1c (01/16/2017 11:30 AM CDT) Hgb A1C 5.8 4.0 - 6.0 % [facility] Blood specimen (specimen) 01/16/2017 11:30 AM CDT 01/16/2017 11:50 AM CDT us Sushant Miles MD LAB BLOOD ORDERABLES Final Result [facility] [address] Department [place] [address] from Last 3 Months or Most Recently Relevant to Health Maintenance Insurance [facility] MEDICARE [facility] Address: [address] [address] [place] [address] [employer]PA [facility] MEDICARE AD[facility]ANTAGE [facility] Address: [address] [address] [place] [address] [employer]PA [facility] MEDICARE AD[facility]AGE [facility] Address: [facility] [address] [place] [address] [employer] Care Teams Dock Operations Supervisor Relationship Specialty Start Date End Date Bolivar Donald MD [address] [place] [address] PCP - General 08/23/16 Radha Carvajal, OT Occupational Therapist Occupational Therapy 05/28/17 Bambi Gould, OT Occupational Therapist Occupational Therapy 06/02/17 Josefa Gracia, OT Occupational Therapist Occupational Therapy 06/16/17 Belkis Alexandra, OT Occupational Therapist Occupational Therapy 06/20/17 Bhumika Rodriguez, OT Occupational Therapist Occupational Therapy 06/30/17 [place] [id number] [facility] [address] [place] [address] Nurse Practitioner Pain Management 12/25/23
--- OUTSIDE RECORDS SUMMARY | 2024-08-31 08:59 | XMS_ITS | Referral Summary ---
Author Organization [facility] Address [address] [place] [address] Care Team Providers Care Coal Cutting Machine Operator Name Role Phone Bolivar Donald MD Primary Care Provider Radha Carvajal OT Unavailable Unavailable Bambi Gould OT Unavailable Unavailable Josefa Gracia OT Unavailable UnavailBelkis Hsu OT Unavailable UnavailBhumika Law OT Unavailable UnavailMayito Travis TIE BINDER Unavailable [phone] Encounters Date Type Department Care Team Description 07/22/2024 7:36 AM CDT - 07/22/2024 11:59 PM CDT Hospital Encounter [facility] [address] [place] [phone] Mayito Abdul, HEENA Radiculopathy, lumbosacral region (Primary Dx); Chronic bilateral low back pain, unspecified whether sciatica present; Spinal stenosis of lumbar region with neurogenic claudication; Spondylosis of lumbar region without myelopathy or radiculopathy Discharge Disposition: Discharge to home or self care 07/19/2024 Telephone [facility] [address] [place] [phone] Chelita Chavez from Last 3 Months Allergies Active Allergy [...] needed for pain 90 tablet 5 09/23/19 Active Active Problems Problem Noted Date Diagnosed Date Chronic pain of both ankles 07/30/2022 Spondylosis of lumbar region without myelopathy or radiculopathy 04/09/2022 Lymphedema 04/09/2022 Morbid (severe) obesity due to excess calories 0 10/09/2021 Body mass index 40.0-44.9, adult ([facility]) 10/09 Bilateral hip pain 05/15/2021 Spinal stenosis of lumbar re gion with neurogenic claudication 06/22/2019 Radiculopathy, lumbosacral region 06/22/2019 prison prescription opiate use 09/18/2017 Other obesity due [...] on file Legal Sex Male 10:20 AM SPECIALIST MANAGERS Gender Identity Male 03/20/2021 12:08 PM SPECIALIST MANAGERS Sexual Orientation Straight 03/20/2021 12 :08 PM SPECIALIST MANAGERS Last Filed Vital Signs Vital Sign Reading Time Taken Comments Blood Pressure 127/80 07/22/2024 7:49 AM CDT Pulse 80 07/22/2024 7:49 AM CDT Temperature 36.7 C (98.1 F) 12/20/2022 9:17 AM CDT Respiratory Rate 17 07/22/2024 7:49 AM CDT Oxygen Saturation 99% 07/22/2024 7:49 AM CDT Inhaled Oxygen Concentration - - Weight 123.2 kg (271 lb 11.2 oz) 2023 11:49 AM SPECIALIST MANAGERS Height 182.9 cm (6' 0.01 ) 07/15/2023 [...] cancer screening EGFR STAT 05/16/2017 3:20 PM SPECIALIST MANAGERS HEMOGLOBIN A1C STAT 01/16/2017 11:30 AM CDT [...] by: Devora Crow M.D. Easton Velarde MD [facility] [place] PROCEDURES Final Result * PSA screen (12/28/2021 9:31 AM CDT) PSA-Total 2.28 <=5.40 ng/mL [facility] Comment: Interpretive Data AGE SEX REFERENCE [...] 12/28/2021 9:45 AM CDT us Shanice Farias TIE BINDER LAB BLOOD ORDERABLES Fi nal Result Performing Organization Address [facility] Co de Phone Number [facility] One [facility] Department [place] [address] * eGFR (05/16/2017 3:20 PM SPECIALIST MANAGERS) eGFR 75 mL/min/1.7 3 m2 [facility] Comment: Interpretive Data Reference Interval Normal >/= 90 mL/min/1.73m2 Mildly decreased* 60 - 89 mL/min/1.73m2 Mildly to moderately decreased 45 - 59 mL/min/1.73m2 Moderately to severely decreased 30 - 44 mL/min/1.73m2 Severely decreased 15 - 29 mL/min/1.73m2 Kidney Failure < 15 mL/min/1.73m2 *Relative to young adult level If -[place] multiply value by 1.16. Estimated glomerular filtration [...] 2016. Blood specimen (specimen) 05/16/2017 3:20 PM SPECIALIST MANAGERS 05/16/2017 3:20 PM SPECIALIST MANAGERS Narrative [facility] - 05/16/2017 3:46 PM SPECIALIST MANAGERS us Rodrick Hilliard DO LAB BLOOD ORDERABLES Final Res ult Performing Organization Address City/[facility]/ZIP Co de Phone Number [facility] [address] [place] [address] * Hemoglobin A1c (01/16/2017 11:30 AM CDT) Hgb A1C 5.8 4.0 - 6.0 % [facility] Blood specimen (specimen) 01/16/2017 11:30 AM CDT 01/16/2017 11:50 AM CDT us Sushant Miles MD LAB BLOOD ORDERABLES Final Result [facility] [address] [place] [address] from Last 3 Months or Most Recently Relevant to Health Maintenance Insurance [id number] Address: [address] [address] [place] [address] IDPA [facility] MEDICARE ADVANTAGE [facility] Address: [address] [address] [place] [address] IDPA [facility] MEDICARE ADVANTAGE ID[employer] Care Teams Coal Cutting Machine Operator Relationship Specialty Start Date End Date Bolivar Donald MD [address] [place] [address] PCP - General 08/23/16 Radha Carvajal, OT Occupational Therapist Occupational Therapy 05/28/17 Bambi Gould, OT Occupational Therapist Occupational Therapy 06/02/17 Josefa Gracia, OT Occupational Therapist Occupational Therapy 06/16/17 Belkis Alexandra, OT Occupational Therapist Occupational Therapy 06/20/17 Bhumika Rodriguez, OT Occupational Therapist Occupational Therapy 06/30/17 [place] [id number] [place] [address] Nurse Practitioner Pain Management 12/25/23
== END 2024-08-31 08:52 | disposition home or self-care (01) ==
PROVIDERS: PCP Internal Medicine Infectious Disease; Visit Provider Podiatrist Foot & Ankle Surgery
DX: M20.5X2 Other deformities of toe(s) (acquired), left foot (principal); Z98.890 Other specified postprocedural states
CPT/HCPCS: 73660

== ENCOUNTER 2024-10-07 09:00 | Outpatient (RCR) | payer MEDICARE, MEDICAID, SELFPAY ==
--- NOTE | 2024-07-30 12:07 | OTOPEVAL1 ---
Assessment and note entered by Lucia Sampson OT Evaluation Information Assessment Status Evaluation ICD-10 Condition Codes (OT) Lymphedema I89.0 Subjective Information Pt. states he has been attempting to mange lymphedema, but has not gotten new compression garments in the last 4 years and is unclear about components of maintenance phase of lymphedema beyond use of compression pump and garment wear. Pt. states previously needing assistance to doff/ don compression garments with assistance from timber mill worker/caregiver, due to physical habitus, but since he is now stating he is more independent in garment and wound care management. Pt. also admits that his caregiver/timber mill worker has not been available recently and he is having more trouble managing foot garments and wound dressings. 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 reports onset about 15 years ago. Pt. has had history of multiple surgeries including, bilateral hip replacements, gastric bypass surgery, Pt. reports he is typically very active, but due to surgical procedure in L big toe , physician reports he cannot take long walks and pt. has been less active. Pt. has history with complete decongestive treatment, but reports having not replaced his compression garments in 4 years. Pt. reports he is now able to manage calf garments, but still has difficulty reaching to feet and managing wound care. Pt. also reports having a fall in March 2024, which has resulted in inability to manage condition, but has since been diligently wearing his compression garments and display adequate maintenance of reduction in bilateral calves. Pt. will benefit from complete decongestive treatment with skilled OT services to reduce current symptoms of lymphedema and educate pt. on continued termination clerk maintenance of condition Plan of Care Interventions Therapeutic Exercise,Manual Therapy OT Services Indicated Yes Treatment Frequency and 3x/week for 9 visits Duration These treatments will address the objective and functional deficits as defined above. The patient will be advanced safely and appropriately in order for the patient to progress towards his/her prior level of function. Additional exercises will be introduced and as well as a comprehensive home exercise program upon discharge, if needed, ?to ensure carryover of functional gains achieved in the clinic. This treatment plan has been reviewed and agreement upon by the patient.
--- NOTE | 2024-07-30 12:07 | OPREHPOC ---
Outpatient Therapy Plan of Care This is a Multidisciplinary Plan of Care that may contain components documented by all disciplines (PT, OT, and ST.) OT Problem 1 OT Problem #1 Knowledge Deficit OT Goal 1 Goal / Goal Update Pt. will independently follow HEP Pt. will independently demonstrate knowledge of self manual lymph drainage sequence, use of elevation, and home compression pump with consistent at home participation 4/7 days/week Pt. will demonstrate knowledge of measuring and ordering garments for maintenance phase of treatment Target Visit 9 OT Problem 2 OT Problem #2 Impaired Functional Mobility OT Goal 1 Goal / Goal Update Pt. will report no falls during intensive phase of treatment Target Visit 9 OT Problem 3 OT Problem #3 Impaired Lymphatic System OT Goal 1 Goal / Goal Update Pt. will display reduction of R foot hyperkeratinization, softening, and negative Stemmer sign Pt. will display volume reduction of R LE to 690 cm Target Visit 9
--- NOTE | 2024-08-20 12:30 | OTOPPROG ---
Assessment and note entered by Lucia Sampson OT Evaluation Information Assessment Status Evaluation ICD-10 Condition Codes (OT) Lymphedema I89.0 Subjective Information Pt. reports he has been feeling great with the BLE compression bandage wraps and is excited to continue to get legs reduced, picking out compression garment colors and stating My granddaughter is going to love this purple color, I'm excited to wear these. 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 reports onset about 15 years ago. Pt. is currently having bilateral LE wrapped with compression wrap bandages, with reduction of 48.5 cm in R LE and increase in L LE due to increased stagnation of fluid in unwrapped knee area. Medi medical sales representative present today to measure for garments and education of options for into maintenance phase of condition. Pt. will benefit from continued participation in intensive phase of complete decongestive treatment with skilled OT services to reduce current symptoms of lymphedema and educate pt. on continued residential maintenance of condition. Plan of Care Interventions Therapeutic Exercise,Manual Therapy,Other Other Interventions compression bandage wrapping OT Services Indicated Yes Treatment Frequency and 3x/week for 10 visits Duration These treatments will address the objective and functional deficits as defined above. The patient will be advanced safely and appropriately in order for the patient to progress towards his/her prior level of function. Additional exercises will be introduced and as well as a comprehensive home exercise program upon discharge, if needed, ?to ensure carryover of functional gains achieved in the clinic. This treatment plan has been reviewed and agreement upon by the patient.
--- NOTE | 2024-08-20 15:37 | OPREHPOC ---
Outpatient Therapy Plan of Care This is a Multidisciplinary Plan of Care that may contain components documented by all disciplines (PT, OT, and ST.) OT Problem 1 OT Problem #1 Knowledge Deficit OT Goal 1 Goal / Goal Update 1) Pt. will independently follow HEP 2) Pt. will independently demonstrate knowledge of self manual lymph drainage sequence, use of elevation, and home compression pump with consistent at home participation 4/7 days/week 3) Pt. will demonstrate knowledge of measuring and ordering garments for maintenance phase of treatment 08/20 Progress 1) Not yet met 2) Partially met, pt. continues to be educated on and given resources 3) Partially met, Pt. educated on this date with [employer] Par[employer]rofessional Target Visit 20 Progress Not Met OT Problem 2 OT Problem #2 Impaired Functional Mobility OT Goal 1 Goal / Goal Update 1) Pt. will report no falls during intensive phase of treatment Progress 08/20/24 1) No reported falls so far in treatment, continue Target Visit 20 Progress Met OT Problem 3 OT Problem #3 Impaired Lymphatic System OT Goal 1 Goal / Goal Update 1)Pt. will display reduction of R foot hyperkeratinization, softening, and negative Stemmer sign 2) Pt. will display volume reduction of R LE to 690 cm Progress 08/20 1) Met, continue for transition to maintenance phase 2) Met, pt. reduced to 671.51, update goal Updated goal 08/20- Pt. will display volume reduction of R LE to 650 cm and maintain through end of intensive phase of treatment Target Visit 20
--- NOTE | 2024-09-03 11:51 | PCOTNOTE ---
Pt. diagnosed with I89.0 Lymphedema will benefit from replacement of [employer] Flexitouch pneumatic compression pump with features which address pt?s LE lymphedema symptoms including swelling, hypercriticized tissue , greatest in feet in feet and toes, and display of increasing firmness and girth of upper thigh, pannus, and abdominal region after over 4 weeks of conservative treatment using ?manual lymph drainage, use of compression bandages and garments, exercises, use of elevation, as well as clinic pump on R LE, as pt.?s L 1st toe is healing from surgery.. Pt. has previously used [employer] compression pump, which he reports having has for ?at least 9 years?, and would benefit from updated replacement machine to ensure optimal support for continued management of chronic condition.
--- NOTE | 2024-09-22 12:18 | OTOPPROG ---
Assessment and note entered by Lucia Sampson OT Progress Information Assessment Status Progress ICD-10 Condition Codes (OT) Lymphedema I89.0 Subjective Information Pt. reports I got my new pump, it cuts my pumping time in half, I can do both legs and my abdomen at once!, Pt. also reports, I haven't gotten my compression socks yet, but I've been wearing my Juxtilite velcro wraps. I wore boots for 9000 steps the other day, I think I need to get a bigger size, I have a blood blister on my R big toe now. 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 reports onset about 15 years ago. Pt. presents with reduction from 720 com to 676 cm difference of 44 cm in R LE and increase in L LE from 675.25 cm to 692.5, increasing 17.5 cm consistently distributed across LE, when measuring from foot to 64 cm up LE. Pt. has been inconsistent with home maintenance program including wear of velcro garment, pump use, and self manual lymph drainage, but is participatory and engaged in treatment sessions, requiring repeated sessions and frequent review to understand concepts and demonstrate intermittent follow through at home. Pt. will benefit from continued participation in intensive phase of complete decongestive treatment with skilled OT services to reduce current symptoms of lymphedema and educate pt. on continued terminologist maintenance of condition. Awaiting arrival of custom flat knit compression garments to educate pt. con continues wear schedule and management of condition. Reducing frequency of treatments as pt. is no longer receiving BLE compression bandage wrapping adjustments by therapist, but will continue to require education and training to ensure compliance and built routine for management of treatment, prior to discharge. Plan of Care Interventions Therapeutic Exercise,Manual Therapy,Other Other Interventions compression bandage wrapping OT Services Indicated Yes Treatment Frequency and 2x/week for 8 visits Duration These treatments will address the objective and functional deficits as defined above. The patient will be advanced safely and appropriately in order for the patient to progress towards his/her prior level of function. Additional exercises will be introduced and as well as a comprehensive home exercise program upon discharge, if needed, ?to ensure carryover of functional gains achieved in the clinic. This treatment plan has been reviewed and agreement upon by the patient.
--- NOTE | 2024-09-22 15:01 | OPREHPOC ---
Outpatient Therapy Plan of Care This is a Multidisciplinary Plan of Care that may contain components documented by all disciplines (PT, OT, and ST.) OT Problem 1 OT Problem #1 Knowledge Deficit OT Goal 1 Goal / Goal Update 1) Pt. will independently follow HEP 2) Pt. will independently demonstrate knowledge of self manual lymph drainage sequence, use of elevation, and home compression pump with consistent at home participation 4/7 days/week 3) Pt. will demonstrate knowledge of measuring and ordering garments for maintenance phase of treatment 08/20 Progress 1) Not yet met 2) Partially met, pt. continues to be educated on and given resources 3) Partially met, Pt. educated on this date with [employer] Operator 09/22 Progress Note 1) Partially met, pt. reports intermittent consistency; continue goal 2) Partially met, pt. requires repeated reminders and instruction with handouts with return demonstration, reporting inconsistency in home program; continue goal 3) Met, pt. repeatedly demonstrates understanding of process for acquiring garments and has followed through with vendors and companies when appropriate, discharge goal Target Visit 28 Progress Partially Met OT Problem 2 OT Problem #2 Impaired Functional Mobility OT Goal 1 Goal / Goal Update 1) Pt. will report no falls during intensive phase of treatment Progress 08/20/24 1) No reported falls so far in treatment, continue Progress 09/22/24 2) Pt. continues to report no falls, discharge goal Target Visit 28 Progress Met OT Problem 3 OT Problem #3 Impaired Lymphatic System OT Goal 1 Goal / Goal Update 1)Pt. will display reduction of R foot hyperkeratinization, softening, and negative Stemmer sign 2) Pt. will display volume reduction of R LE to 690 cm Progress 08/20 1) Met, continue for transition to maintenance phase 2) Met, pt. reduced to 671.51, update goal Updated goal 08/20- Pt. will display volume reduction of R LE to 650 cm and maintain through end of intensive phase of treatment Progress 09/22 1) Partially met, Pt. displays intermittent hardening of skin around ankles and toes when not wrapped with compression bandages and when not wearing compression garments over prolonged periods ( > 24 hours), continue goal 2) Not met, Pt. reduced in R LE to 676 cm. Continue goal 3) New Goal: Pt. will display volume reduction of L LE to 675cm and maintain through end of intensive treatment Target Visit 28 Progress Partially Met OT Problem 4 OT Problem #4 Impaired Safety Awareness OT Goal 1 Goal / Goal Update New Goal 09/22 1) Pt. will display no new wounds or injuries, demonstrating knowledge of frequent skin inspection and care Target Visit 28
--- NOTE | 2024-10-07 10:05 | OTOPEVDC ---
Assessment and note entered by Lucia Sampson OT Thank you for referring Moreno Khan to [facility].? An evaluation has been completed. No further treatment is needed. Evaluation Information Assessment Status Evaluation ICD-10 Condition Codes (OT) Lymphedema I89.0 Subjective Information Pt. reports If my second pair of compression socks arrive, I've got everything I need. I just have to do it. My caregiver has been reminding me. 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 reports onset about 15 years ago. Pt. presents with bilateral LE volume reduction, decreased fibrotic tissue, improve coloring and decreased hemosiderin staining, and has progressed with education from intensive phase of complete decongestive treatment to maintenance phase, allowing pt. to complete home management of BLE including use of pneumatic compression pump, exercises, self manual lymph drainage routine, and use of day time and nighttime BLE compression garments. Pt. has been inconsistent with daily home maintenance program over course of intensive treatment, but reports consistent improvement of activities and confidence to complete independently. Pt. to be discharge on this date. Plan of Care OT Services Indicated No
== END 2024-10-07 14:27 | disposition home or self-care (01) ==
LOC: ANHOT 09:00
PROVIDERS: PCP Internal Medicine Infectious Disease; Visit Provider Internal Medicine Infectious Disease
DX: I89.0 Lymphedema, not elsewhere classified (principal)
CPT/HCPCS: 29581; 97016; 97110; 97140; 97165; 97530; 97535

== ENCOUNTER 2024-11-23 07:49 | Outpatient (CLI) | payer MEDICARE, MEDICAID, SELFPAY ==
--- OUTSIDE RECORDS SUMMARY | 2024-11-23 07:56 | XMS_ITS | Clinical Summary ---
Author Organization [facility] Address [address] [place] [address] Care Team Providers Care Alteration Worker Name Role Phone Paco Sharma MD Unavailable [phone] Bolivar Donald MD Primary Care Provider Source Comments [facility],non-owned Affiliates and Associated Physician Practices is amultiple site organization consisting of ambulatory clinics and hospital sitesin [place], [place], [place] and [place]. This disclosure is being madepursuant to the Care Everywhere program and may not contain all information available regarding this patient. Last updated 18.[facility] Allergies Active Allergy Reactions Criticality Noted Date [...] fluticasone propionate (FLONASE) 50 MCG/ACT nasal spray [place] 2 (two) sprays into each nostril once [...] Acute Pain 12 tablet 04/22/2024 5:20 PM DISTRIBUTING CLERK 04/22/19 Active oxyCODONE-aceta minophen (Percocet) 10-325 MG tabletIndicatio ns:Traumatic hematoma of right knee, initial encounter Take 1 (one) tablet by mouth every 6 hours as needed for Pain 12 tablet 04/22/2024 5:20 PM DISTRIBUTING CLERK 04/22/19 Active Active Problems Problem Noted Date [...] care, and heating? Not very hard 04/21/2024 [facility] - Occupational Stress Questionnaire Answer Date Recorded [...] any time in the past 12 m [facility], were you homeless or living in a fdc (including now)? No 04/21/2024 Sex and Gender Information Value Date Recorded Sex Assigned at Male 08/21/2020 10:13 AM CDT Legal Sex Male 9:38 AM CDT Gender Identity Male 08/21/2020 10:13 AM CDT Sexual Orientation Straight 08/21/2020 10 :13 AM CDT Last Filed Vital Signs Vital Sign Reading Time Taken Comments Blood Pressure 136/86 05/13/2024 12:20 PM DISTRIBUTING CLERK Pulse 74 05/13/2024 12:20 PM DISTRIBUTING CLERK Temperature 36.8 C (98.2 F) 05/13/2024 12:20 PM DISTRIBUTING CLERK Respiratory Rate 18 05/13/2024 12:2 0 PM DISTRIBUTING CLERK Oxygen Saturation 99% 05/13/2024 12: 20 PM DISTRIBUTING CLERK Inhaled Oxygen Concentration 21% 04/09/2024 9 :23 PM DISTRIBUTING CLERK Weight 126.1 kg (277 lb 14.4 oz) 2024 12:20 PM DISTRIBUTING CLERK Height 182.9 cm (6') 05/13/2024 12:20 PM DISTRIBUTING CLERK Body Mass Index 37.69 05/13/2024 12:20 PM DISTRIBUTING CLERK Plan of Treatment Health Maintenance Due [...] series) 2012 AAA SCREENING 02/22/2017 COVID-19 VACCINE (3 - season) 2023 12/02/2020, 11/11/2020 DEPRESSION SCREENING 04/21/2024 MEDICARE AWV CALENDAR YEAR 2024 INFLUENZA VACCINE (#1) 2024 9, 04/28/2018, 02/06/2017, Additional history exists HEPATITIS B [...] this topic Medical Devices Implanted Type Area Steel Sash Erector Device Identifier Shelf Expiration Date Model / Serial / Lot Shell Acetab Limited Hole G7 Sz H 62mm Implanted:Qty: 1 on 12/20/2020 by Arron Daley MD at [facility] Right: Hip [employer] 08/01/2030 [id number] / / [id number] Bone Screw Implanted:Qty: 1 on 12/20/2020 by Arron Daley MD at [facility] Right: Hip 12/09/2029 / / [id number] Bone Screw Implanted:Qty: 1 on 12/20/2020 by Arron Daley MD at [facility] Right: Hip 07/14/2030 / / [id number] Acetabular Liner Implanted:Qty: 1 on 12/20/2020 by Arron Daley MD at [facility] Right: Hip 08/24/2025 [id number] / / [id number] Femoral Stem Implanted:Qty: 1 on 12/20/2020 by Arron Daley MD at [facility] Right: Hip 05/21/2025 [id number] / / [id number] Femoral Head Implanted:Qty: 1 on 12/20/2020 by Arron Daley MD at [facility] Right: Hip 12/19/2028 [id number] / / [id number] Acetabular Shell Implanted:Qty: 1 on 03/12/2021 by Arron Daley MD at [facility] Left: Hip 10/26/2030 [id number] / / [id number] Linr Actb G7 H 40mm Vivacit-E Hip Lum Implanted:Qty: 1 on 03/12/2021 by Arron Daley MD at [facility] Left: Hip [employer] 08/24/2025 [id number] / / [id number] Stm Fem Hip 7.5 Hi Ofst Avenir Cmplt Implanted:Qty: 1 on 03/12/2021 by Arron Daley MD at [facility] Left: Hip [employer] 03/20/2025 [id number] / / [id number] Femoral Head Implanted:Qty: 1 on 03/12/2021 by Arron Daley MD at [facility] Left: Hip 07/19/2030 [id number] Explanted Type Area Steel Sash Erector Device Identifier Shelf Expiration Date Model / Serial / Lot Stent Biliary 10mm 8.5fr 60mm 194cm .035 Implanted:Qty: 1 on 01/27/2019 by Alberto Arauz MD at [facility] Explanted:Qty: 1 on 03/15/2019 by Alberto Arauz MD at [facility] N/A: Bile Duct [employer] 08/25/2020 [id number] / / [id number] Pin Fx 22.9cm 4mm Stnm Thrd Ss 1 End Explanted:Qty: 1 on 12/20/2020 by Arron Daley MD at [facility] Right: Hip [employer] [id number] / / Pin Fx 22.9cm 4mm Stnm Thrd Ss 1 End Explanted:Qty: 1 on 03/12/2021 at [facility] Left: Hip [employer] [id number] / / Insurance MEDICAID - OUT OF STATE MANAGED MEDICARE ADV MANAGED MEDICARE ADV Advance [...] 9:11 AM 09/22/2020 2:22 PM Care Teams Alteration Worker Relationship Specialty Start Date End Date Bolivar Donald MD [address] [place], [place] [id number] PCP - General Internal Medicine 04/07/24 [place] [address] [address] Consulting Physician Cardiac Electrophysiology 01/05/21
--- OUTSIDE RECORDS SUMMARY | 2024-11-23 07:56 | XMS_ITS ---
Author Organization [facility] Address [address] [place] [address] Care Team Providers Care Granite Polisher Apprentice Name Role Phone Bolivar Donald MD Primary Care Provider Radha Carvajal OT Unavailable Unavailable Bambi Gould OT Unavailable Unavailable Josefa Gracia OT Unavailable UnavailBelkis Hsu OT Unavailable UnavailBhumika Law OT Unavailable UnavailMayito Travis NP Unavailable Mateo Mendoza MD Unavailable [phone] Active Problems Problem Noted Date Diagnosed Date Chronic pain of both ankles 07/30/2022 Spondylosis of lumbar region without myelopathy or radiculopathy 04/09/2022 Lymphedema 04/09/2022 Morbid (severe) obesity due to excess calories 0 10/09/2021 Body mass index 40.0-44.9, adult (CMS/[facility]) 10/09 Bilateral hip pain 05/15/2021 Spinal stenosis of lumbar re gion with neurogenic claudication 06/22/2019 Radiculopathy, lumbosacral region 06/22/2019 long term care pharmacist prescription opiate use 09/18/2017 Other obesity due [...]
--- OUTSIDE RECORDS SUMMARY | 2024-11-23 07:56 | XMS_ITS | Continuity of Care Document ---
Author Organization [facility] Address [address] [place] [address] Insurance Providers Payer Plan Claims Address Claims Phone Policy Number Group Number Relation Employer Guarantor Name Guarantor Guarantor Address Guarantor Phone Organ izati on/IC -1906 [address] [address], [place] [address] [id number] Self Moreno Khan [address], [place] [address] Organ izati on/IC -411 [address] [address], [place] [address] [id number] Self Moreno Khan [address], [address] MEDIC ARE [address] [address], [place] [address] tel:[phone] [id number] Self Moreno Khan [address] [place], [place] [address] Problems Unknown Problems Results No Results Allergies, [...]
--- OUTSIDE RECORDS SUMMARY | 2024-11-23 07:56 | XMS_ITS | Referral Summary ---
Author Organization [facility] Address [address] [place] [address] Care Team Providers Care Electrode Turner And Finisher Name Role Phone Bolivar Donald MD Primary Care Provider Radha Carvajal OT Unavailable Unavailable Bambi Gould OT Unavailable Unavailable Josefa Gracia OT Unavailable UnavailBelkis Hsu OT Unavailable UnavailBhumika Law OT Unavailable UnavailMayito Travis NP Unavailable Mateo Mendoza MD Unavailable Encounters Date Type Department Care Team Description 11/15/2024 7:22 AM CDT - 11/15/2024 11:59 PM CDT Hospital Encounter [facility] [address] [place] [id number] Mayito Abdul NP Chronic bilateral low back pain, unspecified whether sciatica present (Primary Dx); Spinal stenosis of lumbar region with neurogenic claudication; Spondylosis of lumbar region without myelopathy or radiculopathy; 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 prescription 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; Lymphedema; Chronic pain of both ankles Discharge Disposition: Discharge to home or self care 09/20/2024 7:20 AM CDT - 09/20/2024 11:59 PM CDT Hospital Encounter [facility] [address] [place] [phone] Mayito Abdul NP Radiculopathy, lumbosacral region (Primary Dx); Chronic pain of both ankles; Pain in joint involving multiple sites Discharge Disposition: Discharge to home or self care from Last 3 Months Allergies Active Allergy Reactions Criticality Noted Date Comments Sulfa (Sulfonamide Antibiotics) Hives,Itching High Reaction: Hives, Itching, Tramadol Itching Low Medications PROAIR HFA 90 mcg/actuation inhaler PRN 05/14/19 18 Active fluticasone (FLONASE) 50 mcg/actuation nasal spray PRN 05/14/19 18 Active rosuvastatin (CRESTOR) 10 mg tablet daily 05/14/19 18 Active tamsulosin (FLOMAX) 0.4 mg extended release capsule 05/14/19 18 Active vitamin D3-vitamin K2 1000-90 unit-mcg tablet,disinte grating Take 1,500 Int'l Units by mouth Active Eliquis 5 mg tablet 2 (two) times a day 09/23/19 21 Active metoprolol tartrate (LOPRESSOR) 50 mg immediate release tablet metoprolol tartrate 50 mg tablet Active omeprazole (PriLOSEC) 20 mg capsule Take by mouth daily 09/13/19 21 Active lisinopriL (PRINIVIL,ZEST RIL) 5 mg tablet Take 1 tablet (5 mg total) by mouth daily 10/21/19 21 Active lisinopriL (PRINIVIL,ZEST RIL) 10 mg tablet Take 1 tablet (10 mg total) by mouth daily 10/21/19 21 Active naloxone (NARCAN) 4 mg/actuation spray,non-aero rolan Call 911. Administer a single spray in one nostril. Repeat every 3 minutes as needed if no or minimal response. 1 each 1 07/31/19 23 Active calcium carbonate (OS-MARICRUZ) 1,500 mg (600 mg elemental) tablet Take by mouth 04/21/18 70 Active multivitamin capsule Take by mouth 12/12/19 17 Active cyanocobalamin , vitamin B-12, 5,000 mcg/mL [...] by mouth 2 (two) times a day 05/11/19 24 Active oxyCODONE-acet aminophen (PERCOCET) 10-325 mg per tabletIndicati ons:Pain Take 1 tablet by mouth every 8 (eight) hours as needed for pain 90 tablet 11/22/19 25 025 Active oxyCODONE-acet aminophen (PERCOCET) 10-325 mg per tabletIndicati ons:Pain Take 1 tablet by mouth every 8 (eight) hours as needed for pain 90 tablet 12/22/19 25 025 Active oxyCODONE-acet aminophen (PERCOCET) 10-325 mg per tabletIndicati ons:Pain Take 1 tablet by mouth every 8 (eight) hours as needed for pain 90 tablet 10/23/19 25 025 Discontinued oxyCODONE-acet aminophen (PERCOCET) 10-325 mg per tabletIndicati ons:Pain Take 1 tablet by mouth every 8 (eight) hours as needed for pain 90 tablet 09/23/19 25 025 Discontinued Active Problems Problem Noted Date Diagnosed Date Chronic pain of both ankles 07/30/2022 Spondylosis of lumbar region without myelopathy or radiculopathy 04/09/2022 Lymphedema 04/09/2022 Morbid (severe) obesity due to excess calories 0 10/09/2021 Body mass index 40.0-44.9, adult ([facility]) 10/09 Bilateral hip pain 05/15/2021 Spinal stenosis of lumbar re gion with neurogenic claudication 06/22/2019 Radiculopathy, lumbosacral region 06/22/2019 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 prescription opiate use 09/18/2017 Other obesity [...] on file Legal Sex Male 10:20 AM SHRIMP TRAWLER Gender Identity Male 03/20/2021 12:08 PM SHRIMP TRAWLER Sexual Orientation Straight 03/20/2021 12 :08 PM SHRIMP TRAWLER Last Filed Vital Signs Vital Sign Reading Time Taken Comments Blood Pressure 123/81 11/15/2024 7:43 AM CDT Pulse 79 11/15/2024 7:43 AM CDT Temperature 36.7 C (98.1 F) 12/20/2022 9:17 AM CDT Respiratory Rate 17 11/15/2024 7:43 AM CDT Oxygen Saturation 98% 11/15/2024 7:43 AM CDT Inhaled Oxygen Concentration - - Weight 113.4 kg (250 lb) 11/15/2024 7:43 AM CDT Height 182.9 cm (6' 0.01) 07/15/2023 1:21 PM CD T Body Mass Index 33.9 07/15/2023 1:21 PM CDT Plan of Treatment [...] cancer screening EGFR STAT 05/16/2017 3:20 PM SHRIMP TRAWLER HEMOGLOBIN A1C STAT 01/16/2017 11:30 AM CDT [...] 9:31 AM CDT) PSA-Total 2.28 <=5.40 ng/mL [facility] Comment: Interpretive Data AGE SEX REFERENCE INTERVAL [...] NP LAB BLOOD ORDERABLES Fi nal Result [facility] [address] [facility] Department [place] [address] * eGFR (05/16/2017 3:20 PM SHRIMP TRAWLER) eGFR 75 mL/min/1.7 3 m2 [facility] Comment: Interpretive Data Reference Interval Normal >/= 90 mL/min/1.73m2 Mildly decreased* 60 - 89 mL/min/1.73m2 Mildly to moderately decreased 45 - 59 mL/min/1.73m2 Moderately to severely decreased 30 - 44 mL/min/1.73m2 Severely decreased 15 - 29 mL/min/1.73m2 Kidney Failure < 15 mL/min/1.73m2 *Relative to young adult level If -Azerbaijani multiply value by 1.16. Estimated glomerular filtration [...] 2016. Blood specimen (specimen) 05/16/2017 3:20 PM SHRIMP TRAWLER 05/16/2017 3:20 PM SHRIMP TRAWLER Narrative [facility] - 05/16/2017 3:46 PM SHRIMP TRAWLER us Rodrick Hilliard DO LAB BLOOD ORDERABLES Final Res ult [facility] [address] [place] [address] * Hemoglobin A1c (01/16/2017 11:30 AM CDT) Hgb A1C 5.8 4.0 - 6.0 % [facility] Blood specimen (specimen) 01/16/2017 11:30 AM CDT 01/16/2017 11:50 AM CDT us Sushant Miles MD LAB BLOOD ORDERABLES Final Result Performing Organization Address City/[facility]/ZIP Co de Phone Number [facility] [address] Department [place] [address] from Last 3 Months or Most Recently Relevant to Health Maintenance Insurance [facility] MEDICARE ADVANTAGE [facility] Address: [facility] [address] [place] [address] IDPA [facility] MEDICARE ADVANTAGE [facility] Address: [address] [address] [place] [address] IDPA [facility] MEDICARE ADVANTAGE [facility] Address: [address] [address] [place] [address] IDPA Care Teams Electrode Turner And Finisher Relationship Specialty Start Date End Date Bolivar Donald MD [facility] [address] [address] PCP - General 08/23/16 Radha Carvajal, OT Occupational Therapist Occupational Therapy 05/28/17 Bambi Gould, OT Occupational Therapist Occupational Therapy 06/02/17 Josefa Gracia, OT Occupational Therapist Occupational Therapy 06/16/17 Belkis Alexandra, OT Occupational Therapist Occupational Therapy 06/20/17 Bhumika Rodriguez, OT Occupational Therapist Occupational Therapy 06/30/17 Mayito Abdul REGISTERED SAFETY ENGINEER [address] [place] [address] Nurse Practitioner Pain Management 12/25/23 [place] [address] [place] [address] Consulting Physician Pain Management 09/20/24
--- OUTSIDE RECORDS SUMMARY | 2024-11-23 07:56 | XMS_ITS | Clinical Summary ---
Author Organization [facility] Address [address] [place] [address] Care Team Providers Care Supply Chain Procurement Manager Name Role Phone Bolivar Donald MD Primary Care Provider Radha Carvajal OT Unavailable Unavailable Bambi Gould OT Unavailable Unavailable Josefa Gracia OT Unavailable UnavailBelkis Hsu OT Unavailable UnavailBhumika Law OT Unavailable UnavailMayito Travis NP Unavailable [phone] Mateo Mendoza MD Unavailable Allergies Active Allergy Reactions Criticality Noted Date [...] mg capsule Take by mouth daily 09/13/19 Active lisinopriL (PRINIVIL,ZEST RIL) 5 mg tablet [...] as needed for pain 90 tablet 09/23/19 025 Discontinued Active Problems Problem Noted Date Diagnosed Date Chronic pain of both ankles 07/30/2022 Spondylosis of lumbar region without myelopathy or radiculopathy 04/09/2022 Lymphedema 04/09/2022 Morbid (severe) obesity due to excess calories 0 10/09/2021 Body mass index 40.0-44.9, adult (CMS/[facility]) 10/09 Bilateral hip pain 05/15/2021 Spinal stenosis of lumbar re gion with neurogenic claudication 06/22/2019 Radiculopathy, lumbosacral region 06/22/2019 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 09/18/2017 Other obesity due [...] - 11/15/2024 11:59 PM CDT Hospital Encounter [facility] [address] [place] [address] Mayito Abdul, HEENA Chronic bilateral low back pain, unspecified whether sciatica present (Primary Dx); Spinal stenosis of lumbar region with neurogenic claudication; Spondylosis of lumbar region without myelopathy or radiculopathy; 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; Lymphedema; Chronic pain of both ankles Discharge Disposition: Discharge to home or self care 09/20/2024 7:20 AM CDT - 09/20/2024 11:59 PM CDT Hospital Encounter [facility] [id number] [place] [address] Mayito Abdul NP Radiculopathy, lumbosacral region (Primary [...] on file Legal Sex Male 10:20 AM CARE MANAGEMENT ASSISTANT Gender Identity Male 03/20/2021 12:08 PM CARE MANAGEMENT ASSISTANT Sexual Orientation Straight 03/20/2021 12 :08 PM CARE MANAGEMENT ASSISTANT Obstetrics History Last Filed Vital Signs Vital [...] 1012/2016, 01/24/2017, Additional history exists Covid-19 Vaccine (2023- 5 season) 2023 06/19/2021, 12/02/2020, 11/11/2020 Hemoglobin A1C 10/07/2024 04/08/2024, 11/19, 08/16/2020, Additional history exists Influenza Vaccine (#1) 2024 , 03/09/2020, 01/12/2019, Additional history exists Fall Risk Assessment 11/15/2025 11/15/2024 DTaP/Tdap/Td Vaccine (3 - Td or Tdap) [...] cancer screening EGFR STAT 05/16/2017 3:20 PM CARE MANAGEMENT ASSISTANT HEMOGLOBIN A1C STAT 01/16/2017 11:30 AM CDT [...] 9:31 AM CDT) PSA-Total 2.28 <=5.40 ng/mL [facility] Comment: Interpretive Data AGE SEX REFERENCE [...] 12/28/2021 9:45 AM CDT us Shanice Farias NP LAB BLOOD ORDERABLES nal Result [facility] Department [place] [address] * eGFR (05/16/2017 3:20 PM CARE MANAGEMENT ASSISTANT) eGFR 75 mL/min/1.7 3 m2 [facility] Comment: Interpretive Data Reference Interval Normal >/= 90 mL/min/1.73m2 Mildly decreased* 60 - 89 mL/min/1.73m2 Mildly to moderately decreased 45 - 59 mL/min/1.73m2 Moderately to severely decreased 30 - 44 mL/min/1.73m2 Severely decreased 15 - 29 mL/min/1.73m2 Kidney Failure < 15 mL/min/1.73m2 *Relative to young adult level If -Ukrainian multiply value by 1.16. Estimated glomerular filtration [...] 2016. Blood specimen (specimen) 05/16/2017 3:20 PM CARE MANAGEMENT ASSISTANT 05/16/2017 3:20 PM CARE MANAGEMENT ASSISTANT Narrative [facility] - 05/16/2017 3:46 PM CARE MANAGEMENT ASSISTANT us Rodrick Hilliard DO LAB BLOOD ORDERABLES Final Res ult [facility] [address] Department [place] [address] * Hemoglobin A1c (01/16/2017 11:30 AM CDT) Hgb A1C 5.8 4.0 - 6.0 % [facility] Blood specimen (specimen) 01/16/2017 11:30 AM CDT 01/16/2017 11:50 AM CDT us Sushant Miles MD LAB BLOOD ORDERABLES Final Result Performing Organization Address [facility] Co de Phone Number [facility] [address] Department [place] [address] from Last 3 Months or Most Recently Relevant to Health Maintenance Insurance [facility] MEDICARE ADVANTAGE IDPA [facility] [place]ARE [place]AGE [id number] MEDICARE ADVANTAGE [place] Care Teams Supply Chain Procurement Manager Relationship Specialty Start Date End Date Bolivar Donald MD [address] [address] PCP - General 08/23/16 Radha Carvajal, OT Occupational Therapist Occupational Therapy 05/28/17 Bambi Gould, OT Occupational Therapist Occupational Therapy 06/02/17 Josefa Gracia, OT Occupational Therapist Occupational Therapy 06/16/17 Belkis Alexandra, OT Occupational Therapist Occupational Therapy 06/20/17 Bhumika Rodriguez, OT Occupational Therapist Occupational Therapy 06/30/17 Mayito Abdul, FLIGHT ENGINEER INSPECTOR [address] [address] [place], [place] [id number] Nurse Practitioner Pain Management 12/25/23 [place] [address] [facility] [address] [place] [address] Consulting Physician Pain Management 09/20/24
[2024-11-23 08:55] LABS: Hematocrit 36.4 % (42.0-52.0); Hemoglobin 12.3 g/dL (14.0-18.0)
[2024-11-23 10:24] LABS: Vitamin B12 > 1000.0 pg/mL (239-931)
== END 2024-11-23 07:50 | disposition home or self-care (01) ==
PROVIDERS: PCP Internal Medicine Infectious Disease; Visit Provider Internal Medicine Pulmonary Disease
DX: E53.8 Deficiency of other specified B group vitamins (principal); E56.0 Deficiency of vitamin E
CPT/HCPCS: 36415; 82607; 84446; 85014; 85018